=== PATIENT | female | born 1955 | race Hispanic/Latino ===

== ENCOUNTER 2022-09-05 13:10 | Emergency (ER) | payer OTHER ==
--- OUTSIDE RECORDS SUMMARY | 2022-09-05 13:27 | XMS REPORT | Continuity of Care Document ---
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 - [facility] Coronary Coronary Diagnosis Active Com mon artery artery Spirit disease disease - [facility] involving involving [facility] coronary coronary Medica l artery of artery of Cent er sy[place] heart heart without without angina angina pectoris pectoris Essential Essential Diagnosis Active C ommon (primary) (primary) Spir it hypertensi hypertensi - [facility] on on [facility] Allergies, Adverse Reactions, Alerts Allergy Allergy Status Severity Reaction(s) Onset Inactive Treating Comm ents Source Name Type Date Date Clinician Hydrocod Adverse Active nausea and Com mon one Reaction vomiting Spirit Bitartra - [facility] te [facility] Medications Ordered Filled Start Stop Current Ordering Indication Dosage Frequency Signature Comments Components Source Medication Medication Date Date Medication? Clinician (SIG) Name Name Aden Solorioarnulfoe 2017- Yes Jac 1 spray in Common 3-26 Valeria each Spirit 00:00: nostril - [facility] 00 [facility] Aspir-Low Aspir-Low Yes Jac 1 tablet Common Valeria [facility] Plavix Plavix Yes Jac 1 tablet Commo n Valeria [facility] Gemfibrozil Gemfibrozil Yes Jac 1 tablet Common Valeria [facility] Coreg Coreg Yes Jac not Common Valeria defined Spirit [facility] Niacin Niacin Yes Jac 1 tablet Commo n Valeria with food Spirit - CH[facility] Lovastatin Lovastatin Yes Jac 1 tablet Common Valeria with a Spirit meal [facility] Procedures This patient has no known procedures. Encounters Start End Encounter Admission Attending Care Care Encounter Source Date/Time Date/Time Type Type Clinicians Facility Department ID 2017-07-15 2017-07-15 Outpatient Quinton Reynolds [id number] Common 14:30:00 14:30:00 [facility] 2017-06-02 2017-06-02 Outpatient Quinton Reynolds [id number] Common 15:30:00 15:30:00 [facility] Results This patient has no known results.
[2022-09-05 14:12] LABS: Absolute Lymphocytes (CBC) 1.5 K/uL (0.7-4.9); Hematocrit 24.4 % (36.0-45.0); Lymphocytes % 24.9 % (15.3-44.8); MPV 8.6 fL (7.6-11.3); RBC Red Blood Cell Count 3.88 M/uL (3.86-4.86)
[2022-09-05 14:41] LABS: Albumin 3.9 g/dL (3.4-5.0); Bilirubin Total 0.4 mg/dL (0.2-1.0); Potassium 3.9 mEq/L (3.5-5.1); Protein, Total 7.3 g/dL (6.4-8.2)
--- NOTE | 2022-09-05 14:55 | EDPHYS ---
Physician Documentation [facility] Name: Jennifer Sherwood Age: 66 yrs Sex: Female : 1955 Arrival Date: 09/05/2022 Time: 13:10 Bed 16 Private MD: ED Physician West Reynoso HPI: 09/05 13:30 Patient is a 66-year-old female who has a history of hypertension prior PR and prior jr11 need for blood transfusions here for low hemoglobin. Patient went to get routine lab work 2 days ago, noted to have a hemoglobin around 7 so she was sent here for blood transfusion. Patient states she just feels generalized weakness fatigue, nonfocal, denies any melanotic stools, no hematochezia. No hematuria, no vaginal bleeding. Patient states they have done a work-up in the past and it has been nonrevealing.. Historical: - Allergies: 13:28 Hydrocodone; nj1 - PMHx: 13:28 Hypertension; Myocardial infarction; nj1 - PSHx: 13:28 Knee repair, right; nj1 - Immunization history:: Client reports receiving the 2nd dose of the Covid vaccine. - Social history:: Smoking status: Patient reports the use of cigarette tobacco products, smokes one-half pack cigarettes per day. ROS: 13:30 All other systems are negative. jr11 Exam: 13:30 Constitutional: This is a well developed, well nourished patient who is awake, alert, jr11 and in no acute distress. Head/Face: Normocephalic, atraumatic. ENT: Nares patent. No nasal discharge, no septal abnormalities noted. Oropharynx with no redness, swelling, or masses, exudates, or evidence of obstruction, uvula midline. Mucous membranes moist. Neck: Trachea midline, no thyromegaly or masses palpated, and no cervical lymphadenopathy. Supple, full range of motion without nuchal rigidity, or vertebral point tenderness. No Meningismus. Chest/axilla: Normal chest wall appearance and motion. Nontender with no deformity. No lesions are appreciated. Cardiovascular: Regular rate and rhythm with a normal S1 and S2. No gallops, murmurs, or rubs. Normal PMI, no JVD. No pulse deficits. Respiratory: Lungs have equal breath sounds bilaterally, clear to auscultation and percussion. No rales, rhonchi or wheezes noted. No increased work of breathing, no retractions or nasal flaring. Abdomen/GI: Soft, non-tender, with normal bowel sounds. No distension or tympany. No guarding or rebound. No evidence of tenderness throughout. Skin: Warm, dry with normal turgor. Normal color with no rashes, no lesions, and no evidence of cellulitis. MS/ Extremity: Pulses equal, no cyanosis. Neurovascular intact. Full, normal range of motion. Vital Signs: 13:23 BP 114 / 89; Pulse 90; Resp 18; Pulse Ox 100% ; Weight 66.68 kg; Height 5 ft. 0 in. ; nj1 Pain 0/10; 13:23 Body Mass Index 28.71 (66.68 kg, 152.4 cm) [facility] 13:23 Pain Scale: Adult nj1 MDM: 13:30 Differential Diagnosis anemia . Data reviewed: vital signs, nurses notes. [facility] 13:32 Patient medically screened. [facility] 14:52 ED course: Pt hemoglobin 7.4, no indication for emergent transfusion. Pt agrees with [facility] POC, will start taking her iron. . 09/05 13:31 Order name: CBC with Diff; Complete Time: 14:36 [facility] 09/05 13:31 Order name: CMP; Complete Time: 14:47 [facility] 09/05 13:31 Order name: Type And Screen; Complete Time: 15:05 [facility] 09/05 13:31 Order name: IV Saline Lock; Complete Time: 14:21 [facility] 09/05 13:31 Order name: Labs collected and sent; Complete Time: 14:21 [facility] Administered Medications: No medications were administered Disposition Summary: 09/05/22 14:55 Discharge Ordered Location: Home [facility] Condition: Stable [facility] Diagnosis - Iron deficiency anemia, unspecified 11 Followup: [facility] - With: Private Physician - When: 5 - 6 days - Reason: recheck hemoglobin Discharge Instructions: - Discharge Summary Sheet [facility] - Iron Deficiency Anemia, Adult [facility] Forms: - Medication Reconciliation Form jr11 - Thank You Letter jr11 - Antibiotic Education jr - Prescription Opioid Use [facility] - [email or web address] [facility] Signatures: Dispatcher [employer] EDMS West Reynoso MD MD 11 Ivania Fontaine RN RN nj1 Corrections: (The following items were deleted from the chart) 13:29 13:28 Allergies: Hydrocodone-Acetaminophen; nj1 nj1
--- NOTE | 2022-09-05 14:55 | ER ---
Nurse's Notes [facility] Name: Jennifer Sherwood Age: 66 yrs Sex: Female : 1955 Arrival Date: 09/05/2022 Time: 13:10 Bed 16 Private MD: Diagnosis: Iron deficiency anemia, unspecified Presentation: 09/05 13:23 Chief complaint: Patient states: Told by PCP to come to ED for a blood transfusion, Hgb nj1 7. Seen by PCP a couple weeks ago, blood work done day before yesterday. Has had a couple transfusions in the past, last one was 5 years ago. Denies any known bleeding. Coronavirus screen: Vaccine status: Patient reports receiving the 2nd dose of the covid vaccine. Ebola Screen: Patient denies travel to an Ebola-affected area in the 21 days before illness onset. Initial Sepsis Screen: Does the patient meet any 2 criteria? No. Patient's initial sepsis screen is negative. Does the patient have a suspected source of infection? No. Patient's initial sepsis screen is negative. Risk Assessment: Do you want to hurt yourself or someone else? Patient reports no desire to harm self or others. 13:23 Method Of Arrival: Ambulatory [facility] 13:23 Acuity: VAHE 3 nj1 Triage Assessment: 13:30 General: Appears in no apparent distress. Behavior is calm, cooperative, appropriate bp for age. Pain: Denies pain. EENT: No deficits noted. Neuro: No deficits noted. Cardiovascular: No deficits noted. Respiratory: No deficits noted. GI: No signs and/or symptoms were reported involving the gastrointestinal system. : No signs and/or symptoms were reported regarding the genitourinary system. Derm: Skin is pale. Musculoskeletal: No deficits noted. Historical: - Allergies: 13:28 Hydrocodone; nj1 - PMHx: 13:28 Hypertension; Myocardial infarction; nj1 - PSHx: 13:28 Knee repair, right; nj1 - Immunization history:: Client reports receiving the 2nd dose of the Covid vaccine. - Social history:: Smoking status: Patient reports the use of cigarette tobacco products, smokes one-half pack cigarettes per day. Screenin:22 [facility] ED Fall Risk Assessment (Adult) History of falling in the last 3 months, bp including since admission No falls in past 3 months (0 pts). Abuse screen: Denies threats or abuse. Denies injuries from another. Nutritional screening: No deficits noted. Tuberculosis screening: No symptoms or risk factors identified. Assessment: 13:30 General: SEE TRIAGE NOTE. bp Vital Signs: 13:23 BP 114 / 89; Pulse 90; Resp 18; Pulse Ox 100% ; Weight 66.68 kg; Height 5 ft. 0 in. ; nj1 Pain 0/10; 13:23 Body Mass Index 28.71 (66.68 kg, 152.4 cm) [facility] 13:23 Pain Scale: Adult [facility] ED Course: 13:13 Patient arrived in ED. im 13:14 West Reynoso MD is Attending Physician. [facility] 13:28 Triage completed. [facility] 13:29 Arm band placed on right wrist. [facility] 13:32 Lavon Hutchins, RN is Primary Nurse. bp 13:45 Inserted saline lock: 20 gauge in left antecubital area, using aseptic technique. Blood bp collected. 14:22 Patient has correct armband on for positive identification. Bed in low position. Call bp light in reach. Side rails up X2. 15:10 No provider procedures requiring assistance completed. IV discontinued, intact, bp bleeding controlled, No redness/swelling at site. Pressure dressing applied. Administered Medications: No medications were administered Outcome: 14:55 Discharge ordered by . 15:10 Discharged to home ambulatory. bp 15:10 Condition: stable 15:10 Discharge instructions given to patient, Instructed on discharge instructions, follow up and referral plans. Demonstrated understanding of instructions, follow-up care. 15:10 Patient left the ED. bp Signatures: Lavon Hutchins, RN RN West Reynoso MD MD jr Ivania Fontaine RN RN nj Alvina Alberto im Corrections: (The following items were deleted from the chart) 13:29 13:28 Allergies: Hydrocodone-Acetaminophen; [place] [id number]
[2022-09-05 15:16] VITALS: BP 114/89; O2SAT 100
== END 2022-09-05 15:10 | disposition home or self-care (01) ==
LOC: ER 13:10
DX: D50.9 Iron deficiency anemia, unspecified (principal); I10 Essential (primary) hypertension; F17.210 Nicotine dependence, cigarettes, uncomplicated; Z88.5 Allergy status to narcotic agent
CPT/HCPCS: 36415; 80053; 85025; 86850; 86900; 86901; 99283

== ENCOUNTER → 2023-05-04 | Emergency (ER) | payer OTHER ==
--- OUTSIDE RECORDS SUMMARY | 2023-05-04 13:26 | XMS REPORT | Continuity of Care Document ---
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 [facility] Coronary artery disease involving [place] coronary artery of [place] heart without angina pectoris Coronary artery disease involving [place] coronary artery of [place] heart without angina pectoris Diagnosis Active [facility] Essential (primary) hypertensi on Essential (primary) hypertensi on Diagnosis Active [facility] Allergies, Adverse Reactions, Alerts Allergy Name Allergy Type Status Severity Reaction(s) Onset Date Inactive Date Treating Clinician Comments Source Hydrocod one Bitartra te Adverse Reaction Active nausea and vomiting [facility] Medications Ordered Medication Name Filled Medication Name Start Date Stop Date Current Medication? Ordering Clinician Indication Dosage Frequency Signature (SIG) Comments Components Source Flonase Flonase 2017-06-02 00:00: 00 Yes Jac Shaw 1 spray in each nostril [facility] Lovastatin Lovastatin Yes Jac Rowlanda 1 tablet with a meal [facility] Aspir-Low Aspir-Low Yes Jac Rowladna 1 tablet [facility] Plavix Plavix Yes Jac Rowlanda 1 tablet [facility] Gemfibrozil Gemfibrozil Yes Jac Rowlanda 1 tablet [facility] Coreg Coreg Yes Jac Shaw not defined [facility] Niacin Niacin Yes Jac Shaw 1 tablet with food [facility] Encounters Start Date/Time End Date/Time Encounter Type Admission Type Attending Clinicians Care Facility Care Department Encounter ID Source 2023-04-28 16:33:00 Outpatient [facility] [id number] [facility] 2017-07-15 14:30:00 2017-07-15 14:30:00 Outpatient [facility] [id number] [facility] 2017-06-02 15:30:00 2017-06-02 15:30:00 Outpatient [facility] [id number] [facility]
--- NOTE | 2023-05-04 14:23 | RAD REPORT ---
EXAM DESCRIPTION: [place] Single View05/04/2023 2:07 pm CLINICAL HISTORY: Chest pain COMPARISON: 2020 FINDINGS: The lungs appear clear of acute infiltrate. The heart is normal size IMPRESSION: No acute abnormalities displayed
[2023-05-04 16:15] LABS: Protime INR 1.1
[2023-05-04 16:27] LABS: Potassium 3.4 mEq/L (3.5-5.1)
[2023-05-04 16:38] LABS: MPV 8.9 fL (7.6-11.3)
[2023-05-04 16:42] LABS: Absolute Lymphocytes (CBC) 1.6 K/uL (0.7-4.9); Hematocrit 25.4 % (36.0-45.0); Lymphocytes % 12.9 % (15.3-44.8); MCV 57.1 fL (80-100); Platelets 176 thou/uL (152-406); RBC Red Blood Cell Count 4.45 M/uL (3.86-4.86)
[2023-05-04 17:33] LABS: Anisocytosis 2+; Blood Morphology Comment NOTED (NOT SEEN); Hypochromasia 1+; Ovalocytes 2+; Platelet Estimate ADEQ; Poikilocytosis 2+; Polychromasia 1+; White Blood Cell Scan OK (OK)
--- NOTE | 2023-05-04 17:35 | ER ---
Nurse's Notes [facility] Name: Jennifer Sherwood Age: 67 yrs Sex: Female : 1955 Arrival Date: 05/04/2023 Time: 13:22 Bed 16 Private MD: Georgette Trevino Diagnosis: Chest pain, unspecified Presentation: 05/04 13:32 Chief complaint: Patient states: Chest pressure started 1 hour SKID MAN. Pain radiates into ll1 R neck/ear. Coronavirus screen: Client denies travel out of the [place] in the last 14 days. At this time, the client does not indicate any symptoms associated with coronavirus-19. Ebola Screen: Patient denies travel to an Ebola-affected area in the 21 days before illness onset. Initial Sepsis Screen: Does the patient meet any 2 criteria? No. Patient's initial sepsis screen is negative. Does the patient have a suspected source of infection? No. Patient's initial sepsis screen is negative. Risk Assessment: Do you want to hurt yourself or someone else? Patient reports no desire to harm self or others. Onset of symptoms was May 04, 2023. 13:32 Method Of Arrival: Ambulatory ll1 13:32 Acuity: VAHE 2 ll1 Historical: - Allergies: 13:31 HYDROCODONE; ll1 - PMHx: 13:31 Hypertension; Myocardial infarction; ll1 - PSHx: 13:31 Knee repair; ll1 - Immunization history:: Adult Immunizations up to date. - Social history:: Smoking status: Patient denies any tobacco usage or history of. Screenin:47 [facility] ED Fall Risk Assessment (Adult) History of falling in the last 3 months, cp4 including since admission No falls in past 3 months (0 pts). Abuse screen: Denies threats or abuse. Nutritional screening: No deficits noted. Tuberculosis screening: No symptoms or risk factors identified. Assessment: 13:47 General: Appears in no apparent distress. Behavior is calm, cooperative, appropriate cp4 for age. Pain: Pain radiates to right neck Pain began 1 hour ago. Cardiovascular: Reports chest pain, Chest pain began 1 hour prior to arrival. Vital Signs: 13:32 BP 137 / 65; Pulse 119; Resp 17; Temp 97.7; Pulse Ox 100% on R/A; Weight 63.5 kg; ll1 Height 5 ft. 0 in. ; Pain 6/10; 14:14 BP 114 / 69; Pulse 95; Resp 18; Pulse Ox 100% ; cp4 15:30 BP 123 / 98; Pulse 97; Resp 18; Pulse Ox 100% ; cp4 16:30 BP 132 / 56; Pulse 87; Resp 18; Pulse Ox 98% ; cp4 13:32 Body Mass Index 27.34 (63.50 kg, 152.4 cm) 1 13:32 Pain Scale: Adult [facility] ED Course: 13:24 Patient arrived in ED. mr 13:24 Jac Shaw MD is Private Physician. mr 13:25 Georgette Trevino DO is Private Physician. mr 13:31 Arm band placed on Patient placed in an exam room, on a stretcher. 1 13:33 Triage completed. 1 13:33 [facility]el Peck [facility] 13:33 Lawrence Spence MD is Attending Physician. [facility] 13:38 Milena Hernandez is Primary Nurse. cp4 13:47 Bed in low position. Call light in reach. Side rails up X 1. Client placed on cp4 continuous cardiac and pulse oximetry monitoring. NIBP monitoring applied. 13:49 No provider procedures requiring assistance completed. Inserted saline lock: 20 gauge cp4 in left antecubital area, using aseptic technique. Blood collected. Patient maintains SpO2 saturation greater than 95% on room air. 14:08 XRAY Chest (1 view) In Process Unspecified. EDTN 17:34 Georgette Trevino DO is Referral Physician. [facility] 17:38 Provided Education on: chest pain. cp4 17:38 intact, bleeding controlled, No redness/swelling at site. Pressure dressing applied. cp4 Administered Medications: No medications were administered Medication: 13:47 VIS not applicable for this client. cp4 Outcome: 17:35 Discharge ordered by . 7 17:38 Discharged to home ambulatory, cp4 17:38 Condition: stable 17:38 Discharge instructions given to patient, Instructed on discharge instructions, follow up and referral plans. Demonstrated understanding of instructions, follow-up care, 17:39 Patient left the ED. cp4 Signatures: Dispatcher [employer] EDTN Laura Rodriguez, Reg Reg mr Latisha Sheldon RN RN 1 Hazel Peck FNP BANKING REPRESENTATIVE [id number] Milena Hernandez cp4
--- NOTE | 2023-05-04 17:35 | EDPHYS ---
Physician Documentation [facility] Name: Jennifer Sherwood Age: 67 yrs Sex: Female : 1955 Arrival Date: 05/04/2023 Time: 13:22 Bed 16 Private MD: Georgette Trevino ED Physician Lawrence Spence HPI: 05/04 13:32 This 67 yrs old Female presents to ER via Ambulatory with complaints of Chest jh7 Pressure. 13:32 Onset: The symptoms/episode began/occurred 1 hour(s) ago. Associated signs and jh7 symptoms: The patient has no apparent associated signs or symptoms. 67-year-old female presents to the ER complaining of chest pressure radiating to left face x 1 hour. The patient denies any other symptoms. She has a history of hypertension and [place]. Denies cough and fever.. Historical: - Allergies: 13:31 HYDROCODONE; ll1 - PMHx: 13:31 Hypertension; Myocardial infarction; ll1 - PSHx: 13:31 Knee repair; ll1 - Immunization history:: Adult Immunizations up to date. - Social history:: Smoking status: Patient denies any tobacco usage or history of. ROS: 13:32 Constitutional: Negative for fever, chills, and weight loss, Eyes: Negative for injury, jh7 pain, redness, and discharge, Neck: Negative for injury, pain, and swelling, Respiratory: Negative for shortness of breath, cough, wheezing, and pleuritic chest pain, Abdomen/GI: Negative for abdominal pain, nausea, vomiting, diarrhea, and constipation, MS/Extremity: Negative for injury and deformity, Skin: Negative for injury, rash, and discoloration, Neuro: Negative for headache, weakness, numbness, tingling, and seizure, 13:32 Cardiovascular: Positive for chest pain, Negative for edema, palpitations, 13:32 All other systems are negative, Exam: 13:32 Constitutional: This is a well developed, well nourished patient who is awake, alert, jh7 and in no acute distress. Head/Face: Normocephalic, atraumatic. Eyes: Pupils equal round and reactive to light, extra-ocular motions intact. Lids and lashes normal. Conjunctiva and sclera are non-icteric and not injected. Cornea within normal limits. Periorbital areas with no swelling, redness, or edema. Neck: Trachea midline, no thyromegaly or masses palpated, and no cervical lymphadenopathy. Supple, full range of motion without nuchal rigidity, or vertebral point tenderness. No Meningismus. Cardiovascular: Regular rate and rhythm with a normal S1 and S2. No gallops, murmurs, or rubs. Normal PMI, no JVD. No pulse deficits. Respiratory: Lungs have equal breath sounds bilaterally, clear to auscultation and percussion. No rales, rhonchi or wheezes noted. No increased work of breathing, no retractions or nasal flaring. Abdomen/GI: Soft, non-tender, with normal bowel sounds. No distension or tympany. No guarding or rebound. No evidence of tenderness throughout. Back: No spinal tenderness. No costovertebral tenderness. Full range of motion. Skin: Warm, dry with normal turgor. Normal color with no rashes, no lesions, and no evidence of cellulitis. MS/ Extremity: Pulses equal, no cyanosis. Neurovascular intact. Full, normal range of motion. Neuro: Awake and alert, GCS 15, oriented to person, place, time, and situation. Motor strength 5/5 in all extremities. Sensory grossly intact. Normal gait. Vital Signs: 13:32 BP 137 / 65; Pulse 119; Resp 17; Temp 97.7; Pulse Ox 100% on R/A; Weight 63.5 kg; ll1 Height 5 ft. 0 in. ; Pain 6/10; 14:14 BP 114 / 69; Pulse 95; Resp 18; Pulse Ox 100% ; cp4 15:30 BP 123 / 98; Pulse 97; Resp 18; Pulse Ox 100% ; cp4 16:30 BP 132 / 56; Pulse 87; Resp 18; Pulse Ox 98% ; cp4 13:32 Body Mass Index 27.34 (63.50 kg, 152.4 cm) ll1 13:32 Pain Scale: Adult ll1 MDM: 13:33 Patient medically screened. [facility] 17:50 Differential diagnosis: bronchitis, pneumonia Acute [place], cardiac arrhythmia. Data [facility] reviewed: vital signs, nurses notes, lab test result(s), EKG, radiologic studies, plain films. Independent interpretation of the following test(s) in the Emergency Department EKG: See my EKG interpretation above. Historians other than the Patient: Spouse/Significant Other: . Care significantly affected by the following chronic conditions: Hypertension. Counseling: I had a detailed discussion with the patient and/or guardian regarding the historical points, exam findings, and any diagnostic results supporting the discharge/admit diagnosis, to return to the emergency department if symptoms worsen or persist or if there are any questions or concerns that arise at home. ED course: Discussed repeating the troponin level with the patient. The patient declined and stated that her symptoms resolved and that if she had had a heart attack it would have happened already. The patient requested discharge paperwork and stated she would return to the ER with any new symptoms.. 05/04 13:54 Order name: Basic Metabolic Panel; Complete Time: 16:59 [facility] 05/04 13:54 Order name: CBC with Diff; Complete Time: 17:52 [facility] 05/04 13:54 Order name: NT PRO-BNP; Complete Time: 16:59 [facility] 05/04 13:54 Order name: PT-INR; Complete Time: 16:59 [facility] 05/04 13:54 Order name: Troponin HS; Complete Time: 16:59 [facility] 05/04 16:46 Order name: CBC Smear Scan; Complete Time: 17:52 [facility] 05/04 13:54 Order name: XRAY Chest (1 view); Complete Time: 14:27 [facility] 05/04 13:54 Order name: EKG; Complete Time: 13:55 [facility] 05/04 13:54 Order name: Cardiac monitoring; Complete Time: 13:55 [facility] 05/04 13:54 Order name: EKG - Nurse/Tech; Complete Time: 14:15 [facility] 05/04 13:54 Order name: IV Saline Lock; Complete Time: 13:55 [facility] 05/04 13:54 Order name: Labs collected and sent; Complete Time: 13:55 [facility] 05/04 13:54 Order name: O2 Per Protocol; Complete Time: 13:55 [facility] 05/04 13:54 Order name: O2 Sat Monitoring; Complete Time: 13:55 [facility] EC:13 Rate is 101 beats/min. Rhythm is regular. QRS [place] is Normal. ID interval is normal at jh7 140 msec. QRS interval is normal at 72 msec. QT interval is normal at 370 msec. No Q waves. T waves are Normal. No ST changes noted. Clinical impression: Sinus tachycardia. Administered Medications: No medications were administered Disposition Summary: 05/04/23 17:35 Discharge Ordered Notes: Location: Home [facility] Problem: new [facility] Symptoms: have improved [facility] Condition: Stable [facility] Diagnosis - Chest pain, unspecified [facility] Followup: [facility] - With: Georgette Trevino DO - When: 2 - 3 days - Reason: Recheck today's complaints Discharge Instructions: - Discharge Summary Sheet [facility] - Nonspecific Chest Pain, Adult [facility] - Chest Wall Pain [facility] - Electrocardiogram [facility] Forms: - Medication Reconciliation Form [facility] - Thank You Letter [facility] - Patient Portal Instructions [facility] - Leadership Thank You Letter [facility] Signatures: Dispatcher [employer] Latisha Downs RN RN ll1 Hazel Peck FNP [employer] RESE[employer]ER [facility]
[2023-05-04 18:08] VITALS: BP 132/56; TEMP 97.7; O2SAT 98
--- NOTE | 2023-05-05 14:30 | EKG ---
Test Date: 2023-05-04 Test Time: 14:13:14 Welder Machine Operator: JESUSITA MEASUREMENT RESULTS: Intervals: Rate: 101 MO: 140 QRSD: 72 QT: 370 QTc: 479 Index: P: 89 MO: 140 QRS: 73 T: 66 INTERPRETIVE STATEMENTS: Sinus tachycardia Otherwise normal ECG Electronically Signed On 05-05-23 14:26:54 CABLE RESPOOLER by Rayo Ward
== END ==
LOC: ER 13:22
DX: R07.89 Other chest pain (principal); I10 Essential (primary) hypertension; I25.2 Old myocardial infarction; Z88.5 Allergy status to narcotic agent
CPT/HCPCS: 36415; 71045; 80048; 83880; 84484; 85025; 85610; 93005; 99284

== ENCOUNTER 2023-11-16 19:58 | Emergency (ER) | payer OTHER ==
[2023-11-16 20:27] LABS: Absolute Basophils 0.1 K/uL (0-0.5); Absolute Eosinophils 0.1 K/uL (0-0.5); Absolute Lymphocytes (CBC) 1.3 K/uL (0.7-4.9); Absolute Monocytes 0.2 K/uL (0.1-1.3); Absolute Neutrophil 4.3 K/uL (1.8-8.0); Basophils % 1.1 % (0-1.3); Eosinophils % 2.1 % (0-4.4); Hematocrit 28.5 % (36.0-45.0); Hemoglobin 8.9 g/dL (12.0-15.0); Lymphocytes % 22.5 % (15.3-44.8); MCH 21.8 pg (27.0-35.0); MCHC 31.2 g/dL (32.0-36.0); MCV 70.1 fL (80-100); MPV 9.1 fL (7.6-11.3); Monocytes % 2.6 % (3.3-12.3); Neutrophils % 71.7 % (41.7-73.7); Nucleated Red Blood Cells % 0.1 % (0-0); Platelets 226 thou/uL (152-406); RBC Red Blood Cell Count 4.07 M/uL (3.86-4.86); Red Cell Distribution Width 16.3 % (12.1-15.2)
[2023-11-16 20:40] LABS: PT Prothrombin Time 12.5 SECONDS (9.4-12.5); PTT, Activated Partial Thromb 28.6 SECONDS (24.3-36.9); Protime INR 1.12
[2023-11-16 20:47] LABS: Albumin 3.4 g/dL (3.4-5.0); Albumin/Globulin Ratio 1.1 (1.1-1.8); Anion Gap 11.4 mEq/L (5.0-15.0); Bilirubin Direct 0.3 mg/dL (0-0.2); Bilirubin Indirect, Calculated 0.3 mg/dL (0.2-0.8); Bilirubin Total 0.6 mg/dL (0.2-1.0); Globulin 3.2 g/dL (2.3-3.5); Magnesium 1.7 mg/dL (1.6-2.4); Potassium 3.4 mEq/L (3.5-5.1); Protein, Total 6.6 g/dL (6.4-8.2); Troponin High Sensitivity 32.2 pg/mL (<58.9)
--- NOTE | 2023-11-16 21:07 | RAD REPORT ---
EXAM DESCRIPTION: RAD - Chest Single View - 11/16/2023 9:02 pm CLINICAL HISTORY: Chest pain;COPD;Dyspnea Chest pain. COMPARISON: Chest Single View dated 09/28/2023; Chest Single View dated 07/26/2023; Chest Single View dated 05/04/2023; Chest Pa And Lat (2 Views) dated 10/06/2020 FINDINGS: Portable technique limits examination quality. The lungs are emphysematous but grossly clear. The heart is upper limit of normal in size. No displac ed fractures. IMPRESSION: COPD.
[2023-11-16 21:42] LABS: Blood Morphology Comment NOTED (NOT SEEN); Hypochromasia 1+; Platelet Estimate ADEQ; White Blood Cell Scan OK (OK)
--- NOTE | 2023-11-16 22:27 | RAD REPORT ---
EXAM DESCRIPTION: CT - Chest For Pe Angio - 11/16/2023 10:18 pm CLINICAL HISTORY: Chest pain. Chest pain;SOB COMPARISON: Chest For Pe Angio dated 09/28/2023 TECHNIQUE: CT angiogram of the pulmonary arteries was performed with MIP. All CT scans are performed using dose optimization technique as appropriate and may include automated exposure control or mA/KV adjustment according to patient size. FINDINGS: No evidence of pulmonary thromboembolism. Thoracic aorta is suboptimally contrast opacified. The lungs are mildly emphysematous. No significant pericardial or pleural fluid. No concerning bony finding. Left adrenal adenoma suspected. IMPRESSION: No evidence of pulmonary thromboembolism. COPD.
--- NOTE | 2023-11-16 22:34 | ER ---
Nurse's Notes [facility] Name: Jennifer Sherwood Age: 68 yrs Sex: Female : 1955 Arrival Date: 11/16/2023 Time: 19:58 Bed 8 Private MD: Diagnosis: COPD/ Chronic obstructive pulmonary disease with (acute) exacerbation Presentation: 11/15 20:13 Chief complaint: EMS states: difficulty breathing, with wheezes and nausea. Was in the tm6 tripod position upon EMS arrival. O2 sat was 98% RA. Given CAROLYN, zofran, solumedrol. NRB applied to help with HR, which was 135. Coronavirus screen: Vaccine status: Patient reports receiving the 2nd dose of the covid vaccine. Ebola Screen: Patient negative for fever greater than or equal to 101.5 degrees Fahrenheit, and additional compatible Ebola Virus Disease symptoms Patient denies exposure to infectious person. Patient denies travel to an Ebola-affected area in the 21 days before illness onset. No symptoms or risks identified at this time. Initial Sepsis Screen: Does the patient meet any 2 criteria? RR > 20 per min. HR > 90 bpm. Does the patient have a suspected source of infection? No. Patient's initial sepsis screen is negative. Risk Assessment: Do you want to hurt yourself or someone else? Patient reports no desire to harm self or others. Onset of symptoms was November 16, 2023. Care prior to arrival: Medication(s) given: Albuterol Neb x 1, Atrovent Neb x 1, zofran 4 mg, 125mg solumedrol. 20:13 Method Of Arrival: EMS: [facility] tm6 20:13 Acuity: VAHE 3 tm6 20:15 Care prior to arrival: IV initiated. 20 GA, in the right antecubital area, flushed, vc1 blood collected. Triage Assessment: 20:16 General: Appears uncomfortable, Behavior is calm, cooperative. Pain: Denies pain. EENT: tm6 No signs and/or symptoms were reported regarding the EENT system. Neuro: Level of Consciousness is awake, alert, obeys commands, Oriented to person, place, time, situation. Cardiovascular: Patient's skin is warm and dry. Rhythm is sinus tachycardia. Respiratory: Reports shortness of breath Airway is patent Respiratory effort is labored, Respiratory pattern is tachypnea. GI: Abdomen is flat, non-distended, Reports nausea. : No signs and/or symptoms were reported regarding the genitourinary system. Derm: No signs and/or symptoms reported regarding the dermatologic system. Musculoskeletal: No signs and/or symptoms reported regarding the musculoskeletal system. Historical: - Allergies: 20:16 HYDROCODONE; tm6 - PMHx: 20:16 Chronic obstructive lung disease; Hypertension; Myocardial infarction; Atrial tm6 fibrillation; Congestive heart failure; - PSHx: 20:16 Knee repair; coronary stents; tm6 - Immunization history:: Client reports receiving the 2nd dose of the Covid vaccine. - Infectious Disease History:: Denies. - Social history:: Smoking status: Patient reports the use of cigarette tobacco products, denies chronic smoking, but will smoke occasionally, Patient/guardian denies using alcohol. Screenin:39 [facility] ED Fall Risk Assessment (Adult) History of falling in the last 3 months, al5 including since admission No falls in past 3 months (0 pts) Confusion or Disorientation No (0 pts) Intoxicated or Sedated No (0 pts) Impaired Gait No (0 pts) Mobility Assist Device Used No (0 pt) Altered Elimination No (0 pt) Score/Fall Risk Level 0 - 2 = Low Risk Oriented to surroundings, Maintained a safe environment, Hourly rounding (assess needs \T\ fall precautionary measures) done. Abuse screen: Denies threats or abuse. Denies injuries from another. Nutritional screening: No deficits noted. Tuberculosis screening: No symptoms or risk factors identified. Assessment: 20:44 General: Appears in no apparent distress. Behavior is calm, cooperative. Pain: Denies al5 pain. Neuro: Level of Consciousness is awake, alert, obeys commands, Oriented to person, place, time, situation. Cardiovascular: Capillary refill < 3 seconds Patient's skin is warm and dry. Respiratory: Airway is patent Respiratory effort is even, unlabored, Respiratory pattern is regular, symmetrical. Respiratory: Reports shortness of breath at rest on exertion. GI: No signs and/or symptoms were reported involving the gastrointestinal system. : No signs and/or symptoms were reported regarding the genitourinary system. EENT: No signs and/or symptoms were reported regarding the EENT system. Derm: Skin is intact, Skin is pink, warm \T\ dry. normal. Musculoskeletal: No signs and/or symptoms reported regarding the musculoskeletal system. 22:24 Reassessment: Patient appears in no apparent distress at this time. No changes from vc1 previously documented assessment. Patient and/or family updated on plan of care and expected duration. Pain level reassessed. 22:56 Reassessment: Patient appears in no apparent distress at this time. Patient and/or jb4 family updated on plan of care and expected duration. Pain level reassessed. Patient is alert, oriented x 3, equal unlabored respirations, skin warm/dry/pink. 11/16 12:01 Reassessment: PER LAB, BLOOD CX GRAM+ COCCI IN PAIRS AND CLUSTER. PT CONTACTED AND bp INFORMED, ADVISED TO RETURN TO ER. 15:12 Reassessment: PT APPEARED AT ER BUT DECLINED TO REGISTER TO BE SEEN. ADVISED TO FOR bp RE-EVAL BUT DECLINED. AFTER C/S WITH ATTENDING, PT AGREED TO NEW ABX RX, CALLED IN TO [facility] 750MG PO DAILY FOR 7 DAYS. Vital Signs: 11/15 20:00 BP 105 / 72; Pulse 118; Resp 22; Pulse Ox 92% on R/A; al5 20:13 BP 114 / 95; Pulse 121; Resp 25; Temp 97.7(O); Pulse Ox 97% on R/A; Weight 54.43 kg; tm6 Height 5 ft. 0 in. ; Pain 0/10; 20:30 BP 103 / 65; Pulse 110; Resp 16; Pulse Ox 92% on R/A; al5 21:00 BP 100 / 66; Pulse 72; Resp 19; Pulse Ox 94% on R/A; al5 22:00 BP 123 / 90; Pulse 111; Resp 18; Pulse Ox 100% on 2 lpm NC; al5 22:25 BP 107 / 68; Pulse 110; Resp 19; Pulse Ox 96% ; vc1 22:30 BP 121 / 76; Pulse 111; Resp 18; Pulse Ox 99% on 2 lpm NC; al5 20:13 Body Mass Index 23.44 (54.43 kg, 152.4 cm) tm6 20:13 Pain Scale: Adult tm6 ED Course: 20:03 Patient arrived in ED. jb4 20:04 Jeannie Gould PA-C is PHCP. sb4 20:04 Rex Eli MD is Attending Physician. sb4 20:13 EKG done, by ED staff, reviewed by Jeannie Gould PA-C. tm6 20:16 Triage completed. tm6 20:16 Arm band placed on right wrist. tm6 20:27 Clarice Robledo, RN is Primary Nurse. vc1 20:40 No provider procedures requiring assistance completed. Maintain EMS IV. Dressing al5 intact. Good blood return noted. Site clean \T\ dry. Gauge \T\ site: 20g RAC. Flushed with 10 mL NS. 20:40 Patient has correct armband on for positive identification. Bed in low position. Call al5 light in reach. Side rails up X2. Provided Education on: processes and procedures. 21:03 XRAY CXR (1 view) In Process Unspecified. EDMS 22:19 Chest For PE Angio CT In Process Unspecified. EDMS 22:56 IV discontinued, intact, bleeding controlled, No redness/swelling at site. Pressure jb4 dressing applied. Administered Medications: No medications were administered Medication: 20:41 VIS not applicable for this client. al5 Outcome: 22:34 Discharge ordered by . sb4 22:56 Discharged to home via wheelchair, with family, jb4 22:56 Condition: stable 22:56 Discharge instructions given to patient, Instructed on discharge instructions, follow up and referral plans. medication usage, Demonstrated understanding of instructions, follow-up care, medications, Prescriptions given X 1, 22:57 Patient left the ED. jb4 Addendum: 11/19/2023 14:52 Addendum: Other patient contacted regarding blood culture result. States she is taking l l1 antibiotics as prescribed, getting better everyday. Will follow-up with PCP as soon as possible. Signatures: Dispatcher [employer] EDMS Reynaldo Dill RN RN jb4 Lavon Hutchins RN Latisha Rebolledo RN RN ll1 Clarice Robledo, RN RN 1 Jeannie Gould PA-C PA-C sb4 Christina Church RN RN tm6 Argelia Cortes RN RN al5
--- NOTE | 2023-11-16 22:34 | EDPHYS ---
Physician Documentation [facility] Name: Jennifer Sherwood Age: 68 yrs Sex: Female : 1955 Arrival Date: 11/16/2023 Time: 19:58 Bed 8 Private MD: ED Physician Rex Eli HPI: 11/15 20:28 This 68 yrs old Female presents to ER via EMS with complaints of Shortness Of sb4 Breath. 20:28 Patient with history of COPD, atrial fibrillation, congestive heart failure states that sb4 she has been having progressively worsening shortness of breath throughout the week. States that she was doing laundry this evening when it all of a sudden got worse. Her family called EMS. EMS states that she was tripoding upon arrival so they placed her on a nonrebreather, administered a breathing treatment and Solu-Medrol and she improved greatly. Patient states that her symptoms have almost complete resolved since arriving. She denies any chest pain or shortness of breath. Reports compliance with her medications. States that she does still smoke cigarettes, but has cut back. Historical: - Allergies: 20:16 HYDROCODONE; tm6 - PMHx: 20:16 Chronic obstructive lung disease; Hypertension; Myocardial infarction; Atrial tm6 fibrillation; Congestive heart failure; - PSHx: 20:16 Knee repair; coronary stents; tm6 - Immunization history:: Client reports receiving the 2nd dose of the Covid vaccine. - Infectious Disease History:: Denies. - Social history:: Smoking status: Patient reports the use of cigarette tobacco products, denies chronic smoking, but will smoke occasionally, Patient/guardian denies using alcohol. ROS: 20:28 Constitutional: Negative for fever, chills, and weight loss, sb4 20:28 Respiratory: Positive for shortness of breath, 20:28 All other systems are negative, Exam: 20:28 Constitutional: This is a well developed, well nourished patient who is awake, alert, sb4 and in no acute distress. Head/Face: Normocephalic, atraumatic. Eyes: Extra-ocular motions intact. Periorbital areas with no swelling, redness, or edema. ENT: Mucous membranes moist. Cardiovascular: Regular rate and rhythm with a normal S1 and S2. Respiratory: Lungs have equal breath sounds bilaterally, clear to auscultation and percussion. No rales, rhonchi or wheezes noted. No increased work of breathing, no retractions or nasal flaring. Abdomen/GI: Soft, non-tender, no distension. Skin: Warm, dry with normal turgor. Normal color with no rashes, no lesions, and no evidence of cellulitis. MS/ Extremity: Pulses equal, no cyanosis. Neurovascular intact. Full, normal range of motion. Vital Signs: 20:00 BP 105 / 72; Pulse 118; Resp 22; Pulse Ox 92% on R/A; al5 20:13 BP 114 / 95; Pulse 121; Resp 25; Temp 97.7(O); Pulse Ox 97% on R/A; Weight 54.43 kg; tm6 Height 5 ft. 0 in. ; Pain 0/10; 20:30 BP 103 / 65; Pulse 110; Resp 16; Pulse Ox 92% on R/A; al5 21:00 BP 100 / 66; Pulse 72; Resp 19; Pulse Ox 94% on R/A; al5 22:00 BP 123 / 90; Pulse 111; Resp 18; Pulse Ox 100% on 2 lpm NC; al5 22:25 BP 107 / 68; Pulse 110; Resp 19; Pulse Ox 96% ; vc1 22:30 BP 121 / 76; Pulse 111; Resp 18; Pulse Ox 99% on 2 lpm NC; al5 20:13 Body Mass Index 23.44 (54.43 kg, 152.4 cm) tm6 20:13 Pain Scale: Adult tm6 MDM: 20:04 Patient medically screened. sb4 22:33 Antibiotic administration: Not indicated, the patient does not have an appreciated sb4 infiltrate. Data reviewed: vital signs, nurses notes, EMS record, lab test result(s), EKG, radiologic studies, and as a result, I will discharge patient. Consideration of Admission/Observation Escalation of care including admission/observation considered. Counseling: I had a detailed discussion with the patient and/or guardian regarding the historical points, exam findings, and any diagnostic results supporting the discharge/admit diagnosis, lab results, radiology results, the need for outpatient follow up, a service operations manager, a mechanical press operator, to return to the emergency department if symptoms worsen or persist or if there are any questions or concerns that arise at home, smoking cessation. ED course: recommended admission for patient due to low oxygen saturation and tachycardia but she refused, wants to go home, will follow up with cardiology and pulmonology this week. 11/15 20:10 Order name: BMP; Complete Time: 20:52 sb4 11/15 20:10 Order name: Blood Culture Adult (2) sb4 11/15 20:10 Order name: CBC with Diff; Complete Time: 21:43 sb4 11/15 20:10 Order name: Hepatic Function; Complete Time: 20:52 sb4 11/15 20:10 Order name: Lipase; Complete Time: 20:52 sb4 11/15 20:10 Order name: Magnesium; Complete Time: 20:52 sb4 11/15 20:10 Order name: NT PRO-BNP; Complete Time: 20:52 sb4 11/15 20:10 Order name: PT-INR; Complete Time: 20:52 sb4 11/15 20:10 Order name: Ptt, Activated; Complete Time: 20:52 sb4 11/15 20:10 Order name: Troponin HS; Complete Time: 20:52 sb4 11/15 20:36 Order name: CBC Smear Scan; Complete Time: 21:43 EDAR 11/15 20:10 Order name: XRAY CXR (1 view); Complete Time: 21:07 sb4 11/15 21:28 Order name: Chest For PE Angio CT; Complete Time: 22:28 sb4 11/15 20:10 Order name: EKG; Complete Time: 20:11 sb4 11/15 20:10 Order name: Cardiac monitoring; Complete Time: 20:24 sb4 11/15 20:10 Order name: EKG - Nurse/Tech; Complete Time: 20:24 sb4 11/15 20:10 Order name: IV Saline Lock; Complete Time: 20:27 sb4 11/15 20:10 Order name: Labs collected and sent; Complete Time: 20:27 sb4 11/15 20:10 Order name: O2 Per Protocol; Complete Time: 20:24 sb4 11/15 20:10 Order name: O2 Sat Monitoring; Complete Time: 20:24 sb4 EC:14 Rate is 117 beats/min. Rhythm is irregular, Sinus tachycardia with Occasional PVCs. [place] sb4 interval is normal at 144 msec. QRS interval is normal at 78 msec. QT interval is normal at 288 msec. No Q waves. Clinical impression: Sinus tachycardia and No evidence of ischemia. Interpreted by me. Administered Medications: No medications were administered Disposition Summary: 11/16/23 22:34 Discharge Ordered Notes: Location: Home sb4 Problem: an acute exacerbation sb4 Symptoms: have improved sb4 Condition: Stable sb4 Diagnosis - COPD/ Chronic obstructive pulmonary disease with (acute) exacerbation sb4 Followup: sb4 - With: Emergency Department - When: As needed - Reason: Trouble breathing, Worsening of condition Discharge Instructions: - Discharge Summary Sheet sb4 - Chronic Obstructive Pulmonary Disease Exacerbation sb4 Forms: - Patient Portal Instructions sb4 - Leadership Thank You Letter sb4 Prescriptions: - Prednisone 20 mg Oral Tablet - take 1 tablet ORAL route every 12 hours for 5 days; 10 tablet; Refills: 0, sb4 Product Selection Permitted Addendum: 11/18/2023 00:36 I was immediately available for consultation during this patient's visit. I did not e c2 personally see the patient or discuss the patient with the NUVIA. . Signatures: Dispatcher [employer] Jeannie York PA-C PA-C sb4 Rex Eli MD MD ec2 Christina Church RN RN tm6 Corrections: (The following items were deleted from the chart) 11/15 20:11 20:11 BASIC METABOLIC PANEL+C.LAB.BRZ ordered. EDAR EDMS 20:11 20:11 BLOOD CULTURE*+BA.LAB.BRZ ordered. EDAR EDMS 20:11 20:11 CBC+H.LAB.BRZ ordered. EDAR EDMS 20:11 20:11 HEPATIC FUNCTION+C.LAB.BRZ ordered. EDAR EDMS 20:11 20:11 LIPASE+C.LAB.BRZ ordered. EDMS EDMS 20:11 20:11 MAGNESIUM+C.LAB.BRZ ordered. EDMS EDMS 20:11 20:11 PROBNP+C.LAB.BRZ ordered. EDMS EDMS 20:11 20:11 PROTIME (+INR)+COAG.LAB.BRZ ordered. EDMS EDMS 20:11 20:11 PTT, ACTIVATED+COAG.LAB.BRZ ordered. EDAR EDMS 20:11 20:11 Troponin High Sensitivity+C.LAB.BRZ ordered. EDAR EDMS 21:29 21:29 Chest For PE Angio+CT.RAD.BRZ ordered. EDMS EDMS
[2023-11-16 23:04] VITALS: TEMP 97.7
[2023-11-16 23:10] VITALS: BP 121/76; O2SAT 99
--- NOTE | 2023-11-18 16:58 | EKG ---
Test Date: 2023-11-16 Test Time: 20:10:51 Pr Internship: ARUN MEASUREMENT RESULTS: Intervals: Rate: 117 AK: 144 QRSD: 78 QT: 288 QTc: 401 [place]: P: 79 AK: 144 QRS: 29 T: 90 INTERPRETIVE STATEMENTS: Sinus tachycardia with premature supraventricular complexes Nonspecific T wave abnormality Abnormal ECG Compared to ECG 09/28/2023 12:38:20 T-wave abnormality now present Myocardial infarct finding no longer present Electronically Signed On 11-18-23 16:53:36 CDT by Rayo Ward
== END 2023-11-16 22:57 | disposition home or self-care (01) ==
LOC: ER 19:58
DX: J44.1 Chronic obstructive pulmonary disease with (acute) exacerbation (principal); I10 Essential (primary) hypertension; I25.2 Old myocardial infarction; I48.91 Unspecified atrial fibrillation; I50.9 Heart failure, unspecified; Z88.5 Allergy status to narcotic agent
CPT/HCPCS: 93005; 87040; 85025; 80048; 36415; 83735; 87205 ×2; 85610; 80076; 85730; 87077; 87186; 84484; 83690; 83880; 71275; 71045; 99284; Q9967

== ENCOUNTER 2023-12-08 21:23 | Emergency (ER) | payer OTHER ==
[2023-12-08] MEDS ORDERED: ALBUTEROL 2.5 MG/3 ML NEB SOL ONE (21:52)
[2023-12-08] MEDS ORDERED: predniSONE 20 MG TAB ONE (21:52)
[2023-12-08] MEDS ORDERED: IPRATROPIUM BROM 0.5MG/2.5ML ONE (21:52)
[2023-12-08 22:33] LABS: Albumin 3.4 g/dL (3.4-5.0); Albumin/Globulin Ratio 1.1 (1.1-1.8); Anion Gap 3.5 mEq/L (5.0-15.0); Bilirubin Direct 0.2 mg/dL (0-0.2); Bilirubin Indirect, Calculated 0.3 mg/dL (0.2-0.8); Bilirubin Total 0.5 mg/dL (0.2-1.0); Globulin 3.1 g/dL (2.3-3.5); Potassium 3.5 mEq/L (3.5-5.1); Protein, Total 6.5 g/dL (6.4-8.2); Troponin High Sensitivity 23.9 pg/mL (<58.9)
[2023-12-08 22:39] LABS: Absolute Basophils 0.1 K/uL (0-0.5); Absolute Eosinophils 0.1 K/uL (0-0.5); Absolute Monocytes 0.5 K/uL (0.1-1.3); Absolute Neutrophil 5.9 K/uL (1.8-8.0); Eosinophils % 1.1 % (0-4.4); Hematocrit 25.4 % (36.0-45.0); Hemoglobin 7.7 g/dL (12.0-15.0); Lymphocytes % 12.7 % (15.3-44.8); MCH 20.9 pg (27.0-35.0); MCHC 30.5 g/dL (32.0-36.0); MCV 68.6 fL (80-100); MPV 9.2 fL (7.6-11.3); Monocytes % 6.3 % (3.3-12.3); Neutrophils % 78.9 % (41.7-73.7); Nucleated Red Blood Cells % 0.1 % (0-0); Platelets 235 thou/uL (152-406); Red Cell Distribution Width 18.8 % (12.1-15.2)
--- NOTE | 2023-12-08 22:42 | RAD REPORT ---
Procedure: Chest Single View History: Shortness of breath Comparison: September 2023 The lungs appear clear of acute infiltrate. Lungs are hyperaerated. No significant pleural effusion noted. The heart is mildly enlarged IMPRESSION: No acute abnormality is displayed.
--- NOTE | 2023-12-08 22:49 | EDPHYS ---
Physician Documentation [facility] Name: Jennifer Sherwood Age: 68 yrs Sex: Female : 1955 Arrival Date: 12/08/2023 Time: 21:23 Bed 8 Private MD: ED Physician Douglas Russ HPI: 12/07 22:32 This 68 yrs old Female presents to ER via EMS with complaints of shortness of rt breath. 22:32 Patient with history of CHF, COPD presents to the ED with 3 days of shortness of rt breath. Patient received a DuoNeb prior to arrival which has improved her symptoms, she is still short of breath with a cough. Denies other acute complaints, symptoms are moderate in severity, no other aggravating or alleviating factors.. Historical: - Allergies: 22:12 HYDROCODONE; bm8 - Home Meds: 22:12 Unable to obtain [Active]; bm8 - PMHx: 22:12 Atrial fibrillation; Chronic obstructive lung disease; Congestive heart failure; bm8 Hypertension; Myocardial infarction; - PSHx: 22:12 coronary stents; Knee repair; bm8 - Immunization history:: Adult Immunizations up to date. - Infectious Disease History:: Denies. - Social history:: Smoking status: Patient reports the use of cigarette tobacco products. - Family history:: not pertinent. ROS: 22:32 Constitutional: Negative for fever, chills, and weight loss, Cardiovascular: Negative rt for chest pain, palpitations, and edema, Abdomen/GI: Negative for abdominal pain, nausea, vomiting, diarrhea, and constipation, MS/Extremity: Negative for injury and deformity, Skin: Negative for injury, rash, and discoloration, Neuro: Negative for headache, weakness, numbness, tingling, and seizure, 22:32 Respiratory: Positive for cough, shortness of breath, Exam: 22:32 ECG was reviewed by the Attending Physician. rt 22:32 Respiratory: Wheezes, diminished breath sounds in all lung asini, no respiratory distress, Vital Signs: 22:00 BP 118 / 71; Pulse 119; Resp 18; Temp 97.8; Pulse Ox 97% on R/A; Weight 45.36 kg; bm8 Height 5 ft. 1 in. ; Pain 0/10; 22:20 BP 111 / 70; Pulse 109; Resp 19; Temp 97.8; Pulse Ox 100% on Nebulizer Mask; Pain 0/10; bm8 22:55 BP 121 / 76; Pulse 107; Resp 20; Temp 97.8; Pulse Ox 98% on R/A; Pain 0/10; bm8 22:00 Body Mass Index 18.89 (45.36 kg, 154.94 cm) bm8 22:00 Pain Scale: Adult bm8 22:20 Pain Scale: Adult bm8 22:55 Pain Scale: Adult bm8 [place] Coma Score: 22:20 Eye Response: spontaneous(4). Motor Response: obeys commands(6). Verbal Response: bm8 oriented(5). Total: 15. 22:55 Eye Response: spontaneous(4). Motor Response: obeys commands(6). Verbal Response: bm8 oriented(5). Total: 15. MDM: 21:32 Patient medically screened. rt 23:05 Differential Diagnosis COPD, CHF, pneumonia. Data reviewed: vital signs, nurses notes, rt lab test result(s), EKG, radiologic studies. Consideration of Admission/Observation Escalation of care including admission/observation considered. Stable vital signs, symptoms significantly improving with treatment in the ED, no indications for admission at this time.. I considered the following discharge prescriptions or medication management in the emergency department Medications were administered in the Emergency Department. See MAR. Independent interpretation of the following test(s) in the Emergency Department X-Ray: My interpretation is No consolidation seen on my interpretation of x-ray images. Test considered but Not performed: CT: Low suspicion for pulmonary embolus, CT angiogram not indicated. Care significantly affected by the following chronic conditions: Congestive Heart Failure, Obesity. Counseling: I had a detailed discussion with the patient and/or guardian regarding the historical points, exam findings, and any diagnostic results supporting the discharge/admit diagnosis, lab results, radiology results, the need for outpatient follow up, to return to the emergency department if symptoms worsen or persist or if there are any questions or concerns that arise at home. Response to treatment: the patient's symptoms have markedly improved after treatment. 12/07 21:32 Order name: Basic Metabolic Panel; Complete Time: 22:42 rt 12/07 21:32 Order name: CBC with Diff rt 12/07 21:32 Order name: LFT's; Complete Time: 22:42 rt 12/07 21:32 Order name: Magnesium; Complete Time: 22:42 rt 12/07 21:32 Order name: NT PRO-BNP; Complete Time: 22:42 rt 12/07 21:32 Order name: Troponin HS; Complete Time: 22:42 rt 12/07 22:43 Order name: CBC Smear Scan EDAL 12/07 21:32 Order name: XRAY Chest (1 view); Complete Time: 22:43 rt 12/07 21:32 Order name: Cardiac monitoring; Complete Time: 22:10 rt 12/07 21:32 Order name: EKG - Nurse/Tech; Complete Time: 22:10 rt 12/07 21:32 Order name: IV Saline Lock; Complete Time: 22:10 rt 12/07 21:32 Order name: Labs collected and sent; Complete Time: 22:10 rt 12/07 21:32 Order name: O2 Per Protocol; Complete Time: 22:10 rt 12/07 21:32 Order name: O2 Sat Monitoring; Complete Time: 22:10 rt EC:32 Rate is 117 beats/min. Rhythm is regular, Sinus tachycardia with No ectopy. QRS [place] is rt Normal. NC interval is normal. QRS interval is normal. QT interval is normal. No Q waves. Administered Medications: 22:21 Drug: DuoNeb Nebulize (3:1) (2.5 mg - 0.5 mg) 3 ml Nebulizer once Route: Nebulizer; bm8 22:52 Follow up: Response: No adverse reaction; Marked relief of symptoms lg3 22:21 Drug: predniSONE PO 40 mg PO once Route: PO; bm8 22:52 Follow up: Response: No adverse reaction lg3 Disposition Summary: 12/08/23 22:49 Discharge Ordered Notes: Location: Home rt Problem: new rt Symptoms: have improved rt Condition: Stable rt Diagnosis - COPD/ Chronic obstructive pulmonary disease with (acute) exacerbation rt Followup: rt - With: Private Physician - When: 2 - 3 days - Reason: Discharge Instructions: - Discharge Summary Sheet rt - Chronic Obstructive Pulmonary Disease rt Forms: - Medication Reconciliation Form rt - Antibiotic Education rt - Prescription Opioid Use rt - Patient Portal Instructions rt - Leadership Thank You Letter rt Prescriptions: - Prednisone 20 mg Oral Tablet - take 2 tablets ORAL route once daily for 5 days; 10 tablet; Refills: 0, Product rt Selection Permitted Signatures: Dispatcher [employer] Douglas Camejo MD MD rt Brandyn Rueda, RN RN bm8 Nesha Naranjo RN lg3 Corrections: (The following items were deleted from the chart) 21:33 21:33 BASIC METABOLIC PANEL+C.LAB.BRZ ordered. EDMS EDMS 21:33 21:33 CBC+H.LAB.BRZ ordered. EDMS EDMS 21:33 21:33 HEPATIC FUNCTION+C.LAB.BRZ ordered. EDMS EDMS 21:33 21:33 MAGNESIUM+C.LAB.BRZ ordered. EDMS EDMS 21:33 21:33 PROBNP+C.LAB.BRZ ordered. EDMS EDMS 21:33 21:33 Troponin High Sensitivity+C.LAB.BRZ ordered. EDMS EDMS 21:33 21:33 Chest Single View+RAD.RAD.BRZ ordered. EDMS EDMS
--- NOTE | 2023-12-08 22:49 | ER ---
Nurse's Notes [facility] Name: Jennifer Sherwood Age: 68 yrs Sex: Female : 1955 Arrival Date: 12/08/2023 Time: 21:23 Bed 8 Private MD: Diagnosis: COPD/ Chronic obstructive pulmonary disease with (acute) exacerbation Presentation: 12/07 22:00 Chief complaint: Patient states: i have been short of breath and having trouble bm8 breathing for three days. 22:00 Method Of Arrival: EMS: [facility] bm8 22:00 Coronavirus screen: Vaccine status: At this time, the client does not indicate any bm8 symptoms associated with coronavirus-19. Ebola Screen: Patient negative for fever greater than or equal to 101.5 degrees Fahrenheit, and additional compatible Ebola Virus Disease symptoms Patient denies exposure to infectious person. Patient denies travel to an Ebola-affected area in the 21 days before illness onset. No symptoms or risks identified at this time. Initial Sepsis Screen: Does the patient meet any 2 criteria? No. Patient's initial sepsis screen is negative. Does the patient have a suspected source of infection? No. Patient's initial sepsis screen is negative. Risk Assessment: Do you want to hurt yourself or someone else? Patient reports no desire to harm self or others. Onset of symptoms was December 05, 2023. 22:00 Acuity: VAHE 3 bm8 22:14 Care prior to arrival: IV initiated. 20 GA, in the left forearm. bm8 Triage Assessment: 22:12 General: Appears in no apparent distress. comfortable, Behavior is calm, cooperative, bm8 appropriate for age. Pain: Complains of pain in chest Pain currently is 0 out of 10 on a pain scale. EENT: No deficits noted. No signs and/or symptoms were reported regarding the EENT system. Neuro: No deficits noted. Level of Consciousness is awake, alert, obeys commands, Oriented to person, place, time, situation, Appropriate for age. Cardiovascular: Reports shortness of breath, Heart tones S1 S2 present. Cardiovascular: Capillary refill < 3 seconds in bilateral fingers toes Clubbing of nail beds is present JVD is absent Patient's skin is warm and dry. Rhythm is sinus tachycardia. Respiratory: Airway is patent Respiratory effort is even, unlabored, Respiratory pattern is regular, symmetrical, Breath sounds are diminished bilaterally. the patient has mild shortness of breath. GI: No signs and/or symptoms were reported involving the gastrointestinal system. : No signs and/or symptoms were reported regarding the genitourinary system. Derm: No signs and/or symptoms reported regarding the dermatologic system. Musculoskeletal: No signs and/or symptoms reported regarding the musculoskeletal system. Historical: - Allergies: 22:12 HYDROCODONE; bm8 - Home Meds: 22:12 Unable to obtain [Active]; bm8 - PMHx: 22:12 Atrial fibrillation; Chronic obstructive lung disease; Congestive heart failure; bm8 Hypertension; Myocardial infarction; - PSHx: 22:12 coronary stents; Knee repair; bm8 - Immunization history:: Adult Immunizations up to date. - Infectious Disease History:: Denies. - Social history:: Smoking status: Patient reports the use of cigarette tobacco products. - Family history:: not pertinent. Screenin:20 [facility] ED Fall Risk Assessment (Adult) History of falling in the last 3 months, bm8 including since admission No falls in past 3 months (0 pts) Confusion or Disorientation No (0 pts) Intoxicated or Sedated No (0 pts) Impaired Gait No (0 pts) Mobility Assist Device Used No (0 pt) Altered Elimination No (0 pt) Score/Fall Risk Level 0 - 2 = Low Risk Oriented to surroundings, Maintained a safe environment, Educated pt \T\ family on fall prevention, incl call for assistance when getting out of bed, Assessed \T\ reinforced patient's understanding of fall precautions, Hourly rounding (assess needs \T\ fall precautionary measures) done, Used ambulatory aids as needed (educated on \T\ assisted with), Used gait belt as appropriate. Abuse screen: Denies threats or abuse. Nutritional screening: No deficits noted. Tuberculosis screening: No symptoms or risk factors identified. Assessment: 22:55 Reassessment: Patient appears in no apparent distress at this time. Patient and/or bm8 family updated on plan of care and expected duration. Pain level reassessed. Patient is alert, oriented x 3, equal unlabored respirations, skin warm/dry/pink. Patient denies pain at this time. Patient states feeling better. Patient states symptoms have improved. General: Appears in no apparent distress. comfortable, Behavior is calm, cooperative, appropriate for age. Respiratory: No deficits noted. Airway is patent Trachea midline Respiratory effort is even, unlabored, Respiratory pattern is regular, symmetrical, Breath sounds are clear bilaterally. Vital Signs: 22:00 BP 118 / 71; Pulse 119; Resp 18; Temp 97.8; Pulse Ox 97% on R/A; Weight 45.36 kg; bm8 Height 5 ft. 1 in. ; Pain 0/10; 22:20 BP 111 / 70; Pulse 109; Resp 19; Temp 97.8; Pulse Ox 100% on Nebulizer Mask; Pain 0/10; bm8 22:55 BP 121 / 76; Pulse 107; Resp 20; Temp 97.8; Pulse Ox 98% on R/A; Pain 0/10; bm8 22:00 Body Mass Index 18.89 (45.36 kg, 154.94 cm) bm8 22:00 Pain Scale: Adult bm8 22:20 Pain Scale: Adult bm8 22:55 Pain Scale: Adult bm8 [place] Coma Score: 22:20 Eye Response: spontaneous(4). Motor Response: obeys commands(6). Verbal Response: bm8 oriented(5). Total: 15. 22:55 Eye Response: spontaneous(4). Motor Response: obeys commands(6). Verbal Response: bm8 oriented(5). Total: 15. ED Course: 21:31 Patient arrived in ED. vc1 21:32 Douglas Russ MD is Attending Physician. rt 21:48 Brandyn Rueda, RN is Primary Nurse. bm8 22:03 EKG done, by ED staff, reviewed by Douglas Russ MD. oe 22:12 Triage completed. bm8 22:12 Arm band placed on right wrist. bm8 22:14 XRAY Chest (1 view) In Process Unspecified. EDMS 22:14 No provider procedures requiring assistance completed. Maintain EMS IV. Dressing bm8 intact. Good blood return noted. Site clean \T\ dry. Gauge \T\ site: 20g LAC. Flushed with 10 mL NS. 22:20 Patient has correct armband on for positive identification. Bed in low position. Call bm8 light in reach. Side rails up X 1. Adult w/ patient. Client placed on continuous cardiac and pulse oximetry monitoring. NIBP monitoring applied. cafeteria monitor on. Pulse ox on. NIBP on. Door closed. Noise minimized. Warm blanket given. Verbal reassurance given. Head of bed elevated. 22:55 IV discontinued, intact, bleeding controlled, No redness/swelling at site. Pressure bm8 dressing applied. 22:55 Provided Education on: post er care. bm8 Administered Medications: 22:21 Drug: DuoNeb Nebulize (3:1) (2.5 mg - 0.5 mg) 3 ml Nebulizer once Route: Nebulizer; bm8 22:52 Follow up: Response: No adverse reaction; Marked relief of symptoms lg3 22:21 Drug: predniSONE PO 40 mg PO once Route: PO; bm8 22:52 Follow up: Response: No adverse reaction lg3 Medication: 22:20 VIS not applicable for this client. bm8 Outcome: 22:49 Discharge ordered by . rt 22:55 Discharged to home ambulatory, bm8 22:55 Condition: stable 22:55 Discharge instructions given to patient, family, Instructed on discharge instructions, follow up and referral plans. no drinking with medication, no driving heavy equipment, medication usage, safety practices, Demonstrated understanding of instructions, follow-up care, medications, Prescriptions given X 1, 22:57 Patient left the ED. bm8 Signatures: Dispatcher [employer] EDMS JayJ ay Enrique Lacie, RN RN lg3 Clarice Robledo RN RN vc1 Douglas Russ MD MD rt Brandyn Rueda, RN RN bm8
[2023-12-08 23:27] LABS: Blood Morphology Comment NOTED (NOT SEEN); Microcytosis 1+; Ovalocytes 2+; Platelet Estimate ADEQ; Polychromasia SLIGHT; White Blood Cell Scan OK (OK)
[2023-12-08 23:29] VITALS: TEMP 97.8
[2023-12-08 23:32] VITALS: BP 121/76; O2SAT 98
--- NOTE | 2023-12-10 13:01 | EKG ---
Test Date: 2023-12-08 Test Time: 21:59:34 Weeder: ROSA M MEASUREMENT RESULTS: Intervals: Rate: 117 UT: 150 QRSD: 72 QT: 328 QTc: 457 [place]: P: 87 UT: 150 QRS: 48 T: 22 INTERPRETIVE STATEMENTS: Sinus tachycardia Nonspecific ST and T wave abnormality Abnormal ECG Compared to ECG 11/16/2023 20:10:51 ST (T wave) deviation now present Atrial premature complex(es) no longer present T-wave abnormality no longer present Electronically Signed On 12-10-23 12:55:53 CDT by Edmar Calvert
== END 2023-12-08 22:57 | disposition home or self-care (01) ==
LOC: ER 21:23
DX: J44.1 Chronic obstructive pulmonary disease with (acute) exacerbation (principal); I50.9 Heart failure, unspecified; I10 Essential (primary) hypertension; Z72.0 Tobacco use; Z95.818 Presence of other cardiac implants and grafts
CPT/HCPCS: 93005; 85025; 80048; 36415; 83735; 80076; 84484; 83880; 71045; 99285; J7512; J7613; J7644

== ENCOUNTER 2023-12-18 22:02 | Emergency (ER) | payer OTHER ==
[2023-12-18] MEDS ORDERED: ONDANSETRON 4 MG/2 ML VIAL ONE (22:42)
[2023-12-18] MEDS ORDERED: DICYCLOMINE HCL 10 MG CAP ONE (22:43)
[2023-12-18] MEDS ORDERED: MORPHINE 4 MG/ML SYR ONE (22:43)
[2023-12-18] MEDS ORDERED: HYDROCORTISONE SUC 100 MG INJ ONE (22:43)
[2023-12-18] MEDS ORDERED: METOCLOPRAMIDE 10 MG/2mL INJ ONE (22:43)
[2023-12-18] MEDS ORDERED: NA CHLORIDE 0.9% 1,000 ML ONE (22:44)
[2023-12-18] MEDS ORDERED: FAMOTIDINE 20 MG/2 ML VIAL IV ONE (22:44)
[2023-12-18 23:37] LABS: Absolute Basophils 0.1 K/uL (0-0.5); Absolute Eosinophils 0.2 K/uL (0-0.5); Absolute Monocytes 0.6 K/uL (0.1-1.3); Absolute Neutrophil 4.6 K/uL (1.8-8.0); Basophils % 1.2 % (0-1.3); Eosinophils % 2.7 % (0-4.4); Hematocrit 29.2 % (36.0-45.0); Hemoglobin 8.6 g/dL (12.0-15.0); Lymphocytes % 26.6 % (15.3-44.8); MCH 20.4 pg (27.0-35.0); MCHC 29.6 g/dL (32.0-36.0); MCV 68.9 fL (80-100); MPV 9.3 fL (7.6-11.3); Monocytes % 8.4 % (3.3-12.3); Neutrophils % 61.1 % (41.7-73.7); Nucleated Red Blood Cells % 0.3 % (0-0); Platelets 327 thou/uL (152-406); RBC Red Blood Cell Count 4.24 M/uL (3.86-4.86); Red Cell Distribution Width 19.8 % (12.1-15.2)
[2023-12-18 23:38] LABS: Protime INR 1.35
[2023-12-18 23:47] LABS: Albumin 3.5 g/dL (3.4-5.0); Albumin/Globulin Ratio 1.3 (1.1-1.8); Anion Gap 8.9 mEq/L (5.0-15.0); Bilirubin Direct 0.4 mg/dL (0-0.2); Bilirubin Indirect, Calculated 0.5 mg/dL (0.2-0.8); Bilirubin Total 0.9 mg/dL (0.2-1.0); Globulin 2.7 g/dL (2.3-3.5); Magnesium 1.9 mg/dL (1.6-2.4); Potassium 3.9 mEq/L (3.5-5.1); Protein, Total 6.2 g/dL (6.4-8.2); Troponin High Sensitivity 28.3 pg/mL (<58.9)
[2023-12-19] MEDS ORDERED: ALBUMIN HUMAN 25% 100 ML IV ONE ×2 (00:19→00:20)
[2023-12-19 01:03] LABS: Blood Morphology Comment NOTED (NOT SEEN); Hypochromasia 1+; Microcytosis 1+; Ovalocytes 2+; Platelet Estimate ADEQ; White Blood Cell Scan OK (OK)
[2023-12-19] MEDS ORDERED: FUROSEMIDE 40 MG TABLET ONE (01:55)
--- NOTE | 2023-12-19 02:12 | ER ---
Nurse's Notes [facility] Name: Jennifer Sherwood Age: 68 yrs Sex: Female : 1955 Arrival Date: 12/18/2023 Time: 22:02 Bed 7 Private MD: Diagnosis: Acute on chronic combined systolic (congestive) and diastolic (congestive) heart failure;Epigastric pain Presentation: 12/17 22:11 Chief complaint: Patient states: chest pain x1 week. Went to PCP on Friday, was given tm6 omeprazole, has not helped. Coronavirus screen: Vaccine status: Patient reports receiving the 2nd dose of the covid vaccine. Ebola Screen: Patient negative for fever greater than or equal to 101.5 degrees Fahrenheit, and additional compatible Ebola Virus Disease symptoms Patient denies exposure to infectious person. Patient denies travel to an Ebola-affected area in the 21 days before illness onset. No symptoms or risks identified at this time. Initial Sepsis Screen: Does the patient meet any 2 criteria? HR > 90 bpm. Does the patient have a suspected source of infection? No. Patient's initial sepsis screen is negative. Risk Assessment: Do you want to hurt yourself or someone else? Patient reports no desire to harm self or others. Onset of symptoms was December 11, 2023. 22:11 Method Of Arrival: Wheelchair tm6 22:11 Acuity: VAHE 3 tm6 Triage Assessment: 22:13 General: Appears in no apparent distress. Behavior is cooperative. Pain: Complains of tm6 pain in chest Pain currently is 8 out of 10 on a pain scale. EENT: No signs and/or symptoms were reported regarding the EENT system. Neuro: Level of Consciousness is awake, alert, obeys commands, Oriented to person, place, time, situation. Cardiovascular: Reports chest pain, since x 1 week Patient's skin is warm and dry. Respiratory: Airway is patent Respiratory effort is even, unlabored, Respiratory pattern is regular, symmetrical. GI: No signs and/or symptoms were reported involving the gastrointestinal system. Abdomen is flat, non-distended. : No signs and/or symptoms were reported regarding the genitourinary system. Derm: No signs and/or symptoms reported regarding the dermatologic system. Musculoskeletal: No signs and/or symptoms reported regarding the musculoskeletal system. Historical: - Allergies: 10/11 02:28 HYDROCODONE; mt4 - PMHx: 12/17 22:13 Atrial fibrillation; Chronic obstructive lung disease; Congestive heart failure; tm6 Hypertension; Myocardial infarction; - PSHx: 22:13 coronary stents; Knee repair; tm6 - Immunization history:: Client reports receiving the 2nd dose of the Covid vaccine. - Infectious Disease History:: Denies. - Social history:: Smoking status: Patient reports the use of cigarette tobacco products, smokes one-half pack cigarettes per day, Patient/guardian denies using alcohol. - Family history:: not pertinent. Screenin:20 [facility] ED Fall Risk Assessment (Adult) History of falling in the last 3 months, ph including since admission No falls in past 3 months (0 pts) Confusion or Disorientation No (0 pts) Intoxicated or Sedated No (0 pts) Impaired Gait No (0 pts) Mobility Assist Device Used No (0 pt) Altered Elimination No (0 pt) Score/Fall Risk Level 0 - 2 = Low Risk Oriented to surroundings, Maintained a safe environment, Educated pt \T\ family on fall prevention, incl call for assistance when getting out of bed, Assessed \T\ reinforced patient's understanding of fall precautions. Abuse screen: Denies threats or abuse. Nutritional screening: No deficits noted. Tuberculosis screening: No symptoms or risk factors identified. Assessment: 22:20 General: Appears in no apparent distress. comfortable, Behavior is calm, cooperative, ph appropriate for age. Pain: Complains of pain in epigastric area Pain does not radiate. Pain Pain began 6 DAYS AGO. GI: Abdomen is flat, non-distended, Reports epigastric pain, indigestion. 12/18 00:02 Reassessment: Patient is alert, oriented x 3, equal unlabored respirations, skin mt4 warm/dry/pink. Reassessment: Patient and/or family updated on plan of care and expected duration. Pain level reassessed. General: Appears in no apparent distress. comfortable, Behavior is calm, cooperative, appropriate for age, Smells of cigarette smoke . Pain: Denies pain. Neuro: Level of Consciousness is awake, alert, obeys commands, Oriented to person, place, time, situation, Appropriate for age. Cardiovascular: Capillary refill < 3 seconds. Respiratory: Airway is patent Respiratory effort is even, unlabored, Respiratory pattern is regular. GI: Musculoskeletal: Range of motion: intact in all extremities. 02:10 Reassessment: Patient and/or family updated on plan of care and expected duration. Pain ha1 level reassessed. Patient is alert, oriented x 3, equal unlabored respirations, skin warm/dry/pink. 02:24 Reassessment: DISCHARGE PENDING PATIENT AWAITING ON TRANSPORTATION. FAMILY MEMBER ON ha1 THE WAY. Vital Signs: 12/17 22:11 BP 100 / 77; Pulse 111; Resp 20; Temp 97(TE); Pulse Ox 99% on R/A; MAP 86 mmHg; Weight tm6 53.52 kg; Height 5 ft. 0 in. ; Pain 8/10; 12/18 00:01 BP 99 / 71; Pulse 86; Resp 20; Temp 98.2; Pulse Ox 86% on R/A; Pain 0/10; mt4 00:01 Pulse Ox 93% on 2 lpm NC; mt4 02:22 BP 102 / 68; Pulse 100; Resp 19; Temp 98.1(O); Pulse Ox 94% on R/A; Pain 0/10; mt4 10 22:11 Body Mass Index 23.05 (53.52 kg, 152.4 cm) tm6 12/17 22:11 Pain Scale: Adult tm6 12/18 00:01 Pain Scale: Adult mt4 02:22 Pain Scale: Adult mt4 Chaparro Coma Score: 00:02 Eye Response: spontaneous(4). Motor Response: obeys commands(6). Verbal Response: mt4 oriented(5). Total: 15. ED Course: 12/17 22:04 Patient arrived in ED. jj6 22:04 Wolgfang Wren MD is Attending Physician. sp4 22:12 Triage completed. tm6 22:12 Inserted saline lock: 20 gauge in left antecubital area, using aseptic technique. Blood ha1 collected. Flushed with 10 mL NS. 22:13 Arm band placed on right wrist. tm6 22:15 Basic Metabolic Panel Sent. ha1 22:15 CBC with Diff Sent. ha1 22:15 LFT's Sent. ha1 22:15 Magnesium Sent. ha1 22:15 NT PRO-BNP Sent. ha1 22:15 PT-INR Sent. ha1 22:15 Troponin HS Sent. ha1 22:20 Patient has correct armband on for positive identification. Bed in low position. Call ph light in reach. Side rails up X2. Provided Education on: USE OF CALL VEGA. Client placed on continuous cardiac and pulse oximetry monitoring. NIBP monitoring applied. groundwater monitoring technician on. Pulse ox on. Warm blanket given. 22:25 Nika Thomas, RN is Primary Nurse. ph 22:47 XRAY Chest (1 view) In Process Unspecified. EDMS 12/18 00:02 No apparent distress. Resting quietly. mt4 00:02 No provider procedures requiring assistance completed. Oxygen administration via nasal mt4 cannula \T\ 2L/min. 00:37 CT Chest, Abdomen, Pelvis - W/Contrast In Process Unspecified. EDMS 02:10 Rayo Ward MD is Referral Physician. sp4 02:24 IV discontinued, intact, bleeding controlled, No redness/swelling at site. Pressure ha1 dressing applied. Administered Medications: 00:23 Discontinued: ns 0.9% 1000 ml IV at 125 ml/hr continuous mt4 12/17 22:53 Drug: Solu-CORTEF IVP 100 mg IVP once Route: IVP; Site: left antecubital; ph 12/18 02:25 Follow up: Response: No adverse reaction sc4 12/17 22:54 Drug: Ondansetron IVP 4 mg IVP once; over 2 minutes Route: IVP; Site: left antecubital; ph 12/18 02:26 Follow up: Response: No adverse reaction sc4 12/17 22:54 Drug: metoCLOPramide IVP 10 mg IVP once; over 1 to 2 minutes Route: IVP; Site: left ph antecubital; 12/18 02:26 Follow up: Response: No adverse reaction sc4 12/17 22:54 Drug: Dicyclomine PO 20 mg PO once Route: PO; ph 23:15 Follow up: Response: No adverse reaction ha1 12/18 02:26 Follow up: Response: No adverse reaction sc4 12/17 22:54 Drug: Famotidine IVP 20 mg IVP once; dilute with 10 mL 0.9% NaCl; give over 2 minutes ph Route: IVP; Site: left antecubital; 12/18 02:25 Follow up: Response: No adverse reaction sc4 12/17 22:54 Drug: NS 0.9% IV 500 ml IV at bolus continuous Route: IV; Rate: bolus; Site: left ph antecubital; 12/18 02:25 Follow up: Response: No adverse reaction; IV Status: Completed infusion; IV Intake: mt4 500ml 12/17 22:55 Drug: morphine IVP or IV 4 mg IVP once over 4 mins Route: IVP; Infused Over: 4 mins; ph Site: left antecubital; 23:15 Follow up: Response: No adverse reaction; Pain is decreased; RASS: Alert and Calm (0) ha1 12/18 02:26 Follow up: Response: No adverse reaction mt4 12/17 23:00 Drug: NS 0.9% IV 1000 ml IV at 125 ml/hr continuous Route: IV; Rate: 125 ml/hr; Site: mt4 left antecubital; 12/18 00:23 Follow up: Response: No adverse reaction; IV Status: Completed infusion; IV Intake: mt4 700ml 00:35 Drug: Albumin IVPB 25 grams 100 ml IVPB once; (Note: Albumin 25% concentration) Volume: mt4 100 ml; Route: IVPB; Site: left antecubital; 01:47 Follow up: Response: No adverse reaction; IV Status: Completed infusion; IV Intake: mt4 100ml 01:48 Drug: Albumin IVPB 25 grams 100 ml IVPB once; (Note: Albumin 25% concentration) Volume: mt4 100 ml; Route: IVPB; Site: left antecubital; 02:24 Follow up: Response: No adverse reaction; IV Status: Completed infusion; IV Intake: mt4 100ml 02:01 Drug: Furosemide PO 40 mg PO once Route: PO; mt4 02:24 Follow up: Response: No adverse reaction mt4 Medication: 12/17 22:20 VIS not applicable for this client. ph Intake: 12/18 00:23 IV: 700ml; Total: 700ml. mt4 01:47 IV: 100ml; Total: 800ml. mt4 02:24 IV: 100ml; Total: 900ml. mt4 02:25 IV: 500ml; Total: 1400ml. mt4 Outcome: 02:11 Discharge ordered by . sp4 02:25 Discharge instructions given to patient, Instructed on discharge instructions, follow ha1 up and referral plans. medication usage, Demonstrated understanding of instructions, follow-up care, medications, Prescriptions given X 1, 02:27 Condition: stable mt4 02:27 Discharge instructions given to patient, Instructed on discharge instructions, follow up and referral plans. medication usage, Demonstrated understanding of instructions, follow-up care, medications, Prescriptions given X 1, 02:28 Discharged to home via wheelchair, mt4 02:30 Patient left the ED. jj7 Signatures: Dispatcher [employer] EDCA Nika Thomas RN RN Hazel Reynaga jj6 Gita Valdovinos RN RN ha1 Ed Marie RN RN jj7 Wolfgang Wren MD MD sp4 Christina Church RN RN tm6 Robson Carnes RN RN mt4 Corrections: (The following items were deleted from the chart) 02:28 12/17 22:13 Allergies: HYDROCODONE; tm6 mt4 12/18 02:56 02:55 Patient left the ED. jj7 jj7
--- NOTE | 2023-12-19 02:12 | EDPHYS ---
Physician Documentation [facility] Name: Jennifer Sherwood Age: 68 yrs Sex: Female : 1955 Arrival Date: 12/18/2023 Time: 22:02 Bed 7 Private MD: ED Physician Wolfgang Wren HPI: 12/17 22:04 This 68 yrs old Female presents to ER via Unassigned with complaints of Chest sp4 Pain, Chest Tightness. 12/18 02:14 68-year-old female presents with complaint of epigastric pain and chest discomfort.. sp4 Historical: - Allergies: 02:28 HYDROCODONE; mt4 - PMHx: 12/17 22:13 Atrial fibrillation; Chronic obstructive lung disease; Congestive heart failure; tm6 Hypertension; Myocardial infarction; - PSHx: 22:13 coronary stents; Knee repair; tm6 - Immunization history:: Client reports receiving the 2nd dose of the Covid vaccine. - Infectious Disease History:: Denies. - Social history:: Smoking status: Patient reports the use of cigarette tobacco products, smokes one-half pack cigarettes per day, Patient/guardian denies using alcohol. - Family history:: not pertinent. ROS: 12/18 02:14 Constitutional: Negative for fever, chills, and weight loss, positive epigastric pain sp4 positive chest discomfort All other systems are negative, Exam: 02:12 Constitutional: This is a well developed, well nourished patient who is awake, alert, sp4 and in no acute distress. Head/Face: Normocephalic, atraumatic. Eyes: Pupils equal round and reactive to light, extra-ocular motions intact. Lids and lashes normal. Conjunctiva and sclera are not injected. Cornea within normal limits. Periorbital areas with no swelling, redness, or edema. ENT: Nares patent. No nasal discharge, no septal abnormalities noted. Tympanic membranes are normal and external auditory canals are clear. Oropharynx with no redness, swelling, or masses, exudates, or evidence of obstruction, uvula midline. Mucous membranes moist. Neck: Trachea midline, no thyromegaly or masses palpated, and no cervical lymphadenopathy. Supple, full range of motion without nuchal rigidity, or vertebral point tenderness. Chest/axilla: Normal chest wall appearance and motion. Nontender with no deformity. No lesions are appreciated. Cardiovascular: Regular rate and rhythm with a normal S1 and S2. No gallops, murmurs, or rubs. Normal PMI, no JVD. No pulse deficits. Respiratory: Lungs have equal breath sounds bilaterally, clear to auscultation and percussion. No rales, rhonchi or wheezes noted. No increased work of breathing, no retractions or nasal flaring. Abdomen/GI: Soft, with normal bowel sounds. No distension or tympany. No guarding or rebound. No evidence of tenderness throughout. Back: No spinal tenderness. No costovertebral tenderness. Skin: Warm, dry with normal turgor. Normal color with no rashes, no lesions, and no evidence of cellulitis. MS/ Extremity: Pulses equal, no cyanosis. Neurovascular intact. Full, normal range of motion. Neuro: Awake and alert, GCS 15, oriented to person, place, time, and situation. Cranial nerves II-XII grossly intact. Motor strength 5/5 in all extremities. Sensory grossly intact. Psych: Awake, alert, with orientation to person, place and time. Behavior, mood, and affect are within normal limits 02:12 ECG was reviewed by the Attending Physician. 2215 sinus tachycardia with PACs rate 106 Vital Signs: 12/17 22:11 BP 100 / 77; Pulse 111; Resp 20; Temp 97(TE); Pulse Ox 99% on R/A; MAP 86 mmHg; Weight tm6 53.52 kg; Height 5 ft. 0 in. ; Pain 8/10; 12/18 00:01 BP 99 / 71; Pulse 86; Resp 20; Temp 98.2; Pulse Ox 86% on R/A; Pain 0/10; mt4 00:01 Pulse Ox 93% on 2 lpm NC; mt4 02:22 BP 102 / 68; Pulse 100; Resp 19; Temp 98.1(O); Pulse Ox 94% on R/A; Pain 0/10; mt4 10 22:11 Body Mass Index 23.05 (53.52 kg, 152.4 cm) tm6 12/17 22:11 Pain Scale: Adult tm6 12/18 00:01 Pain Scale: Adult mt4 02:22 Pain Scale: Adult mt4 Chaparro Coma Score: 00:02 Eye Response: spontaneous(4). Motor Response: obeys commands(6). Verbal Response: mt4 oriented(5). Total: 15. MDM: 12/17 22:27 Patient medically screened. sp4 23:06 ED course: EXAM DESCRIPTION: Chest Single View CLINICAL HISTORY: 68 years Female, CHEST sp4 PAIN TECHNIQUE: 1 view (Single frontal view of the chest) COMPARISON: None were made available at time of this interpretation. FINDINGS: LINES AND TUBES: None. CARDIOVASCULAR STRUCTURES: Cardiomegaly. Mild interstitial edema likely superimposed on chronic interstitial changes. LUNGS: No confluent areas of acute consolidation. PLEURA: No layering pleural effusions. No pneumothorax. BONES: No acute osseous abnormality of the thorax. IMPRESSION: 1. Cardiomegaly and mild interstitial edema likely superimposed on chronic interstitial changes.. 12/18 01:15 ED course: CLINICAL HISTORY: chest and epigastric pain. COMPARISON: CTA chest from sp4 November 16, 2023. TECHNIQUE: CT of the chest, abdomen, and pelvis was performed following intravenous administration of iodinated contrast. Oral contrast was not administered. Axial, coronal, and sagittal reconstructions were created and sent to PACS. This exam was performed according to our departmental dose-optimization program, which includes automated exposure control, adjustment of the mA and/or kV according to patient size and/or use of iterative reconstruction technique. FINDINGS: Lungs and pleura: Suspected mild centrilobular emphysema. No pulmonary consolidation. No pleural effusion. No pneumothorax. Mediastinum and neck: No mediastinal lymphadenopathy identified by CT size criteria. Unremarkable appearance of the thyroid gland. Cardiac: Mild left atrial enlargement. No pericardial effusion. No thoracic aortic aneurysm or dissection. Hepatobiliary: No concerning hepatic lesion identified. The portal veins are patent. The gallbladder is unremarkable. No biliary ductal dilatation. Pancreas: Unremarkable. Spleen: Unremarkable. Gastrointestinal: No evidence of bowel obstruction or perienteric inflammation. The appendix is normal. Small stool burden. Moderate left colonic diverticulosis. Adrenals: Unchanged left adrenal 2.3 cm nodule measuring 34 Hounsfield units, consistent with a benign adenoma based on the prior exam. No abnormality identified in the right adrenal gland. Renal: No concerning parenchymal abnormality in either kidney. No hydronephrosis or urolithiasis. Bladder/Reproductive: Unremarkable appearance of the urinary bladder by CT technique. Hysterectomy. Vascular/Lymphatics: No lymphadenopathy identified by CT size criteria. Abdominal aorta is normal in caliber. Musculoskeletal: No concerning osseous lesion identified. Fluid / peritoneum: No significant free fluid. No free intraperitoneal air identified. IMPRESSION 1. No acute abnormality identified in the chest, abdomen, or pelvis. 2. Mild left atrial enlargement. 3. Left colonic diverticulosis. . 02:14 Differential diagnosis: acute pericarditis, anxiety, coronary artery disease chest wall sp4 pain, esophagitis, gastritis. HEART Score: History: Slightly Suspicious (0), ECG: Normal (0), Age: > or = 65 years (2), Risk Factors: > or = 3 Risk factors for atherosclerotic disease (2), Troponin: < or = 1 x Normal Limit (0), Total Score = 4. Data reviewed: vital signs, nurses notes, EMS record, old medical records, lab test result(s), EKG, radiologic studies, CT scan, plain films. 02:15 ED course: Patient was offered hospital admission for signs of congestive heart failure sp4 however she declined and opted to go home.. 12/17 22:06 Order name: Basic Metabolic Panel; Complete Time: 23:59 [facility] 12/17 22:06 Order name: CBC with Diff; Complete Time: 01:11 [facility] 12/17 22:06 Order name: LFT's; Complete Time: 23:59 [facility] 12/17 22:06 Order name: Magnesium; Complete Time: 23:59 [facility] 12/17 22:06 Order name: NT PRO-BNP; Complete Time: 23:59 [facility] 12/17 22:06 Order name: PT-INR; Complete Time: 23:59 [facility] 12/17 22:06 Order name: Troponin HS; Complete Time: 23:59 [facility] 12/17 23:39 Order name: CBC Smear Scan; Complete Time: 01:11 [facility] 12/17 22:06 Order name: XRAY Chest (1 view) [facility] 12/17 22:26 Order name: CT Chest, Abdomen, Pelvis - W/Contrast [facility] 12/17 22:06 Order name: Cardiac monitoring; Complete Time: 22:14 [facility] 12/17 22:06 Order name: EKG - Nurse/Tech; Complete Time: 22:14 [facility] 12/17 22:06 Order name: IV Saline Lock; Complete Time: 22:15 [facility] 12/17 22:06 Order name: Labs collected and sent; Complete Time: 22:15 [facility] 12/17 22:06 Order name: O2 Per Protocol; Complete Time: 22:15 sp4 12/17 22:06 Order name: O2 Sat Monitoring; Complete Time: 22:15 sp4 EC:12 Rate is 106 beats/min. Rhythm is irregular, Sinus tachycardia with PACs. QRS [place] is sp4 Normal. WA interval is normal. QRS interval is normal. QT interval is normal. No Q waves. T waves are Normal. No ST changes noted. Clinical impression: No evidence of ischemia. Interpreted by me. Reviewed by me. Administered Medications: 00:23 Discontinued: ns 0.9% 1000 ml IV at 125 ml/hr continuous ca4 12/17 22:53 Drug: Solu-CORTEF IVP 100 mg IVP once Route: IVP; Site: left antecubital; ph 12/18 02:25 Follow up: Response: [facility] 12/[facility] 22:54 Drug: Ondansetron IVP 4 mg IVP once; over 2 minutes Route: IVP; Site: left antecubital; ph 12/18 02:26 Follow up: Response: No adverse reaction [facility] 12/17 22:54 Drug: metoCLOPramide IVP 10 mg IVP once; over 1 to 2 minutes Route: IVP; Site: left ph antecubital; 12/18 02:26 Follow up: Response: No adverse reaction ca4 12/17 22:54 Drug: Dicyclomine PO 20 mg PO once Route: PO; ph 23:15 Follow up: Response: No adverse reaction ha1 12/18 02:26 Follow up: Response: No adverse reaction [facility] 12/17 22:54 Drug: Famotidine IVP 20 mg IVP once; dilute with 10 mL 0.9% NaCl; give over 2 minutes ph Route: IVP; Site: left antecubital; 12/18 02:25 Follow up: Response: No adverse reaction [facility] 12/17 22:54 Drug: NS 0.9% IV 500 ml IV at bolus continuous Route: IV; Rate: bolus; Site: left ph antecubital; 12/18 02:25 Follow up: Response: No adverse reaction; IV Status: Completed infusion; IV Intake: mt4 500ml 12/17 22:55 Drug: morphine IVP or IV 4 mg IVP once over 4 mins Route: IVP; Infused Over: 4 mins; ph Site: left antecubital; 23:15 Follow up: Response: No adverse reaction; Pain is decreased; RASS: Alert and Calm (0) ha1 12/18 02:26 Follow up: Response: No adverse reaction mt4 12/17 23:00 Drug: NS 0.9% IV 1000 ml IV at 125 ml/hr continuous Route: IV; Rate: 125 ml/hr; Site: mt4 left antecubital; 12/18 00:23 Follow up: Response: No adverse reaction; IV Status: Completed infusion; IV Intake: mt4 700ml 00:35 Drug: Albumin IVPB 25 grams 100 ml IVPB once; (Note: Albumin 25% concentration) Volume: mt4 100 ml; Route: IVPB; Site: left antecubital; 01:47 Follow up: Response: No adverse reaction; IV Status: Completed infusion; IV Intake: mt4 100ml 01:48 Drug: Albumin IVPB 25 grams 100 ml IVPB once; (Note: Albumin 25% concentration) Volume: mt4 100 ml; Route: IVPB; Site: left antecubital; 02:24 Follow up: Response: No adverse reaction; IV Status: Completed infusion; IV Intake: mt4 100ml 02:01 Drug: Furosemide PO 40 mg PO once Route: PO; mt4 02:24 Follow up: Response: No adverse reaction mt4 Disposition Summary: 12/19/23 02:11 Discharge Ordered Notes: Location: Home sp4 Problem: new sp4 Symptoms: have improved sp4 Condition: Stable sp4 Diagnosis - 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 - Epigastric pain sp4 Followup: sp4 - With: Private Physician - When: 7 - 10 days - Reason: Recheck today's complaints Followup: sp4 - With: Rayo Ward MD - When: 7 - 10 days - Reason: Recheck today's complaints Discharge Instructions: - Discharge Summary Sheet sp4 - Heart Failure Action Plan sp4 Forms: - Patient Portal Instructions sp4 Prescriptions: - furosemide 20 mg Oral tablet - take 1 tablet ORAL route every 12 hours for 10 days; 20 tablet; Refills: 0, sp4 Product Selection Permitted Signatures: Dispatcher [employer] Nika Chung RN RN Wolfgang Linares MD MD sp4 Christina Church RN RN tm6 Robson Carnes RN RN mt4 Gita Valdovinos RN ha1 Corrections: (The following items were deleted from the chart) 12/17 22: 22:06 BASIC METABOLIC PANEL+C.LAB.BRZ ordered. EDMS EDMS : 22:06 CBC+H.LAB.BRZ ordered. EDMS EDMS : 22:06 HEPATIC FUNCTION+C.LAB.BRZ ordered. EDMS EDMS : 22:06 MAGNESIUM+C.LAB.BRZ ordered. EDMS EDMS 22: 22:06 PROBNP+C.LAB.BRZ ordered. EDMS EDMS : 22:06 PROTIME (+INR)+COAG.LAB.BRZ ordered. EDMS EDMS : 22:06 Troponin High Sensitivity+C.LAB.BRZ ordered. EDMS EDMS : 22:06 Chest Single View+RAD.RAD.BRZ ordered. EDMS EDMS 12/18 02:28 12/17 22:13 Allergies: HYDROCODONE; tm6 mt4
[2023-12-19 03:14] VITALS: BP 102/68; TEMP 98.1; O2SAT 94
--- NOTE | 2023-12-19 07:17 | RAD REPORT ---
CLINICAL HISTORY: chest and epigastric pain. COMPARISON: CTA chest from November 16, 2023. TECHNIQUE: CT of the chest, abdomen, and pelvis was performed following intravenous administration of iodinated contrast. Oral contrast was not administered. Axial, coronal, and sagittal reconstructions were created and sent to PACS. This exam was performed according to our departmental dose-optimization program, which includes autom ated exposure control, adjustment of the mA and/or kV according to patient size and/or use of iterative reconstruction technique. FINDINGS: Lungs and pleura: Suspected mild centrilobular emphysema. No pulmonary consolidation. No pleural effu oswaldo. No pneumothorax. Mediastinum and neck: No mediastinal lymphadenopathy identified by CT size criteria. Unremarkable jenn earance of the thyroid gland. Cardiac: Mild left atrial enlargement. No pericardial effusion. No thoracic aortic aneurysm or dissec tion. Hepatobiliary: No concerning hepatic lesion identified. The portal veins are patent. The gallbladder is unremarkable. No biliary ductal dilatation. Pancreas: Unremarkable. Spleen: Unremarkable. Gastrointestinal: No evidence of bowel obstruction or perienteric inflammation. The appendix is quinten l. Small stool burden. Moderate left colonic diverticulosis. Adrenals: Unchanged left adrenal 2.3 cm nodule measuring 34 Hounsfield units, consistent with a benig n adenoma based on the prior exam. No abnormality identified in the right adrenal gland. Renal: No concerning parenchymal abnormality in either kidney. No hydronephrosis or urolithiasis. Bladder/Reproductive: Unremarkable appearance of the urinary bladder by CT technique. Hysterectomy. Vascular/Lymphatics: No lymphadenopathy identified by CT size criteria. Abdominal aorta is normal in caliber. Musculoskeletal: No concerning osseous lesion identified. Fluid / peritoneum: No significant free fluid. No free intraperitoneal air identified. IMPRESSION 1. No acute abnormality identified in the chest, abdomen, or pelvis. 2. Mild left atrial enlargement. 3. Left colonic diverticulosis. Electronically signed by: Sri Larios MD 12/19/2023 12:47 AM CDT Due to temporary technical issues with the PACS/[employer] reporting system, reports are being nico d by the in-house radiologist without review as a courtesy to ensure prompt reporting the interpreting radiologist is fully responsible for the content of the report. Transcribed Date/Time: 12/19/2023 7:16 AM
--- NOTE | 2023-12-19 07:33 | RAD REPORT ---
EXAM DESCRIPTION: Chest Single View CLINICAL HISTORY: 68 years Female, CHEST PAIN TECHNIQUE: 1 view (Single frontal view of the chest) COMPARISON: None were made available at time of this interpretation. FINDINGS: LINES AND TUBES: None. CARDIOVASCULAR STRUCTURES: Cardiomegaly. Mild interstitial edema likely superimposed on chronic inter stitial changes. LUNGS: No confluent areas of acute consolidation. PLEURA: No layering pleural effusions. No pneumothorax. BONES: No acute osseous abnormality of the thorax. IMPRESSION: 1. Cardiomegaly and mild interstitial edema likely superimposed on chronic interstitial changes. Electronically signed by: Andrea Rm MD 12/18/2023 10:59 PM CDT RP N Due to temporary technical issues with the PACS/[employer] reporting system, reports are being nico d by the in-house radiologist without review as a courtesy to ensure prompt reporting the interpreting radiologist is fully responsible for the content of the report. Transcribed Date/Time: 12/19/2023 7:32 AM
--- NOTE | 2023-12-19 14:07 | EKG ---
Test Date: 2023-12-18 Test Time: 22:15:32 Pants Maker: IDALIA MEASUREMENT RESULTS: Intervals: Rate: 106 [place]: 132 QRSD: 78 QT: 372 QTc: 494 [place]: P: 75 [place]: 132 QRS: 19 T: 76 INTERPRETIVE STATEMENTS: Sinus tachycardia with premature atrial complexes Low voltage QRS Borderline ECG Compared to ECG 12/08/2023 21:59:34 Atrial premature complex(es) now present Low QRS voltage now present ST (T wave) deviation no longer present Electronically Signed On 12-19-23 14:06:19 CDT by Edmar Calvert
== END 2023-12-19 02:55 | disposition home or self-care (01) ==
LOC: ER 22:02
DX: I50.43 Acute on chronic combined systolic (congestive) and diastolic (congestive) heart failure (principal); R10.13 Epigastric pain; I10 Essential (primary) hypertension; I48.91 Unspecified atrial fibrillation; J44.9 Chronic obstructive pulmonary disease, unspecified; I25.2 Old myocardial infarction; F17.210 Nicotine dependence, cigarettes, uncomplicated; Z95.818 Presence of other cardiac implants and grafts
CPT/HCPCS: 93005; 85025; 80048; 36415; 83735; 85610; 80076; 84484; 83880; 71260; 74177; 71045; Q9967; J2765; J1720; J2405; P9047 ×2; J7030; 96361; 96365; 96366; 96375; 99285

== ENCOUNTER 2024-01-05 21:13 | Inpatient (IN) | payer OTHER ==
--- NOTE | 2024-01-05 22:00 | RAD REPORT ---
Procedure: Chest Single View HISTORY: Cough COMPARISON: December 18, 2023 FINDINGS: The lungs appear clear of acute infiltrate. No significant pleural effusion noted. The heart is mildly to moderately enlarged. IMPRESSION: No acute abnormality is displayed.
[2024-01-05] MEDS ORDERED: NA CHLORIDE 0.9% 500 ML ONE (22:06)
[2024-01-05] MEDS ORDERED: CEFTRIAXONE 1000 MG/VIAL ONE (22:06)
[2024-01-05 22:44] LABS: SARS-CoV-2 Antigen CONTROL BLUE LINE VIS/BG OK; SARS-CoV-2 Antigen Rapid Res Negative (Negative)
[2024-01-05] MEDS ORDERED: NA CHLORIDE 0.9% 2,000 ML ONE (22:57)
[2024-01-05 23:05] LABS: Absolute Basophils 0.1 K/uL (0-0.5); Absolute Lymphocytes (CBC) 0.3 K/uL (0.7-4.9); Absolute Monocytes 0.3 K/uL (0.1-1.3); Basophils % 0.4 % (0-1.3); Eosinophils % 0.2 % (0-4.4); Hematocrit 27.5 % (36.0-45.0); Hemoglobin 7.8 g/dL (12.0-15.0); Lymphocytes % 2.7 % (15.3-44.8); MCH 19.5 pg (27.0-35.0); MCHC 28.6 g/dL (32.0-36.0); MCV 68.3 fL (80-100); MPV 9.3 fL (7.6-11.3); Monocytes % 2.3 % (3.3-12.3); Neutrophils % 94.4 % (41.7-73.7); Platelets 206 thou/uL (152-406); RBC Red Blood Cell Count 4.02 M/uL (3.86-4.86); Red Cell Distribution Width 19.8 % (12.1-15.2)
[2024-01-05 23:08] LABS: PT Prothrombin Time 17.1 SECONDS (9.4-12.5); PTT, Activated Partial Thromb 27.1 SECONDS (24.3-36.9); Protime INR 1.55
[2024-01-05 23:18] LABS: Albumin 3.4 g/dL (3.4-5.0); Albumin/Globulin Ratio 1.3 (1.1-1.8); Anion Gap 7.5 mEq/L (5.0-15.0); Bilirubin Total 0.9 mg/dL (0.2-1.0); Globulin 2.6 g/dL (2.3-3.5); Potassium 3.5 mEq/L (3.5-5.1)
--- NOTE | 2024-01-05 23:27 | ER ---
Nurse's Notes [facility] Name: Jennifer Sherwood Age: 68 yrs Sex: Female : 1955 Arrival Date: 01/05/2024 Time: 21:13 Bed 8 Private MD: Diagnosis: COPD/ Chronic obstructive pulmonary disease with (acute) exacerbation Presentation: 01/04 21:15 Chief complaint: EMS states: PT BROUGHT IN VIA EMS FROM HOME FOR SUDDEN ONSET OF dd2 DIFFICULTY BREATHING AND SHORTNESS OF BREATH. PT WAS RX ALBUTEROL JANICE TREATMENTS YESTERDAY AND HAD TAKEN HER 1ST DOSE JUST PRIOR TO EMS ARRIVAL. Coronavirus screen: cough unrelated to allergies, difficulty breathing, shortness of breath. Ebola Screen: No symptoms or risks identified at this time. Initial Sepsis Screen: Does the patient meet any 2 criteria? No. Patient's initial sepsis screen is negative. Does the patient have a suspected source of infection? No. Patient's initial sepsis screen is negative. Risk Assessment: Do you want to hurt yourself or someone else? Patient reports no desire to harm self or others. Onset of symptoms was January 05, 2024. Care prior to arrival: Medication(s) given: Albuterol Neb x 2, Atrovent Neb x 1, Normal saline infusion, 150CC KETAMINE 15 MG, SOLU-MEDROL 125 MG, MAGNESIUM 2 GM, ZOFRAN 4 MG. 21:15 Method Of Arrival: EMS: [facility] dd2 21:15 Acuity: VAHE 3 dd2 Triage Assessment: 21:20 General: Appears ill, Behavior is appropriate for age, anxious. Pain: Denies pain. dd2 Respiratory: Reports shortness of breath at rest on exertion Airway is patent Respiratory effort is even, unlabored, Respiratory pattern is regular, symmetrical, Breath sounds are diminished bilaterally. Breath sounds with wheezes in right posterior upper lobe and right posterior lower lobe Onset: The symptoms/episode began/occurred just prior to arrival, the patient has mild shortness of breath. Historical: - Allergies: 21:20 HYDROCODONE; dd2 - PMHx: 21:20 Atrial fibrillation; Chronic obstructive lung disease; Congestive heart failure; dd2 Hypertension; Myocardial infarction; - PSHx: 21:20 coronary stents; Knee repair; dd2 - Immunization history:: Adult Immunizations up to date. - Infectious Disease History:: Denies. - Social history:: Smoking status: Patient reports the use of cigarette tobacco products. Screenin:13 [facility] ED Fall Risk Assessment (Adult) History of falling in the last 3 months, dd2 including since admission No falls in past 3 months (0 pts) Confusion or Disorientation No (0 pts) Intoxicated or Sedated No (0 pts) Impaired Gait No (0 pts) Mobility Assist Device Used No (0 pt) Altered Elimination No (0 pt) Score/Fall Risk Level 0 - 2 = Low Risk Oriented to surroundings, Maintained a safe environment, Educated pt \T\ family on fall prevention, incl call for assistance when getting out of bed, Assessed \T\ reinforced patient's understanding of fall precautions, Provided non-skid footwear, Hourly rounding (assess needs \T\ fall precautionary measures) done. Abuse screen: Denies threats or abuse. Nutritional screening: No deficits noted. Tuberculosis screening: No symptoms or risk factors identified. Assessment: 21:55 General: Appears ill, Behavior is cooperative, appropriate for age, anxious. Pain: dd2 Denies pain. Neuro: Level of Consciousness is awake, alert, obeys commands, Oriented to person, place, time, situation, Appropriate for age. Cardiovascular: Denies chest pain, Heart tones S1 S2 present Rhythm is sinus tachycardia. Respiratory: Airway is patent Respiratory effort is even, pursed lip, using tripod position, Respiratory pattern is regular, symmetrical, Breath sounds are diminished bilaterally. Breath sounds with wheezes in right posterior upper lobe and right posterior lower lobe Onset: The symptoms/episode began/occurred today, the patient has moderate shortness of breath. Respiratory: Parent/caregiver reports the patient having shortness of breath at rest on exertion cough that is non-productive. GI: No deficits noted. No signs and/or symptoms were reported involving the gastrointestinal system. Abdomen is non-distended, Abd is soft and non tender. : No deficits noted. No signs and/or symptoms were reported regarding the genitourinary system. EENT: No deficits noted. No signs and/or symptoms were reported regarding the EENT system. Derm: No deficits noted. No signs and/or symptoms reported regarding the dermatologic system. Musculoskeletal: No deficits noted. No signs and/or symptoms reported regarding the musculoskeletal system. Circulation, motion, and sensation intact. Range of motion: intact in all extremities. Vital Signs: 21:15 BP 112 / 64; Pulse 121; Resp 20; Temp 98.4; Pulse Ox 100% on Non-rebreather mask; dd2 Weight 53.52 kg; Height 5 ft. 0 in. ; 22:13 BP 109 / 66; Pulse 110; Resp 18; Pulse Ox 100% on 2 lpm NC; dd2 23:15 BP 102 / 65; Pulse 105; Resp 18; Pulse Ox 100% on 2 lpm NC; dd2 01/05 00:19 BP 105 / 82; Pulse 106; Resp 19; Pulse Ox 97% on 1.5 lpm NC; dd2 00:45 BP 119 / 89; Pulse 107; Resp 19; Pulse Ox 97% on 1.5 lpm NC; dd2 02:01 BP 108 / 63; Pulse 107; Resp 18; Temp 98.5; Pulse Ox 100% on 2 lpm NC; dd2 01/04 21:15 Body Mass Index 23.05 (53.52 kg, 152.4 cm) dd2 [place] Coma Score: 01/04 22:13 Eye Response: spontaneous(4). Motor Response: obeys commands(6). Verbal Response: dd2 oriented(5). Total: 15. ED Course: 21:13 Patient arrived in ED. [id number] 21:17 Rex Eli MD is Attending Physician. ec2 21:20 Triage completed. dd2 21:20 Arm band placed on right wrist. Patient placed in an exam room, on a stretcher, on dd2 oxygen, on pulse oximetry. 21:27 Chest Single View XRAY In Process Unspecified. EDMS 21:44 Initial lab(s) drawn, by me, sent to lab. First set of blood cultures drawn COVID swab dd2 sent to lab. Flu and/or RSV swab sent to lab. 21:54 SARS RAPID Sent. dd2 21:54 Influenza Screen (a \T\ B) Sent. dd2 21:54 Blood Culture Adult (2) Sent. dd2 21:54 CBC with Diff Sent. dd2 21:54 CMP Sent. dd2 21:54 Lactate w/ 2H reflex if indic. Sent. dd2 21:54 Protime (+inr) Sent. dd2 21:54 Ptt, Activated Sent. dd2 21:54 No provider procedures requiring assistance completed. Inserted saline lock: 20 gauge dd2 in right antecubital area, using aseptic technique. Blood collected. Flushed with 10 mL NS. 21:57 AWAIS MENA, RN is Primary Nurse. dd2 22:13 Patient has correct armband on for positive identification. Bed in low position. Call dd2 light in reach. Side rails up X2. Provided Education on: CALL LIGHT, MEDICATIONS, LABS/RADIOLOGY. Client placed on continuous cardiac and pulse oximetry monitoring. NIBP monitoring applied. hospital monitor on. Door closed. Noise minimized. Warm blanket given. Pillow given. Verbal reassurance given. 22:13 Oxygen administration via nasal cannula \T\ 2L/min. dd2 22:46 EKG done, by ED staff, reviewed by Rex Eli MD. dd2 23:26 Joana Rogers MD is Hospitalizing Provider. ec2 01/05 02:01 Report given to NATALIE SILVER. dd2 03:42 Patient admitted, IV remains in place. dd2 Administered Medications: 01/04 22:12 Drug: NS 0.9% IV 500 ml 500 ml IV at 1 bolus once; to be given as a bolus over 30 dd2 minutes Volume: 500 ml; Route: IV; Rate: 1 bolus; Site: right antecubital; 22:27 Follow up: Response: No adverse reaction dd2 22:42 Follow up: IV Status: Completed infusion; IV Intake: 500ml dd2 22:12 Drug: Rocephin IV 1 grams IV at calculated rate once; Given slow IV push per pharmacy dd2 instructions Route: IV; Rate: calculated rate; Site: right antecubital; 22:22 Follow up: IV Status: Completed infusion; IV Intake: 10ml dd2 22:27 Follow up: Response: No adverse reaction dd2 22:55 Not Given (Physician Discretion): [id number] mg IVP once dd2 23:06 Drug: NS 0.9% IV 1500 ml IV at 1000 ml once; to be given as a bolus over 60 minutes dd2 Route: IV; Rate: 1000 ml; Site: right antecubital; 23:21 Follow up: Response: No adverse reaction dd2 01/05 00:06 Follow up: IV Status: Completed infusion; IV Intake: 1500ml dd2 00:52 Drug: Acetaminophen PO 1000 mg PO once Route: PO; dd2 01:22 Follow up: Response: No adverse reaction dd2 00:52 Drug: Ondansetron IVP 4 mg IVP once; over 2 minutes Route: IVP; Site: right antecubital;dd2 01:07 Follow up: Response: No adverse reaction dd2 03:29 Drug: Ketorolac IVP 15 mg IVP once Route: IVP; Site: right antecubital; dd2 03:44 Follow up: Response: No adverse reaction dd2 Medication: 01/04 22:13 VIS not applicable for this client. dd2 Intake: 22:22 IV: 10ml; Total: 10ml. dd2 22:42 IV: 500ml; Total: 510ml. dd2 01/05 00:06 IV: 1500ml; Total: 2010ml. dd2 Outcome: 01/04 23:27 Decision to Hospitalize by Provider. ec2 01/05 03:42 Admitted to Med/surg accompanied by tech, via wheelchair, room 212, with chart, dd2 Condition: stable Instructed on the need for admit, 03:43 Patient left the ED. dd2 Signatures: Dispatcher [employer] Hazel Dahl [id number] Rex Eli MD MD ec2 AWAIS MENA RN RN dd2 Corrections: (The following items were deleted from the chart) 01/04 21:21 21:20 PSHx: Knee repair; dd2 dd2
--- NOTE | 2024-01-05 23:27 | EDPHYS ---
Physician Documentation [facility] Name: Jennifer Sherwood Age: 68 yrs Sex: Female : 1955 Arrival Date: 01/05/2024 Time: 21:13 Bed 8 Private MD: ED Physician Rex Eli HPI: 01/04 22:23 This 68 yrs old Female presents to ER via EMS with complaints of Breathing ec2 Difficulty. 22:23 Patient arrives today for evaluation of shortness of breath. History of COPD, EMS ec2 reports that patient was working hard to breathe and subsequently gave the patient albuterol and Atrovent. Patient reports that she does not wear baseline oxygen. Reports some cough and congestion symptoms as well.. Historical: - Allergies: 21:20 HYDROCODONE; dd2 - PMHx: 21:20 Atrial fibrillation; Chronic obstructive lung disease; Congestive heart failure; dd2 Hypertension; Myocardial infarction; - PSHx: 21:20 coronary stents; Knee repair; dd2 - Immunization history:: Adult Immunizations up to date. - Infectious Disease History:: Denies. - Social history:: Smoking status: Patient reports the use of cigarette tobacco products. ROS: 22:23 Constitutional: as per hpi ec2 Exam: 22:23 Constitutional: GEN: NAD Head: atraumatic Eyes: EOMI Ears: External ears are ec2 normal. CV: Tachycardia LUNGS: no respiratory distress, scattered wheezes ABD: non-distended SKIN: no evidence of rashes MSK: no evidence of trauma Vital Signs: 21:15 BP 112 / 64; Pulse 121; Resp 20; Temp 98.4; Pulse Ox 100% on Non-rebreather mask; dd2 Weight 53.52 kg; Height 5 ft. 0 in. ; 22:13 BP 109 / 66; Pulse 110; Resp 18; Pulse Ox 100% on 2 lpm NC; dd2 23:15 BP 102 / 65; Pulse 105; Resp 18; Pulse Ox 100% on 2 lpm NC; dd2 01/05 00:19 BP 105 / 82; Pulse 106; Resp 19; Pulse Ox 97% on 1.5 lpm NC; dd2 00:45 BP 119 / 89; Pulse 107; Resp 19; Pulse Ox 97% on 1.5 lpm NC; dd2 02:01 BP 108 / 63; Pulse 107; Resp 18; Temp 98.5; Pulse Ox 100% on 2 lpm NC; dd2 01/04 21:15 Body Mass Index 23.05 (53.52 kg, 152.4 cm) dd2 [place] Coma Score: 01/04 22:13 Eye Response: spontaneous(4). Motor Response: obeys commands(6). Verbal Response: dd2 oriented(5). Total: 15. MDM: 21:20 Medical Screening Exam initiated ec2 22:24 Data reviewed: vital signs. ED course: Patient arrives today for evaluation of ec2 shortness of breath. Examination remarkable for slight tachycardia. Will obtain a septic workup and empirically treat with ceftriaxone as well as steroids. Differential includes pneumonia, COPD exacerbation, viral infection. . 22:52 ED course: EKG independently reviewed and interpreted by me, shows sinus tachycardia, ec2 rate of 109, no acute ST segment elevations, intervals are nonactionable, PACs noted.. 23:24 ED course: Of note patient given Solu-Medrol prior to arrival. Will forego repeat dose ec2 here in the emergency department.. 23:26 ED course: Presentation consistent with COPD exacerbation, will admit for continued ec2 management. Discussed with hospice, pending admission.. 01/05 00:48 ED course: Sepsis reassessment complete, patient with improving tachycardia.. ec2 01/04 21:18 Order name: Blood Culture Adult (2) ec2 01/04 21:18 Order name: CBC with Diff; Complete Time: 01:39 ec2 01/04 21:18 Order name: CMP; Complete Time: 23:25 ec2 01/04 21:18 Order name: Lactate w/ 2H reflex if indic.; Complete Time: 22:54 ec2 01/04 21:18 Order name: Protime (+inr); Complete Time: 23:15 ec2 01/04 21:18 Order name: Ptt, Activated; Complete Time: 23:15 ec2 01/04 21:18 Order name: Influenza Screen (a \T\ B); Complete Time: 22:54 ec2 01/04 21:18 Order name: SARS RAPID; Complete Time: 22:54 ec2 01/04 23:11 Order name: Manual Differential; Complete Time: 01:39 EDMS 01/05 00:26 Order name: Ghost Lactate-NO COLLECT Timer; Complete Time: 01:02 EDMS 01/05 01:20 Order name: Lactate Sepsis 2 HR Follow-up; Complete Time: 01:39 EDMS 01/04 21:18 Order name: Chest Single View XRAY; Complete Time: 22:54 ec2 01/04 21:18 Order name: EKG; Complete Time: 21:18 ec2 01/04 21:18 Order name: Accucheck; Complete Time: 21:54 ec2 01/04 21:18 Order name: Cardiac monitoring; Complete Time: 21:54 ec2 01/04 21:18 Order name: EKG - Nurse/Tech; Complete Time: 22:46 ec2 01/04 21:18 Order name: IV Saline Lock - Large Bore; Complete Time: 22:46 ec2 01/04 21:18 Order name: Labs collected and sent; Complete Time: 21:54 ec2 01/04 21:18 Order name: O2 Per Protocol; Complete Time: 21:54 ec2 01/04 21:18 Order name: O2 Sat Monitoring; Complete Time: 21:54 ec2 01/04 21:18 Order name: Vital Signs; Complete Time: 21:54 ec2 01/04 22:15 Order name: Misc. Order: RECOLLECT-LAV.GRE.SALMA; Complete Time: 22:55 ty Administered Medications: 01/04 22:12 Drug: NS 0.9% IV 500 ml 500 ml IV at 1 bolus once; to be given as a bolus over 30 dd2 minutes Volume: 500 ml; Route: IV; Rate: 1 bolus; Site: right antecubital; 22:27 Follow up: Response: No adverse reaction dd2 22:42 Follow up: IV Status: Completed infusion; IV Intake: 500ml dd2 22:12 Drug: Rocephin IV 1 grams IV at calculated rate once; Given slow IV push per pharmacy dd2 instructions Route: IV; Rate: calculated rate; Site: right antecubital; 22:22 Follow up: IV Status: Completed infusion; IV Intake: 10ml dd2 22:27 Follow up: Response: No adverse reaction dd2 22:55 Not Given (Physician Discretion): [id number] mg IVP once dd2 23:06 Drug: NS 0.9% IV 1500 ml IV at 1000 ml once; to be given as a bolus over 60 minutes dd2 Route: IV; Rate: 1000 ml; Site: right antecubital; 23:21 Follow up: Response: No adverse reaction dd2 01/05 00:06 Follow up: IV Status: Completed infusion; IV Intake: 1500ml dd2 00:52 Drug: Acetaminophen PO 1000 mg PO once Route: PO; dd2 01:22 Follow up: Response: No adverse reaction dd2 00:52 Drug: Ondansetron IVP 4 mg IVP once; over 2 minutes Route: IVP; Site: right antecubital;dd2 01:07 Follow up: Response: No adverse reaction dd2 03:29 Drug: Ketorolac IVP 15 mg IVP once Route: IVP; Site: right antecubital; dd2 03:44 Follow up: Response: No adverse reaction dd2 Disposition: 01/04 23:26 Critical Care:. ec2 Disposition Summary: 01/05/24 23:27 Hospitalization Ordered Notes: Hospitalization Status: Inpatient Admission ec2 Provider: Joana Rogers2 Location: Telemetry/[facility] (Inpatient) ec2 Condition: Stable ec2 Problem: an acute exacerbation ec2 Symptoms: have improved ec2 Bed/Room Type: Standard ec2 Room Assignment: 212(01/06/24 03:21) vc1 Diagnosis - COPD/ Chronic obstructive pulmonary disease with (acute) exacerbation ec2 Forms: - Medication Reconciliation Form ec2 - SBAR form ec2 - Leadership Thank You Letter ec2 Critical care time excluding procedures: 23:26 Critical care time: Bedside Care: 30 minutes, Consultation: 5 minutes. Total time: 35 ec2 minutes Signatures: Dispatcher [employer] Clarice Tapia RN RN vc1 Rex Eli MD MD ec2 [place] Renteria DIANA, RN RN dd2 Corrections: (The following items were deleted from the chart) 21:21 21:20 PSHx: Knee repair; dd2 dd2 01/05 03:21 01/04 23:27 ec2 vc1
[2024-01-06] MEDS ORDERED: ONDANSETRON 4 MG/2 ML VIAL ONE (00:41)
[2024-01-06] MEDS ORDERED: ACETAMINOPHEN 500 MG TAB ONE (00:41)
[2024-01-06 01:30] LABS: Band Neutrophils 4 % (0-1); Differential Total Cells Count 100; Lymphocytes 5 % (15-42); Segmented Neutrophils 91 % (40-80)
[2024-01-06 01:31] LABS: Anisocytosis 1+; Blood Morphology Comment NOTED (NOT SEEN); Hypochromasia 1+; Microcytosis 1+; Monocytes 0 % (0-10); Ovalocytes 2+; Platelet Estimate ADEQ
[2024-01-06] MEDS ORDERED: KETOROLAC 30 MG/ML INJ ONE (03:22)
--- NOTE | 2024-01-06 04:03 | P.HP ---
Certification for Inpatient With expected LOS: <2 Midnights Practitioner: I am a practitioner with admitting privileges, knowledge of patient current condition, hospital course, and medical plan of care. Services: Services provided to patient in accordance with Admission requirements found in Title 42 Section 412.3 of the Code of Federal Regulations Patient History Date of Service: 01/06/24 Reason for admission: COPD exercabtion, sepsis History of Present Illness: 68 year-old woman with a past medical history significant for COPD, hypertension, and heartburn presented to the ED complaining of shortness of breath that began earlier today. Also, the patient reports she had an OH about 12 years ago and has taken Plavix and aspirin daily ever since. The patient has a history of COPD exacerbation and reports her last exacerbation was in November 2023. She is not on home oxygen. Upon arrival to the ED, the patient was given steroids, ceftriaxone, and IV fluids that significantly improved her s ymptoms. There is concern for sepsis given the patient's elevated white blood cell count, tachycardia, and hypotension. She denies cough, but is a current every day smoker. The patient is experiencing dyspnea on exertion that seems to be worsening. Allergies hydrocodone Allergy (Verified 04/13/15 17:56) Nausea/Vomiting No Known Allergies Allergy (Uncoded 03/29/17 22:01) Unknown Home Medications: Aspirin Chewable [Aspirin Chewable*] 81 mg PO DAILY 06/09/12 Clopidogrel Bisulfate [Plavix*] 75 mg PO DAILY 06/09/12 Lovastatin [Mevacor*] 20 mg PO BEDTIME 06/09/12 Niacin Sr [Niaspan*] 1,000 mg PO DAILY 06/09/12 carvediloL [Coreg*] 12.5 mg PO BID 06/09/12 gemfibroziL [Lopid*] 600 mg PO BID 06/09/12 Albuterol Inhaler [Ventolin Inhaler*] 60 puff IH BID 30 Days #1 aer 09/29/23 Clopidogrel Bisulfate [Plavix] 75 mg PO DAILY #30 tab 09/29/23 Spironolactone 25 mg PO DAILY 30 Days #30 tab 09/29/23 Umeclidinium Brm/Vilanterol Tr [Anoro Ellipta 62.5-25 Mcg INH] 1 each IH BID 30 Days #1 inh 09/29/23 predniSONE [Deltasone*] 10 mg PO BID 10 Days #20 tab 09/29/23 - Past Medical/Surgical History Diabetic: No -: Hypertension -: Anemia -: CAD -: HLD -: COPD -: Stent Placement -: Sx on Knee Cap Psychosocial/ Personal History: Patient is retired, lives at home with her family - Family History Mother -: Heart disease, Stroke, Other (see notes) Notes: Rheumatoid arthritis Father -: Cancer Notes: Colon-Rectal Cancer - Social History Smoking Status: Current every day smoker (1 pack/week) Counseled patient to stop smoking for: less than 10 minutes Alcohol use: No CD- Drugs: No Caffeine use: Yes Review of Systems Respiratory: Shortness of Breath, SOB with Excertion Cardiovascular: Palpitations Gastrointestinal: No Distention Physical Examination - Vital Signs Temperature: 99 F Blood Pressure: 121/77 Pulse: 109 Respirations: 18 Pulse Ox (%): 97 - Physical Exam General: Alert, Oriented x3 HEENT: Atraumatic, Normocephalic Neck: JVD not distended Respiratory: Normal air movement Cardiovascular: No gallops, No rubs, No murmurs Gastrointestinal: Normal bowel sounds, Non-distended Musculoskeletal: No warmth (left foot cool to touch) Neurological: Normal strength at 5/5 x4 extr, Sensation intact - Studies Laboratory Data (last 24 hrs) 01/05/24 01/05/24 01/05/24 22:46 22:46 22:46 WBC 12.80 H Hgb 7.8 L Hct 27.5 L Plt Count 206 PT 17.1 H INR 1.55 APTT 27.1 Sodium 140 Potassium 3.5 BUN 15 Creatinine 0.54 L Glucose 97 Total Bilirubin 0.9 AST 36 ALT 60 H Alkaline Phosphatase 88 Microbiology Data (last 24 hrs): 01/05/24 21:44 Nasopharnyx Influenza Type A Antigen Screen - Final 01/05/24 21:44 Nasopharnyx Influenza Type B Antigen Screen - Final Assessment and Plan - Problems (Diagnosis) (1) Sepsis Current Visit: Yes Status: Acute (2) COPD exacerbation Current Visit: No Status: Acute (3) Smoking history Current Visit: Yes Status: Acute - Plan COPD exacerbation- Admit to floor, Telemetry ordered, Lovenox ordered, Oxygen via nasal cannula, Spirometry, As needed DuoNeb treatments, IV methylprednisolone as needed Smoking History- Patient has been counseled on smoking cessation and informed t hat it increases survival. The patient voiced understanding, and all of her questions were answered to her satisfaction. Sepsis- Given ceftrixone earlier tonight in ED. continue with IVF as needed. lactic acidosis ordered for early AM - Advance Directives Does patient have a Living Will: No Does patient have a Durable POA for Healthcare: No - Code Status/Comfort Care Code Status: Full Code
[2024-01-06] MEDS: ACETAMINOPHEN 500 MG TAB PO ONE (04:41)
[2024-01-06] MEDS: ZOLPIDEM TARTRATE 5 MG TABLET PO PRN (04:41)
[2024-01-06] MEDS: methocarbamoL 750 MG TAB PO ONE (05:50)
[2024-01-06 06:24] LABS: Magnesium 2.3 mg/dL (1.6-2.4); Phosphorus 2.9 mg/dL (2.5-4.9); Thyroid Stimulating Hormone 0.366 uIU/mL (0.358-3.740)
[2024-01-06 07:59] VITALS: BMI 22.3
[2024-01-06] MEDS: IPRATROPIUM BROM 0.5MG/2.5ML NEB SCH (08:32)
[2024-01-06] MEDS: ENOXAPARIN 40 MG/0.4 ML SQ SCH (09:07)
[2024-01-06] MEDS: POTASSIUM CL SA 10 MEQ TAB PO ONE (09:08)
[2024-01-06] MEDS: methocarbamoL 500 MG TAB PO ONE (13:10)
[2024-01-06] MEDS: MORPHINE 2 MG/ML SYR IV PRN (13:11)
[2024-01-06] MEDS: ONDANSETRON 4 MG/2 ML VIAL IV PRN (16:16)
--- NOTE | 2024-01-06 19:03 | RAD REPORT ---
EXAMINATION: THORACIC SPINE 3 VIEWS CLINICAL INDICATION: Female, 68 years old.[facility] MAIN fall; t-spine fall TECHNIQUE: AP, lateral views of the thoracic spine were obtained. COMPARISON: No prior exam. FINDINGS: ALIGNMENT: The thoracic spine has normal alignment. BONES: Vertebral body heights are maintained. No aggressive osseous lesions. Mild multilevel degenera tive changes with endplate remodeling. DISCS: Disc heights are maintained. SOFT TISSUE: No soft tissue abnormalities. IMPRESSION: No acute thoracic spine abnormality. Mild multilevel degenerative changes.
[2024-01-06] MEDS: ALBUTEROL 2.5 MG/3 ML NEB SOL NEB PRN (19:50)
[2024-01-06] MEDS: ACETAMINOPHEN 325 MG TABLET PO PRN (21:08)
[2024-01-06] MEDS: FAMOTIDINE 20 MG TAB PO SCH (21:09)
[2024-01-07 06:50] LABS: Absolute Basophils 0.1 K/uL (0-0.5); Absolute Lymphocytes (CBC) 1.6 K/uL (0.7-4.9); Absolute Monocytes 0.7 K/uL (0.1-1.3); Absolute Neutrophil 6.1 K/uL (1.8-8.0); Basophils % 0.7 % (0-1.3); Eosinophils % 0.4 % (0-4.4); Hematocrit 28.8 % (36.0-45.0); Hemoglobin 7.9 g/dL (12.0-15.0); Lymphocytes % 18.7 % (15.3-44.8); MCH 19.3 pg (27.0-35.0); MCHC 27.5 g/dL (32.0-36.0); MCV 70.3 fL (80-100); MPV 9.7 fL (7.6-11.3); Monocytes % 8.3 % (3.3-12.3); Neutrophils % 71.9 % (41.7-73.7); Nucleated RBC Absolute Count 0.1 (0-0); Nucleated Red Blood Cells % 0.7 % (0-0); Platelets 229 thou/uL (152-406); RBC Red Blood Cell Count 4.09 M/uL (3.86-4.86); Red Cell Distribution Width 19.6 % (12.1-15.2)
[2024-01-07 07:13] LABS: Troponin High Sensitivity 27.7 pg/mL (<58.9)
[2024-01-07 07:23] LABS: Albumin 3.4 g/dL (3.4-5.0); Albumin/Globulin Ratio 1.4 (1.1-1.8); Globulin 2.4 g/dL (2.3-3.5); Magnesium 2.2 mg/dL (1.6-2.4); Protein, Total 5.8 g/dL (6.4-8.2)
[2024-01-07] MEDS: ONDANSETRON 4 MG (ODT) TAB PO PRN (07:48)
--- NOTE | 2024-01-07 11:55 | P.CNS ---
Date of Consult: 01/07/24 Reason for Consult: COPD exacerbation Chief Complaint: COPD exercabtion, nausea vomiting History of Present Illness: Patient is 68 years of age with a history of COPD for the past 3 to 4 years using Breztri and bronchodilators at home became progressively worse over the past 3 to 4 days at the time of my evaluation patient started vomiting history of heartburn active smoker Allergies hydrocodone Allergy (Verified 04/13/15 17:56) Nausea/Vomiting Home Medications: Aspirin Chewable [Aspirin Chewable*] 81 mg PO DAILY 06/09/12 Clopidogrel Bisulfate [Plavix*] 75 mg PO DAILY 06/09/12 Lovastatin [Mevacor*] 20 mg PO BEDTIME 06/09/12 Niacin Sr [Niaspan*] 1,000 mg PO DAILY 06/09/12 carvediloL [Coreg*] 12.5 mg PO BID 06/09/12 gemfibroziL [Lopid*] 600 mg PO BID 06/09/12 Albuterol Inhaler [Ventolin Inhaler*] 60 puff IH BID 30 Days #1 aer 09/29/23 Clopidogrel Bisulfate [Plavix] 75 mg PO DAILY #30 tab 09/29/23 Spironolactone 25 mg PO DAILY 30 Days #30 tab 09/29/23 Umeclidinium Brm/Vilanterol Tr [Anoro Ellipta 62.5-25 Mcg INH] 1 each IH BID 30 Days #1 inh 09/29/23 predniSONE [Deltasone*] 10 mg PO BID 10 Days #20 tab 09/29/23 - Past Medical/Surgical History Diabetic: No -: Hypertension -: Anemia -: CAD -: HLD -: COPD -: Stent Placement -: Sx on Knee Cap Psychosocial/ Personal History: Patient is retired, lives at home with her family - Family History Mother Medical History: Heart disease, Stroke, Other (see notes) Notes: Rheumatoid arthritis Father Medical History: Cancer Notes: Colon-Rectal Cancer - Social History Smoking Status: Current every day smoker Alcohol use: No CD- Drugs: No Caffeine use: Yes Place of Residence: Home Review of Systems Unremarkable General: Weakness Respiratory: Cough, Shortness of Breath Gastrointestinal: Nausea, Vomiting Physical Examination Temp Pulse Resp BP Pulse Ox 97.4 F 108 H 20 115/81 99 01/07/24 08:00 01/07/24 08:00 01/07/24 08:00 01/07/24 08:00 01/07/24 08:00 General: Alert, Oriented x3, Moderate distress Respiratory: Expiratory wheezes Cardiovascular: No edema, Regular rate/rhythm, Normal S1 S2 Gastrointestinal: Normal bowel sounds, Soft and benign Musculoskeletal: No clubbing, No swelling - Problems (1) COPD exacerbation Current Visit: Yes Status: Acute Plan: Patient is 68 years of age with a history of COPD admitted with exacerbation she is also been vomiting recently and has a chronic microcytic anemia 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
[2024-01-07] MEDS: SODIUM CHLORIDE 0.9% 10ML INJ IV ONE (11:57)
[2024-01-07] MEDS: SOD FERRIC GLUC COMPLX/SUCROSE 250 MG in NA CHLORIDE 0.9% 250 ML IV SCH (13:13)
[2024-01-07] MEDS: PANTOPRAZOLE 40 MG INJ IVP ONE (13:13)
[2024-01-07] MEDS: METHYLPREDNISOLONE 40 MG INJ IV SCH (13:13)
[2024-01-07 13:47] LABS: Ferritin 6.9 ng/mL (8-252); Iron < 10.0 ug/dL (50-170); Transferrin 332 mg/dL (200-360)
--- NOTE | 2024-01-07 14:53 | EKG ---
Test Date: 2024-01-05 Test Time: 22:43:15 Program Checker: VIJAYA MEASUREMENT RESULTS: Intervals: Rate: 109 UT: 160 QRSD: 74 QT: 298 QTc: 401 [place]: P: 104 UT: 160 QRS: 58 T: 32 INTERPRETIVE STATEMENTS: Sinus tachycardia with premature supraventricular complexes Cannot rule out Anteroseptal infarct, age undetermined Abnormal ECG Compared to ECG 12/18/2023 22:15:32 Myocardial infarct finding now present Electronically Signed On 01-07-24 14:47:08 CDT by Rayo Ward
[2024-01-07 17:32] LABS: Specific Gravity > 1.030 (1.005-1.030); Urine Bacteria None Seen /HPF (<20); Urine Bilirubin NEGATIVE (Negative); Urine Blood Negative (Negative); Urine Clarity Extremely Turbid (Clear); Urine Color Yellow (Yellow); Urine Culture Reflex Order NOT NEEDED; Urine Glucose NEGATIVE (Negative); Urine Ketones NEGATIVE (Negative); Urine Microscopic Reflex YN ORDER UMIC; Urine Mucus 1+ /HPF (None Seen); Urine Nitrite NEGATIVE (Negative); Urine Protein 1+ (Negative); Urine RBC <5 /HPF (None Seen); Urine Urobilinogen 1+ (Normal); Urine WBC <5 /HPF (<5); Urine pH 5.5 (5.0-7.0)
[2024-01-07] MEDS: IPRATROPIUM BROM 0.5MG/2.5ML NEB SCH (20:01)
--- NOTE | 2024-01-07 21:05 | P.PN ---
Subjective Date of Service: 01/07/24 Chief Complaint: COPD exercabtion, nausea vomiting Presented with COPD exacerbation, reports not feeling well, nausea vomiting, Review of Systems 10-point ROS is otherwise unremarkable General: As per HPI Physical Examination - Vital Signs Temperature: 97.6 F Blood Pressure: 118/74 Pulse: 103 Respirations: 18 Pulse Ox (%): 100 - Physical Exam General: Alert, Oriented x3, Other (Appears ill) HEENT: Atraumatic, Normocephalic Neck: Supple, Without JVD or thyroid abnormality Respiratory: Normal air movement, Diminished Cardiovascular: Normal pulses, Regular rate/rhythm, Normal S1 S2 Capillary refill: <2 Seconds Gastrointestinal: Normal bowel sounds, Other (Nausea vomiting) Musculoskeletal: No swelling, No contractures Integumentary: No significant lesion, No tenderness/swelling Neurological: Normal speech, Normal strength at 5/5 x4 extr, Other (Generalized weakness) Assessment And Plan - Current Problems (Diagnosis) (1) Acute hypoxic respiratory failure Current Visit: Yes Status: Acute (2) Transaminitis Current Visit: Yes Status: Acute (3) SIRS (systemic inflammatory response syndrome) Current Visit: Yes Status: Acute (4) Lactic acidosis Current Visit: Yes Status: Acute (5) Tobacco abuse Current Visit: Yes Status: Acute (6) COPD exacerbation Current Visit: Yes Status: Acute (7) Microcytic anemia Current Visit: Yes Status: Acute (8) COPD exacerbation Current Visit: No Status: Acute (9) Cardiomegaly Current Visit: Yes Status: Acute (10) Nausea & vomiting Current Visit: Yes Status: Acute (11) GERD (gastroesophageal reflux disease) Current Visit: Yes Status: Acute - Plan Admitted to [facility], [facility], steroids, Pulmonary consult O2 2 L keep sats greater 92% Echo ordered for cardiomegaly Abdominal pain nausea vomiting, as needed antiemetic Trend H&H, iron infusion Trend cultures Blood cultures negative, flu AMB negative Thoracic x-ray degenerative disc disease CT of the abdomen pelvis ordered, GERD, PPI ordered Discharge Plan: Home - Code Status/Comfort Care Code Status: Full Code Critical Care: No Time Spent Managing PTS Care (In Minutes): 55
[2024-01-07] MEDS: FAMOTIDINE 20 MG/2 ML VIAL IV SCH (21:23)
[2024-01-08] MEDS: FAMOTIDINE 20 MG/2 ML VIAL IV SCH (08:03)
--- NOTE | 2024-01-08 09:29 | RAD REPORT ---
EXAMINATION: CT Abdomen Pelvis W Contrast CLINICAL INDICATION: Female, 68 years old. nausea and vomiting TECHNIQUE: CT abdomen and pelvis was performed, after the administration of 100 mL Isovue 300 intrave nously, as per department protocol. Axial, sagittal and coronal reconstructions were obtained. One or more of the following dose reduction techniques were used: Automated exposure control, adjustment of the mA and kV according to patient size, and iterative reconstruction. Unless otherwise specified, incidental findings do not require dedicated imaging follow-up. COMPARISON: 07/26/2023 and 12/19/2023 FINDINGS: LOWER CHEST: Layering small right pleural effusion. LIVER: Normal in size and contour. No focal lesion. BILIARY SYSTEM: Layering mildly hyperdense sludge. No radiopaque calculi. Stable mild prominence of t he common bile duct, nonspecific. SPLEEN: Normal size. No focal lesion. PANCREAS: No mass, ductal dilation, or river-pancreatic fluid. ADRENALS: Left adrenal 2.1 cm nodule, stable. KIDNEYS: Normal size and contour. No hydronephrosis. URINARY BLADDER: Unremarkable. GASTROINTESTINAL TRACT: No evidence of free air, bowel obstruction or abscess. Mild free ascites. Sig moid diverticulosis. APPENDIX: Normal appendix. LYMPH NODES: No lymphadenopathy. MUSCULOSKELETAL: No acute or suspicious osseous abnormality. ADDITIONAL FINDINGS: Diffuse moderate body wall edema. IMPRESSION: Layering small right pleural effusion and mild free ascites. Diffuse moderate body wall edema. Please correlate for fluid overload. Left adrenal 2.1 cm nodule, stable. Other stable findings as above.
[2024-01-08] MEDS: METOPROLOL TAR 25 MG TAB PO ONE (11:28)
--- NOTE | 2024-01-08 11:45 | ECHO ---
HEIGHT: 5 ft 1 in WEIGHT: 118 lb 3.2 oz DATE OF STUDY: 01/08/[address]: Raad Kim MD 2-DIMENSIONAL: YES M.MODE: YES DOPPLER: YES COLOR FLOW: YES TDS: PORTABLE: YES DEFINITY: BUBBLE STUDY: DIAGNOSIS: CARDIOMEGALY CARDIAC HISTORY: CATHERIZATION: SURGERY: PROSTHETIC VALVE: PACEMAKER: MEASUREMENTS (cm) DIASTOLIC (NORMALS) SYSTOLIC (NORMALS) IVSd 0.9 (0.6-1.2) LA Diam 3.8 (1.9-4.0) LVEF 25-30% LVIDd 5.0 (3.5-5.7) LVIDs 4.4 (2.0-3.5) %FS 12% LVPWd 0.9 (0.6-1.2) Ao Diam 2.7 (2.0-3.7) 2 DIMENSIONAL ASSESSMENT: RIGHT ATRIUM: MILDLY DILATED LEFT ATRIUM: MODERATELY DILATED RIGHT VENTRICLE: MILDLY DILATED LEFT VENTRICLE: MILDLY DILATED TRICUSPID VALVE: MILD TRICUSPID REGURGITATION MITRAL VALVE: MILD MITRAL REGURGITATION PULMONIC VALVE: NORMAL AORTIC VALVE: NORMAL PERICARDIAL EFFUSION: NONE AORTIC ROOT: NORMAL LEFT VENTRICULAR WALL MOTION: SEVERE GLOBAL HYPOKINESIS DOPPLER/COLOR FLOW: DIASTOLIC DYSFUNCTION COMMENTS: 1. SEVERELY REDUCED LEFT VENTRICULAR SYSTOLIC FUNCTION, EJECTION FRACTION 25-30%, SEVERE GLOBAL HYPOKINESIS 2. MILDLY DILATED RIGHT VENTRICLE WITH MILDLY REDUCED RIGHT VENTRICULAR FUCNTION. 3. DIASTOLIC DYSFUNCTION 4. ELEVATED FILLING PRESSURE (RIGHT ATRIAL PRESSURE GREATER THAN 20 mmHg) 5. MODERATE PULMONARY HYPERTENSION (RIGHT VENTRICULAR SYSTOLIC PRESSURE 50-55 mmHg) TECHNOLOGIST: DEWAYNE RAINEY
[2024-01-08 12:01] VITALS: O2SAT 93
--- NOTE | 2024-01-08 12:33 | P.PN ---
Subjective Date of Service: 01/08/24 Chief Complaint: COPD exercabtion, Subjective: Improving (Patient is doing much better today denies any nausea vomiting probably side effect of Zithromax to her baseline) Review of Systems General: Weakness Respiratory: Shortness of Breath Physical Examination - Vital Signs Temperature: 97.3 F Blood Pressure: 123/65 Pulse: 100 Respirations: 14 Pulse Ox (%): 92 - Physical Exam General: Alert, Oriented x3 Respiratory: Clear to auscultation bilaterally, Diminished Cardiovascular: No edema, Normal S1 S2 Assessment And Plan - Current Problems (Diagnosis) (1) COPD exacerbation Current Visit: Yes Status: Acute Plan: Patient is 68 years of age admitted with COPD exacerbation doing much better back to her baseline stable for discharge on Anoro low-dose prednisone chest are negative white count is declined (2) Microcytic anemia Current Visit: Yes Status: Acute Plan: Severe iron deficiency anemia continue with iron treatment
[2024-01-08] MEDS ORDERED: ALBUTEROL 2.5 MG/3 ML NEB SOL NEB PRN (16:00)
[2024-01-08 17:33] VITALS: BP 111/47; TEMP 97.8
[2024-01-08] MEDS ORDERED: METOPROLOL TAR 25 MG TAB PO SCH (18:00)
[2024-01-08] MEDS ORDERED: predniSONE 20 MG TAB PO SCH (21:00)
--- NOTE | 2024-01-09 05:56 | P.DS ---
Admission Date: 01/06/24 Discharge Date: 01/08/24 Disposition: ROUTINE DISCHARGE Discharge Condition: GOOD Reason for Admission: COPD exercabtion, - Problems (1) Acute hypoxic respiratory failure Status: Acute (2) Transaminitis Status: Acute (3) SIRS (systemic inflammatory response syndrome) Status: Acute (4) Lactic acidosis Status: Acute (5) Tobacco abuse Status: Acute (6) COPD exacerbation Status: Acute (7) Microcytic anemia Status: Acute (8) COPD exacerbation Status: Acute (9) Cardiomegaly Status: Acute (10) Nausea & vomiting Status: Acute (11) GERD (gastroesophageal reflux disease) Status: Acute Brief History of Present Illness: 68 year-old woman with a past medical history significant for COPD, hypertension, and heartburn presented to the ED complaining of shortness of breath that began earlier today. Also, the patient reports she had an MO about 12 years ago and has taken Plavix and aspirin daily ever since. The patient has a history of COPD exacerbation and reports her last exacerbation was in November 2023. She is not on home oxygen. Upon arrival to the ED, the patient was given steroids, ceftriaxone, and IV fluids that significantly improved her symptoms. There is concern for sepsis given the patient's elevated white blood cell count, tachycardia, and hypotension. She denies cough, but is a current every day smoker. The patient is experiencing dyspnea on exertion that seems to be worsening - Physical Exam General: Alert, Oriented x3 HEENT: Atraumatic, Normocephalic Neck: JVD not distended Respiratory: Normal air movement Cardiovascular: No gallops, No rubs, No murmurs Gastrointestinal: Normal bowel sounds, Non-distended Musculoskeletal: No warmth (left foot cool to touch) Neurological: Normal strength at 5/5 x4 extr, Sensation intact Hospital Course: 68 year-old woman with a past medical history significant for COPD, hypertension, and heartburn presented to the ED complaining of shortness of breath that began earlier today. Also, the patient reports she had an MO about 12 years ago and has taken Plavix and aspirin daily ever since. The patient has a history of COPD exacerbation and reports her last exacerbation was in November 2023. She is not on home oxygen. Upon arrival to the ED, the patient was given steroids, ceftriaxone, and IV fluids that significantly improved her symptoms. There is concern for sepsis given the patient's elevated white blood cell count, tachycardia, and hypotension. She denies cough, but is a current every day smoker. The patient is experiencing dyspnea on exertion. She was treated sctute diastolic heart failure with reduced EF-treated lasix, COPD exacerbation, SIRS, treated with antibiotics,nebs, steroids, oxygen, pulmonary hypertension, she was seen by pulmonary. history of tobacco use, educated on tobacco cessation, nausea vomiting, gerd, improved. tolerating diet stable to discharge home. Discharge medications Atrovent, neb Cefdinir Metoprolol for HTN prednisone 20 mg po bid for 5 days Assessment acute on chronic diatolic heart failure with reduced ejection fraction, treated with diuetics respiratory failure from COPD exacerbation, Pulmonary hypertension SIRS, treated with antibiotics, history of tobacco use, educated on tobacco cessation, nausea vomiting, gerd, improved. tolerating diet imaging Blood cultures negative, flu AMB negative Thoracic x-ray degenerative disc disease ECHO SEVERELY REDUCED LEFT VENTRICULAR SYSTOLIC FUNCTION, EJECTION FRACTION 25-30%, SEVERE GLOBAL HYPOKINESIS 2. MILDLY DILATED RIGHT VENTRICLE WITH MILDLY REDUCED RIGHT VENTRICULAR FUCNTION. 3. DIASTOLIC DYSFUNCTION 4. ELEVATED FILLING PRESSURE (RIGHT ATRIAL PRESSURE GREATER THAN 20 mmHg) 5. MODERATE PULMONARY HYPERTENSION (RIGHT VENTRICULAR SYSTOLIC PRESSURE 50-55 mmHg) Continue home medicines as previously prescribed GOAL: Clear understanding of disease process INSTRUCTIONS: Physician Discharge Instructions: -Follow with Dr Kim call office for apt -Follow-up with PCP in 1 to 2 weeks -Please call Dr. Rogers at [phone] if any questions regarding hospital stay -Please call nursing station at [phone] if any nursing or medication questions -Return to the emergency room if symptoms worsen Diet: ADA, low sodium Activity: Fall precautions Vital Signs/Physical Exam: Temp Pulse Resp BP Pulse Ox 97.8 F 76 16 111/47 L 96 01/08/24 16:00 01/08/24 16:00 01/08/24 16:00 01/08/24 16:00 01/08/24 16:00 Laboratory Data at Discharge: WBC 8.50 thou/uL (4.3-10.9) 01/07/24 06:02 Hgb 7.9 g/dL (12.0-15.0) L 01/07/24 06:02 Hct 28.8 % (36.0-45.0) L 01/07/24 06:02 Plt Count 229 thou/uL (152-406) 01/07/24 06:02 PT 17.1 SECONDS (9.4-12.5) H 01/05/24 22:46 INR 1.55 01/05/24 22:46 APTT 27.1 SECONDS (24.3-36.9) 01/05/24 22:46 Sodium 137 mEq/L (136-145) 01/07/24 06:02 Potassium 5.0 mEq/L (3.5-5.1) 01/07/24 06:02 BUN 19 mg/dL (7-18) H 01/07/24 06:02 Creatinine 0.64 mg/dL (0.55-1.02) 01/07/24 06:02 Glucose 100 mg/dL (74-106) 01/07/24 06:02 Phosphorus 2.9 mg/dL (2.5-4.9) 01/06/24 05:48 Magnesium 2.2 mg/dL (1.6-2.4) 01/07/24 06:02 Total Bilirubin 1.0 mg/dL (0.2-1.0) 01/07/24 06:02 AST 74 U/L (15-37) H 01/07/24 06:02 ALT 99 U/L (13-56) H 01/07/24 06:02 Alkaline Phosphatase 78 U/L (45-117) 01/07/24 06:02 Triglycerides 82 mg/dL (<150) 01/07/24 06:02 Cholesterol 94 mg/dL (<200) 01/07/24 06:02 HDL Cholesterol 30 mg/dL (40-60) L 01/07/24 06:02 Cholesterol/HDL Ratio 3.13 01/07/24 06:02 Home Medications: Aspirin Chewable [Aspirin Chewable*] 81 mg PO DAILY 06/09/12 Clopidogrel Bisulfate [Plavix*] 75 mg PO DAILY 06/09/12 Lovastatin [Mevacor*] 20 mg PO BEDTIME 06/09/12 Albuterol Inhaler [Ventolin Inhaler*] 60 puff IH BID 30 Days #1 aer 09/29/23 Clopidogrel Bisulfate [Plavix*] 75 mg PO DAILY #30 tab 09/29/23 Albuterol Neb [Proventil 0.083% Neb Soln] 2.5 mg NEB Q6HP PRN #60 amp 01/08/24 Cefdinir [Cefdinir*] 300 mg PO BID #10 cap 01/08/24 Ipratropium Neb [Atrovent*] 0.5 mg NEB [id number] #60 amp 01/08/24 Metoprolol Tartrate [Lopressor*] 25 mg PO BID 6AM 6PM #60 tab 01/08/24 Pantoprazole [Protonix Tab] 40 mg PO BID #60 tab 01/08/24 predniSONE [Prednisone*] 20 mg PO BID #11 tab 01/08/24 New Medications: Ipratropium Neb [Atrovent*] 0.5 mg NEB [id number] #60 amp Cefdinir [Cefdinir*] 300 mg PO BID #10 cap Metoprolol Tartrate [Lopressor*] 25 mg PO BID 6AM 6PM #60 tab predniSONE [Prednisone*] 20 mg PO BID #11 tab Pantoprazole [Protonix Tab] 40 mg PO BID #60 tab Albuterol Neb [Proventil 0.083% Neb Soln] 2.5 mg NEB Q6HP PRN #60 amp PRN Reason: Shortness Of Breath Physician Discharge Instructions: OK TO DC IV AND DC HOME FOLLOW-UP WITH PCP IN 1-2 WEEKS RETURN TO THE ER IF SYMPTOMS WORSENS FOLLOW-UP WITH PULMONARY IN 2-3 WEEKS FOLLOW-UP WITH GI IN 1-2 WEEKS Diet: AHA Activity: Fall precautions Followup: Georgette Trevino MD [Primary Care Provider] - 1-2 Weeks
== END 2024-01-08 17:40 | disposition home or self-care (01) | DRG 871 ==
LOC: ER 21:13 → 2ND 01-06 03:51
PROVIDERS: ADMIT Hospitalist; ATTEND Hospitalist
DX: A41.9 Sepsis, unspecified organism (principal); I50.33 Acute on chronic diastolic (congestive) heart failure; J96.01 Acute respiratory failure with hypoxia; J44.1 Chronic obstructive pulmonary disease with (acute) exacerbation; E87.20 Acidosis, unspecified; I11.0 Hypertensive heart disease with heart failure; I48.91 Unspecified atrial fibrillation; D50.9 Iron deficiency anemia, unspecified; K21.9 Gastro-esophageal reflux disease without esophagitis; I27.20 Pulmonary hypertension, unspecified; I25.2 Old myocardial infarction; I25.10 Atherosclerotic heart disease of native coronary artery without angina pectoris; F17.210 Nicotine dependence, cigarettes, uncomplicated; R74.01 Elevation of levels of liver transaminase levels; Z88.5 Allergy status to narcotic agent; Z95.5 Presence of coronary angioplasty implant and graft; Z79.82 Long term (current) use of aspirin; Z11.52 Encounter for screening for COVID-19; Z79.02 Long term (current) use of antithrombotics/antiplatelets; Z79.52 Long term (current) use of systemic steroids; Z79.899 Other long term (current) drug therapy
CPT/HCPCS: 36415; 71045; 72070; 74177; 80053; 80061; 81001; 82728; 83540; 83605; 83735; 83880; 84100; 84443; 84466; 84484; 85025; 85610; 85730; 87040; 87804; 87811; 93005; 93306; 94640; 94760; 96361; 96374; 96375; 99285; J0696; J1650; J2270; J2405; J2470; J2916; J2919; J7030; J7040; J7050; J7613; J7644; Q0162; Q9967

== ENCOUNTER 2024-01-11 21:30 | Inpatient (IN) | payer OTHER ==
[2024-01-11] MEDS ORDERED: FUROSEMIDE 20 MG/ 2ML VIAL ONE (22:07)
[2024-01-11 22:27] LABS: PT Prothrombin Time 13.7 SECONDS (9.4-12.5); Protime INR 1.23
--- NOTE | 2024-01-11 22:27 | RAD REPORT ---
EXAMINATION: US LOWER EXTREMITY VENOUS DOPPLER BILATERAL CLINICAL INDICATION: Female, 68 years old.SWELLING TECHNIQUE: Complete bilateral duplex sonography of the lower extremity veins was performed. The exami nation included compression for vein patency, color Doppler imaging and flow augmentation in response to distal compression of the distal external iliac, common femoral, femoral, popliteal, colleen babs, tibial and great saphenous veins. [id number]. COMPARISON: No prior exams FINDINGS: Duplex sonography imaging demonstrates all deep examined to be fully compressible with spontaneous, p hasic and augmented flow bilaterally. IMPRESSION: No evidence of deep venous thrombosis seen in either lower extremity.
[2024-01-11 22:28] LABS: Absolute Eosinophils 0.2 K/uL (0-0.5); Absolute Lymphocytes (CBC) 1.5 K/uL (0.7-4.9); Absolute Monocytes 0.5 K/uL (0.1-1.3); Absolute Neutrophil 5.8 K/uL (1.8-8.0); Basophils % 0.1 % (0-1.3); Eosinophils % 2.5 % (0-4.4); Hematocrit 30.5 % (36.0-45.0); Hemoglobin 8.7 g/dL (12.0-15.0); Lymphocytes % 18.3 % (15.3-44.8); MCH 20.6 pg (27.0-35.0); MCHC 28.4 g/dL (32.0-36.0); MCV 72.5 fL (80-100); Monocytes % 6.8 % (3.3-12.3); Neutrophils % 72.3 % (41.7-73.7); Nucleated Red Blood Cells % 0.4 % (0-0); Platelets 264 thou/uL (152-406); RBC Red Blood Cell Count 4.21 M/uL (3.86-4.86); Red Cell Distribution Width 20.5 % (12.1-15.2)
--- NOTE | 2024-01-11 22:33 | RAD REPORT ---
EXAMINATION: ONE VIEW CHEST XR CLINICAL INDICATION: Female, 68 years old.SOB TECHNIQUE: 1 View, AP supine, X-ray of the chest was performed. [id number]. COMPARISON: 01/05/2024 FINDINGS: Lungs and pleura: Clear lungs. No effusion. Heart and mediastinum: Similar cardiomegaly. Unremarkable mediastinal contours. Osseous structures: No acute abnormality. Tubes/lines: None Other: None. IMPRESSION: No acute intrathoracic abnormality.
[2024-01-11 22:55] LABS: Albumin 3.2 g/dL (3.4-5.0); Albumin/Globulin Ratio 1.4 (1.1-1.8); Anion Gap 4.9 mEq/L (5.0-15.0); Bilirubin Direct 0.4 mg/dL (0-0.2); Bilirubin Indirect, Calculated 0.3 mg/dL (0.2-0.8); Bilirubin Total 0.7 mg/dL (0.2-1.0); Globulin 2.3 g/dL (2.3-3.5); Magnesium 1.9 mg/dL (1.6-2.4); Potassium 3.9 mEq/L (3.5-5.1); Protein, Total 5.5 g/dL (6.4-8.2); Troponin High Sensitivity 26.2 pg/mL (<58.9)
[2024-01-11 23:19] LABS: Specific Gravity 1.012 (1.005-1.030); Sqamous Epithelial <5 /HPF (None Seen); Urine Bacteria None Seen /HPF (<20); Urine Bilirubin NEGATIVE (Negative); Urine Blood Negative (Negative); Urine Clarity Clear (Clear); Urine Color Light-Yellow (Yellow); Urine Culture Reflex Order NOT NEEDED; Urine Glucose NEGATIVE (Negative); Urine Ketones NEGATIVE (Negative); Urine Microscopic Reflex YN ORDER UMIC; Urine Mucus Slight /HPF (None Seen); Urine Nitrite NEGATIVE (Negative); Urine Protein NEGATIVE (Negative); Urine RBC <5 /HPF (None Seen); Urine Urobilinogen 1+ (Normal); Urine WBC None Seen /HPF (<5); Urine pH 6.5 (5.0-7.0)
[2024-01-11 23:22] LABS: Anisocytosis 2+; Blood Morphology Comment NOTED (NOT SEEN); Hypochromasia 2+; Microcytosis 2+; Platelet Estimate ADEQ; White Blood Cell Scan OK (OK)
[2024-01-11 23:23] LABS: Basophilic Stippling 1+; Ovalocytes 2+; Polychromasia 1+
--- NOTE | 2024-01-11 23:26 | EDPHYS ---
Physician Documentation [facility] Name: Jennifer Sherwood Age: 68 yrs Sex: Female : 1955 Arrival Date: 01/11/2024 Time: 21:30 Bed 6 Private MD: ED Physician Wolfgang Wren HPI: 01/10 22:00 This 68 yrs old Female presents to ER via Wheelchair with complaints of cp Swelling of Lower Extremity. 22:00 The patient presents with swelling, tenderness. The complaints affect the right foot, cp left foot, right leg and left leg. Context: PMHX significant for CHF. Onset: The symptoms/episode began/occurred 2 day(s) ago. Associated signs and symptoms: Pertinent positives: shortness of breath, Pertinent negatives calf tenderness, fever, warmth, chest pain. 22:00 Treatment prior to arrival includes: no previous treatment. cp 22:00 Patient reports recent discharge from this hospital. cp Historical: - Allergies: 21:44 HYDROCODONE; me1 - PMHx: 21:44 Atrial fibrillation; Chronic obstructive lung disease; Congestive heart failure; me1 Hypertension; Myocardial infarction; - PSHx: 21:44 coronary stents; Knee repair; me1 - Immunization history:: Adult Immunizations up to date. - Infectious Disease History:: Denies. - Social history:: Smoking status: Patient reports the use of cigarette tobacco products, smokes one pack cigarettes per day. ROS: 22:05 Constitutional: Negative for body aches, chills, fever, poor PO intake, cp 22:05 Eyes: Negative for injury, pain, redness, and discharge, cp 22:05 ENT: Negative for drainage from ear(s), ear pain, sore throat, difficulty swallowing, difficulty handling secretions, 22:05 Cardiovascular: Positive for edema, Negative for chest pain, palpitations, 22:05 Respiratory: Positive for shortness of breath, Negative for cough, wheezing, 22:05 Abdomen/GI: Negative for abdominal pain, vomiting, diarrhea, constipation, anorexia, 22:05 Back: Negative for pain at rest, pain with movement, 22:05 MS/extremity: Positive for swelling, of the right foot, left foot, right leg and left leg, Negative for pain, 22:05 Neuro: Negative for altered mental status, dizziness, headache, weakness, 22:05 All other systems are negative, Exam: 22:10 Constitutional: The patient appears in no acute distress, alert, awake, cp non-diaphoretic, non-toxic, well developed, well nourished, 22:10 Head/Face: Normocephalic, atraumatic. cp 22:10 Eyes: Periorbital structures: appear normal, Conjunctiva: normal, no exudate, no injection, Sclera: no appreciated abnormality, Lids and lashes: appear normal, bilaterally, 22:10 ENT: External ear(s): are unremarkable, Nose: is normal, Mouth: Lips: moist, Oral mucosa: pink and intact, moist, Posterior pharynx: Airway: no evidence of obstruction, patent, 22:10 Neck: ROM/movement: is normal, is supple, without pain, no range of motions limitations, 22:10 Chest/axilla: Inspection: normal, 22:10 Cardiovascular: Rate: normal, Rhythm: regular, Edema: pedal edema, that is marked, ankle edema, that is moderate, JVD: is not appreciated, 22:10 Respiratory: the patient does not display signs of respiratory distress, Respirations: normal, no use of accessory muscles, no retractions, Breath sounds: are clear throughout, 22:10 Abdomen/GI: Inspection: abdomen appears normal, Palpation: abdomen is soft and non-tender, in all quadrants, 22:10 Back: pain, is absent, ROM is normal, cp 22:10 Skin: cellulitis, is not appreciated, no rash present. 22:10 Neuro: Orientation: to person, place \T\ time. Mentation: is normal, Motor: moves all cp fours, no focal deficits, Sensation: no obvious gross deficits, 22:20 ECG was reviewed by the Attending Physician. cp Vital Signs: 21:42 BP 115 / 73; Pulse 98; Resp 20; Temp 97.5; Pulse Ox 100% ; Weight 53.52 kg; Height 5 me1 ft. 0 in. ; Pain 5/10; 22:35 BP 108 / 64; Pulse 83; Resp 15; Temp 97.5; Pulse Ox 98% on R/A; Pain 6/10; mt4 11/04 00:00 BP 107 / 58; Pulse 86; Resp 17; Pulse Ox 99% ; mt4 00:06 BP 103 / 66; Pulse 85; Resp 17; Pulse Ox 98% on R/A; mt4 01:00 BP 105 / 57; Pulse 80; Resp 16; mt4 11 21:42 Body Mass Index 23.05 (53.52 kg, 152.4 cm) me1 11 21:42 Pain Scale: Adult me1 22:35 Pain Scale: Adult mt4 Holmes Coma Score: 01/10 22:35 Eye Response: spontaneous(4). Motor Response: obeys commands(6). Verbal Response: mt4 oriented(5). Total: 15. MDM: 21:38 Medical Screening Exam initiated cp 23:30 Data reviewed: vital signs, nurses notes, lab test result(s), EKG, radiologic studies, cp plain films, and as a result, I will admit patient. 23:30 Differential diagnosis: pulmonary edema, pneumonia, cellulitis, sepsis, DVT. I cp considered the following discharge prescriptions or medication management in the emergency department Medications were administered in the Emergency Department. See MAR. Independent interpretation of the following test(s) in the Emergency Department EKG: See my EKG interpretation above. Care significantly affected by the following chronic conditions: Hypertension, Congestive Heart Failure, Chronic Obstructive Pulmonary Disease. Counseling: I had a detailed discussion with the patient and/or guardian regarding the historical points, exam findings, and any diagnostic results supporting the discharge/admit diagnosis, lab results, radiology results, the need for further work-up and treatment in the hospital. Response to treatment: the patient's symptoms have mildly improved after treatment. 01/10 21:56 Order name: Basic Metabolic Panel; Complete Time: 23:09 cp 01/10 23:10 Interpretation: Normal except: CL 109; ANION GAP 4.9; GLUC 124; BUN 19; CA 8.4. cp 01/10 21:56 Order name: CBC with Diff; Complete Time: 23:25 cp 01/10 23:10 Interpretation: Normal except: HGB 8.7; HCT 30.5; MCV 72.5; MCH 20.6; MCHC 28.4; RDW cp 20.5. 01/10 21:56 Order name: LFT's; Complete Time: 23:09 cp 01/10 23:10 Interpretation: Normal except: ALT 170; BILID 0.4; TP 5.5; ALB 3.2. cp 01/10 21:56 Order name: Magnesium; Complete Time: 23:09 cp 01/10 21:56 Order name: NT PRO-BNP; Complete Time: 23:09 cp 01/10 23:10 Interpretation: Abnormal: NT PRO-BNP 5876; Reviewed. 01/10 21:56 Order name: PT-INR; Complete Time: 23:09 01/10 21:56 Order name: Troponin HS; Complete Time: 23:09 cp 01/10 21:56 Order name: Urinalysis w/ reflexes; Complete Time: 23:25 cp 01/10 22:40 Order name: CBC Smear Scan; Complete Time: 23:25 EDNE 01/11 00:18 Order name: Creatine Phosphokinase EDNE 01/11 00:18 Order name: Lactate w/ 2H reflex if indic. EDNE 01/11 00:18 Order name: Magnesium EDNE 01/11 00:18 Order name: NT PRO-BNP EDNE 01/11 00:18 Order name: Phosphorus EDNE 01/11 00:18 Order name: Thyroid Stimulating Hormone EDNE 01/11 00:18 Order name: Lipid Profile EDNE 01/11 00:18 Order name: Lipid Profile EDNE 01/11 00:18 Order name: Troponin High Sensitivity EDNE 01/11 00:18 Order name: Troponin High Sensitivity EDNE 01/11 00:18 Order name: Troponin High Sensitivity EDNE 01/11 00:18 Order name: Troponin High Sensitivity EDNE 01/11 00:18 Order name: Urinalysis w/ reflexes EDNE 01/10 21:56 Order name: XRAY Chest (1 view); Complete Time: 23:09 01/10 21:56 Order name: US Extremity Venous W Compression Kee; Complete Time: 23:09 01/10 23:10 Interpretation: Report reviewed. 01/11 00:21 Order name: Chest For Pe Angio EDNE 01/11 00:18 Order name: CONS Physician Consult EDNE 01/11 00:19 Order name: Respiratory Therapy Consult EDNE 01/10 21:56 Order name: Cardiac monitoring; Complete Time: 22:30 01/10 21:56 Order name: EKG - Nurse/Tech; Complete Time: 22:16 01/10 21:56 Order name: IV Saline Lock; Complete Time: 22:07 01/10 21:56 Order name: Labs collected and sent; Complete Time: 22:07 01/10 21:56 Order name: O2 Per Protocol; Complete Time: 22:08 cp 01/10 21:56 Order name: O2 Sat Monitoring; Complete Time: 22: cp EC:20 Rate is 86 beats/min. Rhythm is regular. MS interval is normal. QRS interval is normal. cp QT interval is normal. T waves are Inverted in leads aVL, aVR. Interpreted by me. Reviewed by me. Administered Medications: 22:34 Drug: Furosemide IVP 20 mg IVP once; give over 2 minutes Route: IVP; Site: left mt4 antecubital; 01/11 00:07 Follow up: Response: No adverse reaction mt4 Disposition: 06:35 Co-signature as Attending Physician, Wolfgang Wren MD I agree with the assessment sp4 and plan of care. I reviewed the patient's care provided by the Advanced Practice Provider and agree with the diagnosis and treatment plan. Disposition Summary: 01/11/24 23:26 Hospitalization Ordered Notes: Hospitalization Status: Inpatient Admission cp Provider: Joana Rogers cp [facility] cp Condition: Stable cp Problem: an acute exacerbation cp Symptoms: have improved cp Bed/Room Type: Standard cp Room Assignment: 228(01/12/24 00:38) cg Diagnosis - Dyspnea cp - Edema, unspecified cp - Unspecified combined systolic (congestive) and diastolic (congestive) heart failure cp Forms: - Medication Reconciliation Form cp - SBAR form cp - Leadership Thank You Letter cp Signatures: Dispatcher [employer] EDMS Lawrence Bradshaw PA PA cp Garcia, Cindy, RN RN Wolfgang Wren MD MD sp4 Clarissa Wang RN RN me1 Robson Carnes RN RN mt4 Corrections: (The following items were deleted from the chart) 01/10 21:45 21:44 PSHx: Knee repair; me1 me1 21:56 21:56 BASIC METABOLIC PANEL+C.LAB.BRZ ordered. EDMS EDMS 21:56 21:56 CBC+H.LAB.BRZ ordered. EDMS EDMS 21:56 21:56 HEPATIC FUNCTION+C.LAB.BRZ ordered. EDMS EDMS 21:56 21:56 MAGNESIUM+C.LAB.BRZ ordered. EDMS EDMS 21:56 21:56 PROBNP+C.LAB.BRZ ordered. EDMS EDMS 21:56 21:56 PROTIME (+INR)+COAG.LAB.BRZ ordered. EDMS EDMS 21:56 21:56 Troponin High Sensitivity+C.LAB.BRZ ordered. EDMS EDMS 21:56 21:56 Urinalysis+U.LAB.BRZ ordered. EDMS EDMS 21:56 21:56 Chest Single View+RAD.RAD.BRZ ordered. EDMS EDMS 21:56 21:56 Extrem Venous W Compression Kee+US.RAD.BRZ ordered. EDMS EDMS 01/11 00:38 11 23:26 cp cg 01/12 01:14 01/11 06:35 This 68 yrs old Female presents to ER via Wheelchair with cp complaints of Swelling of Lower Extremity. sp4 01/12 01:14 01:11 The patient presents with swelling, tenderness, cp cp 01:14 01:11 The complaints affect the right foot, left foot, right leg and left leg, cp cp 01:14 01:11 Context: PMHX significant for CHF, cp cp :14 01:11 Onset: The symptoms/episode began/occurred 2 day(s) ago, cp cp 01:14 01:11 Associated signs and symptoms: Pertinent positives: shortness of breath, cp Pertinent negatives calf tenderness, fever, warmth, chest pain, cp
--- NOTE | 2024-01-11 23:26 | ER ---
Nurse's Notes [facility] Name: Jennifer Sherwood Age: 68 yrs Sex: Female : 1955 Arrival Date: 01/11/2024 Time: 21:30 Bed 6 Private MD: Diagnosis: Dyspnea;Edema, unspecified;Unspecified combined systolic (congestive) and diastolic (congestive) heart failure Presentation: 01/10 21:42 Chief complaint: Patient states: swelling to BLE with weeping that started 2 days ago. me1 States she is a little sob but has copd. Coronavirus screen: Vaccine status: Patient reports receiving the 2nd dose of the covid vaccine. Ebola Screen: No symptoms or risks identified at this time. Initial Sepsis Screen: Does the patient meet any 2 criteria? No. Patient's initial sepsis screen is negative. Does the patient have a suspected source of infection? No. Patient's initial sepsis screen is negative. Risk Assessment: Do you want to hurt yourself or someone else? Patient reports no desire to harm self or others. Onset of symptoms was January 09, 2024. 21:42 Method Of Arrival: Wheelchair me1 21:42 Acuity: VAHE 3 me1 Historical: - Allergies: 21:44 HYDROCODONE; me1 - PMHx: 21:44 Atrial fibrillation; Chronic obstructive lung disease; Congestive heart failure; me1 Hypertension; Myocardial infarction; - PSHx: 21:44 coronary stents; Knee repair; me1 - Immunization history:: Adult Immunizations up to date. - Infectious Disease History:: Denies. - Social history:: Smoking status: Patient reports the use of cigarette tobacco products, smokes one pack cigarettes per day. Screenin:35 [facility] ED Fall Risk Assessment (Adult) History of falling in the last 3 months, mt4 including since admission No falls in past 3 months (0 pts) Confusion or Disorientation No (0 pts) Intoxicated or Sedated No (0 pts) Impaired Gait No (0 pts) Mobility Assist Device Used No (0 pt) Altered Elimination No (0 pt) Score/Fall Risk Level 0 - 2 = Low Risk. Abuse screen: Denies injuries from another. Nutritional screening: On. Tuberculosis screening: No symptoms or risk factors identified. Exposure risk/Travel Screening: None identified. Assessment: 22:35 Reassessment:. General: Appears in no apparent distress. uncomfortable, Behavior is mt4 calm, cooperative, appropriate for age. Pain: Complains of pain in right leg and left leg Pain currently is 6 out of 10 on a pain scale. Quality of pain is described as patient can't describe, just states it's uncomfortable. Neuro: Level of Consciousness is awake, alert, obeys commands, Oriented to person, place, time, situation, Appropriate for age Consultant Teacher are equal bilaterally Moves all extremities. Speech is normal. Cardiovascular: Capillary refill. Respiratory: Airway is patent. GI: Abdomen is non-distended, Abd is soft and non tender. : Denies burning with urination. Musculoskeletal: Range of motion: intact in all extremities. 22:35 Cardiovascular:. Derm: Reports pain that is 6 out of 10 on a pain scale. mt4 Vital Signs: 21:42 BP 115 / 73; Pulse 98; Resp 20; Temp 97.5; Pulse Ox 100% ; Weight 53.52 kg; Height 5 me1 ft. 0 in. ; Pain 5/10; 22:35 BP 108 / 64; Pulse 83; Resp 15; Temp 97.5; Pulse Ox 98% on R/A; Pain 6/10; mt4 11/ 00:00 BP 107 / 58; Pulse 86; Resp 17; Pulse Ox 99% ; mt4 00:06 BP 103 / 66; Pulse 85; Resp 17; Pulse Ox 98% on R/A; mt4 01:00 BP 105 / 57; Pulse 80; Resp 16; mt4 01/10 21:42 Body Mass Index 23.05 (53.52 kg, 152.4 cm) me1 11 21:42 Pain Scale: Adult me1 22:35 Pain Scale: Adult mt4 Parnell Coma Score: 01/10 22:35 Eye Response: spontaneous(4). Motor Response: obeys commands(6). Verbal Response: mt4 oriented(5). Total: 15. ED Course: 21:32 Patient arrived in ED. jj6 21:33 Lawrence Bradshaw PA is PHCP. cp 21:33 Wolfgang Wren MD is Attending Physician. cp 21:44 Triage completed. me1 21:44 Arm band placed on Patient placed in an exam room. me1 22:08 Basic Metabolic Panel Sent. af3 22:08 CBC with Diff Sent. af3 22:08 LFT's Sent. af3 22:08 Magnesium Sent. af3 22:08 NT PRO-BNP Sent. af3 22:08 PT-INR Sent. af3 22:08 Troponin HS Sent. af3 22:08 Inserted saline lock: 20 gauge in left antecubital area, using aseptic technique. Blood af3 collected. Flushed with 10 mL NS. 22:16 EKG done, by nuclear test technician. af3 22:25 US Extremity Venous W Compression Kee In Process Unspecified. EDMS 22:28 XRAY Chest (1 view) In Process Unspecified. EDMS 22:34 Robson Carnes, RN is Primary Nurse. mt4 22:35 No apparent distress. Resting quietly. mt4 22:35 Patient has correct armband on for positive identification. Bed in low position. Call mt4 light in reach. Side rails up X 1. Provided Education on: meds and labs . Client placed on continuous cardiac and pulse oximetry monitoring. NIBP monitoring applied. court recording monitor on. Pulse ox on. Door closed. Lights dimmed. Warm blanket given. Pillow given. Verbal reassurance given. Patient is placed in psych hold. Patient is placed in psych hold. Assisted to bedside commode. 22:35 No provider procedures requiring assistance completed. Patient maintains SpO2 mt4 saturation greater than 95% on room air. 23:25 Joana Rogers MD is Hospitalizing Provider. cp 01/11 00:00 Inserted saline lock:. mt4 01:33 Patient admitted, IV remains in place. mt4 Administered Medications: 01/10 22:34 Drug: Furosemide IVP 20 mg IVP once; give over 2 minutes Route: IVP; Site: left mt4 antecubital; 01/11 00:07 Follow up: Response: No adverse reaction mt4 Medication: 01/10 22:35 VIS not applicable for this client. mt4 Outcome: 23:26 Decision to Hospitalize by Provider. cp 01/11 01:32 Admitted to Med/surg accompanied by nurse, via stretcher, room 218, mt4 Condition: stable Instructed on the need for admit, 01:33 Patient left the ED. mt4 Signatures: Dispatcher [employer] EDND Lawrence Bradshaw PA PA cp Jeffries, Jennifer [id number] Clarissa Wang RN RN ia1 Robson Carnes RN RN mt4 Zaina Carbajal 3 Corrections: (The following items were deleted from the chart) 01/10 21:45 21:44 PSHx: Knee repair; me1 me1
--- NOTE | 2024-01-12 00:01 | P.HP ---
Certification for Inpatient With expected LOS: <2 Midnights Practitioner: I am a practitioner with admitting privileges, knowledge of patient current condition, hospital course, and medical plan of care. Services: Services provided to patient in accordance with Admission requirements found in Title 42 Section 412.3 of the Code of Federal Regulations Patient History Date of Service: 01/12/24 Reason for admission: heart failure exacerbation History of Present Illness: 68-year-old woman with a past medical history significant for CHF, COPD not on home oxygen, anemia, HTN, heartburn, and CAD presented to the emergency department complaining of shortness of breath and bilateral lower extremity edema x 1 day. Patient was last seen in the emergency department on 01/06/24 with similar complaints. She was discharged on 01/08/24 with cefdinir and prednisone. The patient states that she did not complete cefdinir or prednisone as prescribed. She is an every day smoker, and smokes 1 pack/week. Patient states that she noticed swelling in her legs earlier today. She has not attempted anything to improve her symptoms, and states nothing worsens. Patient denies fever. Allergies hydrocodone Allergy (Verified 04/13/15 17:56) Nausea/Vomiting Home medications list reviewed: Yes Home Medications: Aspirin Chewable [Aspirin Chewable*] 81 mg PO DAILY 06/09/12 Clopidogrel Bisulfate [Plavix*] 75 mg PO DAILY 06/09/12 Lovastatin [Mevacor*] 20 mg PO BEDTIME 06/09/12 Albuterol Inhaler [Ventolin Inhaler*] 60 puff IH BID 30 Days #1 aer 09/29/23 Clopidogrel Bisulfate [Plavix*] 75 mg PO DAILY #30 tab 09/29/23 Albuterol Neb [Proventil 0.083% Neb Soln] 2.5 mg NEB Q6HP PRN #60 amp 01/08/24 Cefdinir [Cefdinir*] 300 mg PO BID #10 cap 01/08/24 Ipratropium Neb [Atrovent*] 0.5 mg NEB [id number] #60 amp 01/08/24 Metoprolol Tartrate [Lopressor*] 25 mg PO BID 6AM 6PM #60 tab 01/08/24 Pantoprazole [Protonix Tab] 40 mg PO BID #60 tab 01/08/24 predniSONE [Prednisone*] 20 mg PO BID #11 tab 01/08/24 - Past Medical/Surgical History Diabetic: No -: Hypertension -: Anemia -: CAD -: HLD -: COPD -: heartburn -: CHF -: Stent Placement -: Sx on Knee Cap Psychosocial/ Personal History: Patient is retired, lives at home with her family - Family History Mother -: Heart disease, Stroke, Other (see notes) Notes: Rheumatoid arthritis Father -: Cancer Notes: Colon-Rectal Cancer - Social History Smoking Status: Current every day smoker (1 pack/week) Alcohol use: No CD- Drugs: No Caffeine use: Yes Review of Systems Respiratory: Shortness of Breath, SOB with Excertion Physical Examination - Vital Signs Temperature: 97.5 F Blood Pressure: 112/67 Pulse: 89 Respirations: 18 Pulse Ox (%): 93 (room air) - Physical Exam General: Alert, Oriented x3 HEENT: Atraumatic, Normocephalic Neck: JVD not distended Respiratory: Normal air movement Cardiovascular: No gallops, No rubs, No murmurs, Edema Gastrointestinal: Normal bowel sounds, Non-distended Musculoskeletal: Swelling (b/l LE edema) Integumentary: Skin breakdown (right leg with open blister, also large closed blister to right leg) Neurological: Normal strength at 5/5 x4 extr, Sensation intact - Studies Laboratory Data (last 24 hrs) 01/11/24 01/11/24 01/11/24 22:05 22:05 22:05 WBC 8.10 Hgb 8.7 L Hct 30.5 L Plt Count 264 PT 13.7 H INR 1.23 Sodium 141 Potassium 3.9 BUN 19 H Creatinine 0.63 Glucose 124 H Magnesium 1.9 Total Bilirubin 0.7 AST 35 ALT 170 H Alkaline Phosphatase 97 Assessment and Plan - Problems (Diagnosis) (1) CHF exacerbation Current Visit: Yes Status: Acute - Plan CHF exacerbation: Admit to floor Telemetry ordered oxygen via nasal cannula Pulmonary consulted Respiratory therapy consulted Duoneb treatments as needed Incentive Spirometry IV lasix BID (give IV lasix 20 in ED) CT chest to rule out pulmonary embolism CXR: no acute abnormality US of b/l LE revealed no DVT recent echocardiogram performed on 01/07/24. Patient has upcoming outpatient cardiology appt scheduled. - Advance Directives Does patient have a Living Will: No Does patient have a Durable POA for Healthcare: No - Code Status/Comfort Care Code Status Assessed: Yes Code Status: Full Code
[2024-01-12] MEDS ORDERED: ALBUTEROL 2.5 MG/3 ML NEB SOL NEB PRN (00:11)
[2024-01-12] MEDS ORDERED: ONDANSETRON 4 MG (ODT) TAB PO PRN (00:11)
[2024-01-12 01:36] VITALS: BMI 24.7
[2024-01-12] MEDS: IPRATROPIUM BROM 0.5MG/2.5ML NEB SCH (01:50)
[2024-01-12 06:18] LABS: Magnesium 1.9 mg/dL (1.6-2.4); Phosphorus 2.3 mg/dL (2.5-4.9); Thyroid Stimulating Hormone 2.43 uIU/mL (0.358-3.740)
[2024-01-12 06:42] LABS: Ferritin 69.6 ng/mL (8-252)
[2024-01-12] MEDS: POTASS/SODIUM PHOSPHATE 1 PKT POWD.PACK PO SCH (07:05)
[2024-01-12] MEDS: ENOXAPARIN 40 MG/0.4 ML SQ SCH (09:22)
[2024-01-12] MEDS: FUROSEMIDE 40 MG/4 ML VIAL IV SCH (09:22)
[2024-01-12] MEDS: SOD FERRIC GLUC COMPLX/SUCROSE 250 MG in NA CHLORIDE 0.9% 250 ML IV SCH (09:23)
--- NOTE | 2024-01-12 10:47 | RAD REPORT ---
EXAM: CT Chest For Pe Angio TECHNIQUE: CT angiogram of the chest was performed following intravenous administration of 100 mL Iso petar-370, including sagittal and coronal as well as maximum intensity projection reformats. One or more of the following dose reduction techniques were used: Automated exposure control, adjustment of the mA and kV according to patient size, and iterative reconstruction. Unless otherwise specified, incidental findings do not require dedicated imaging follow-up. INDICATION: Shortness of breath. Leg swelling. Rule out pulmonary embolism N COMPARISON: 11/16/2023. FINDINGS: LINES/TUBES: None. PULMONARY ARTERIES: Main pulmonary arteries are normal in caliber. No filling defects within the pul monary arteries to suggest pulmonary embolus. Some reflux of contrast within the hepatic veins, nonspecific, and could be related to contrast timing. LUNGS AND AIRWAYS: The lungs and central airways are normal without focal abnormality. Moderate to ad vanced centrilobular emphysematous changes. PLEURA: Small bilateral pleural effusions larger on the right. No pneumothorax. HEART AND MEDIASTINUM: The visualized thyroid gland is normal. No mediastinal, hilar, or axillary lym phadenopathy. Heart is unremarkable. No pericardial effusion. SOFT TISSUES AND BONES: No acute osseous abnormality. No significant soft tissue finding. UPPER ABDOMEN: Unremarkable. IMPRESSION: No evidence of acute central pulmonary emboli. Small bilateral pleural effusions larger on the right. Moderate to advanced centrilobular emphysematous changes.
--- NOTE | 2024-01-12 13:38 | P.PN ---
Date of Service: 01/12/24 Subjective: States she is feeling better. States her legs have gone down in swelling and she wants po meds to go home. Review of Systems Respiratory: Shortness of Breath, SOB with Excertion Physical Examination - Vital Signs reviewed - Physical Exam General: Alert, Oriented x3 HEENT: Atraumatic, Normocephalic Neck: JVD not distended Respiratory: Normal air movement Cardiovascular: No gallops, No rubs, No murmurs, Edema Gastrointestinal: Normal bowel sounds, Non-distended Musculoskeletal: Swelling (b/l LE edema) Integumentary: Skin breakdown Neurological: Normal strength at 5/5 x4 extr, Sensation intact Assessment and Plan - Problems (Diagnosis) (1) CHF exacerbation Current Visit: Yes Status: Acute - Plan CHF exacerbation: Admit to floor Telemetry ordered oxygen via nasal cannula Pulmonary consulted Respiratory therapy consulted Duoneb treatments as needed Incentive Spirometry IV lasix BID (give IV lasix 20 in ED) CT chest to rule out pulmonary embolism (01/12/24 CT PE negative) CXR: no acute abnormality US of b/l LE revealed no DVT recent echocardiogram performed on 01/07/24. Patient has upcoming outpatient cardiology appt scheduled. - Advance Directives Does patient have a Living Will: No Does patient have a Durable POA for Healthcare: No - Code Status/Comfort Care Code Status Assessed: Yes Code Status: Full Code
--- NOTE | 2024-01-12 13:45 | P.DS ---
Admission Date: 01/12/24 Discharge Date: 01/13/24 Disposition: ROUTINE DISCHARGE Discharge Condition: GOOD Reason for Admission: heart failure exacerbation Brief History of Present Illness: 68-year-old woman with a past medical history significant for CHF, COPD not on home oxygen, anemia, HTN, heartburn, and CAD presented to the emergency department complaining of shortness of breath and bilateral lower extremity edema x 1 day. Patient was last seen in the emergency department on 01/06/24 with similar complaints. She was discharged on 01/08/24 with cefdinir and prednisone. The patient states that she did not complete cefdinir or prednisone as prescribed. She is an every day smoker, and smokes 1 pack/week. Patient states that she noticed swelling in her legs earlier today. She has not attempted anything to improve her symptoms, and states nothing worsens. Patient denies fever. Hospital Course: Mrs. Sherwood diuresed well over the course of her admission. The edema to her lower extremities is back to her baseline. SBP between 97 and 116. Denies dizziness, malaise. States she feels good and would like to go home. Vital Signs/Physical Exam: Temp Pulse Resp BP Pulse Ox 98.1 F 92 H 18 95/65 99 01/12/24 12:00 01/12/24 12:00 01/12/24 12:00 01/12/24 12:00 01/12/24 12:00 General: Alert, In no apparent distress, Oriented x3 HEENT: Atraumatic, Normocephalic, PERRLA Neck: Supple Respiratory: Normal air movement Cardiovascular: Edema (1-2 mild pitting) Capillary refill: <2 Seconds Gastrointestinal: Normal bowel sounds, Soft and benign Musculoskeletal: No clubbing Integumentary: No rashes Neurological: Normal speech, Normal tone, Normal affect Lymphatics: No axilla or inguinal lymphadenopathy External genitalia: Deferred Rectal: Deferred Laboratory Data at Discharge: WBC 8.10 thou/uL (4.3-10.9) 01/11/24 22:05 Hgb 8.7 g/dL (12.0-15.0) L 01/11/24 22:05 Hct 30.5 % (36.0-45.0) L 01/11/24 22:05 Plt Count 264 thou/uL (152-406) 01/11/24 22:05 PT 13.7 SECONDS (9.4-12.5) H 01/11/24 22:05 INR 1.23 01/11/24 22:05 Sodium 141 mEq/L (136-145) 01/11/24 22:05 Potassium 3.9 mEq/L (3.5-5.1) 01/11/24 22:05 BUN 19 mg/dL (7-18) H 01/11/24 22:05 Creatinine 0.63 mg/dL (0.55-1.02) 01/11/24 22:05 Glucose 124 mg/dL (74-106) H 01/11/24 22:05 Phosphorus 2.3 mg/dL (2.5-4.9) L 01/12/24 05:41 Magnesium 1.9 mg/dL (1.6-2.4) 01/12/24 05:41 Total Bilirubin 0.7 mg/dL (0.2-1.0) 01/11/24 22:05 AST 35 U/L (15-37) 01/11/24 22:05 ALT 170 U/L (13-56) H 01/11/24 22:05 Alkaline Phosphatase 97 U/L (45-117) 01/11/24 22:05 Home Medications: Aspirin Chewable [Aspirin Chewable*] 81 mg PO DAILY 06/09/12 Lovastatin [Mevacor*] 20 mg PO BEDTIME 06/09/12 Clopidogrel Bisulfate [Plavix*] 75 mg PO DAILY #30 tab 09/29/23 Albuterol Neb [Proventil 0.083% Neb Soln] 2.5 mg NEB Q6HP PRN #60 amp 01/08/24 Metoprolol Tartrate [Lopressor*] 25 mg PO BID 6AM 6PM #60 tab 01/08/24 Pantoprazole [Protonix Tab*] 40 mg PO BID #60 tab 01/08/24 Albuterol Inhaler [Ventolin Inhaler*] 60 puff IH Q4HP PRN 01/12/24 Budesonide/Glycopyr/Formoterol [Breztri Aerosphere Inhaler] 2 puff IH BID 01/12/24 Furosemide [Lasix] 40 mg PO DAILY #20 tab 01/12/24 Ipratropium Neb [Atrovent*] 0.5 mg NEB Q6HP PRN 01/12/24 New Medications: Furosemide [Lasix] 40 mg PO DAILY #20 tab Physician Discharge Instructions: Mrs. Sherwood diuresed well over the course of her admission. The edema to her lower extremities is back to her baseline. SBP between 97 and 116. Denies dizziness, malaise. States she feels good and would like to go home. Hospital course: Diuresis Assessment: CHF exacerbation New prescriptions: Lasix 40mg po daily #20 Continue home medicines as previously prescribed GOAL: Clear understanding of disease process Diet: AHA, low sodium Activity: Fall precautions INSTRUCTIONS: Physician Discharge Instructions: Okay to DC IV and DC home Follow-up with primary care provider in 1 to 2 weeks Follow-up with cardiology in 1 to 2-weeks Please call the inpatient unit for any questions or concerns regarding hospital stay Return to the ER for worsening symptoms Diet: Low sodium Activity: Ad artur Followup: Georgette Trevino DO [Primary Care Provider] - 1-2 Weeks Edmar Calvert MD [ACTIVE - CAN ADMIT] - Rayo Ward MD [ACTIVE - CAN ADMIT] -
[2024-01-12] MEDS: ACETAMINOPHEN 325 MG TABLET PO PRN (23:25)
[2024-01-13 05:13] LABS: Anion Gap 6.5 mEq/L (5.0-15.0); Phosphorus 2.5 mg/dL (2.5-4.9); Potassium 3.5 mEq/L (3.5-5.1); Troponin High Sensitivity 33.6 pg/mL (<58.9)
[2024-01-13] MEDS: POTASS/SODIUM PHOSPHATE 1 PKT POWD.PACK PO SCH (06:39)
[2024-01-13] MEDS: POTASSIUM CL SA 10 MEQ TAB PO ONE (08:21)
[2024-01-13 09:03] VITALS: O2SAT 96
--- NOTE | 2024-01-13 12:22 | EKG ---
Test Date: 2024-01-11 Test Time: 23:13:40 Heel Cementer: AF MEASUREMENT RESULTS: Intervals: Rate: 86 SD: 134 QRSD: 74 QT: 388 QTc: 464 Hines: P: 90 SD: 134 QRS: 30 T: 86 INTERPRETIVE STATEMENTS: Normal sinus rhythm Nonspecific T wave abnormality Abnormal ECG Compared to ECG 01/05/2024 22:43:15 T-wave abnormality now present Sinus tachycardia no longer present Atrial premature complex(es) no longer present Myocardial infarct finding no longer present Electronically Signed On 01-13-24 12:17:42 [employer] by Edmar Calvert
[2024-01-13] MEDS ORDERED: IPRATROPIUM BROM 0.5MG/2.5ML NEB PRN (12:45)
[2024-01-13] MEDS ORDERED: ALBUTEROL 2.5 MG/3 ML NEB SOL NEB PRN (12:45)
[2024-01-13] MEDS ORDERED: ALBUTEROL IH PRN (12:45)
[2024-01-13] MEDS: MIDODRINE HCL 5 MG TABLET PO SCH (14:40)
[2024-01-13 16:17] VITALS: BP 97/55; TEMP 98.2
[2024-01-13] MEDS ORDERED: METOPROLOL TAR 25 MG TAB PO SCH (18:00)
[2024-01-13] MEDS ORDERED: ATORVASTATIN 10 MG TAB PO SCH (21:00)
[2024-01-13] MEDS ORDERED: PANTOPRAZOLE 40MG TABLET PO SCH (21:00)
[2024-01-13] MEDS ORDERED: **PT MED**Budesonide/Glycopyr/Formoterol [Breztri Aerosphere Inhaler] 10.7 GM Hfa IH SCH (21:00)
[2024-01-14] MEDS ORDERED: CLOPIDOGREL 75 MG TABLET PO SCH (09:00)
[2024-01-14] MEDS ORDERED: ASPIRIN 81 MG CHEWABLE TABLET PO SCH (09:00)
== END 2024-01-13 17:23 | disposition home or self-care (01) | DRG 291 ==
LOC: ER 21:30 → ERHOLD 01-12 00:11 → 2ND 01-12 00:52
PROVIDERS: ADMIT Hospitalist; ATTEND Hospitalist
DX: I11.0 Hypertensive heart disease with heart failure (principal); I50.43 Acute on chronic combined systolic (congestive) and diastolic (congestive) heart failure; I25.10 Atherosclerotic heart disease of native coronary artery without angina pectoris; Z95.5 Presence of coronary angioplasty implant and graft; I48.91 Unspecified atrial fibrillation; Z79.01 Long term (current) use of anticoagulants; I25.2 Old myocardial infarction; D64.9 Anemia, unspecified; J44.9 Chronic obstructive pulmonary disease, unspecified; Z72.0 Tobacco use
CPT/HCPCS: 36415; 71045; 71275; 80048; 80061; 80076; 81001; 82550; 82728; 83540; 83605; 83735; 83880; 84100; 84443; 84484; 85025; 85610; 93005; 93970; 94010; 94640; 94760; 96374; 99285; J1650; J1940; J2916; J7050; J7644; Q9967

== ENCOUNTER 2024-01-26 19:47 | Inpatient (IN) | payer OTHER ==
[2024-01-26] MEDS ORDERED: NA CHLORIDE 0.9% 1,000 ML ONE (20:18)
[2024-01-26] MEDS ORDERED: CEFTRIAXONE 1000 MG/VIAL ONE (20:18)
[2024-01-26] MEDS ORDERED: METHYLPREDNISOLONE 125 MG INJ ONE (20:18)
[2024-01-26] MEDS ORDERED: ALBUTEROL 2.5 MG/3 ML NEB SOL ONE ×2 (20:18→21:01)
[2024-01-26] MEDS ORDERED: IPRATROPIUM BROM 0.5MG/2.5ML ONE ×2 (20:18→21:01)
[2024-01-26 20:23] LABS: Absolute Basophils 0.1 K/uL (0-0.5); Absolute Eosinophils 0.1 K/uL (0-0.5); Absolute Lymphocytes (CBC) 0.7 K/uL (0.7-4.9); Absolute Monocytes 0.2 K/uL (0.1-1.3); Absolute Neutrophil 5.6 K/uL (1.8-8.0); Basophils % 1.1 % (0-1.3); Eosinophils % 0.8 % (0-4.4); Hematocrit 33.5 % (36.0-45.0); Lymphocytes % 9.9 % (15.3-44.8); MCHC 29.7 g/dL (32.0-36.0); MCV 80.9 fL (80-100); MPV 9.4 fL (7.6-11.3); Neutrophils % 85.2 % (41.7-73.7); Nucleated Red Blood Cells % 0.1 % (0-0); Platelets 181 thou/uL (152-406); RBC Red Blood Cell Count 4.14 M/uL (3.86-4.86); Red Cell Distribution Width 31.4 % (12.1-15.2)
[2024-01-26 20:29] LABS: PT Prothrombin Time 12.3 SECONDS (9.4-12.5); PTT, Activated Partial Thromb 26.8 SECONDS (24.3-36.9); Protime INR 1.1
--- NOTE | 2024-01-26 20:38 | RAD REPORT ---
EXAMINATION: ONE VIEW CHEST XR CLINICAL INDICATION: Cough;COPD TECHNIQUE: Frontal chest projection is submitted. Examination is limited by patient positioning and t echnique. COMPARISON: No prior exam. FINDINGS: Mild interstitial pulmonary edema suspected. The heart is moderately enlarged. No displaced fractures identified. IMPRESSION: Mild CHF is possible.
[2024-01-26 20:40] LABS: Albumin 3.5 g/dL (3.4-5.0); Albumin/Globulin Ratio 1.1 (1.1-1.8); Bilirubin Total 0.8 mg/dL (0.2-1.0); Globulin 3.1 g/dL (2.3-3.5); Protein, Total 6.6 g/dL (6.4-8.2)
--- NOTE | 2024-01-26 20:49 | EDPHYS ---
Physician Documentation [facility] Name: Jennifer Sherwood Age: 68 yrs Sex: Female : 1955 Arrival Date: 01/26/2024 Time: 19:47 Bed 3 Private MD: ED Physician Rex Eli HPI: 01/25 20:05 This 68 yrs old Female presents to ER via Unassigned with complaints of sob. ec2 20:05 Patient arrives today d/t concern for sob. . ec2 20:06 Patient reports history of COPD. EMS reports that patient was tachypneic, had ec2 subsequently improved after DuoNeb. No fevers or chills, does have occasional cough.. Historical: - Allergies: 20:14 HYDROCODONE; jb4 - PMHx: 20:14 Atrial fibrillation; Chronic obstructive lung disease; Congestive heart failure; jb4 Hypertension; Myocardial infarction; - PSHx: 20:14 coronary stents; Knee repair; jb4 - Immunization history:: Adult Immunizations up to date. - Infectious Disease History:: Denies. - Social history:: Smoking status: Patient denies any tobacco usage or history of. ROS: 20:06 Constitutional: as per hpi ec2 Exam: 20:06 Constitutional: GEN: NAD Head: atraumatic Eyes: EOMI Ears: External ears are ec2 normal. CV: Tachycardia LUNGS: Tachypnea, scattered wheezes noted. ABD: non-distended SKIN: no evidence of rashes MSK: no evidence of trauma Vital Signs: 20:07 BP 124 / 70; Pulse 103; Resp 14; Temp 97.6(O); Pulse Ox 98% on 2 lpm NC; Weight 53.52 jb4 kg (R); Height 5 ft. 0 in. ; 21:00 BP 122 / 97; Pulse 123; Resp 30; Pulse Ox 100% on Nebulizer Mask; jb4 22:30 BP 120 / 62; Pulse 115; Resp 15; Pulse Ox 100% on 40 lpm BiPAP; jb4 23:00 BP 138 / 106; Pulse 117; Resp 15; Pulse Ox 99% on BiPAP; FiO2 40 %; jb4 20:07 Body Mass Index 23.05 (53.52 kg, 152.4 cm) jb4 MDM: 19:48 Medical Screening Exam initiated ec2 20:06 Data reviewed: vital signs, nurses notes. ED course: Patient arrives today for ec2 evaluation of shortness of breath. Examination shows tachypneic dividual slightly tachycardic. Will obtain a septic workup, give steroids, DuoNeb, ceftriaxone. Differential diagnosis includes viral infection, pneumonia, COPD exacerbation.. 20:07 ED course: EKG independently reviewed and interpreted by me, shows sinus tachycardia, ec2 rate 107, no acute ST segment elevations, intervals are nonactionable.. 20:47 ED course: Patient with slight lactic acidosis noted. Will give the patient rest of the ec2 crystalloid bolus, concern for possible potentiating worsening CHF exacerbation. Will give the patient additional crystalloid.. 20:47 ED course: Will admit for volume overload versus COPD exacerbation. Discussed with ec2 hospitalist, pending admission.. 20:56 ED course: On reassessment patient is tachypneic and tachycardic, had the crystalloid ec2 paused, will place the patient on BiPAP. I suspect the lactic acidosis is likely from the patient's work of breathing we will try to address this accordingly.. 21:05 ED course: Patient placed on BiPAP with marked improvement in respiratory status. Will ec2 admit for COPD exacerbation versus CHF exacerbation. Patient with lactic acidosis, will reassess after continued BiPAP and appropriate respiratory treatments. Will hold on aggressive fluid resuscitation given the patient's volume overload status, history of CHF as well as possible mild CHF on chest x-ray. Sepsis reassessment complete.. 01/25 19:49 Order name: Blood Culture Adult (2) ec2 01/25 19:49 Order name: CBC with Diff; Complete Time: 21:06 ec2 01/25 19:49 Order name: CMP; Complete Time: 20:41 ec2 01/25 19:49 Order name: Lactate w/ 2H reflex if indic.; Complete Time: 20:46 ec2 01/25 19:49 Order name: Protime (+inr); Complete Time: 20:30 ec2 01/25 19:49 Order name: Ptt, Activated; Complete Time: 20:30 ec2 01/25 20:47 Order name: BNP; Complete Time: 21:18 ec2 01/25 21:05 Order name: Manual Differential; Complete Time: 21:06 EDMS 01/25 21:38 Order name: Urinalysis w/ reflexes EDCO 01/25 21:38 Order name: CBC with Automated Diff EDMS 01/25 21:38 Order name: CBC with Automated Diff EDMS 01/25 21:38 Order name: Comprehensive Metabolic Panel EDCO 01/25 21:38 Order name: Comprehensive Metabolic Panel EDCO 01/25 22:45 Order name: Ghost Lactate-NO COLLECT Timer EDCO 01/25 19:49 Order name: Chest Single View XRAY; Complete Time: 20:41 ec2 01/25 21:39 Order name: Echo with Doppler EDMS 01/25 19:49 Order name: EKG; Complete Time: 19:50 ec2 01/25 21:38 Order name: CONS Physician Consult EDCO 01/25 19:49 Order name: Accucheck; Complete Time: 20:07 ec2 01/25 19:49 Order name: Cardiac monitoring; Complete Time: 20:07 ec2 01/25 19:49 Order name: EKG - Nurse/Tech; Complete Time: 20:07 ec2 01/25 19:49 Order name: IV Saline Lock - Large Bore; Complete Time: 20:07 ec2 01/25 19:49 Order name: Labs collected and sent; Complete Time: 20:07 ec2 01/25 19:49 Order name: O2 Per Protocol; Complete Time: 20:07 ec2 01/25 19:49 Order name: O2 Sat Monitoring; Complete Time: 20:07 ec2 01/25 19:49 Order name: Vital Signs; Complete Time: 20:07 ec2 Administered Medications: 20:30 Drug: Rocephin IV 1 grams IV at calculated rate once; Given slow IV push per pharmacy jb4 instructions Route: IV; Rate: calculated rate; Site: right antecubital; 20:30 Drug: DuoNeb Nebulize (3:1) (2.5 mg - 0.5 mg) 3 ml Nebulizer once Route: Nebulizer; [facility] 20:30 Drug: MethylPrednisoLONE IVP 125 mg IVP once Route: IVP; Site: right antecubital; jb4 20:30 Drug: NS 0.9% IV 1000 ml IV at 1000 ml once; to be given as a bolus over 60 minutes jb4 Route: IV; Rate: 1000 ml; Site: right antecubital; 20:57 CANCELLED (Physician Discretion): ns 0.9% 750 ml 500 ml IV at 1 bolus once; to be given ec2 as a bolus over 30 minutes 21:03 Drug: Magnesium Sulfate IVPB 2 grams IVPB once over 30 mins Route: IVPB; Infused Over: jb4 30 mins; Site: right antecubital; 21:03 Drug: DuoNeb Nebulize (2.5 mg - 0.5 mg) 3 ml Nebulizer once {Note: administered duoneb jb4 3:1.} Route: Nebulizer; Disposition Summary: 01/26/24 21:05 Hospitalization Ordered Notes: Hospitalization Status: Inpatient Admission(01/26/24 21:05) ec2 Provider: Juan Rodriguez(01/26/24 21:05) ec2 Condition: Stable(01/26/24 21:05) ec2 Problem: an acute exacerbation(01/26/24 21:05) ec2 Symptoms: have improved(01/26/24 21:05) ec2 Bed/Room Type: Standard(01/26/24 21:05) ec2 Location: Telemetry/MedSurg (Inpatient)(01/26/24 22:16) vk Room Assignment: [facility](01/26/24 22:16) vk Diagnosis - Severe sepsis without septic shock ec2 - Acute and chronic respiratory failure ec2 - Volume Overload ec2 Forms: - Medication Reconciliation Form ec2 - SBAR form ec2 - Leadership Thank You Letter ec2 Critical care time excluding procedures: 20:48 Critical care time: Bedside Care: 30 minutes, Consultation: 5 minutes. Total time: 35 ec2 minutes Signatures: Dispatcher [employer] Reynaldo Light RN RN jb4 Rex Eli MD MD ec2 Jessica Celis Corrections: (The following items were deleted from the chart) 19:50 19:50 BLOOD CULTURE*+BA.LAB.BRZ ordered. EDMS EDMS 19:50 19:50 CBC+H.LAB.BRZ ordered. EDMS EDMS 19:50 19:50 COMPREHENSIVE METABOLIC PANEL+C.LAB.BRZ ordered. EDMS EDMS 19:50 19:50 LACTATE+C.LAB.BRZ ordered. EDMS EDMS 19:50 19:50 PROTIME (+INR)+COAG.LAB.BRZ ordered. EDMS EDMS 19:50 19:50 PTT, ACTIVATED+COAG.LAB.BRZ ordered. EDMS EDMS 20:48 20:48 PROBNP+C.LAB.BRZ ordered. EDMS EDMS 20:52 20:52 BiPap ([employer] Only)+RC.RAD.BRZ ordered. EDCO EDMS 20:56 20:47 ED course: Patient with slight lactic acidosis noted. Will give the patient rest ec2 of the crystalloid bolus, concern for possible potentiating worsening CHF exacerbation. Will give the patient additional crystalloid.. ec2 20:57 20:47 NS 0.9% IV 750 ml 500 ml IV at 1 bolus once; to be given as a bolus over 30 ec2 minutes ordered. ec2 21:04 20:48 Inpatient Admission ec2 ec2 21:04 20:48 Juan Rodriguez ec2 ec2 21:04 20:48 Telemetry/MedSurg (Inpatient) ec2 ec2 21:04 20:48 Stable ec2 ec2 21:04 20:48 an acute exacerbation ec2 ec2 21:04 20:48 have improved ec2 ec2 21:04 20:48 Standard ec2 ec2 21:04 20:48 ec2 ec2 21:04 20:48 COPD/ Chronic obstructive pulmonary disease with (acute) exacerbation ec2 ec2 22:16 21:05 Intensive Care Unit ec2 vk 22:16 21:05 ec2 vk
--- NOTE | 2024-01-26 20:49 | ER ---
Nurse's Notes [facility] Name: Jennifer Sherwood Age: 68 yrs Sex: Female : 1955 Arrival Date: 01/26/2024 Time: 19:47 Bed 3 Private MD: Diagnosis: Severe sepsis without septic shock;Acute and chronic respiratory failure;Volume Overload Presentation: 01/25 20:07 Chief complaint: EMS states: Pt reports SOB starting at 1830. Reports being out of her jb4 albuterol inhaler and that the prescription has not been filled. Pt tripoding with diminished lung sounds. Pt given Duo neb 1:1. Coronavirus screen: At this time, the client does not indicate any symptoms associated with coronavirus-19. Ebola Screen: No symptoms or risks identified at this time. Initial Sepsis Screen: Does the patient meet any 2 criteria? HR > 90 bpm. Yes Does the patient have a suspected source of infection? No. Patient's initial sepsis screen is negative. Risk Assessment: Do you want to hurt yourself or someone else? Patient reports no desire to harm self or others. Onset of symptoms was January 26, 2024. Transition of care: patient was not received from another setting of care. 20:07 Method Of Arrival: EMS: [facility] jb4 20:07 Acuity: [facility] 3 jb4 Historical: - Allergies: 20:14 HYDROCODONE; jb4 - PMHx: 20:14 Atrial fibrillation; Chronic obstructive lung disease; Congestive heart failure; jb4 Hypertension; Myocardial infarction; - PSHx: 20:14 coronary stents; Knee repair; jb4 - Immunization history:: Adult Immunizations up to date. - Infectious Disease History:: Denies. - Social history:: Smoking status: Patient denies any tobacco usage or history of. Screenin:30 [facility] ED Fall Risk Assessment (Adult) History of falling in the last 3 months, jb4 including since admission No falls in past 3 months (0 pts) Confusion or Disorientation No (0 pts) Intoxicated or Sedated No (0 pts) Impaired Gait No (0 pts) Mobility Assist Device Used No (0 pt) Altered Elimination No (0 pt) Score/Fall Risk Level 0 - 2 = Low Risk Oriented to surroundings, Maintained a safe environment. Abuse screen: Denies threats or abuse. Nutritional screening: No deficits noted. Tuberculosis screening: No symptoms or risk factors identified. Assessment: 20:10 General: Appears distressed, uncomfortable, Behavior is cooperative, anxious. Pain: jb4 Denies pain. Neuro: Level of Consciousness is awake, alert, obeys commands, Oriented to person, place, time, situation. Cardiovascular: Patient's skin is warm and dry. Respiratory: Airway is patent Respiratory effort is even, labored, gasping, using tripod position, Respiratory pattern is symmetrical, tachypnea. GI: No signs and/or symptoms were reported involving the gastrointestinal system. : No signs and/or symptoms were reported regarding the genitourinary system. EENT: No signs and/or symptoms were reported regarding the EENT system. Derm: Skin is intact, Skin is pink, warm \T\ dry. Wound noted dorsum of right foot Wound is blistering wound. Musculoskeletal: Circulation, motion, and sensation intact. Range of motion: intact in all extremities, Swelling present in right foot. 21:00 Reassessment: Patient appears in no apparent distress at this time. No changes from jb4 previously documented assessment. Patient and/or family updated on plan of care and expected duration. Pain level reassessed. 22:00 Reassessment: Patient and/or family updated on plan of care and expected duration. Pain jb4 level reassessed. Pt is more relaxed on bipap. Respirations are even and unlabored. 23:38 Reassessment: Patient appears in no apparent distress at this time. Patient and/or jb4 family updated on plan of care and expected duration. Pain level reassessed. Patient is alert, oriented x 3, equal unlabored respirations, skin warm/dry/pink. Vital Signs: 20:07 BP 124 / 70; Pulse 103; Resp 14; Temp 97.6(O); Pulse Ox 98% on 2 lpm NC; Weight 53.52 jb4 kg (R); Height 5 ft. 0 in. ; 21:00 BP 122 / 97; Pulse 123; Resp 30; Pulse Ox 100% on Nebulizer Mask; jb4 22:30 BP 120 / 62; Pulse 115; Resp 15; Pulse Ox 100% on 40 lpm BiPAP; jb4 23:00 BP 138 / 106; Pulse 117; Resp 15; Pulse Ox 99% on BiPAP; FiO2 40 %; jb4 20:07 Body Mass Index 23.05 (53.52 kg, 152.4 cm) jb4 ED Course: 19:48 Patient arrived in ED. ec2 19:48 Rex Eli MD is Attending Physician. ec2 20:06 Reynaldo Dill, NATALIE is Primary Nurse. jb4 20:14 Triage completed. jb4 20:14 Arm band placed on right wrist. jb4 20:31 Chest Single View XRAY In Process Unspecified. EDMS 20:48 Juan Rodriguez MD is Hospitalizing Provider. ec2 21:04 Juan Rodriguez MD is Hospitalizing Provider. ec2 22:30 Patient has correct armband on for positive identification. Bed in low position. Call jb4 light in reach. Side rails up X 1. Provided Education on: plan of care. 23:40 No provider procedures requiring assistance completed. Patient admitted, IV remains in jb4 place. Administered Medications: 20:30 Drug: Rocephin IV 1 grams IV at calculated rate once; Given slow IV push per pharmacy jb4 instructions Route: IV; Rate: calculated rate; Site: right antecubital; 20:30 Drug: DuoNeb Nebulize (3:1) (2.5 mg - 0.5 mg) 3 ml Nebulizer once Route: Nebulizer; jb4 20:30 Drug: MethylPrednisoLONE IVP 125 mg IVP once Route: IVP; Site: right antecubital; jb4 20:30 Drug: NS 0.9% IV 1000 ml IV at 1000 ml once; to be given as a bolus over 60 minutes jb4 Route: IV; Rate: 1000 ml; Site: right antecubital; 20:57 CANCELLED (Physician Discretion): ns 0.9% 750 ml 500 ml IV at 1 bolus once; to be given ec2 as a bolus over 30 minutes 21:03 Drug: Magnesium Sulfate IVPB 2 grams IVPB once over 30 mins Route: IVPB; Infused Over: jb4 30 mins; Site: right antecubital; 21:03 Drug: DuoNeb Nebulize (2.5 mg - 0.5 mg) 3 ml Nebulizer once {Note: administered duoneb jb4 3:1.} Route: Nebulizer; Medication: 22:30 VIS not applicable for this client. jb4 Outcome: 20:48 Decision to Hospitalize by Provider. ec2 21:05 Decision to Hospitalize by Provider. ec2 23:40 Admitted to Tele accompanied by nurse, via stretcher, room 401, with oxygen, with jb4 chart, 23:40 Condition: stable 23:40 Discharge instructions given to patient, Instructed on the need for admit, Demonstrated understanding of instructions, 23:41 Patient left the ED. jb4 Signatures: Dispatcher [employer] Reynaldo Light RN RN jb4 Rex Eli MD MD ec2 Corrections: (The following items were deleted from the chart) 23:39 22:41 BP 120 / 62; Pulse 115bpm; Resp 15bpm; Pulse Ox 100% 02 40lpm BiPAP; jb4 jb4 23:41 20:10 Derm: Skin is intact, Skin is pink, warm \T\ dry. jb4 jb4
[2024-01-26] MEDS ORDERED: Magnesium Sulfate 2gm IVPB 2 G/50 ML BAG IV ONE (20:57)
[2024-01-26 21:04] LABS: Blood Morphology Comment NOTED (NOT SEEN); Differential Total Cells Count 100; Eosinophils 4 % (0-3); Lymphocytes 11 % (15-42); Monocytes 2 % (0-10); Platelet Estimate ADEQ; Segmented Neutrophils 82 % (40-80)
[2024-01-26 21:05] LABS: Anisocytosis 2+; Polychromasia 1+
--- NOTE | 2024-01-26 21:33 | P.HP ---
Certification for Inpatient Patient admitted to: Inpatient With expected LOS: >2 Midnights Practitioner: I am a practitioner with admitting privileges, knowledge of patient current condition, hospital course, and medical plan of care. Services: Services provided to patient in accordance with Admission requirements found in Title 42 Section 412.3 of the Code of Federal Regulations Patient History Date of Service: 01/27/24 Reason for admission: SOB History of Present Illness: 68-year-old female with past medical history significant for CHF, COPD not on home oxygen, anemia, HTN, GERD, and CAD status post stents presented to the emergency department complaining of shortness of breath which has been progressively getting worse over the last 2 days. Patient denies any fever or chills. Has cough with mucoid expectoration. Denies any hemoptysis. No chest pain. No nausea vomiting diarrhea. No sick contacts. Complains of heaviness in the chest. She is a smoker smokes 1 pack/week. She also has swelling in bilateral lower extremity on and off. Patient was assessed in the ER and is admitted for further management of CHF/COPD exacerbation Allergies hydrocodone Allergy (Verified 04/13/15 17:56) Nausea/Vomiting Home medications list reviewed: Yes Home Medications: Aspirin Chewable [Aspirin Chewable*] 81 mg PO DAILY 06/09/12 Albuterol Neb [Proventil 0.083% Neb Soln] 2.5 mg NEB Q6HP PRN #60 amp 01/08/24 Metoprolol Tartrate [Lopressor*] 25 mg PO BID 6AM 6PM #60 tab 01/08/24 Pantoprazole [Protonix Tab*] 40 mg PO BID #60 tab 01/08/24 Albuterol Inhaler [Ventolin Inhaler*] 60 puff IH Q4HP PRN 01/12/24 Budesonide/Glycopyr/Formoterol [Breztri Aerosphere Inhaler] 2 puff IH BID 07/01 Furosemide [Lasix] 40 mg PO DAILY #20 tab 01/12/24 Ipratropium Neb [Atrovent*] 0.5 mg NEB Q6HP PRN 01/12/24 Clopidogrel Bisulfate [Plavix] 75 mg PO DAILY 01/27/24 Fluticasone/Umeclidin/Vilanter [Trelegy Ellipta 200-62.5-25] 1 puff IH DAILY 01/27/24 Midodrine HCl [Proamatine] 5 mg PO TID 01/27/24 Montelukast [Singulair] 10 mg PO DAILY 01/27/24 - Past Medical/Surgical History Diabetic: No Past Medical History: Reviewed- Non-Contributory -: Hypertension -: Anemia -: CAD -: HLD -: COPD -: heartburn -: CHF Past Surgical History: Reviewed- Non-Contributory -: Stent Placement -: Sx on Knee Cap-Right Psychosocial/ Personal History: Patient is retired, lives at home with her family - Family History Mother -: Heart disease, Stroke, Other (see notes) Notes: Rheumatoid arthritis Father -: Cancer Notes: Colon-Rectal Cancer - Social History Smoking Status: Current some day smoker Alcohol use: No CD- Drugs: No Caffeine use: Yes Review of Systems 10-point ROS is otherwise unremarkable Physical Examination - Vital Signs Temperature: 97.6 F Blood Pressure: 124/72 Pulse: 102 Respirations: 18 Pulse Ox (%): 94 - Physical Exam General: Alert, Oriented x3, Mild distress HEENT: Atraumatic, Normocephalic Neck: Supple, No Thyromegaly Respiratory: Diminished, Crackles/rales, Expiratory wheezes Cardiovascular: Regular rate/rhythm, Normal S1 S2 Capillary refill: <2 Seconds Gastrointestinal: Hypoactive, Soft and benign Musculoskeletal: No clubbing Integumentary: No rashes Neurological: Normal speech, Normal strength at 5/5 x4 extr, Cranial nerves 3-12 intact Lymphatics: No axilla or inguinal lymphadenopathy - Studies Laboratory Data (last 24 hrs) 01/26/24 01/26/24 01/26/24 20:04 20:04 20:04 WBC 6.60 Hgb 10.0 L Hct 33.5 L Plt Count 181 PT 12.3 INR 1.10 APTT 26.8 Sodium 140 Potassium 4.0 BUN 13 Creatinine 0.74 Glucose 171 H Total Bilirubin 0.8 AST 40 H ALT 69 H Alkaline Phosphatase 123 H Assessment and Plan - Plan Acute on chronic CHF possibly systolic/diastolic Monitor closely on telemetry Started on aggressive diuresis X-ray findings consistent with CHF Oxygen supplementation with Bipap now Will try to wean down oxygen requirement Continue home medications Titrate as needed Will obtain an echocardiogram Cardiology consult Acute hypoxic respiratory failure On BiPAP Will try to wean off Will get a repeat x-ray chest COPD exacerbation Monitor closely on telemetry Started on bronchodilators as needed Oxygen supplementation Lactic acidosis Will trend lactic acid levels Will hold off on IV fluids given CHF Possibly due to bronchitis Will start on IV antibiotic to cover for CAP Hypertension Antihypertensives titrated Continue home medications and titrate as needed GI/DVT prophylaxis Advanced directive full code Discharge Plan: Home Plan to discharge in: 48 Hours - Advance Directives Does patient have a Living Will: No Does patient have a Durable POA for Healthcare: No - Code Status/Comfort Care Code Status: Full Code Time Spent Managing Pts Care (In Minutes): 48
[2024-01-26] MEDS ORDERED: ONDANSETRON 4 MG/2 ML VIAL ONE (22:14)
[2024-01-26] MEDS: ONDANSETRON 4 MG/2 ML VIAL IV PRN (22:15)
[2024-01-26] MEDS: IPRATROPIUM BROM 0.5MG/2.5ML NEB PRN (23:35)
[2024-01-26] MEDS: ALBUTEROL 2.5 MG/3 ML NEB SOL NEB PRN (23:35)
[2024-01-27] MEDS: FUROSEMIDE 40 MG/4 ML VIAL IV SCH (01:10)
[2024-01-27] MEDS: METOPROLOL TARTRATE 5 MG/5 ML INJ IV ONE (02:15)
[2024-01-27] MEDS: METOPROLOL TARTRATE 5 MG/5 ML INJ IV STA (02:34)
[2024-01-27 04:24] LABS: Absolute Lymphocytes (CBC) 0.3 K/uL (0.7-4.9); Absolute Monocytes 0.1 K/uL (0.1-1.3); Absolute Neutrophil 6.8 K/uL (1.8-8.0); Basophils % 0.6 % (0-1.3); Hematocrit 31.4 % (36.0-45.0); Hemoglobin 9.3 g/dL (12.0-15.0); Lymphocytes % 4.5 % (15.3-44.8); MCH 23.8 pg (27.0-35.0); MCHC 29.6 g/dL (32.0-36.0); MCV 80.4 fL (80-100); MPV 9.9 fL (7.6-11.3); Monocytes % 0.7 % (3.3-12.3); Platelets 162 thou/uL (152-406); Red Cell Distribution Width 31.4 % (12.1-15.2)
[2024-01-27 04:24] LABS: Albumin 3.5 g/dL (3.4-5.0); Albumin/Globulin Ratio 1.1 (1.1-1.8); Anion Gap 8.4 mEq/L (5.0-15.0); Bilirubin Total 0.7 mg/dL (0.2-1.0); Globulin 3.1 g/dL (2.3-3.5); Potassium 3.4 mEq/L (3.5-5.1); Protein, Total 6.6 g/dL (6.4-8.2)
[2024-01-27 04:25] LABS: Neutrophils % 94.2 % (41.7-73.7)
[2024-01-27] MEDS: CEFTRIAXONE 1,000 MG in NA CHLORIDE 0.9% 50 ML IVPB SCH (04:34)
[2024-01-27] MEDS: AZITHROMYCIN IV 500 MG in NA CHLORIDE 0.9% 250 ML IVPB SCH (04:35)
[2024-01-27] MEDS ORDERED: SODIUM CHLORIDE 0.9% 10ML INJ IV PRN (04:57)
[2024-01-27] MEDS: PROMETHAZINE INJ 25 MG/ML AMP IV PRN (05:06)
[2024-01-27] MEDS: PANTOPRAZOLE 40 MG INJ IVP ONE (05:06)
[2024-01-27] MEDS: ENOXAPARIN 40 MG/0.4 ML SQ SCH (07:43)
[2024-01-27] MEDS: POTASSIUM 25 MEQ EFFERV TAB PO ONE (07:43)
--- NOTE | 2024-01-27 07:47 | RAD REPORT ---
EXAMINATION: ONE VIEW CHEST XR CLINICAL INDICATION: SOB TECHNIQUE: Frontal chest projection is submitted. Examination is limited by patient positioning and t echnique. COMPARISON: 01/26/2024 FINDINGS: No vertebral changes seen in lung aeration since comparison study. Interstitial prominence is similar to prior study. Reticular opacities particularly in the right lung base also stable. Trace pleural effusions. The heart is moderately enlarged in size. No displaced fractures identified. IMPRESSION: Stable chest is seen since yesterday's study. Mild CHF or volume overload suspected. It is difficult to completely exclude infiltrate/pneumonia in the right base.
[2024-01-27] MEDS: ACETAMINOPHEN 325 MG TABLET PO PRN (09:43)
--- NOTE | 2024-01-27 13:00 | P.CNS ---
Date of Consult: 01/27/24 Chief Complaint: SOB History of Present Illness: Patient with PMH of Systolic heart failure, CAD, presented with worsening SOB and lower extremities edema, denies any other symptoms. Allergies hydrocodone Allergy (Verified 04/13/15 17:56) Nausea/Vomiting Home medications list reviewed: Yes Home Medications: Aspirin Chewable [Aspirin Chewable*] 81 mg PO DAILY 06/09/12 Albuterol Neb [Proventil 0.083% Neb Soln] 2.5 mg NEB Q6HP PRN #60 amp 01/08/24 Metoprolol Tartrate [Lopressor*] 25 mg PO BID 6AM 6PM #60 tab 01/08/24 Pantoprazole [Protonix Tab*] 40 mg PO BID #60 tab 01/08/24 Albuterol Inhaler [Ventolin Inhaler*] 60 puff IH Q4HP PRN 01/12/24 Budesonide/Glycopyr/Formoterol [Breztri Aerosphere Inhaler] 2 puff IH BID 01/12/24 Furosemide [Lasix] 40 mg PO DAILY #20 tab 01/12/24 Ipratropium Neb [Atrovent*] 0.5 mg NEB Q6HP PRN 01/12/24 Clopidogrel Bisulfate [Plavix] 75 mg PO DAILY 01/27/24 Fluticasone/Umeclidin/Vilanter [Trelegy Ellipta 200-62.5-25] 1 puff IH DAILY 01/27/24 Midodrine HCl [Proamatine] 5 mg PO TID 01/27/24 Montelukast [Singulair] 10 mg PO DAILY 01/27/24 - Past Medical/Surgical History Diabetic: No -: Hypertension -: Anemia -: CAD -: HLD -: COPD -: heartburn -: CHF -: Stent Placement -: Sx on Knee Cap-Right Psychosocial/ Personal History: Patient is retired, lives at home with her family - Family History Mother Medical History: Heart disease, Stroke, Other (see notes) Notes: Rheumatoid arthritis Father Medical History: Cancer Notes: Colon-Rectal Cancer - Social History Smoking Status: Current every day smoker Alcohol use: No CD- Drugs: No Caffeine use: Yes Place of Residence: Home Review of Systems 10-point ROS is otherwise unremarkable Physical Examination Temp Pulse Resp BP Pulse Ox 97.9 F 98 H 20 99/54 L 99 01/27/24 08:00 01/27/24 08:00 01/27/24 08:00 01/27/24 08:00 01/27/24 08:00 General: Alert, In no apparent distress HEENT: Atraumatic, PERRLA, Mucous membr. moist/pink, EOMI, Sclerae nonicteric Neck: Supple, 2+ carotid pulse no bruit, No LAD, Without JVD or thyroid abnormality Respiratory: Clear to auscultation bilaterally, Normal air movement Cardiovascular: Regular rate/rhythm, Normal S1 S2 Gastrointestinal: Normal bowel sounds, No tenderness Musculoskeletal: No tenderness Integumentary: No rashes Neurological: Normal gait, Normal speech, Normal tone, Normal affect Lymphatics: No axilla or inguinal lymphadenopathy Laboratory Data (last 24 hrs) 01/26/24 01/26/24 01/26/24 20:04 20:04 20:04 WBC 6.60 Hgb 10.0 L Hct 33.5 L Plt Count 181 PT 12.3 INR 1.10 APTT 26.8 Sodium 140 Potassium 4.0 BUN 13 Creatinine 0.74 Glucose 171 H Total Bilirubin 0.8 AST 40 H ALT 69 H Alkaline Phosphatase 123 H - Problems (1) Acute on chronic combined systolic and diastolic heart failure Current Visit: Yes Status: Acute Plan: continue Lasix 40 mg IV Q8 hours Monitor input and output and electrolytes. get echo
[2024-01-27] MEDS: FUROSEMIDE 20 MG/ 2ML VIAL IV ONE (17:33)
[2024-01-27] MEDS: MIDODRINE HCL 5 MG TABLET PO ONE (17:48)
[2024-01-27] MEDS: ALBUMIN HUMAN 25% 100 ML IV ONE (18:07)
[2024-01-27] MEDS: QUETIAPINE 25 MG TAB PO ONE (20:26)
--- NOTE | 2024-01-28 05:25 | P.PN ---
Date of Service: 01/27/24 Subjective Patient is feeling a little bit better. But she has had some episodes of shortness of breath. Will get physical therapy to start working with patient in the morning. Repeat chest x-ray and labs. Physical Examination - Vital Signs reviewed - Physical Exam General: Alert, Oriented x3, Mild distress Respiratory: Diminished, Crackles/rales, Expiratory wheezes Cardiovascular: Regular rate/rhythm, Normal S1 S2 Gastrointestinal: Hypoactive, Soft and benign Musculoskeletal: No clubbing Integumentary: No rashes Neurological: no focal deficits Assessment and Plan - Assessment/Plan 1. Acute on chronic CHF exacerbation; continue with diuresing. Continue with cardiac meds. Echo reviewed from prior. 2. Acute hypoxic respiratory failure; patient on BiPAP support. Weaned off to room air 3. Acute COPD exacerbation; continue with nebs, steroids, antibiotics 4. Lactic acidosis; labs are stable 5. Hypertension; continue with antihypertensives GI/DVT prophylaxis Advanced directive full code Discharge Plan: Home Plan to discharge in: 48 Hours - Advance Directives Does patient have a Living Will: No Does patient have a Durable POA for Healthcare: No - Code Status/Comfort Care Code Status: Full Code Time Spent Managing Pts Care (In Minutes): 48
[2024-01-28 06:42] LABS: Anion Gap 7.6 mEq/L (5.0-15.0); Potassium 3.6 mEq/L (3.5-5.1)
[2024-01-28] MEDS ORDERED: ALBUTEROL 2.5 MG/3 ML NEB SOL NEB PRN (07:57)
--- NOTE | 2024-01-28 08:07 | RAD REPORT ---
EXAMINATION: ONE VIEW CHEST XR CLINICAL INDICATION: pneumonia TECHNIQUE: Frontal chest projection is submitted. Examination is limited by patient positioning and t echnique. COMPARISON: 01/27/2024 FINDINGS: Mild interstitial pulmonary edema pattern seen. Heart is moderately enlarged. Trace pleural fluid. No displaced fractures identified. IMPRESSION: Stable mild CHF pattern.
[2024-01-28] MEDS: CLOPIDOGREL 75 MG TABLET PO SCH (08:45)
[2024-01-28] MEDS: ASPIRIN 81 MG CHEWABLE TABLET PO SCH (08:45)
[2024-01-28] MEDS: METOPROLOL TAR 25 MG TAB PO SCH (08:45)
--- NOTE | 2024-01-28 11:48 | EKG ---
Test Date: 2024-01-27 Test Time: 03:58:19 Behavioral Assistant: KIRILL MEASUREMENT RESULTS: Intervals: Rate: 99 PA: 152 QRSD: 78 QT: 420 QTc: 539 [place]: P: 81 PA: 152 QRS: 17 T: 91 INTERPRETIVE STATEMENTS: Normal sinus rhythm Nonspecific T wave abnormality Prolonged QT Abnormal ECG Compared to ECG 01/11/2024 23:13:40 Prolonged QT interval now present T-wave abnormality still present Electronically Signed On 01-28-24 11:47:25 HEALTHCARE ECONOMICS MANAGER by Edmar Calvert
[2024-01-28] MEDS: POTASSIUM CL SA 10 MEQ TAB PO ONE (12:30)
[2024-01-28] MEDS: ALBUMIN HUMAN 25% 100 ML IV ONE (12:30)
--- NOTE | 2024-01-28 13:37 | P.PN ---
Subjective Date of Service: 01/28/24 Chief Complaint: SOB Subjective: Improving (Patient complaining no more shortness of breath or cough or swelling. She states that she is feeling great, getting ready to discharge and she does not use oxygen at home) Review of Systems Other: Consitutional; fever(-), chills (-), rigor(-), night sweat(-), unintentional weight loss(-) HEENT; epistaxis (-), otorrhea (-), otalgia (-) Respiratory; shortness of breath (-), wheezing (-), cough (-), sputum (-), pleuritic chest pain (-) Cardiovascular; chest pain (-), peripheral edema (-), paroxysmal nocturnal dyspnea (-), orthopnea (-) Gastrointestinal; nausea (-), vomiting (-), abdominal pain (-), diarrhea (-), constipation (-), melena (-), hematochezia (-) Urinary; urinary frequency (-), dysuria (-), urgency (-), flank pain (-), gross hematuria (-) Skin; rash (-), pruritus (-) TECHNICAL ADMINISTRATOR; headache (-), Physical Examination - Vital Signs Temperature: 97.9 F Blood Pressure: 87/54 Pulse: 77 Respirations: 18 Pulse Ox (%): 98 - Physical Exam Other Physical/Emotional Findings: - Physical Exam. General: Emaciated, fragile, chronic ill-looking, in no apparent distress,. HEENT: Normocephalic, atraumatic,. Neck: Supple, without JVD or goiter or thyroid mass. Respiratory: Normal breathing effort, clear to auscultation bilaterally, no crackles no wheezing or rhonchi. Cardiovascular: Regular rate and rhythm, S1, S2 normal, no murmur no gallop. Gastrointestinal: Normal bowel sounds, nondistended, nontender, No ascites, , No masses, no hepatosplenomegaly. Musculoskeletal: No clubbing, No peripheral edema. Integumentary: No rashes. Lymphatics: No axilla or cervical lymphadenopathy. Neurology; alert awake oriented x3, no focal neurologic deficit Assessment And Plan - Plan This is 68 years old female patient with past medical history notable for COPD, systolic and diastolic failure, coronary artery disease status post stent 1. Decompensated systolic and diastolic heart failure exacerbation; continue with diuresing. Continue with cardiac meds. Echo reviewed from prior. 2. Acute hypoxic respiratory failure related to #1 and #3 3. Acute COPD exacerbation 4. Lactic acidosis due to #2 5. History of hypertension 6 iron deficiency anemia Clinical euvolemia, follow-up chest x-ray personally reviewed markedly decreased mild interstitial pulmonary edema, N-terminal proBNP elevated at over 8000 on admission, patient blood pressure is borderline, I will hold IV furosemide, give 25 g albumin IV x 1, resume metoprolol, will initiate IV iron therapy, wean off oxygen by nasal cannula, downgrade antibiotics to ceftriaxone only, anticipate discharge tomorrow
[2024-01-28] MEDS: SOD FERRIC GLUC COMPLX/SUCROSE 250 MG in NA CHLORIDE 0.9% 250 ML IV SCH (15:42)
[2024-01-29 04:02] VITALS: BMI 22.8
[2024-01-29 08:47] VITALS: BP 119/65; TEMP 97.4
[2024-01-29 09:35] VITALS: O2SAT 99
--- NOTE | 2024-01-29 09:38 | P.DS ---
Admission Date: 01/26/24 Discharge Date: 01/29/24 Disposition: ROUTINE DISCHARGE Discharge Condition: GOOD Reason for Admission: SOB Brief History of Present Illness: This is 68 years old female patient with past medical history notable for COPD, systolic and diastolic failure, coronary artery disease status post stent who presented to emergency room complaining of shortness of breath and admitted on general medical floor. Her chest x-ray on admission revealed mild interstitial edema, N-terminal proBNP over 8000. Hospital Course: She was initially started on BiPAP, IV furosemide, DuoNeb, empiric antibiotics with ceftriaxone and azithromycin. She responded to the treatment well and transitioned to nasal cannula and was able to wean off the oxygen. Patient found to have iron deficiency anemia, she did not demonstrate any overt GI bleeding like melena or hematochezia during hospitalization. Patient reported he had a colonoscopy which was normal, but could not get EGD done but she has a history of GERD taking Tums. She also received IV iron therapy during hospitalization. Patient was euvolemia at the time of discharge and sent home in stable condition 1. Decompensated systolic and diastolic heart failure exacerbation 2. Acute hypoxic respiratory failure related to #1 and #3 3. Acute COPD exacerbation 4. Lactic acidosis due to #2 5. History of hypertension 6 iron deficiency anemia on dual antiplatelet Vital Signs/Physical Exam: Temp Pulse Resp BP Pulse Ox 97.4 F 65 16 119/65 99 01/29/24 08:00 01/29/24 08:00 01/29/24 08:00 01/29/24 08:00 01/29/24 08:00 Other Physical/Emotional Findings: - Physical Exam. General: Emaciated, fragile, chronic ill-looking, in no apparent distress,. HEENT: Normocephalic, atraumatic,. Neck: Supple, without JVD or goiter or thyroid mass. Respiratory: Normal breathing effort, clear to auscultation bilaterally, no crackles no wheezing or rhonchi. Cardiovascular: Regular rate and rhythm, S1, S2 normal, no murmur no gallop. Gastrointestinal: Normal bowel sounds, nondistended, nontender, No ascites, , No masses, no hepatosplenomegaly. Musculoskeletal: No clubbing, No peripheral edema. Integumentary: No rashes. Lymphatics: No axilla or cervical lymphadenopathy. Neurology; alert awake oriented x3, no focal neurologic deficit Laboratory Data at Discharge: WBC 7.20 thou/uL (4.3-10.9) 01/27/24 04:05 Hgb 9.3 g/dL (12.0-15.0) L 01/27/24 04:05 Hct 31.4 % (36.0-45.0) L 01/27/24 04:05 Plt Count 162 thou/uL (152-406) 01/27/24 04:05 PT 12.3 SECONDS (9.4-12.5) 01/26/24 20:04 INR 1.10 01/26/24 20:04 APTT 26.8 SECONDS (24.3-36.9) 01/26/24 20:04 Sodium 141 mEq/L (136-145) 01/28/24 05:29 Potassium 4.6 mEq/L (3.5-5.1) 01/28/24 18:04 BUN 13 mg/dL (7-18) 01/28/24 05:29 Creatinine 0.54 mg/dL (0.55-1.02) L 01/28/24 05:29 Glucose 83 mg/dL (74-106) 01/28/24 05:29 Total Bilirubin 0.7 mg/dL (0.2-1.0) 01/27/24 03:42 AST 29 U/L (15-37) 01/27/24 03:42 ALT 62 U/L (13-56) H 01/27/24 03:42 Alkaline Phosphatase 115 U/L (45-117) 01/27/24 03:42 Home Medications: Aspirin Chewable [Aspirin Chewable*] 81 mg PO DAILY 06/09/12 Metoprolol Tartrate [Lopressor*] 25 mg PO BID 6AM 6PM #60 tab 01/08/24 Pantoprazole [Protonix Tab*] 40 mg PO BID #60 tab 01/08/24 Albuterol Inhaler [Ventolin Inhaler*] 60 puff IH Q4HP PRN 01/12/24 Budesonide/Glycopyr/Formoterol [Breztri Aerosphere Inhaler] 2 puff IH BID 01/12/24 Furosemide [Lasix*] 40 mg PO DAILY #20 tab 01/12/24 Clopidogrel Bisulfate [Plavix] 75 mg PO DAILY 01/27/24 Midodrine HCl [Proamatine*] 5 mg PO TID 01/27/24 Montelukast [Singulair*] 10 mg PO DAILY 01/27/24 Diet: AHA Activity: Ad artur Followup: NONE,NONE [Primary Care Provider] -
--- NOTE | 2024-02-02 12:16 | EKG ---
Test Date: 2024-01-26 Test Time: 20:03:18 Cookie Padder: HUGO MEASUREMENT RESULTS: Intervals: Rate: 107 NM: 144 QRSD: 74 QT: 324 QTc: 432 [place]: P: 82 NM: 144 QRS: 31 T: 61 INTERPRETIVE STATEMENTS: Sinus tachycardia Nonspecific T wave abnormality Abnormal ECG Compared to ECG 01/11/2024 23:13:40 Sinus rhythm no longer present T-wave abnormality still present Electronically Signed On 02-02-24 12:07:48 SECURITY SITE SUPERVISOR by Edmar Calvert
--- NOTE | 2024-02-02 12:16 | EKG ---
Test Date: 2024-01-26 Test Time: 20:57:10 Hot Dip Tinning Supervisor: IDALIA MEASUREMENT RESULTS: Intervals: Rate: 148 ID: [id number] QRSD: 70 QT: 330 QTc: 518 [place]: P: 65 ID: [id number] QRS: 23 T: 72 INTERPRETIVE STATEMENTS: Sinus tachycardia with premature atrial complexes Cannot rule out Anterior infarct, age undetermined Abnormal ECG Compared to ECG 01/26/2024 20:03:18 Atrial premature complex(es) now present Myocardial infarct finding now present T-wave abnormality no longer present Electronically Signed On 02-02-24 12:07:41 SIDE STITCHING MACHINE OPERATOR by Edmar Calvert
== END 2024-01-29 11:55 | disposition home or self-care (01) | DRG 291 ==
LOC: ER 19:47 → ERHOLD 21:33 → 4TH 23:02
PROVIDERS: ADMIT Family Medicine; ATTEND Internal Medicine
PROC: 5A09457 Assistance with Respiratory Ventilation, 24-96 Consecutive Hours, Continuous Positive Airway Pressure (ICD-10-PCS; principal; 2024-01-26)
DX: I11.0 Hypertensive heart disease with heart failure (principal); I50.43 Acute on chronic combined systolic (congestive) and diastolic (congestive) heart failure; J96.01 Acute respiratory failure with hypoxia; J44.1 Chronic obstructive pulmonary disease with (acute) exacerbation; E87.20 Acidosis, unspecified; I48.91 Unspecified atrial fibrillation; D50.9 Iron deficiency anemia, unspecified; K21.9 Gastro-esophageal reflux disease without esophagitis; I25.2 Old myocardial infarction; I25.10 Atherosclerotic heart disease of native coronary artery without angina pectoris; F17.210 Nicotine dependence, cigarettes, uncomplicated; Z88.5 Allergy status to narcotic agent; Z95.5 Presence of coronary angioplasty implant and graft; Z79.82 Long term (current) use of aspirin; Z79.02 Long term (current) use of antithrombotics/antiplatelets; Z79.899 Other long term (current) drug therapy
CPT/HCPCS: 36415; 71045; 80048; 80053; 83605; 83880; 84132; 84484; 85025; 85610; 85730; 87040; 93005; 94640; 94660; 94760; 96374; 96375; 99285; J0696; J1650; J1940; J2405; J2470; J2550; J2916; J2919; J3475; J7030; J7050; J7613; J7644; P9047

== ENCOUNTER 2024-02-02 09:47 | Inpatient (IN) | payer OTHER ==
[2024-02-02] MEDS ORDERED: CEFTRIAXONE 1000 MG/VIAL ONE (10:08)
[2024-02-02] MEDS ORDERED: ALBUTEROL 2.5 MG/3 ML NEB SOL ONE (10:08)
[2024-02-02] MEDS ORDERED: IPRATROPIUM BROM 0.5MG/2.5ML ONE (10:08)
[2024-02-02] MEDS ORDERED: NA CHLORIDE 0.9% 50 ML ONE (10:09)
[2024-02-02] MEDS ORDERED: ACETAMINOPHEN 500 MG TAB ONE (10:09)
[2024-02-02] MEDS ORDERED: Magnesium Sulfate 2gm IVPB 2 G/50 ML BAG IV ONE (10:09)
[2024-02-02 10:43] LABS: Absolute Basophils 0.1 K/uL (0-0.5); Absolute Eosinophils 0.1 K/uL (0-0.5); Absolute Lymphocytes (CBC) 0.4 K/uL (0.7-4.9); Absolute Monocytes 0.3 K/uL (0.1-1.3); Absolute Neutrophil 7.9 K/uL (1.8-8.0); Basophils % 0.9 % (0-1.3); Hematocrit 35.1 % (36.0-45.0); Hemoglobin 10.5 g/dL (12.0-15.0); Lymphocytes % 4.6 % (15.3-44.8); MCH 24.9 pg (27.0-35.0); MCHC 29.9 g/dL (32.0-36.0); MCV 83.1 fL (80-100); MPV 8.5 fL (7.6-11.3); Monocytes % 3.4 % (3.3-12.3); Neutrophils % 90.1 % (41.7-73.7); Platelets 308 thou/uL (152-406); RBC Red Blood Cell Count 4.22 M/uL (3.86-4.86); Red Cell Distribution Width 31.1 % (12.1-15.2)
--- NOTE | 2024-02-02 10:46 | RAD REPORT ---
Procedure: Chest Single View HISTORY: Cough COMPARISON: January 28, 2024 FINDINGS: Pulmonary vascular congestion is present Lungs probably clear of acute infiltrate. Heart is mildly to moderately enlarged.
[2024-02-02 10:47] LABS: PT Prothrombin Time 14.5 SECONDS (9.4-12.5); PTT, Activated Partial Thromb 25.1 SECONDS (24.3-36.9); Protime INR 1.3
[2024-02-02 11:05] LABS: Albumin 3.5 g/dL (3.4-5.0); Albumin/Globulin Ratio 1.4 (1.1-1.8); Anion Gap 9.7 mEq/L (5.0-15.0); Bilirubin Total 0.8 mg/dL (0.2-1.0); Globulin 2.5 g/dL (2.3-3.5); Potassium 3.7 mEq/L (3.5-5.1)
[2024-02-02] MEDS ORDERED: NA CHLORIDE 0.9% 1,000 ML ONE (11:32)
[2024-02-02 12:09] LABS: Anisocytosis 2+; Basophilic Stippling 1+; Blood Morphology Comment NOTED (NOT SEEN); Macrocytosis 1+; Microcytosis 1+; Ovalocytes 1+; Platelet Estimate ADEQ; Platelets Clumped MANY; Polychromasia 1+; White Blood Cell Scan OK (OK)
--- NOTE | 2024-02-02 12:17 | ER ---
Nurse's Notes [facility] Name: Jennifer Sherwood Age: 68 yrs Sex: Female : 1955 Arrival Date: 02/02/2024 Time: 09:47 Bed 6 Private MD: Diagnosis: COPD/ Chronic obstructive pulmonary disease with (acute) exacerbation;Chronic respiratory failure with hypoxia Presentation: 02/01 08:49 Chief complaint: EMS states: PATIENT STARTED HAVING DIFFICULTY BREATHING FOR A COUPLE db OF DAYS WORSE LAST NIGHT. TAKING ALBUTEROL TREATMENTS THROUGH THE NIGHT AND THIS AM. EMS OBSERVED PROLONGED EXPIRATORY PHASE. O2 SAT 91% ON O2 FOR EMS. NOTED ABDOMINAL RETRACTIONS UPON ER ARRIVAL. PT GIVEN 125 MG SOLU-MEDROL, 4MG ZOFRAN, DUONEB TREATMENT. PT REPORTS QUITTING SMOKING 1 MONTH AGO. Coronavirus screen: Client denies travel out of the [place] in the last 14 days. At this time, the client does not indicate any symptoms associated with coronavirus-19. Ebola Screen: Patient negative for fever greater than or equal to 101.5 degrees Fahrenheit, and additional compatible Ebola Virus Disease symptoms Patient denies exposure to infectious person. Patient denies travel to an Ebola-affected area in the 21 days before illness onset. No symptoms or risks identified at this time. Initial Sepsis Screen: Does the patient meet any 2 criteria? HR > 90 bpm. No. Patient's initial sepsis screen is negative. Does the patient have a suspected source of infection? No. Patient's initial sepsis screen is negative. Risk Assessment: Do you want to hurt yourself or someone else? Patient reports no desire to harm self or others. Onset of symptoms was February 02, 2024. Care prior to arrival: Medication(s) given: zofran 4 mg, 125 MG SOLUMEDROL IV initiated. 22 GA, in the right hand, Med neb given. 08:49 Acuity: VAHE 2 db 08:49 Method Of Arrival: EMS: [facility] db Triage Assessment: 08:49 General: Appears uncomfortable. General: Behavior is calm, cooperative. Pain:. Pain: db Denies pain. Neuro: Level of Consciousness is awake, alert, obeys commands, Oriented to person, place, time, situation. Respiratory: Airway is patent Respiratory effort is even, labored, Respiratory pattern is regular, symmetrical. Historical: - Allergies: 08:49 HYDROCODONE; db - PMHx: 08:49 Atrial fibrillation; Chronic obstructive lung disease; Congestive heart failure; db Hypertension; Myocardial infarction; - PSHx: 08:49 coronary stents; Knee repair; db - Immunization history:: Adult Immunizations unknown. - Infectious Disease History:: Denies. - Social history:: Smoking status: Patient/guardian denies using tobacco, Stopped _ months ago 1. Screenin:51 [facility] ED Fall Risk Assessment (Adult) History of falling in the last 3 months, db including since admission No falls in past 3 months (0 pts) Confusion or Disorientation No (0 pts) Intoxicated or Sedated No (0 pts) Impaired Gait No (0 pts) Mobility Assist Device Used No (0 pt) Altered Elimination No (0 pt) Score/Fall Risk Level 0 - 2 = Low Risk Oriented to surroundings, Maintained a safe environment. Abuse screen: Denies threats or abuse. Denies injuries from another. Nutritional screening: No deficits noted. Tuberculosis screening: No symptoms or risk factors identified. Assessment: 10:51 Reassessment: Patient appears in no apparent distress at this time. Patient and/or db family updated on plan of care and expected duration. Pain level reassessed. Patient is alert, oriented x 3, equal unlabored respirations, skin warm/dry/pink. Reassessment: BREATHING TREATMENT IN PROGRESS. General: Appears in no apparent distress. comfortable. Neuro: Level of Consciousness is awake, alert, obeys commands, Oriented to person, place, time, situation. Respiratory: Airway is patent Respiratory effort is even, labored, with retractions, Respiratory pattern is regular, symmetrical. 12:00 Reassessment: Patient appears in no apparent distress at this time. Patient and/or db family updated on plan of care and expected duration. Pain level reassessed. Patient is alert, oriented x 3, equal unlabored respirations, skin warm/dry/pink. 13:08 Reassessment: Patient appears in no apparent distress at this time. Patient and/or db family updated on plan of care and expected duration. Pain level reassessed. Patient is alert, oriented x 3, equal unlabored respirations, skin warm/dry/pink. 13:50 Reassessment: Patient appears in no apparent distress at this time. PATIENT STOOD TO db PLACE PULLUP ON AND BECAME TACHYCARDIC O2 SAT DROPPED TO 86%. PATIENT PLACED BACK IN BED AND CHANGED AND PURWICK PLACED. NOTED WOUND TO RIGHT FOOT STATES FROM A FOOT ULCER. 14:43 Reassessment: Patient appears in no apparent distress at this time. Patient and/or db family updated on plan of care and expected duration. Pain level reassessed. Patient is alert, oriented x 3, equal unlabored respirations, skin warm/dry/pink. Patient states symptoms have improved. 17:15 Reassessment: Patient and/or family updated on plan of care and expected duration. Pain db level reassessed. Patient is alert, oriented x 3, equal unlabored respirations, skin warm/dry/pink. Vital Signs: 08:49 BP 114 / 81; Pulse 105; Resp 18; Temp 97.8(O); Pulse Ox 95% on 2 lpm NC; Weight 54.43 db kg; Height 5 ft. 0 in. ; 10:23 BP 117 / 70; Pulse 92; ec2 10:30 BP 99 / 52; Pulse 93; Resp 16; Pulse Ox 100% on Nebulizer Mask; db 11:20 BP 118 / 62; ec2 11:30 BP 103 / 53; Pulse 97; Resp 20; Pulse Ox 100% on Nebulizer Mask; db 11:37 BP 105 / 53; Pulse 95; ec2 11:44 BP 111 / 58; Pulse 98; ec2 12:00 BP 117 / 56; Pulse 100; Resp 20; Pulse Ox 83% on R/A; db 12:13 Pulse Ox 95% 3 lpm ; ec2 12:17 BP 117 / 56; ec2 12:30 BP 112 / 61; Pulse 97; Resp 18; Pulse Ox 96% on 2 lpm NC; db 13:30 BP 118 / 60; Pulse 100; Resp 18; Pulse Ox 96% on 4 lpm NC; db 14:30 BP 122 / 70; Pulse 100; Resp 18; Pulse Ox 100% on 4 lpm NC; db 17:15 BP 115 / 62; Pulse 99; Resp 18; Pulse Ox 100% 4 lpm ; db 08:49 Body Mass Index 23.44 (54.43 kg, 152.4 cm) db 12:00 PLACED ON 2L NC. PER DR. ELI db ED Course: 08:49 Arm band placed on Patient placed in an exam room. db 09:49 Patient arrived in ED. bd 09:50 Rex Eli MD is Attending Physician. ec2 09:55 Helene Gill RN is Primary Nurse. db 10:03 Triage completed. db 10:18 First set of blood cultures drawn. Initial Neb Treatment Given as ordered. db 10:18 Maintain EMS IV. Dressing intact. Good blood return noted. Site clean \T\ dry. Gauge \T\ db site: 22 G LEFT FOREARM. 10:31 Initial lab(s) drawn, by me, sent to lab. Second set of blood cultures drawn. Inserted db saline lock: 20 gauge in right antecubital area, using aseptic technique. Blood collected. Flushed with 10 mL NS. 10:43 Chest Single View XRAY In Process Unspecified. EDMS 10:51 Patient has correct armband on for positive identification. Bed in low position. Call db light in reach. Side rails up X 1. Client placed on continuous cardiac and pulse oximetry monitoring. NIBP monitoring applied. monitoring analyst on. Pulse ox on. NIBP on. Warm blanket given. 12:16 Ayaan Rios MD is Hospitalizing Provider. ec2 14:10 IV discontinued, intact, bleeding controlled, No redness/swelling at site. 20 G RIGHT db AC INFILTRATED AND REMOVED. WARM PACK PLACED. 17:15 Provided Education on: ADMISSION. db 17:15 No provider procedures requiring assistance completed. db Administered Medications: 14:09 Discontinued: ns 0.9% 1000 ml IV at 1000 ml once; to be given as a bolus over 60 minutesdb 10:05 Drug: Acetaminophen PO 1000 mg PO once Route: PO; db 12:00 Follow up: Response: No adverse reaction db 10:18 Drug: DuoNeb Nebulize (3:1) (2.5 mg - 0.5 mg) 3 ml Nebulizer once Route: Nebulizer; db 14:09 Follow up: Response: No adverse reaction db 10:38 Drug: Magnesium Sulfate IVPB 2 grams IVPB once over 30 mins Route: IVPB; Infused Over: db 30 mins; Site: right forearm; 11:15 Follow up: Response: No adverse reaction; IV Status: Completed infusion; IV Intake: 50mldb 10:38 Drug: Rocephin IV 1 grams IV at bolus once; Given slow IV push per pharmacy db instructions Route: IV; Rate: bolus; Site: right antecubital; 11:45 Follow up: Response: No adverse reaction; IV Status: Completed infusion; IV Intake: 50mldb 11:36 Drug: NS 0.9% IV 1000 ml IV at 1000 ml once; to be given as a bolus over 60 minutes db Route: IV; Rate: 1000 ml; Site: right antecubital; 12:30 Follow up: Response: No adverse reaction; IV Status: Completed infusion; IV Intake: db 1000ml 13:40 Drug: Furosemide IVP 40 mg IVP once; give over 2 minutes Route: IVP; Site: right db antecubital; 16:00 Follow up: Response: No adverse reaction db Medication: 10:51 VIS not applicable for this client. db Intake: 11:15 IV: 50ml; Total: 50ml. db 11:45 IV: 50ml; Total: 100ml. db 12:30 IV: 1000ml; Total: 1100ml. db Outcome: 12:17 Decision to Hospitalize by Provider. ec2 17:15 Admitted to Med/surg via stretcher, db 17:15 Condition: stable 17:15 Instructed on the need for admit, 17:16 Patient left the ED. aa5 Signatures: Dispatcher [employer] EDHenny Lantigua Audri, RN RN aa5 Helene Gill RN RN db Rex Eli MD MD ec2 Corrections: (The following items were deleted from the chart) 14:43 14:30 BP 122 / 70; Pulse 100bpm; Resp 18bpm; Pulse Ox 100% RA; db db 14:43 13:30 BP 118 / 60; Pulse 100bpm; Resp 18bpm; Pulse Ox 96% RA; db db
--- NOTE | 2024-02-02 12:17 | EDPHYS ---
Physician Documentation [facility] Name: Jennifer Sherwood Age: 68 yrs Sex: Female : 1955 Arrival Date: 02/02/2024 Time: 09:47 Bed 6 Private MD: ED Physician Rex Eli HPI: 02/01 09:58 This 68 yrs old Female presents to ER via Unassigned with complaints of sob. ec2 09:58 Patient arrives today for evaluation of shortness of breath. History of COPD, CHF ec2 arrives today for progressive shortness of breath. Has been having symptoms for approximately 1 week. Was seen last night by EMS reports that they had given her a breathing treatment and had improved her symptoms. Today is having worsening shortness of breath. Reports some cough and congestion. EMS reports that they had given her albuterol and Atrovent, Solu-Medrol as well as Zofran.. Historical: - Allergies: 08:49 HYDROCODONE; db - PMHx: 08:49 Atrial fibrillation; Chronic obstructive lung disease; Congestive heart failure; db Hypertension; Myocardial infarction; - PSHx: 08:49 coronary stents; Knee repair; db - Immunization history:: Adult Immunizations unknown. - Infectious Disease History:: Denies. - Social history:: Smoking status: Patient/guardian denies using tobacco, Stopped _ months ago 1. ROS: 09:58 Constitutional: as per hpi ec2 Exam: 09:58 Constitutional: GEN: NAD Head: atraumatic Eyes: EOMI Ears: External ears are ec2 normal. CV: Tachycardia LUNGS: Prolonged expiratory phase appreciated ABD: non-distended SKIN: no evidence of rashes MSK: no evidence of trauma Vital Signs: 08:49 BP 114 / 81; Pulse 105; Resp 18; Temp 97.8(O); Pulse Ox 95% on 2 lpm NC; Weight 54.43 db kg; Height 5 ft. 0 in. ; 10:23 BP 117 / 70; Pulse 92; ec2 10:30 BP 99 / 52; Pulse 93; Resp 16; Pulse Ox 100% on Nebulizer Mask; db 11:20 BP 118 / 62; ec2 11:30 BP 103 / 53; Pulse 97; Resp 20; Pulse Ox 100% on Nebulizer Mask; db 11:37 BP 105 / 53; Pulse 95; ec2 11:44 BP 111 / 58; Pulse 98; ec2 12:00 BP 117 / 56; Pulse 100; Resp 20; Pulse Ox 83% on R/A; db 12:13 Pulse Ox 95% 3 lpm ; ec2 12:17 BP 117 / 56; ec2 12:30 BP 112 / 61; Pulse 97; Resp 18; Pulse Ox 96% on 2 lpm NC; db 13:30 BP 118 / 60; Pulse 100; Resp 18; Pulse Ox 96% on 4 lpm NC; db 14:30 BP 122 / 70; Pulse 100; Resp 18; Pulse Ox 100% on 4 lpm NC; db 17:15 BP 115 / 62; Pulse 99; Resp 18; Pulse Ox 100% 4 lpm ; db 08:49 Body Mass Index 23.44 (54.43 kg, 152.4 cm) db 12:00 PLACED ON 2L NC. PER DR. ELI db MDM: 09:51 Medical Screening Exam initiated ec2 09:58 Data reviewed: vital signs, nurses notes. ED course: Patient arrives today for left ec2 respiratory symptoms. Examination revealing for cardiopulmonary findings as above. Will obtain lab work, chest x-ray, treat with magnesium, DuoNeb, ceftriaxone and further assess.. 10:52 ED course: EKG independently reviewed and interpreted by me, shows normal sinus rhythm, ec2 rate 97, no acute ST segment elevations, intervals are nonactionable.. 11:44 ED course: On reassessment patient with marked improvement in symptoms. I discussed ec2 inpatient hospitalization with the patient, patient states that she feels markedly better after the therapies, will continue fluid resuscitation and obtain repeat lactic acid and if improved will discharge home.. 12:14 ED course: Patient with saturations in the mid to low 80s, subsequently placed the ec2 patient on oxygen nasal cannula, will admit for COPD exacerbation.. 12:15 ED course: Patient noted to be hypoxic with saturations in the low to mid 80s, ec2 subsequently placed patient on oxygen. Will admit for hypoxia, COPD exacerbation.. 13:57 ED course: On reassessment, pt w/ improving lactic acid. ec2 02/01 09:51 Order name: Blood Culture Adult (2) ec2 02/01 09:51 Order name: CBC with Diff; Complete Time: 12:13 ec2 02/01 09:51 Order name: CMP; Complete Time: 11:16 ec2 02/01 09:51 Order name: Lactate w/ 2H reflex if indic.; Complete Time: 11:16 ec2 02/01 09:51 Order name: Protime (+inr); Complete Time: 11:16 ec2 02/01 09:51 Order name: Ptt, Activated; Complete Time: 11:16 ec2 02/01 09:51 Order name: BNP; Complete Time: 11:16 ec2 02/01 12:10 Order name: CBC Smear Scan; Complete Time: 12:13 EDMS 02/01 13:07 Order name: Ghost Lactate-NO COLLECT Timer; Complete Time: 13:34 EDMS 02/01 13:54 Order name: Lactate Sepsis 2 HR Follow-up; Complete Time: 13:57 EDMS 02/01 09:51 Order name: Chest Single View XRAY; Complete Time: 11:16 ec2 02/01 09:51 Order name: Accucheck; Complete Time: 10:57 ec2 02/01 09:51 Order name: Cardiac monitoring; Complete Time: 10: ec2 02/01 09:51 Order name: EKG - Nurse/Tech; Complete Time: 10:57 ec2 02/01 09:51 Order name: IV Saline Lock - Large Bore; Complete Time: 10:57 ec2 02/01 09:51 Order name: Labs collected and sent; Complete Time: 10:57 ec2 02/01 09:51 Order name: O2 Per Protocol; Complete Time: 09:58 ec2 02/01 09:51 Order name: O2 Sat Monitoring; Complete Time: 09:58 ec2 02/01 09:51 Order name: Vital Signs; Complete Time: 10:57 ec2 02/01 11:44 Order name: Misc. Order: repeat lactate after finishing fluids; Complete Time: 14:30 ec2 Administered Medications: 14:09 Discontinued: ns 0.9% 1000 ml IV at 1000 ml once; to be given as a bolus over 60 minutesdb 10:05 Drug: Acetaminophen PO 1000 mg PO once Route: PO; db 12:00 Follow up: Response: No adverse reaction db 10:18 Drug: DuoNeb Nebulize (3:1) (2.5 mg - 0.5 mg) 3 ml Nebulizer once Route: Nebulizer; db 14:09 Follow up: Response: No adverse reaction db 10:38 Drug: Magnesium Sulfate IVPB 2 grams IVPB once over 30 mins Route: IVPB; Infused Over: db 30 mins; Site: right forearm; 11:15 Follow up: Response: No adverse reaction; IV Status: Completed infusion; IV Intake: 50mldb 10:38 Drug: Rocephin IV 1 grams IV at bolus once; Given slow IV push per pharmacy db instructions Route: IV; Rate: bolus; Site: right antecubital; 11:45 Follow up: Response: No adverse reaction; IV Status: Completed infusion; IV Intake: 50mldb 11:36 Drug: NS 0.9% IV 1000 ml IV at 1000 ml once; to be given as a bolus over 60 minutes db Route: IV; Rate: 1000 ml; Site: right antecubital; 12:30 Follow up: Response: No adverse reaction; IV Status: Completed infusion; IV Intake: db 1000ml 13:40 Drug: Furosemide IVP 40 mg IVP once; give over 2 minutes Route: IVP; Site: right db antecubital; 16:00 Follow up: Response: No adverse reaction db Disposition Summary: 02/02/24 12:17 Hospitalization Ordered Notes: Hospitalization Status: Inpatient Admission ec2 Provider: Ayaan Rios Location: Telemetry/[facility] (Inpatient) ec2 Condition: Stable ec2 Problem: an acute exacerbation ec2 Symptoms: have improved ec2 Bed/Room Type: Standard ec2 Room Assignment: 213(02/02/24 15:30) bd Diagnosis - COPD/ Chronic obstructive pulmonary disease with (acute) exacerbation ec2 - Chronic respiratory failure with hypoxia ec2 Forms: - Medication Reconciliation Form ec2 - SBAR form ec2 - Leadership Thank You Letter ec2 Critical care time excluding procedures: 13:57 Critical care time: Bedside Care: 30 minutes, Consultation: 5 minutes. Total time: 35 ec2 minutes Signatures: Dispatcher [employer] Henny Aguirre Danielle, RN RN db Rex Eli MD MD ec2 Christina Church RN RN [id number] Corrections: (The following items were deleted from the chart) 15:30 12:17 ec2 bd
[2024-02-02] MEDS ORDERED: FUROSEMIDE 40 MG/4 ML VIAL ONE (13:40)
--- NOTE | 2024-02-02 14:45 | P.HP ---
Certification for Inpatient Patient admitted to: Inpatient With expected LOS: >2 Midnights Patient will require the following post-hospital care: None Practitioner: I am a practitioner with admitting privileges, knowledge of patient current condition, hospital course, and medical plan of care. Services: Services provided to patient in accordance with Admission requirements found in Title 42 Section 412.3 of the Code of Federal Regulations Patient History Date of Service: 02/02/24 Reason for admission: Respiratory failure History of Present Illness: 68-year-old female with history of chronic systolic congestive heart failure, COPD not on home oxygen, iron deficiency anemia, hypotension on midodrine, GERD, CAD presents to the emergency department with chief complaint of dyspnea. She was recently released from the hospital on 01/29/2024. She had been doing okay for the first day or 2 but progressively getting short of breath since then, especially short of breath this morning. Patient was brought in by EMS, she had improvement in respiratory symptoms after receiving steroids, nebulizer treatments but was still hypoxic on room air satting around 83%. On exam patient with pitting edema of the lower extremities, labs are significant for initial lactate of 2.3 downtrending to 1.8 BNP 13,101, elevated from recent admission. Chest x-ray was performed which showed pulmonary vascular congestion, no acute infiltrate. Most recent echocardiogram at our facility was performed on 01/07/2024 and showed a severely reduced LVEF of 25 to 30% with severe global hypokinesis, mildly dilated right ventricle with mildly reduced right ventricular function, diastolic dysfunction, elevated filling pressures with right atrial pressure greater than 20 and moderate pulmonary hypertension. Patient reports her last heart catheterization was "many years ago" and she has [address]. Patient will be admitted for acute hypoxic respiratory failure, CHF exacerbation/COPD exacerbation Allergies hydrocodone Allergy (Verified 04/13/15 17:56) Nausea/Vomiting Home Medications: Aspirin Chewable [Aspirin Chewable*] 81 mg PO DAILY 06/09/12 Metoprolol Tartrate [Lopressor*] 25 mg PO BID 6AM 6PM #60 tab 01/08/24 Pantoprazole [Protonix Tab*] 40 mg PO BID #60 tab 01/08/24 Albuterol Inhaler [Ventolin Inhaler*] 60 puff IH Q4HP PRN 01/12/24 Budesonide/Glycopyr/Formoterol [Breztri Aerosphere Inhaler] 2 puff IH BID 01/12/24 Furosemide [Lasix*] 40 mg PO DAILY #20 tab 01/12/24 Clopidogrel Bisulfate [Plavix] 75 mg PO DAILY 01/27/24 Midodrine HCl [Proamatine*] 5 mg PO TID 01/27/24 Montelukast [Singulair*] 10 mg PO DAILY 01/27/24 - Past Medical/Surgical History Diabetic: No -: Hypertension -: Anemia -: CAD -: HLD -: COPD -: heartburn -: Chronic systolic CHF -: Stent Placement -: Sx on Knee Cap-Right Psychosocial/ Personal History: Patient is retired, lives at home with her family - Family History Mother -: Heart disease, Stroke, Other (see notes) Notes: Rheumatoid arthritis Father -: Cancer Notes: Colon-Rectal Cancer - Social History Smoking Status: Former smoker Alcohol use: No CD- Drugs: No Caffeine use: Yes Place of Residence: Home Review of Systems 10-point ROS is otherwise unremarkable Respiratory: Shortness of Breath Physical Examination - Physical Exam General: Alert, In no apparent distress, Oriented x3 HEENT: Atraumatic, PERRLA, Mucous membr. moist/pink Neck: Supple, 2+ carotid pulse no bruit, No LAD, Without JVD or thyroid abnormality Respiratory: Clear to auscultation bilaterally, Normal air movement Cardiovascular: Regular rate/rhythm, Normal S1 S2, Edema (3+ pitting edema bilateral lower extremities) Gastrointestinal: Normal bowel sounds, No tenderness Musculoskeletal: No tenderness Integumentary: Erythema (Erythema of the right foot with blister present to the dorsum) Neurological: Normal gait, Normal speech, Normal strength at 5/5 x4 extr, Normal tone, Normal affect Lymphatics: No axilla or inguinal lymphadenopathy - Studies Laboratory Data (last 24 hrs) 02/02/24 02/02/24 02/02/24 10:31 10:31 10:31 WBC 8.80 Hgb 10.5 L Hct 35.1 L Plt Count 308 PT 14.5 H INR 1.30 APTT 25.1 Sodium 139 Potassium 3.7 BUN 13 Creatinine 0.61 Glucose 166 H Total Bilirubin 0.8 AST 29 ALT 54 Alkaline Phosphatase 95 Assessment and Plan - Plan Assessment: Acute hypoxic respiratory failure secondary to CHF Acute on chronic systolic congestive heart failure COPD with exacerbation-not on home O2 History of CAD Hypotension-on midodrine at home Former tobacco use Plan: Acute hypoxic respiratory failure secondary to CHF Acute on chronic systolic congestive heart failure History of CAD Echocardiogram 01/07/2024 showed severely reduced LVEF of 25 to 30% with severe global hypokinesis mildly dilated right ventricle with mildly reduced right ventricular function, diastolic dysfunction elevated filling pressures with right atrial pressure greater than 20 moderate pulmonary hypertension Patient reports not being on any diuretics at home? Pitting edema to lower extremities noted Continue with IV Lasix Symptoms did improve also with nebulizer treatments, steroids Possibly mixed with COPD exacerbation Cardiology consult COPD with exacerbation-not on home O2 History of COPD, recently stopped smoking about a month ago Only takes rescue inhalers/nebs at home per patient Pulmonology consult Continue p.o. steroids, as needed nebulizer treatments, daily Dulera May need home O2 at discharge Hypotension-on midodrine at home Continue midodrine Former tobacco use Recommend continued cessation DVT PPX: Lovenox Code status: Full Discharge Plan: Home Plan to discharge in: 72 Hours - Advance Directives Does patient have a Living Will: No Does patient have a Durable POA for Healthcare: No - Code Status/Comfort Care Code Status Assessed: Yes (Full code) Critical Care: No Time Spent Managing Pts Care (In Minutes): 61
[2024-02-02] MEDS ORDERED: ALBUTEROL 2.5 MG/3 ML NEB SOL NEB PRN (16:40)
[2024-02-02] MEDS ORDERED: IPRATROPIUM BROM 0.5MG/2.5ML NEB PRN (16:40)
[2024-02-02] MEDS ORDERED: ONDANSETRON 4 MG/2 ML VIAL IV PRN (16:40)
[2024-02-02] MEDS: MIDODRINE HCL 5 MG TABLET PO SCH (18:29)
[2024-02-02] MEDS: ENOXAPARIN 40 MG/0.4 ML SQ SCH (18:29)
[2024-02-02] MEDS: FUROSEMIDE 40 MG/4 ML VIAL IV SCH (18:30)
[2024-02-02 18:47] VITALS: BMI 23.4
[2024-02-02] MEDS: DULERA 200/5 (MOMETASONE/FORMOTEROL) INHALER IH SCH (20:16)
[2024-02-02] MEDS: predniSONE 10 MG TAB PO SCH (20:16)
[2024-02-02] MEDS: ACETAMINOPHEN 325 MG TABLET PO PRN (21:52)
[2024-02-02] MEDS: TRAZODONE 50 MG TABLET PO PRN (21:52)
[2024-02-03 05:40] LABS: Absolute Lymphocytes (CBC) 0.6 K/uL (0.7-4.9); Absolute Monocytes 0.2 K/uL (0.1-1.3); Absolute Neutrophil 3.2 K/uL (1.8-8.0); Basophils % 0.3 % (0-1.3); Hemoglobin 10.1 g/dL (12.0-15.0); Lymphocytes % 14.1 % (15.3-44.8); MCH 25.2 pg (27.0-35.0); MCHC 30.6 g/dL (32.0-36.0); MCV 82.6 fL (80-100); MPV 8.8 fL (7.6-11.3); Monocytes % 4.7 % (3.3-12.3); Neutrophils % 80.9 % (41.7-73.7); Nucleated Red Blood Cells % 0.1 % (0-0); Platelets 242 thou/uL (152-406); Red Cell Distribution Width 31.4 % (12.1-15.2)
[2024-02-03 05:54] LABS: Anion Gap 5.8 mEq/L (5.0-15.0); Magnesium 2.1 mg/dL (1.6-2.4); Potassium 3.8 mEq/L (3.5-5.1)
[2024-02-03] MEDS: POTASSIUM 25 MEQ EFFERV TAB PO ONE ×2 (08:00→15:24)
--- NOTE | 2024-02-03 09:02 | P.PN ---
Date of Service: 02/03/24 Subjective: Improving overnight edema much improved weaning 02 ROS: 10 point ROS as noted above, otherwise negative Physical exam GEN: Alert, oriented, NAD HEENT: Normal conjunctiva, sclera anicteric CV: Regular rate and rhythm, no edema-improved from admission Pulm: Nonlabored respirations on NC @2L ABD: Soft, nontender, nondistended MSK: No joint tenderness Integumentary: No rashes Neuro: Normal speech, normal affect Vitals reviewed Assessment: Acute hypoxic respiratory failure secondary to CHF Acute on chronic systolic congestive heart failure COPD with exacerbation-not on home O2 History of CAD Hypotension-on midodrine at home Former tobacco use Plan: Acute hypoxic respiratory failure secondary to CHF Acute on chronic systolic congestive heart failure History of CAD Echocardiogram 01/07/2024 showed severely reduced LVEF of 25 to 30% with severe global hypokinesis mildly dilated right ventricle with mildly reduced right ventricular function, diastolic dysfunction elevated filling pressures with right atrial pressure greater than 20 moderate pulmonary hypertension Patient reports not being on any diuretics at home? Pitting edema to lower extremities noted-improved overnight with IV lasix Continue with lasix, switched to PO Symptoms did improve also with nebulizer treatments, steroids Possibly mixed with COPD exacerbation Cardiology consult Will need lasix at DC COPD with exacerbation-not on home O2 History of COPD, recently stopped smoking about a month ago Only takes rescue inhalers/nebs at home per patient Pulmonology consult Continue p.o. steroids, as needed nebulizer treatments, daily Dulera May need home O2 at discharge Hypotension-on midodrine at home Continue midodrine Former tobacco use Recommend continued cessation DVT PPX: Lovenox Code status: Full Discharge Plan: Home Plan to discharge in: 24 hours Time Spent Managing Pts Care (In Minutes): 35
[2024-02-03] MEDS: ASPIRIN 81 MG CHEWABLE TABLET PO SCH (10:29)
[2024-02-03] MEDS: FUROSEMIDE 40 MG TABLET PO SCH (10:29)
[2024-02-03] MEDS: CLOPIDOGREL 75 MG TABLET PO SCH (10:29)
--- NOTE | 2024-02-03 11:05 | P.CNS ---
Date of Consult: 02/03/24 Chief Complaint: Respiratory failure History of Present Illness: Patient with PMH of combined systolic and diastolic heart failure, CAD s/p PCI presented with worsening SOB and low extremities swelling, denies any other cardiac symptoms. Allergies hydrocodone Allergy (Verified 04/13/15 17:56) Nausea/Vomiting Home medications list reviewed: Yes Home Medications: Aspirin Chewable [Aspirin Chewable*] 81 mg PO DAILY 06/09/12 Metoprolol Tartrate [Lopressor*] 25 mg PO BID 6AM 6PM #60 tab 01/08/24 Albuterol Inhaler [Ventolin Inhaler*] 60 puff IH Q4HP PRN 01/12/24 Budesonide/Glycopyr/Formoterol [Breztri Aerosphere Inhaler] 2 puff IH BID 01/12/24 Clopidogrel Bisulfate [Plavix] 75 mg PO DAILY 01/27/24 Midodrine HCl [Proamatine*] 5 mg PO TID 01/27/24 Montelukast [Singulair*] 10 mg PO DAILY 01/27/24 - Past Medical/Surgical History Diabetic: No -: Hypertension -: Anemia -: CAD -: HLD -: COPD -: heartburn -: Chronic systolic CHF -: Stent Placement -: Sx on Knee Cap-Right Psychosocial/ Personal History: Patient is retired, lives at home with her family - Family History Mother Medical History: Heart disease, Stroke, Other (see notes) Notes: Rheumatoid arthritis Father Medical History: Cancer Notes: Colon-Rectal Cancer - Social History Smoking Status: Current every day smoker Alcohol use: No CD- Drugs: No Caffeine use: Yes Place of Residence: Home Review of Systems 10-point ROS is otherwise unremarkable Physical Examination Temp Pulse Resp BP Pulse Ox 97.9 F 97 H 16 101/49 L 92 02/03/24 08:00 02/03/24 08:00 02/03/24 08:00 02/03/24 08:00 02/03/24 08:00 General: Alert, In no apparent distress HEENT: Atraumatic, PERRLA, Mucous membr. moist/pink, EOMI, Sclerae nonicteric Neck: Supple, 2+ carotid pulse no bruit, No LAD, Without JVD or thyroid abnormality Respiratory: Clear to auscultation bilaterally, Normal air movement Cardiovascular: Regular rate/rhythm, Normal S1 S2 Gastrointestinal: Normal bowel sounds, No tenderness Musculoskeletal: No tenderness Integumentary: No rashes Neurological: Normal gait, Normal speech, Normal tone, Normal affect Lymphatics: No axilla or inguinal lymphadenopathy Laboratory Data (last 24 hrs) 02/02/24 02/02/24 10:31 10:31 WBC 8.80 Hgb 10.5 L Hct 35.1 L Plt Count 308 Sodium 139 Potassium 3.7 BUN 13 Creatinine 0.61 Glucose 166 H Total Bilirubin 0.8 AST 29 ALT 54 Alkaline Phosphatase 95 - Problems (1) Coronary artery disease Current Visit: Yes Status: Acute Plan: stable, no chest pain with negative cardiac enzymes continue ASA 81 mg daily (2) Acute on chronic combined systolic and diastolic heart failure Current Visit: No Status: Acute Plan: Patient diursed well with IV Lasix agree with switching to lasix 40 mg daily add Spironlactone 25 mg daily Toprol XL 25 mg daily
--- NOTE | 2024-02-03 12:03 | P.CNS ---
Date of Consult: 02/03/24 Reason for Consult: COPD exacerbation Chief Complaint: Respiratory failure History of Present Illness: Patient is 68 years of age with a history of COPD admitted with progressive dyspnea for the past week smoking a month ago was just to smoke about a pack a d ay does not use any long-acting bronchodilators at home she has history of coronary artery disease and CHF has improved significantly Allergies hydrocodone Allergy (Verified 04/13/15 17:56) Nausea/Vomiting Home Medications: Aspirin Chewable [Aspirin Chewable*] 81 mg PO DAILY 06/09/12 Metoprolol Tartrate [Lopressor*] 25 mg PO BID 6AM 6PM #60 tab 01/08/24 Albuterol Inhaler [Ventolin Inhaler*] 60 puff IH Q4HP PRN 01/12/24 Budesonide/Glycopyr/Formoterol [Breztri Aerosphere Inhaler] 2 puff IH BID 01/12/24 Clopidogrel Bisulfate [Plavix] 75 mg PO DAILY 01/27/24 Midodrine HCl [Proamatine*] 5 mg PO TID 01/27/24 Montelukast [Singulair*] 10 mg PO DAILY 01/27/24 - Past Medical/Surgical History Diabetic: No -: Hypertension -: Anemia -: CAD -: HLD -: COPD -: heartburn -: Chronic systolic CHF -: Stent Placement -: Sx on Knee Cap-Right Psychosocial/ Personal History: Patient is retired, lives at home with her family - Family History Mother Medical History: Heart disease, Stroke, Other (see notes) Notes: Rheumatoid arthritis Father Medical History: Cancer Notes: Colon-Rectal Cancer - Social History Smoking Status: Current every day smoker Alcohol use: No CD- Drugs: No Caffeine use: Yes Place of Residence: Home Review of Systems 10-point ROS is otherwise unremarkable Physical Examination Temp Pulse Resp BP Pulse Ox 97.9 F 97 H 16 101/49 L 92 02/03/24 08:00 02/03/24 08:00 02/03/24 08:00 02/03/24 08:00 02/03/24 08:00 General: Alert, Oriented x3 Respiratory: Clear to auscultation bilaterally Cardiovascular: No edema, Regular rate/rhythm, Normal S1 S2 Gastrointestinal: Normal bowel sounds, Soft and benign Laboratory Data (last 24 hrs) 02/02/24 10:31 WBC 8.80 Hgb 10.5 L Hct 35.1 L Plt Count 308 - Problems (1) COPD exacerbation Current Visit: No Status: Acute Plan: Patient is 68 years of age admitted with COPD exacerbation much better right now vital signs are stable oxygenation satisfactory evaluate for home O2 smoking a month ago Test shows mild anemia chest x-ray shows COPD changes to discharge a.m. resume home long-acting bronchodilators follow-up with me in 2-week (2) History of chronic heart failure Current Visit: Yes Status: Acute Plan: History of combined systolic and diastolic heart failure no evidence of volume overload right now patient should be on diuretics that was started today pending on how she tolerates the spironolactone discharged home on Lasix 40 or 20 in addition to 25 of spironolactone BNP was elevated at 13,000
[2024-02-03] MEDS: SPIRONOLACTONE 25 MG TABLET PO SCH (13:15)
[2024-02-04] MEDS: METOPROLOL XL 25 MG TAB PO SCH (05:27)
[2024-02-04 06:32] LABS: Absolute Lymphocytes (CBC) 1.2 K/uL (0.7-4.9); Absolute Monocytes 0.3 K/uL (0.1-1.3); Absolute Neutrophil 5.6 K/uL (1.8-8.0); Basophils % 0.2 % (0-1.3); Eosinophils % 0.1 % (0-4.4); Hematocrit 34.5 % (36.0-45.0); Hemoglobin 10.6 g/dL (12.0-15.0); Lymphocytes % 16.9 % (15.3-44.8); MCH 25.3 pg (27.0-35.0); MCHC 30.7 g/dL (32.0-36.0); MCV 82.4 fL (80-100); MPV 8.7 fL (7.6-11.3); Monocytes % 4.3 % (3.3-12.3); Neutrophils % 78.5 % (41.7-73.7); Nucleated Red Blood Cells % 0.1 % (0-0); Platelets 277 thou/uL (152-406); RBC Red Blood Cell Count 4.18 M/uL (3.86-4.86); Red Cell Distribution Width 30.8 % (12.1-15.2)
[2024-02-04 08:45] VITALS: O2SAT 98
[2024-02-04 08:50] VITALS: BP 118/71; TEMP 97.7
[2024-02-04] MEDS ORDERED: FUROSEMIDE 40 MG TABLET PO SCH (09:00)
--- NOTE | 2024-02-04 11:39 | EKG ---
Test Date: 2024-02-02 Test Time: 10:46:29 Matchbook Assembler: DAVID MEASUREMENT RESULTS: Intervals: Rate: 97 IA: 152 QRSD: 80 QT: 312 QTc: 396 [place]: P: 91 IA: 152 QRS: 47 T: 175 INTERPRETIVE STATEMENTS: Normal sinus rhythm Nonspecific T wave abnormality Abnormal ECG Compared to ECG 01/27/2024 03:58:19 Prolonged QT interval no longer present T-wave abnormality still present Electronically Signed On 02-04-24 11:34:39 ON SITE MANAGER by Edmar Calvert
--- NOTE | 2024-02-04 13:18 | P.DS ---
Admission Date: 02/02/24 Discharge Date: 02/04/24 Disposition: ROUTINE DISCHARGE Discharge Condition: GOOD Reason for Admission: Respiratory failure Brief History of Present Illness: 68-year-old female with history of chronic systolic congestive heart failure, COPD not on home oxygen, iron deficiency anemia, hypotension on midodrine, GERD, CAD presents to the emergency department with chief complaint of dyspnea. She was recently released from the hospital on 01/29/2024. She had been doing okay for the first day or 2 but progressively getting short of breath since then, especially short of breath this morning. Patient was brought in by EMS, she had improvement in respiratory symptoms after receiving steroids, nebulizer treatments but was still hypoxic on room air satting around 83%. On exam patient with pitting edema of the lower extremities, labs are significant for initial lactate of 2.3 downtrending to 1.8 BNP 13,101, elevated from recent admission. Chest x-ray was performed which showed pulmonary vascular congestion, no acute infiltrate. Most recent echocardiogram at our facility was performed on 01/07/2024 and showed a severely reduced LVEF of 25 to 30% with severe global hypokinesis, mildly dilated right ventricle with mildly reduced right ventricular function, diastolic dysfunction, elevated filling pressures with right atrial pressure greater than 20 and moderate pulmonary hypertension. Patient reports her last heart catheterization was "many years ago" and she has [address] Patient will be admitted for acute hypoxic respiratory failure, CHF exacerbation/COPD exacerbation Hospital Course: Assessment: Acute hypoxic respiratory failure secondary to CHF Acute on chronic systolic congestive heart failure COPD with exacerbation-not on home O2 History of CAD Hypotension-on midodrine at home Former tobacco use Patient was admitted to the hospital for CHF/COPD. Since discharge she had not been on any Lasix at home, she also was not using her inhalers that she had at home. She was seen by pulmonology and cardiology and started on Lasix, spironolactone. Her metoprolol tartrate 25 mg twice daily will be switched to metoprolol succinate 25 mg daily and she was instructed by pulmonology to begin using her Trelegy inhaler that she has at home daily. She diuresed quite well and is currently tolerating room air. Patient was also noted to have a healing blister to the dorsum of her right foot with mild surrounding erythema. Patient will be covered with Keflex for 5 days. Prescription sent to pharmacy New medications: Lasix 20 mg by mouth daily Spironolactone 25 mg by mouth daily Toprol XL/metoprolol succinate 25 mg by mouth daily Keflex an antibiotic to take for 5 days Stop taking the following medications: Toprol tartrate 25 mg by mouth twice daily Start taking your Trelegy inhaler that you have at home daily and use your rescue inhaler as needed Follow-up with your primary care doctor in 1 week Follow-up with pulmonologyDr. Kim in 1 to 2 weeks Follow-up with cardiologyDrJyoti Srivastava in 1 to 2 weeks Vital Signs/Physical Exam: Temp Pulse Resp BP Pulse Ox 97.7 F 98 H 20 118/71 95 02/04/24 08:00 02/04/24 08:00 02/04/24 08:00 02/04/24 08:00 02/04/24 08:00 General: Alert, In no apparent distress, Oriented x3 HEENT: Atraumatic, PERRLA Neck: Supple, JVD not distended Respiratory: Clear to auscultation bilaterally, Normal air movement Cardiovascular: Regular rate/rhythm, Normal S1 S2 Gastrointestinal: Normal bowel sounds, No tenderness Musculoskeletal: No tenderness Integumentary: No rashes Neurological: Normal speech, Normal tone, Normal affect Laboratory Data at Discharge: WBC 7.20 thou/uL (4.3-10.9) 02/04/24 06:06 Hgb 10.6 g/dL (12.0-15.0) L 02/04/24 06:06 Hct 34.5 % (36.0-45.0) L 02/04/24 06:06 Plt Count 277 thou/uL (152-406) 02/04/24 06:06 PT 14.5 SECONDS (9.4-12.5) H 02/02/24 10:31 INR 1.30 02/02/24 10:31 APTT 25.1 SECONDS (24.3-36.9) 02/02/24 10:31 Sodium 138 mEq/L (136-145) 02/04/24 06:06 Potassium 4.0 mEq/L (3.5-5.1) 02/04/24 06:06 BUN 11 mg/dL (7-18) 02/04/24 06:06 Creatinine 0.53 mg/dL (0.55-1.02) L 02/04/24 06:06 Glucose 131 mg/dL (74-106) H 02/04/24 06:06 Magnesium 2.0 mg/dL (1.6-2.4) 02/04/24 06:06 Total Bilirubin 0.8 mg/dL (0.2-1.0) 02/02/24 10:31 AST 29 U/L (15-37) 02/02/24 10:31 ALT 54 U/L (13-56) 02/02/24 10:31 Alkaline Phosphatase 95 U/L (45-117) 02/02/24 10:31 Home Medications: Aspirin Chewable [Aspirin Chewable*] 81 mg PO DAILY 06/09/12 Albuterol Inhaler [Ventolin Inhaler*] 60 puff IH Q4HP PRN 01/12/24 Clopidogrel Bisulfate [Plavix] 75 mg PO DAILY 01/27/24 Midodrine HCl [Proamatine*] 5 mg PO TID 01/27/24 Montelukast [Singulair*] 10 mg PO DAILY 01/27/24 Cephalexin [Keflex] 500 mg PO BID 5 Days #10 cap 02/04/24 Furosemide [Lasix] 20 mg PO DAILY #30 tab 02/04/24 Metoprolol Succinate [Toprol Xl*] 25 mg PO DAILY #30 tab 02/04/24 Spironolactone 25 mg PO DAILY 30 Days #30 tab 02/04/24 New Medications: Cephalexin [Keflex] 500 mg PO BID 5 Days #10 cap Furosemide [Lasix] 20 mg PO DAILY #30 tab Spironolactone 25 mg PO DAILY 30 Days #30 tab Metoprolol Succinate [Toprol Xl*] 25 mg PO DAILY #30 tab Physician Discharge Instructions: Patient was admitted to the hospital for CHF/COPD. Since discharge she had not been on any Lasix at home, she also was not using her inhalers that she had at home. She was seen by pulmonology and cardiology and started on Lasix, spironolactone. Her metoprolol tartrate 25 mg twice daily will be switched to metoprolol succinate 25 mg daily and she was instructed by pulmonology to begin using her Trelegy inhaler that she has at home daily. She diuresed quite well and is currently tolerating room air. Patient was also noted to have a healing blister to the dorsum of her right foot with mild surrounding erythema. Patient will be covered with Keflex for 5 days. Prescription sent to pharmacy New medications: Lasix 20 mg by mouth daily Spironolactone 25 mg by mouth daily Toprol XL/metoprolol succinate 25 mg by mouth daily Keflex an antibiotic to take for 5 days Stop taking the following medications: Toprol tartrate 25 mg by mouth twice daily Start taking your Trelegy inhaler that you have at home daily and use your rescue inhaler as needed Follow-up with your primary care doctor in 1 week Follow-up with pulmonologyDrJyoti Kim in 1 to 2 weeks Follow-up with cardiologyDrJyoti Srivastava in 1 to 2 weeks Followup: Raad Kim MD [ACTIVE - CAN ADMIT] - 1 Week Edmar Calvert MD [ACTIVE - CAN ADMIT] - 1 Week NONE,NONE [Primary Care Provider] - 1 Week Time spent managing pt's care (in minutes): 37
== END 2024-02-04 11:45 | disposition home or self-care (01) | DRG 291 ==
LOC: ER 09:47 → ERHOLD 12:45 → 2ND 16:17
PROVIDERS: ADMIT Hospitalist; ATTEND Internal Medicine
DX: I11.0 Hypertensive heart disease with heart failure (principal); I50.23 Acute on chronic systolic (congestive) heart failure; J96.01 Acute respiratory failure with hypoxia; J44.1 Chronic obstructive pulmonary disease with (acute) exacerbation; I95.9 Hypotension, unspecified; I48.91 Unspecified atrial fibrillation; D64.9 Anemia, unspecified; I27.20 Pulmonary hypertension, unspecified; K21.9 Gastro-esophageal reflux disease without esophagitis; I25.10 Atherosclerotic heart disease of native coronary artery without angina pectoris; I25.2 Old myocardial infarction; Z88.5 Allergy status to narcotic agent; Z95.5 Presence of coronary angioplasty implant and graft; Z79.82 Long term (current) use of aspirin; Z79.02 Long term (current) use of antithrombotics/antiplatelets; Z87.891 Personal history of nicotine dependence; Z79.899 Other long term (current) drug therapy
CPT/HCPCS: 36415; 71045; 80048; 80053; 83605; 83735; 83880; 85025; 85610; 85730; 87040; 93005; 94640; 97116; 97161; 99285; J0696; J1650; J1940; J3475; J3535; J7030; J7512; J7613; J7644

== ENCOUNTER 2024-04-02 11:07 | Emergency (ER) | payer OTHER ==
[2024-04-02] MEDS ORDERED: IPRATROPIUM BROM 0.5MG/2.5ML ONE (11:58)
[2024-04-02] MEDS ORDERED: predniSONE 20 MG TAB ONE (11:58)
[2024-04-02] MEDS ORDERED: LEVALBUTEROL 1.25 MG/3 ML NEB ONE (11:58)
[2024-04-02 12:13] LABS: Absolute Basophils 0.1 K/uL (0-0.5); Absolute Monocytes 0.2 K/uL (0.1-1.3); Nucleated Red Blood Cells % 0.2 % (0-0); Platelets 222 thou/uL (152-406)
[2024-04-02 12:18] LABS: Absolute Lymphocytes (CBC) 0.8 K/uL (0.7-4.9); Basophils % 1.3 % (0-1.3); Eosinophils % 0.7 % (0-4.4); Hematocrit 19.2 % (36.0-45.0); Lymphocytes % 15.5 % (15.3-44.8); MCH 22.2 pg (27.0-35.0); MCHC 30.8 g/dL (32.0-36.0); MCV 71.9 fL (80-100); MPV 8.8 fL (7.6-11.3); Monocytes % 4.8 % (3.3-12.3); Neutrophils % 77.7 % (41.7-73.7); RBC Red Blood Cell Count 2.67 M/uL (3.86-4.86); Red Cell Distribution Width 21.1 % (12.1-15.2)
[2024-04-02 12:19] LABS: Hemoglobin 5.9 g/dL (12.0-15.0)
--- NOTE | 2024-04-02 12:21 | RAD REPORT ---
EXAM: Chest Single View HISTORY: COPD COMPARISON: 02/02/2024 FINDINGS: LUNGS/PLEURA: The lungs are clear. No pleural effusions or pneumothorax. No pulmonary edema. MEDIASTINUM: The mediastinal silhouette is within normal limits. CARDIAC: The cardiac silhouette is within normal limits. UPPER ABDOMEN: No significant abnormality. BONES: No acute abnormality. LINES/TUBES/OTHER: N/A IMPRESSION: No evidence of acute cardiopulmonary disease.
[2024-04-02 12:29] LABS: ALT/SGPT 15 U/L (13-56); Albumin 3.4 g/dL (3.4-5.0); Albumin/Globulin Ratio 1.1 (1.1-1.8); Alkaline Phosphatase 82 U/L (45-117); Anion Gap 7.9 mEq/L (5.0-15.0); BUN Blood Urea Nitrogen 12 mg/dL (7-18); Bicarbonate 24 mEq/L (21-32); Bilirubin Direct 0.2 mg/dL (0-0.2); Bilirubin Indirect, Calculated 0.2 mg/dL (0.2-0.8); Bilirubin Total 0.4 mg/dL (0.2-1.0); Globulin 3.1 g/dL (2.3-3.5); Glomerular Filtration Rate 104 ml/min (=/>90); Glucose Level 114 mg/dL (74-106); NT PRO-BNP 1874 pg/mL (<125); Potassium 3.9 mEq/L (3.5-5.1); Protein, Total 6.5 g/dL (6.4-8.2); Sodium Level 139 mEq/L (136-145); Troponin High Sensitivity 13.8 pg/mL (<58.9)
[2024-04-02 12:30] LABS: AST/SGOT < 10 U/L (15-37)
--- NOTE | 2024-04-02 13:13 | RAD REPORT ---
EXAM: Knee Right 3 View INDICATION: PAIN COMPARISON: 03/29/2017 FINDINGS: No acute fracture. Prior patellar fixation. No significant knee effusion. Mild patellofemoral compartment spurring. Mild medial compartment narrowing. Other: Peripheral vascular calcifications. IMPRESSION: No evidence of acute osseous abnormality involving the imaged knee.
[2024-04-02 13:44] LABS: Anisocytosis 1+; Blood Morphology Comment NOTED (NOT SEEN); Hypochromasia 1+; Platelet Estimate ADEQ; Polychromasia 1+; White Blood Cell Scan OK (OK)
[2024-04-02 13:48] LABS: Rouleau NOTED; Stomatocytes 1+; Teardrop Cell FEW
[2024-04-02] MEDS ORDERED: NA CHLORIDE 0.9% 250 ML ONE (15:42)
[2024-04-02] MEDS ORDERED: FUROSEMIDE 20 MG/ 2ML VIAL ONE (18:04)
--- NOTE | 2024-04-02 20:31 | EDPHYS ---
Physician Documentation [facility] Name: Jennifer Sherwood Age: 68 yrs Sex: Female : 1955 Arrival Date: 04/02/2024 Time: 11:07 Bed 19 Private MD: ED Physician Douglas Russ HPI: 04/02 13:00 This 68 yrs old Female presents to ER via Wheelchair with complaints of rt Shortness Of Breath, Fatigue. 13:00 Patient presents to the ED with shortness of breath starting this morning when she was rt walking. Denies PND, orthopnea. Reports mild lower extremity edema. Denies other acute complaints at this time, symptoms are moderate in severity, no other aggravating or alleviating factors.. Historical: - Allergies: 11:34 HYDROCODONE; hb - PMHx: 11:34 Atrial fibrillation; Chronic obstructive lung disease; Congestive heart failure; hb Hypertension; Myocardial infarction; - PSHx: 11:34 coronary stents; Knee repair; hb - Immunization history:: Adult Immunizations up to date. - Infectious Disease History:: Denies. - Social history:: Smoking status: Patient/guardian denies using tobacco. - Family history:: not pertinent. ROS: 13:00 Constitutional: Negative for fever, chills, and weight loss, Abdomen/GI: Negative for rt abdominal pain, nausea, vomiting, diarrhea, and constipation, MS/Extremity: Negative for injury and deformity, Skin: Negative for injury, rash, and discoloration, Neuro: Negative for headache, weakness, numbness, tingling, and seizure, 13:00 Cardiovascular: Positive for edema, Negative for chest pain, 13:00 Respiratory: Positive for cough, shortness of breath, Exam: 13:00 Constitutional: This is a well developed, well nourished patient who is awake, alert, rt and in no acute distress. Head/Face: Normocephalic, atraumatic. Chest/axilla: Normal chest wall appearance and motion. Nontender with no deformity. No lesions are appreciated. Cardiovascular: Regular rate and rhythm with a normal S1 and S2. No gallops, murmurs, or rubs. Normal PMI, no JVD. No pulse deficits. Abdomen/GI: Soft, non-tender, with normal bowel sounds. No distension or tympany. No guarding or rebound. No evidence of tenderness throughout. Skin: Warm, dry with normal turgor. Normal color with no rashes, no lesions, and no evidence of cellulitis. MS/ Extremity: Pulses equal, no cyanosis. Neurovascular intact. Full, normal range of motion. Neuro: Awake and alert, GCS 15, oriented to person, place, time, and situation. Cranial nerves II-XII grossly intact. Motor strength 5/5 in all extremities. Sensory grossly intact. Cerebellar exam normal. Normal gait. 13:00 ECG was reviewed by the Attending Physician. 13:00 Respiratory: Faint wheezes heard on all lung saini, no respiratory distress, 13:00 Musculoskeletal/extremity: 1+ bilateral lower extremity edema, symmetric. Vital Signs: 11:33 BP 124 / 56; Pulse 122; Resp 22; Temp 98; Pulse Ox 97% on R/A; Weight 54.43 kg; Height hb 5 ft. 0 in. ; Pain 0/10; 12:11 BP 103 / 81; Pulse 102; Resp 20 S; Pulse Ox 100% on Nebulizer Mask; aa5 13:40 BP 119 / 63; Pulse 110; Resp 18 S; Pulse Ox 97% on R/A; aa5 16:00 BP 121 / 67; Pulse 115; Resp 19 S; Temp 97.9(O); Pulse Ox 98% on R/A; aa5 16:20 BP 125 / 70; Pulse 113; Resp 19 S; Temp 98.3(O); Pulse Ox 98% on R/A; aa5 18:04 BP 109 / 56; Pulse 115; Resp 18 S; Temp 98(O); Pulse Ox 99% on R/A; aa5 18:50 BP 125 / 55; Pulse 104; Resp 18; Temp 98(O); Pulse Ox 99% on R/A; aa5 20:52 BP 117 / 60; Pulse 105; Resp 18; Temp 98.2(O); Pulse Ox 99% ; Pain 0/10; dd2 11:33 Body Mass Index 23.44 (54.43 kg, 152.4 cm) hb 11:33 Pain Scale: Adult hb 20:52 Pain Scale: Adult dd2 MDM: 11:35 Medical Screening Exam initiated rt 17:23 Differential diagnosis: Anemia, dysrhythmia, COPD,'s congestive heart failure. Data rt reviewed: vital signs, nurses notes, lab test result(s), EKG, radiologic studies. Consideration of Admission/Observation Escalation of care including admission/observation considered. I recommended that the patient be admitted to the hospital. Patient declines admission. I discussed risks of leaving as well as benefits of admission to the patient, she still states that she wishes to leave. Will give patient 2 units of blood, have her follow-up with hematology as well as her primary care. Patient understands that she is to return if she changes her mind or has any worsening of her symptoms.. I considered the following discharge prescriptions or medication management in the emergency department Medications were administered in the Emergency Department. See MAR. Independent interpretation of the following test(s) in the Emergency Department X-Ray: My interpretation is No edema seen on my interpretation of x-ray images. Test considered but Not performed: CT: Do not suspect pulmonary embolus, CT angiogram not indicated. Care significantly affected by the following chronic conditions: Congestive Heart Failure, Chronic Obstructive Pulmonary Disease. Counseling: I had a detailed discussion with the patient and/or guardian regarding the historical points, exam findings, and any diagnostic results supporting the discharge/admit diagnosis, lab results, radiology results, to return to the emergency department if symptoms worsen or persist or if there are any questions or concerns that arise at home. Response to treatment: the patient's symptoms have markedly improved after treatment. 04/02 14:04 Order name: Type And Screen rt 04/02 11:45 Order name: Basic Metabolic Panel; Complete Time: 13: rt 04/02 11:45 Order name: CBC with Diff; Complete Time: 13: rt 04/02 11:45 Order name: LFT's; Complete Time: 13: rt 04/02 11:45 Order name: NT PRO-BNP; Complete Time: 13: rt 04/02 11:45 Order name: Troponin HS; Complete Time: 13: rt 04/02 12:22 Order name: CBC Smear Scan; Complete Time: 13: EDMS 04/02 14:31 Order name: Packed RBC Leukored EDMS 04/02 11:45 Order name: XRAY Chest (1 view); Complete Time: 13: rt 04/02 12:18 Order name: Knee Right 3 View XRAY; Complete Time: 13: rt 04/02 11:45 Order name: EKG; Complete Time: 11:46 rt 04/02 11:45 Order name: Cardiac monitoring; Complete Time: :56 rt 04/02 11:45 Order name: EKG - Nurse/Tech; Complete Time: 12:04 rt 04/02 11:45 Order name: IV Saline Lock; Complete Time: :56 rt 04/02 11:45 Order name: Labs collected and sent; Complete Time: 56 rt 04/02 11:45 Order name: O2 Per Protocol; Complete Time: rt 04/02 11:45 Order name: O2 Sat Monitoring; Complete Time: 11:56 rt EC:00 Rate is 103 beats/min. Rhythm is regular, Sinus tachycardia with No ectopy. QRS [place] is rt Normal. IN interval is normal. QRS interval is normal. QT interval is normal. No Q waves. No ST changes noted. Interpreted by me. Administered Medications: 12:04 Drug: Levalbuterol Inhalation 1.25 mg Inhalation once Route: Inhalation; aa5 12:04 Drug: Ipratropium Inhalation Aerosol 0.5 mg Inhalation once Route: Inhalation; aa5 12:04 Drug: predniSONE PO 40 mg PO once Route: PO; aa5 18:06 Drug: Furosemide IVP 20 mg IVP once; give in between units of blood Route: IVP; [facility]; Disposition: 17:23 Critical Care:. rt Disposition Summary: 04/02/24 20:31 Discharge Ordered Notes: Location: Home kb Problem: an acute exacerbation kb Symptoms: have improved kb Condition: Fair kb Diagnosis - Dyspnea kb - Symptomatic anemia kb Followup: rt - With: Syeda Posada MD - When: 2 - 3 days - Reason: Discharge Instructions: - Discharge Summary Sheet rt - Anemia rt - Blood Transfusion, Adult, Care After rt Forms: - Medication Reconciliation Form kb - Antibiotic Education kb - Prescription Opioid Use kb - Patient Portal Instructions kb - Leadership Thank You Letter kb Critical care time excluding procedures: 17:23 Critical care time: Bedside Care: 35 minutes. Total time: 35 minutes rt Signatures: Dispatcher [employer] Julita Christian FNP-C FNP-Pam Hopson RN RN aa5 Ira Radford RN RN Douglas Russ MD MD rt Corrections: (The following items were deleted from the chart) 11:46 11:46 BASIC METABOLIC PANEL+C.LAB.BRZ ordered. EDMS EDMS 1146 11:46 CBC+H.LAB.BRZ ordered. EDMS EDMS 11 11:46 HEPATIC FUNCTION+C.LAB.BRZ ordered. EDMS EDMS 11 11:46 PROBNP+C.LAB.BRZ ordered. EDMS EDMS 1146 11:46 Troponin High Sensitivity+C.LAB.BRZ ordered. EDMS EDMS
--- NOTE | 2024-04-02 20:31 | ER ---
Nurse's Notes [facility] Name: Jennifer Sherwood Age: 68 yrs Sex: Female : 1955 Arrival Date: 04/02/2024 Time: 11:07 Bed 19 Private MD: Diagnosis: Dyspnea;Symptomatic anemia Presentation: 04/02 11:33 Chief complaint: Fatigue, SOB, and BLE swelling upon waking today. Hx of CHF, took hb Lasix yesterday as scheduled. Coronavirus screen: At this time, the client does not indicate any symptoms associated with coronavirus-19. Ebola Screen: No symptoms or risks identified at this time. Initial Sepsis Screen: Does the patient meet any 2 criteria? No. Patient's initial sepsis screen is negative. Does the patient have a suspected source of infection? No. Patient's initial sepsis screen is negative. Risk Assessment: Do you want to hurt yourself or someone else? Patient reports no desire to harm self or others. Onset of symptoms was April 02, 2024. 11:33 Method Of Arrival: Wheelchair hb 11:33 Acuity: VAHE 3 hb Historical: - Allergies: 11:34 HYDROCODONE; hb - PMHx: 11:34 Atrial fibrillation; Chronic obstructive lung disease; Congestive heart failure; hb Hypertension; Myocardial infarction; - PSHx: 11:34 coronary stents; Knee repair; hb - Immunization history:: Adult Immunizations up to date. - Infectious Disease History:: Denies. - Social history:: Smoking status: Patient/guardian denies using tobacco. - Family history:: not pertinent. Screenin:45 [facility] ED Fall Risk Assessment (Adult) History of falling in the last 3 months, aa5 including since admission No falls in past 3 months (0 pts) Confusion or Disorientation No (0 pts) Intoxicated or Sedated No (0 pts) Impaired Gait Yes (1 pt) Mobility Assist Device Used Yes (1 pt) Altered Elimination Yes (1 pt) Score/Fall Risk Level 3 or more points = High Risk Oriented to surroundings, Maintained a safe environment, Educated pt \T\ family on fall prevention, incl call for assistance when getting out of bed. Abuse screen: Denies threats or abuse. Nutritional screening: No deficits noted. Tuberculosis screening: No symptoms or risk factors identified. Assessment: 11:45 General: Appears comfortable, Behavior is calm, cooperative, Reports fatigue. Pain: aa5 Denies pain. Neuro: Level of Consciousness is awake, alert, obeys commands, Oriented to person, place, time, situation. Cardiovascular: Heart tones S1 S2 present Edema 1+ nonpitting edema noted to natanael lower extremities . Rhythm is regular. Respiratory: Reports shortness of breath at rest Airway is patent Respiratory effort is even, unlabored, Respiratory pattern is regular, symmetrical, Breath sounds are clear bilaterally. GI: No signs and/or symptoms were reported involving the gastrointestinal system. : No signs and/or symptoms were reported regarding the genitourinary system. EENT: No signs and/or symptoms were reported regarding the EENT system. Derm: Skin is pink, warm \T\ dry. Musculoskeletal: Range of motion: intact in all extremities. 14:14 Reassessment: Patient is alert, oriented x 3, equal unlabored respirations, skin aa5 warm/dry/pink. 14:14 Reassessment: RBC consent signed by pt (see paper chart) . aa5 15:00 Reassessment: Patient is alert, oriented x 3, equal unlabored respirations, skin aa5 warm/dry/pink. Awaiting blood transfusion, pt aware of wait time. . 16:22 Reassessment: RBC unit #1 started at 1605, started at 50mls/hr and slowly increased to aa5 current rate of 175mls/hr, no transfusion reaction noted or reported, pt tolerating well. See transfusion record for complete VS and more information. . 16:22 Reassessment: Patient is alert, oriented x 3, equal unlabored respirations, skin aa5 warm/dry/pink. 18:04 Reassessment: RBC unit # 1 completed . aa5 18:04 Reassessment: Patient is alert, oriented x 3, equal unlabored respirations, skin aa5 warm/dry/pink. 18:35 Reassessment: RBC Unit # 2 started at 1820, started at 50mls/hr and slowly increased to aa5 current rate of 150mls/hr, no transfusion reaction noted or reported, pt tolerating well. See transfusion record for complete VS and documentation. . 18:50 Reassessment: Patient is alert, oriented x 3, equal unlabored respirations, skin aa5 warm/dry/pink. Pt sitting up in bed, watching TV. . 20:52 Reassessment: Patient and/or family updated on plan of care and expected duration. Pain dd2 level reassessed. Patient is alert, oriented x 3, equal unlabored respirations, skin warm/dry/pink. Blood transfusion complete. Patient states feeling better. Patient states symptoms have improved. Vital Signs: 11:33 BP 124 / 56; Pulse 122; Resp 22; Temp 98; Pulse Ox 97% on R/A; Weight 54.43 kg; Height hb 5 ft. 0 in. ; Pain 0/10; 12:11 BP 103 / 81; Pulse 102; Resp 20 S; Pulse Ox 100% on Nebulizer Mask; aa5 13:40 BP 119 / 63; Pulse 110; Resp 18 S; Pulse Ox 97% on R/A; aa5 16:00 BP 121 / 67; Pulse 115; Resp 19 S; Temp 97.9(O); Pulse Ox 98% on R/A; aa5 16:20 BP 125 / 70; Pulse 113; Resp 19 S; Temp 98.3(O); Pulse Ox 98% on R/A; aa5 18:04 BP 109 / 56; Pulse 115; Resp 18 S; Temp 98(O); Pulse Ox 99% on R/A; aa5 18:50 BP 125 / 55; Pulse 104; Resp 18; Temp 98(O); Pulse Ox 99% on R/A; aa5 20:52 BP 117 / 60; Pulse 105; Resp 18; Temp 98.2(O); Pulse Ox 99% ; Pain 0/10; dd2 11:33 Body Mass Index 23.44 (54.43 kg, 152.4 cm) hb 11:33 Pain Scale: Adult hb 20:52 Pain Scale: Adult dd2 ED Course: 11:09 Patient arrived in ED. mr 11:26 Douglas Russ MD is Attending Physician. rt 11:28 Pam Benitez, NATALIE is Primary Nurse. aa5 11:34 Triage completed. hb 11:35 Arm band placed on. hb 11:45 Patient has correct armband on for positive identification. Placed in gown. Bed in low aa5 position. Call light in reach. Side rails up X2. Client placed on continuous cardiac and pulse oximetry monitoring. NIBP monitoring applied. classroom monitor on. Pulse ox on. NIBP on. 11:54 Initial lab(s) drawn, by me, sent to lab. Inserted saline lock: 20 gauge in right aa5 forearm, using aseptic technique. Blood collected. Flushed with 10 mL NS. 12:09 EKG done, by ED staff, reviewed by Douglas Russ MD. ty 12:13 XRAY Chest (1 view) In Process Unspecified. EDMS 13:06 Knee Right 3 View XRAY In Process Unspecified. EDMS 14:13 T\T\S collected, blood band applied to patient. aa5 19:06 Report given to NATALIE Borja, Checked blood with NATALIE Borja, see blood transfusion record aa5 for more information and transfer of care. 20:31 Syeda Posada MD is Referral Physician. kb 20:52 Provided Education on: D/C EDUCATION. dd2 20:52 No provider procedures requiring assistance completed. IV discontinued, intact, dd2 bleeding controlled, No redness/swelling at site. Pressure dressing applied. Administered Medications: 12:04 Drug: Levalbuterol Inhalation 1.25 mg Inhalation once Route: Inhalation; aa5 12:04 Drug: Ipratropium Inhalation Aerosol 0.5 mg Inhalation once Route: Inhalation; aa5 12:04 Drug: predniSONE PO 40 mg PO once Route: PO; aa5 18:06 Drug: Furosemide IVP 20 mg IVP once; give in between units of blood Route: IVP; Site: aa5 right forearm; Medication: 12:13 VIS not applicable for this client. aa5 Outcome: 20:31 Discharge ordered by MD. kb 20:52 Discharged to home ambulatory, dd2 20:52 Condition: improved 20:52 Discharge instructions given to patient, Instructed on discharge instructions, follow up and referral plans. medication usage, Demonstrated understanding of instructions, follow-up care, medications, 20:54 Patient left the ED. dd2 Signatures: Dispatcher [employer] EDMS Julita Lyon, CLAUDIO-C MECHANICAL ENGINEERING DRAFTSPERSON-Laura Bender, Reg Reg mr BoothBenitezPam don RN RN aa5 Ira Radofrd RN RN Douglas Russ MD MD rt Yandell, Tylor ty DAVIS, DIANA, RN RN dd2 Corrections: (The following items were deleted from the chart) 19:18 11:45 Cardiovascular: Heart tones S1 S2 present Edema 1+ nonpitting edema noted to natanael aa5 lower extremities . Rhythm is aa5
[2024-04-03 00:31] VITALS: O2SAT 99
[2024-04-03 00:34] VITALS: BP 117/60; TEMP 98.2
--- NOTE | 2024-04-07 12:48 | EKG ---
Test Date: 2024-04-02 Test Time: 12:09:22 Oracle Architect: WIL MEASUREMENT RESULTS: Intervals: Rate: 103 NM: 148 QRSD: 80 QT: 350 QTc: 458 [place]: P: 82 NM: 148 QRS: 57 T: 132 INTERPRETIVE STATEMENTS: Sinus tachycardia Septal infarct, age undetermined Abnormal ECG Compared to ECG 02/02/2024 10:46:29 Myocardial infarct finding now present Sinus rhythm no longer present T-wave abnormality no longer present Electronically Signed On 04-07-24 12:37:36 PERL DEVELOPER by Edmar Calvert
== END 2024-04-02 20:54 | disposition home or self-care (01) ==
LOC: ER 11:07
PROC: 30233N1 Transfusion of Nonautologous Red Blood Cells into Peripheral Vein, Percutaneous Approach (ICD-10-PCS; principal; 2024-04-02)
DX: D64.9 Anemia, unspecified (principal); I10 Essential (primary) hypertension; Z95.818 Presence of other cardiac implants and grafts
CPT/HCPCS: 85025; 80048; 36415; 86900; 86850; 86901; 80076; 86920 ×2; 84484; 83880; 71045; 73562; 96374; 99285; 36430; J7512; J1940; J7614; J7644; P9016 ×2; J7050; 93005

== ENCOUNTER 2024-04-03 10:37 | Inpatient (IN) | payer OTHER ==
[2024-04-03] MEDS ORDERED: FUROSEMIDE 40 MG/4 ML VIAL ONE (10:55)
[2024-04-03] MEDS ORDERED: dilTIAZem HCL 25 MG/5 ML VIAL IV ONE (10:56)
[2024-04-03 11:14] LABS: Absolute Basophils 0.1 K/uL (0-0.5); Absolute Eosinophils 0.2 K/uL (0-0.5); Absolute Lymphocytes (CBC) 6.1 K/uL (0.7-4.9); Absolute Monocytes 0.8 K/uL (0.1-1.3); Absolute Neutrophil 7.5 K/uL (1.8-8.0); Eosinophils % 1.6 % (0-4.4); Hematocrit 31.6 % (36.0-45.0); Hemoglobin 9.6 g/dL (12.0-15.0); Lymphocytes % 41.3 % (15.3-44.8); MCH 23.9 pg (27.0-35.0); MCHC 30.4 g/dL (32.0-36.0); MCV 78.4 fL (80-100); MPV 9.3 fL (7.6-11.3); Monocytes % 5.7 % (3.3-12.3); Neutrophils % 50.4 % (41.7-73.7); Nucleated RBC Absolute Count 0.1 (0-0); Nucleated Red Blood Cells % 0.9 % (0-0); Platelets 326 thou/uL (152-406); RBC Red Blood Cell Count 4.03 M/uL (3.86-4.86); Red Cell Distribution Width 21.4 % (12.1-15.2)
[2024-04-03 11:21] LABS: Albumin 3.5 g/dL (3.4-5.0); Albumin/Globulin Ratio 1.2 (1.1-1.8); Anion Gap 13.8 mEq/L (5.0-15.0); Bilirubin Direct 0.4 mg/dL (0-0.2); Bilirubin Indirect, Calculated 0.8 mg/dL (0.2-0.8); Bilirubin Total 1.2 mg/dL (0.2-1.0); Globulin 2.9 g/dL (2.3-3.5); Potassium 3.8 mEq/L (3.5-5.1); Protein, Total 6.4 g/dL (6.4-8.2)
--- NOTE | 2024-04-03 12:56 | RAD REPORT ---
Procedure: Chest Single View HISTORY: Shortness of breath COMPARISON: April 02, 2024 FINDINGS: The lungs are moderately hyperaerated. Mild bilateral interstitial opacities. Small bilateral pleural effusions suspected The heart is mildly to moderately enlarged. IMPRESSION: COPD Mild bilateral interstitial lung opacities may indicate mild interstitial pulmonary edema
[2024-04-03 13:10] LABS: Anisocytosis 1+; Blood Morphology Comment NOTED (NOT SEEN); Hypochromasia 1+; Microcytosis 1+; Platelet Estimate ADEQ; Polychromasia 1+; White Blood Cell Scan OK (OK)
[2024-04-03 13:11] LABS: Ovalocytes 1+
--- NOTE | 2024-04-03 14:15 | ER ---
Nurse's Notes [facility] Name: Jennifer Sherwood Age: 68 yrs Sex: Female : 1955 Arrival Date: 04/03/2024 Time: 10:37 Bed 8 Private MD: Diagnosis: CHF exacerbation;Hypoxic respiratory failure;Atrial fibrillation with rapid ventricular rate Presentation: 04/03 10:43 Chief complaint: EMS states: family called for shortness of breath, patients heart rate ko1 is 150-160, adenosine given 12mg IV x 2 with no changes. Coronavirus screen: At this time, the client does not indicate any symptoms associated with coronavirus-19. Ebola Screen: No symptoms or risks identified at this time. Initial Sepsis Screen: Does the patient meet any 2 criteria? No. Patient's initial sepsis screen is negative. Does the patient have a suspected source of infection? No. Patient's initial sepsis screen is negative. Risk Assessment: Do you want to hurt yourself or someone else? Patient reports no desire to harm self or others. Onset of symptoms was April 03, 2024 at 09:00. Care prior to arrival: Medication(s) given: Adenosine, 12 mg, x 2, Normal saline infusion, 250 IV initiated. 20 GA, in the left forearm, Oxygen administered. via a non-rebreather mask. 10:43 Method Of Arrival: EMS: [facility] ko1 10:43 Acuity: VAHE 2 ko1 Triage Assessment: 10:51 General: Appears distressed, uncomfortable, Behavior is anxious, uncooperative. Pain: ko1 Denies pain. Respiratory: Reports shortness of breath at rest air hunger since 0900 labored breathing Onset: The symptoms/episode began/occurred today, the patient has severe shortness of breath. Historical: - Allergies: 10:51 HYDROCODONE; ko1 - PMHx: 10:51 Atrial fibrillation; Chronic obstructive lung disease; Congestive heart failure; ko1 Hypertension; Myocardial infarction; - PSHx: 10:51 coronary stents; Knee repair; ko1 - Immunization history:: Adult Immunizations unknown. - Infectious Disease History:: Denies. - Social history:: Smoking status: Patient reports the use of cigarette tobacco products, unknown amount. - Family history:: not pertinent. Screenin:45 Abuse screen: Denies threats or abuse. Nutritional screening: No deficits noted. aa5 Tuberculosis screening: No symptoms or risk factors identified. 10:45 [facility] ED Fall Risk Assessment (Adult) History of falling in the last 3 months, aa5 including since admission Confusion or Disorientation No (0 pts) Intoxicated or Sedated No (0 pts) Impaired Gait Yes (1 pt) Mobility Assist Device Used Yes (1 pt) Altered Elimination Yes (1 pt) Score/Fall Risk Level 3 or more points = High Risk Oriented to surroundings, Maintained a safe environment, Educated pt \T\ family on fall prevention, incl call for assistance when getting out of bed, Assessed \T\ reinforced patient's understanding of fall precautions. Assessment: 10:45 General: Appears distressed, uncomfortable, Behavior is cooperative, anxious. Pain: aa5 Denies pain. Neuro: Level of Consciousness is awake, alert, obeys commands, Oriented to person, place, time, situation. Cardiovascular: Heart tones S1 S2 present Edema 1+ non-pitting edema noted to natanael lower extremities. Rhythm is regular. Respiratory: Reports shortness of breath at rest since this morning Airway is patent Respiratory effort is labored, Respiratory pattern is tachypnea Breath sounds are coarse bilaterally. GI: Abdomen is non-distended. : No signs and/or symptoms were reported regarding the genitourinary system. EENT: No signs and/or symptoms were reported regarding the EENT system. Derm: Skin is pink, warm \T\ dry. Musculoskeletal: Range of motion: intact in all extremities. 10:58 Reassessment: RT at bedside . aa5 11:08 Reassessment: Pt placed on bi-pap by RT, pt tolerating well. . aa5 12:00 Reassessment: Patient states feeling better. Neuro: Level of Consciousness is awake, aa5 alert, obeys commands, Oriented to person, place, time, situation. Respiratory: Airway is patent Respiratory effort is even, unlabored, Respiratory pattern is tachypnea. Derm: Skin is pink, warm \T\ dry. 12:00 Reassessment: Pt tolerating bi-pap well. . aa5 13:00 Reassessment: Patient is alert, oriented x 3, equal unlabored respirations, skin aa5 warm/dry/pink. Patient states feeling better. 14:10 Reassessment: Pt was assisted to bedside commode, pt states she needs to have BM. . aa5 14:29 Reassessment: Pt was not able to have BM, pt placed back in bed. Pt was transferred to aa5 bedside commode with oxygen via 4L NC, O2 sat remained 100% via NC, increased SOB was noted when transferring, pt placed back on Bi-PAP. . 14:32 Reassessment: POLA Uriostegui (hospitalist) at bedside speaking to pt. . aa5 14:32 Reassessment: Pt currently sitting up in bed. . aa5 16:15 Reassessment: Patient is alert, oriented x 3, equal unlabored respirations, skin aa5 warm/dry/pink. Pt currently off bipap, O2 via 2L NC and pt tolerating well. . 16:45 Reassessment: Patient is alert, oriented x 3, equal unlabored respirations, skin aa5 warm/dry/pink. 16:50 Reassessment: Report faxed to admitting nurse. . aa5 17:30 Reassessment: Patient is alert, oriented x 3, equal unlabored respirations, skin aa5 warm/dry/pink. Patient states feeling better. Vital Signs: 10:43 BP 122 / 93; Pulse 156; Resp 32; Temp 98; Pulse Ox 100% on Non-rebreather mask; ko1 11:04 Pulse 127; Pulse Ox 100% on BiPAP; aa5 11:31 BP 105 / 60; Pulse 115; Resp 24 S; Pulse Ox 100% on BiPAP; aa5 12:00 BP 110 / 59; Pulse 115; Resp 24 S; Pulse Ox 100% on BiPAP; aa5 12:30 BP 111 / 64; Pulse 110; Resp 20 S; Pulse Ox 100% on BiPAP; aa5 13:00 BP 103 / 70; Pulse 115; Resp 22 S; Pulse Ox 100% on BiPAP; aa5 14:00 BP 98 / 58; Pulse 112; Resp 24 S; Pulse Ox 100% on BiPAP; aa5 16:15 Pulse Ox 100% on 2 lpm NC; aa5 16:45 BP 106 / 57; Pulse 106; Resp 20 S; Temp 98(O); Pulse Ox 100% on 2 lpm NC; aa5 17:30 BP 110 / 58; Pulse 105; Resp 22 S; Pulse Ox 100% on 2 lpm NC; aa5 ED Course: 10:40 Patient arrived in ED. ko1 10:40 Douglas Russ MD is Attending Physician. rt 10:45 Patient has correct armband on for positive identification. Placed in gown. Bed in low aa5 position. Call light in reach. Side rails up X2. Client placed on continuous cardiac and pulse oximetry monitoring. NIBP monitoring applied. ekg monitor on. Pulse ox on. NIBP on. 10:51 Triage completed. ko1 10:53 Pam Benitez, RN is Primary Nurse. aa5 10:53 Initial lab(s) drawn, by me, sent to lab. Maintain EMS IV. Gauge \T\ site: 20G to L FA . aa5 Flushed with 10 mL NS. 11:03 Patient placed on BiPAP. Inspiratory pressure: 14. Expiratory pressure: 7. FIO2: 50. eb2 Rate: 16 Alarms Set: high pressure alarm set at 30 low pressure alarm set at 5 apnea delay alarm set at 20 (Ve) low minute vent alarm set at 2.0 Alarms are set, functioning and audible at nurse's station. Other: Monitored VT 400, Total rate 19, Minute volume 7.6 Measured PIP 15, Leak 42%. . Education provided to the patient regarding: Other: BiPAP machine and the importance of wearing it. Respiratory: Breath sounds are coarse Breath sounds with crackles Reports shortness of breath labored breathing Other: Before placement of BiPAP no redness, breakdown, irritation noted to patients face. After placement of BiPAP, patient tolerated current settings. Patient was able to sit back on stretcher after placement of BiPAP. Provider notified of current settings and patients' tolerance. 11:37 No provider procedures requiring assistance completed. aa5 11:57 Rosas cath inserted, using sterile technique, 16 Fr., by me, balloon inflated, to aa5 gravity drainage. 12:09 XRAY Chest (1 view) In Process Unspecified. EDMS 12:26 Assisted with bedpan. am7 14:15 Je Genao is Hospitalizing Provider. rt 18:00 Patient admitted, IV remains in place. aa5 Administered Medications: 11:02 Drug: Furosemide IVP 40 mg IVP once; give over 2 minutes Route: IVP; Site: left forearm;aa5 11:08 Follow up: Response: No adverse reaction aa5 11:04 Drug: Diltiazem IVP 10 mg IVP once; Over 2 minutes Route: IVP; Site: left forearm; aa5 11:08 Follow up: Response: No adverse reaction aa5 Medication: 11:37 VIS not applicable for this client. aa5 Output: 14:00 Urine: 700ml (Rosas); Total: 700ml. aa5 Outcome: 14:15 Decision to Hospitalize by Provider. rt 18:00 Admitted to Tele accompanied by tech, via wheelchair, with oxygen, with chart, aa5 18:00 Condition: stable 18:00 Instructed on the need for admit, Demonstrated understanding of instructions, 18:16 Patient left the ED. aa5 Signatures: Dispatcher [employer] EDMS Pam Benitez RN RN aa5 Shanice Sunshine, R/T R/T eb2 Bebe Tovar, NATALIE RN ko1 Douglas Russ MD MD rt Cely Mccarthy am7 Corrections: (The following items were deleted from the chart) 10:52 10:51 PSHx: Knee repair, right; ko1 ko1 11:36 10:51 Arm band placed on right wrist. Patient placed in an exam room, on a stretcher, aa5 on oxygen, on teletypesetter monitor, on pulse oximetry, Patient notified of wait time ko1 14:35 14:29 Reassessment: Pt was not able to have BM, pt placed back in bed, Bi-PAP mask on. aa5 . aa5
--- NOTE | 2024-04-03 14:16 | EDPHYS ---
Physician Documentation [facility] Name: Jennifer Sherwood Age: 68 yrs Sex: Female : 1955 Arrival Date: 04/03/2024 Time: 10:37 Bed 8 Private MD: ED Physician Douglas Russ HPI: 04/03 10:58 This 68 yrs old Female presents to ER via EMS with complaints of Respiratory rt Distress. 10:58 Patient presents to the ED with respiratory distress. Patient was seen in the ED rt yesterday for symptomatic anemia, admission was recommended that time, however, patient left despite this recommendation. Patient states that she became increasingly dyspneic since about 2 AM. Denies other acute complaints at this time, symptoms are severe in severity, no other aggravating or alleviating factors.. Historical: - Allergies: 10:51 HYDROCODONE; ko1 - PMHx: 10:51 Atrial fibrillation; Chronic obstructive lung disease; Congestive heart failure; ko1 Hypertension; Myocardial infarction; - PSHx: 10:51 coronary stents; Knee repair; ko1 - Immunization history:: Adult Immunizations unknown. - Infectious Disease History:: Denies. - Social history:: Smoking status: Patient reports the use of cigarette tobacco products, unknown amount. - Family history:: not pertinent. ROS: 10:58 Constitutional: Negative for fever, chills, and weight loss, Cardiovascular: Negative rt for chest pain, palpitations, and edema, Abdomen/GI: Negative for abdominal pain, nausea, vomiting, diarrhea, and constipation, MS/Extremity: Negative for injury and deformity, Skin: Negative for injury, rash, and discoloration, Neuro: Negative for headache, weakness, numbness, tingling, and seizure, 10:58 Respiratory: Positive for cough, shortness of breath, Exam: 10:58 ECG was reviewed by the Attending Physician. rt Vital Signs: 10:43 BP 122 / 93; Pulse 156; Resp 32; Temp 98; Pulse Ox 100% on Non-rebreather mask; ko1 11:04 Pulse 127; Pulse Ox 100% on BiPAP; aa5 11:31 BP 105 / 60; Pulse 115; Resp 24 S; Pulse Ox 100% on BiPAP; aa5 12:00 BP 110 / 59; Pulse 115; Resp 24 S; Pulse Ox 100% on BiPAP; aa5 12:30 BP 111 / 64; Pulse 110; Resp 20 S; Pulse Ox 100% on BiPAP; aa5 13:00 BP 103 / 70; Pulse 115; Resp 22 S; Pulse Ox 100% on BiPAP; aa5 14:00 BP 98 / 58; Pulse 112; Resp 24 S; Pulse Ox 100% on BiPAP; aa5 16:15 Pulse Ox 100% on 2 lpm NC; aa5 16:45 BP 106 / 57; Pulse 106; Resp 20 S; Temp 98(O); Pulse Ox 100% on 2 lpm NC; aa5 17:30 BP 110 / 58; Pulse 105; Resp 22 S; Pulse Ox 100% on 2 lpm NC; aa5 MDM: 10:43 Medical Screening Exam initiated rt 14:15 Differential Diagnosis Pulmonary edema, pneumonia, dysrhythmia. Data reviewed: vital rt signs, nurses notes, lab test result(s), EKG, radiologic studies. Consideration of Admission/Observation Patient was admitted/placed on observation. Management of patient was discussed with the following: Hospitalist: Agrees to admit. I considered the following discharge prescriptions or medication management in the emergency department Medications were administered in the Emergency Department. See MAR. Independent interpretation of the following test(s) in the Emergency Department X-Ray: My interpretation is Pulmonary edema seen on interpretation of x-ray images. Test considered but Not performed: CT: Low suspicion for pulmonary embolus, CT angiogram not indicated. Care significantly affected by the following chronic conditions: A-fib, CHF, COPD. Counseling: I had a detailed discussion with the patient and/or guardian regarding the historical points, exam findings, and any diagnostic results supporting the discharge/admit diagnosis, lab results, radiology results, the need for further work-up and treatment in the hospital. Response to treatment: the patient's symptoms have markedly improved after treatment. 04/03 10:41 Order name: Basic Metabolic Panel; Complete Time: 11:36 rt 04/03 10:41 Order name: CBC with Diff; Complete Time: 13:15 rt 04/03 10:41 Order name: LFT's; Complete Time: 11:36 rt 04/03 10:41 Order name: NT PRO-BNP; Complete Time: 11:36 rt 04/03 10:41 Order name: Troponin HS; Complete Time: 11:36 rt 04/03 13:11 Order name: CBC Smear Scan; Complete Time: 13:15 EDMS 04/03 14:59 Order name: Urinalysis w/ reflexes EDMS 04/03 14:59 Order name: Basic Metabolic Panel EDMS 04/03 14:59 Order name: Basic Metabolic Panel EDMS 04/03 14:59 Order name: Basic Metabolic Panel EDMS 04/03 14:59 Order name: Basic Metabolic Panel EDMS 04/03 14:59 Order name: Basic Metabolic Panel EDMS 04/03 14:59 Order name: Basic Metabolic Panel EDMS 04/03 14:59 Order name: CBC with Automated Diff EDMS 04/03 14:59 Order name: CBC with Automated Diff EDMS 04/03 14:59 Order name: CBC with Automated Diff EDMS 04/03 14:59 Order name: CBC with Automated Diff EDMS 04/03 14:59 Order name: CBC with Automated Diff EDMS 04/03 14:59 Order name: CBC with Automated Diff EDMS 04/03 14:59 Order name: Magnesium EDMS 04/03 14:59 Order name: Magnesium EDMS 04/03 14:59 Order name: Magnesium EDMS 04/03 14:59 Order name: Magnesium EDMS 04/03 14:59 Order name: Magnesium EDMS 04/03 14:59 Order name: Magnesium EDMS 04/03 14:59 Order name: Phosphorus EDMS 04/03 14:59 Order name: Phosphorus EDMS 04/03 14:59 Order name: Phosphorus EDMS 04/03 14:59 Order name: Phosphorus EDMS 04/03 15:00 Order name: Phosphorus EDMS 04/03 15:00 Order name: Phosphorus EDMS 04/03 15:00 Order name: Troponin High Sensitivity EDMS 04/03 15:00 Order name: Troponin High Sensitivity EDMS 04/03 15:00 Order name: Troponin High Sensitivity EDMS 04/03 15:06 Order name: Magnesium EDMS 04/03 10:41 Order name: XRAY Chest (1 view); Complete Time: 13:15 rt 04/03 10:47 Order name: BIPAP rt 04/03 10:41 Order name: Cardiac monitoring; Complete Time: 10:52 rt 04/03 10:41 Order name: EKG - Nurse/Tech; Complete Time: 10:52 rt 04/03 10:41 Order name: IV Saline Lock; Complete Time: 10:52 rt 04/03 10:41 Order name: Labs collected and sent; Complete Time: 10:53 rt 04/03 10:41 Order name: O2 Per Protocol; Complete Time: 10:52 rt 04/03 10:41 Order name: O2 Sat Monitoring; Complete Time: 10:52 rt 04/03 11:57 Order name: Ralph; Complete Time: 11:57 aa5 EC:58 Rate is 158 beats/min. Rhythm is regular, A flutter with No ectopy. QRS [place] is Normal. rt QRS interval is normal. QT interval is normal. No Q waves. Administered Medications: 11:02 Drug: Furosemide IVP 40 mg IVP once; give over 2 minutes Route: IVP; Site: left forearm;aa5 11:08 Follow up: Response: No adverse reaction aa5 11:04 Drug: Diltiazem IVP 10 mg IVP once; Over 2 minutes Route: IVP; Site: left forearm; aa5 11:08 Follow up: Response: No adverse reaction aa5 Disposition Summary: 04/03/24 14:15 Hospitalization Ordered Notes: Hospitalization Status: Inpatient Admission rt Provider: Je Genao rt Condition: Serious rt Problem: new rt Symptoms: have improved rt Bed/Room Type: Standard rt Location: Telemetry/MedSurg (Inpatient)(04/03/24 16:26) eb Room Assignment: 209(04/03/24 16:26) eb Diagnosis - CHF exacerbation rt - Hypoxic respiratory failure rt - Atrial fibrillation with rapid ventricular rate rt Forms: - Medication Reconciliation Form rt - SBAR form rt - Leadership Thank You Letter rt Critical care time excluding procedures: 14:15 Critical care time: Bedside Care: 30 minutes, Consultation: 5 minutes. Total time: 35 rt minutes Signatures: Dispatcher [employer] EDPam Salgado RN RN aa5 Chani Sunshine Kathy RN RN ko1 Douglas Russ MD MD rt Corrections: (The following items were deleted from the chart) 10:42 10:42 BASIC METABOLIC PANEL+C.LAB.BRZ ordered. EDMS EDMS 10:42 10:42 CBC+H.LAB.BRZ ordered. EDMS EDMS 10:42 10:42 HEPATIC FUNCTION+C.LAB.BRZ ordered. EDMS EDMS 10:42 10:42 PROBNP+C.LAB.BRZ ordered. EDMS EDMS 10:42 10:42 Troponin High Sensitivity+C.LAB.BRZ ordered. EDMS EDMS 10:42 10:42 Chest Single View+RAD.RAD.BRZ ordered. EDMS EDMS 10:52 10:51 PSHx: Knee repair, right; ko1 ko1 16:26 14:15 Intensive Care Unit rt eb 16:26 14:15 rt eb
--- NOTE | 2024-04-03 15:03 | P.HP ---
Certification for Inpatient Patient admitted to: Observation With expected LOS: <2 Midnights Patient will require the following post-hospital care: None Practitioner: I am a practitioner with admitting privileges, knowledge of patient current condition, hospital course, and medical plan of care. Services: Services provided to patient in accordance with Admission requirements found in Title 42 Section 412.3 of the Code of Federal Regulations Patient History Date of Service: 04/03/24 Reason for admission: Sinus tachycardia, respiratory failure 2/2 CHF exacerbation History of Present Illness: Jennifer Sherwood is a 68 year old male with Pmhx iron deficiency anemia, COPD, atrial fibrillation, congestive heart failure, hypertension, CAD/[place] with stents who presents to the ED with weakness and shortness of breath this morning at 2 AM. Initial vitals 3 BP 122 / 93; Pulse 156; Resp 32; Temp 98; Pulse Ox 100% on Non-rebreather mask. Chest x-ray reports "Mild bilateral interstitial lung opacities may indicate mild interstitial pulmonary edema". Echo 01/07/2024 reports EF 25 to 30%, diastolic dysfunction, mild tricuspid and mitral regurgitation, moderate pulmonary hypertension." Reported A-fib with RVR, responded to Cardizem push x 1. Now sinus tachycardia heart rate 98 on examination. She has a history of atrial fibrillation. Of note, she presented to the ED on 04/02/24 requiring a blood transfusion and denied recommended admission at that time. Laboratory evaluation significant for WBC 14.8, H&H 9.6/31.6, bicarb 20, serum glucose 382, total bilirubin 1.2, direct bili 0.4, BNP 4937 Jennifer will be admitted to hospitalist service for further treatment of acute hypoxic respiratory failure secondary to CHF/COPD exacerbation Allergies hydrocodone Allergy (Verified 04/13/15 17:56) Nausea/Vomiting Home Medications: Aspirin Chewable [Aspirin Chewable*] 81 mg PO DAILY 06/09/12 Albuterol Inhaler [Ventolin Inhaler*] 60 puff IH Q4HP PRN 01/12/24 Clopidogrel Bisulfate [Plavix] 75 mg PO DAILY 01/27/24 Midodrine HCl [Proamatine*] 5 mg PO TID 01/27/24 Montelukast [Singulair*] 10 mg PO DAILY 01/27/24 Cephalexin [Keflex] 500 mg PO BID 5 Days #10 cap 02/04/24 Furosemide [Lasix] 20 mg PO DAILY #30 tab 02/04/24 Metoprolol Succinate [Toprol Xl*] 25 mg PO DAILY #30 tab 02/04/24 Spironolactone 25 mg PO DAILY 30 Days #30 tab 02/04/24 - Past Medical/Surgical History Diabetic: No -: Hypertension -: Anemia -: CAD -: HLD -: COPD -: heartburn -: Chronic systolic CHF -: Stent Placement -: Sx on Knee Cap-Right Psychosocial/ Personal History: Patient is retired, lives at home with her family - Family History Mother -: Heart disease, Stroke, Other (see notes) Notes: Rheumatoid arthritis Father -: Cancer Notes: Colon-Rectal Cancer - Social History Smoking Status: Current some day smoker Alcohol use: No CD- Drugs: No Caffeine use: Yes Review of Systems Respiratory: Shortness of Breath Neurological: Weakness Physical Examination - Physical Exam General: Alert, In no apparent distress, Oriented x3 HEENT: Atraumatic, Normocephalic, PERRLA Neck: Supple, 2+ carotid pulse no bruit Respiratory: Clear to auscultation bilaterally, Normal air movement Cardiovascular: Normal pulses, Normal S1 S2, Irregular heart rate/rhythm (mild tachycardia) Capillary refill: <2 Seconds Gastrointestinal: Normal bowel sounds, Soft and benign Musculoskeletal: No clubbing Integumentary: No rashes Neurological: Normal speech, Normal tone - Studies Laboratory Data (last 24 hrs) 04/03/24 04/03/24 10:50 10:50 WBC 14.80 H Hgb 9.6 L D Hct 31.6 L Plt Count 326 D Sodium 138 Potassium 3.8 BUN 12 Creatinine 0.82 Glucose 382 H Total Bilirubin 1.2 H AST 11 L ALT 16 Alkaline Phosphatase 83 Assessment and Plan - Plan Assessment and Plan Acute hypoxic respiratory failure 2/2 CHF/COPD exacerbation Pulmonary hypertension Leukocytosis History of atrial fibrillation CAD/IN with stents Sinus tachycardia Weakness -Echo 01/07/2024 reports EF 25 to 30%, diastolic dysfunction, mild tricuspid and mitral regurgitation, moderate pulmonary hypertension." -Chest x-ray reports "Mild bilateral interstitial lung opacities may indicate mild interstitial pulmonary edema" -Lasix twice daily -Solu-Medrol twice daily -DuoNebs -on bipap in the ED, no home oxygen -Continuous telemetry -Continue home medication -Oxygen protocol in place, will attempt to wean -Dr. Ward consulted -Physical therapy consulted iron deficiency anemia -Continue home medication -H&H stable -Monitor H&H, transfusion as needed Diabetes mellitus -Serum glucose 382 -Accu-Chek with sliding scale insulin -A1c in the a.m. Hypotension -Continue home medication DVT PPx Lovenox DNR LOS 1 to 2 days Discharge Plan: Home Plan to discharge in: 48 Hours - Advance Directives Does patient have a Living Will: No Does patient have a Durable POA for Healthcare: No
[2024-04-03] MEDS: METHYLPREDNISOLONE 40 MG INJ IV ONE (15:43)
[2024-04-03] MEDS: MIDODRINE HCL 5 MG TABLET PO SCH (15:44)
[2024-04-03 15:52] LABS: Specific Gravity 1.012 (1.005-1.030); Sqamous Epithelial <5 /HPF (None Seen); Urine Bacteria <20 /HPF (<20); Urine Bilirubin NEGATIVE (Negative); Urine Blood Negative (Negative); Urine Clarity Extremely Turbid (Clear); Urine Color Yellow (Yellow); Urine Crystals Unidentified Few /HPF (None Seen); Urine Culture Reflex Order NOT NEEDED; Urine Glucose NEGATIVE (Negative); Urine Ketones NEGATIVE (Negative); Urine Microscopic Reflex YN ORDER UMIC; Urine Mucus 1+ /HPF (None Seen); Urine Nitrite NEGATIVE (Negative); Urine Protein NEGATIVE (Negative); Urine RBC <5 /HPF (None Seen); Urine Urobilinogen Normal (Normal); Urine WBC <5 /HPF (<5); Urine WBC Clump Rare /HPF (None Seen); Urine Yeast (Budding) Trace /HPF (None Seen)
[2024-04-03] MEDS: INSULIN REGULAR (HUMAN) 100 UNIT/ML SQ SCH (16:30)
[2024-04-03] MEDS: FUROSEMIDE 40 MG/4 ML VIAL IV ONE (20:31)
[2024-04-03] MEDS: ENOXAPARIN 40 MG/0.4 ML SQ SCH (20:32)
[2024-04-03] MEDS: POTASSIUM 25 MEQ EFFERV TAB PO SCH (20:38)
[2024-04-03] MEDS: ACETAMINOPHEN 325 MG TABLET PO PRN (20:40)
[2024-04-03] MEDS: IPRATROPIUM BROM 0.5MG/2.5ML NEB SCH (20:55)
[2024-04-03] MEDS: LEVALBUTEROL 0.63 MG/3 ML NEB NEB SCH (20:55)
[2024-04-03 22:04] LABS: Magnesium 1.9 mg/dL (1.6-2.4)
[2024-04-04 06:46] LABS: Absolute Lymphocytes (CBC) 1.2 K/uL (0.7-4.9); Absolute Monocytes 0.4 K/uL (0.1-1.3); Absolute Neutrophil 3.3 K/uL (1.8-8.0); Basophils % 0.5 % (0-1.3); Eosinophils % 0.1 % (0-4.4); Hematocrit 25.4 % (36.0-45.0); Hemoglobin 8.2 g/dL (12.0-15.0); Lymphocytes % 24.7 % (15.3-44.8); MCH 24.4 pg (27.0-35.0); MCHC 32.3 g/dL (32.0-36.0); MCV 75.5 fL (80-100); MPV 8.9 fL (7.6-11.3); Monocytes % 7.2 % (3.3-12.3); Neutrophils % 67.5 % (41.7-73.7); Nucleated Red Blood Cells % 0.1 % (0-0); Platelets 219 thou/uL (152-406); RBC Red Blood Cell Count 3.37 M/uL (3.86-4.86); Red Cell Distribution Width 22.9 % (12.1-15.2)
[2024-04-04 06:58] LABS: Anion Gap 10.5 mEq/L (5.0-15.0); Phosphorus 3.2 mg/dL (2.5-4.9); Potassium 3.5 mEq/L (3.5-5.1)
[2024-04-04] MEDS ORDERED: METHYLPREDNISOLONE 40 MG INJ IV SCH (07:00)
[2024-04-04] MEDS ORDERED: ENOXAPARIN 40 MG/0.4 ML SQ SCH (09:00)
[2024-04-04] MEDS: METOPROLOL XL 25 MG TAB PO SCH ×2 (09:00→19:21)
[2024-04-04] MEDS: FUROSEMIDE 20 MG/ 2ML VIAL IV SCH (09:00)
[2024-04-04] MEDS: METHYLPREDNISOLONE 40 MG INJ IV SCH (09:11)
--- NOTE | 2024-04-04 17:24 | P.PN ---
Date of Service: 04/04/24 Subjective No new complaints on 2 LNC, will need to wean prior to discharge continues to be tachycardic and with soft blood pressure anemia work up in the AM ROS 10 point ROS as noted above, otherwise negative Physical Exam General: Alert and Oriented x3, NAD HEENT: Atraumatic, Normocephalic, PERRLA Neck: Supple, 2+ carotid pulse no bruit Respiratory: Clear BBS, Normal air movement, on 2L NC Cardiovascular: Normal S1 S2, Irregular heart rate/rhythm (mild tachycardia) Capillary refill: <2 Seconds Gastrointestinal: Normal bowel sounds, Soft on palpation Musculoskeletal: No clubbing Integumentary: No rashes Neurological: Normal speech, Normal tone Vitals Reviewed Problem list Acute hypoxic respiratory failure 2/2 CHF/COPD exacerbation Pulmonary hypertension Leukocytosis History of atrial fibrillation CAD/[place] with stents Sinus tachycardia Weakness iron deficiency anemia Diabetes mellitus Hypotension Assessment and Plan Acute hypoxic respiratory failure 2/2 CHF/COPD exacerbation Pulmonary hypertension Leukocytosis History of atrial fibrillation CAD/[place] with stents Sinus tachycardia Weakness -Echo 01/07/2024 reports EF 25 to 30%, diastolic dysfunction, mild tricuspid and mitral regurgitation, moderate pulmonary hypertension." -Chest x-ray reports "Mild bilateral interstitial lung opacities may indicate mild interstitial pulmonary edema" -Lasix twice daily -Solu-Medrol twice daily -DuoNebs -on bipap in the ED, no home oxygen -Continuous telemetry -Continue home medication, metoprolol being held d/t soft BP -Oxygen protocol in place, will attempt to wean -Dr. Ward consulted, Sinus tachycardia d/t other disease process -Physical therapy consulted iron deficiency anemia -Continue home medication -H&H stable -Monitor H&H, transfusion as needed -anemia work up in the AM Diabetes mellitus -Serum glucose 81 -Accu-Chek with sliding scale insulin -A1c remains pending Hypotension -Continue home medication -midodrine DVT PPx Lovenox DNR LOS 1 to 2 days Discharge Plan: Home Plan to discharge in: 48 Hours <Ele Tello - Last Filed: 04/04/24 17:49> Send seen and examined. Plan of care discussed with Ms. Tello. Patient clinically improved. She is maintained on 2 L oxygen by nasal cannula. History of advanced heart failure and chronic atrial fibrillation as well as COPD. On examination patient lungs are clear to auscultation. Continue treatment for COPD exacerbation IV Lasix transition to oral Lasix Continue home dose metoprolol for weight BP and heart rate holding parameters. Cardiology consult. <neo boss - Last Filed: 04/04/24 18:57>
[2024-04-04 18:14] VITALS: BMI 22.6
[2024-04-04] MEDS: FERROUS SULFATE 325 MG TAB PO SCH (18:39)
[2024-04-04] MEDS: predniSONE 20 MG TAB PO SCH (19:50)
[2024-04-04] MEDS: MAGNES/ALUMIN/SIMET 30ML UCUP PO ONE (21:39)
[2024-04-04] MEDS: FAMOTIDINE 20 MG/2 ML VIAL IV SCH (21:56)
[2024-04-05 03:54] VITALS: O2SAT 95
[2024-04-05 06:41] LABS: Absolute Lymphocytes (CBC) 0.8 K/uL (0.7-4.9); Absolute Monocytes 0.3 K/uL (0.1-1.3); Absolute Neutrophil 4.2 K/uL (1.8-8.0); Basophils % 0.3 % (0-1.3); Hematocrit 27.6 % (36.0-45.0); Hemoglobin 8.6 g/dL (12.0-15.0); Lymphocytes % 15.1 % (15.3-44.8); MCH 23.9 pg (27.0-35.0); MCHC 31.1 g/dL (32.0-36.0); MCV 76.9 fL (80-100); MPV 9.2 fL (7.6-11.3); Monocytes % 5.9 % (3.3-12.3); Neutrophils % 78.7 % (41.7-73.7); Nucleated Red Blood Cells % 0.2 % (0-0); Platelets 234 thou/uL (152-406); RBC Red Blood Cell Count 3.59 M/uL (3.86-4.86); Red Cell Distribution Width 23.2 % (12.1-15.2)
[2024-04-05 07:04] LABS: Anion Gap 8.9 mEq/L (5.0-15.0); Magnesium 2.3 mg/dL (1.6-2.4); Phosphorus 3.5 mg/dL (2.5-4.9); Potassium 3.9 mEq/L (3.5-5.1)
--- NOTE | 2024-04-05 09:29 | P.DS ---
Admission Date: 04/04/24 Discharge Date: 04/05/24 Disposition: ROUTINE DISCHARGE Discharge Condition: GOOD Reason for Admission: Sinus tachycardia, respiratory failure 2/2 CHF exacerbation Brief History of Present Illness: Diagnosis Acute hypoxic respiratory failure 2/2 CHF/COPD exacerbation Afib with RVR-resolved Pulmonary hypertension Leukocytosis History of atrial fibrillation CAD/IN with stents Sinus tachycardia Weakness iron deficiency anemia Diabetes mellitus Hypotension HPI 04/03/2024 Jennifer Sherwood is a 68 year old male with Pmhx iron deficiency anemia, COPD, atrial fibrillation, congestive heart failure, hypertension, CAD/IN with stents who presents to the ED with weakness and shortness of breath this morning at 2 AM. Initial vitals 3 BP 122 / 93; Pulse 156; Resp 32; Temp 98; Pulse Ox 100% on Non-rebreather mask. Chest x-ray reports "Mild bilateral interstitial lung opacities may indicate mild interstitial pulmonary edema". Echo 01/07/2024 reports EF 25 to 30%, diastolic dysfunction, mild tricuspid and mitral regurgitation, moderate pulmonary hypertension." Reported A-fib with RVR, responded to Cardizem push x 1. Now sinus tachycardia heart rate 98 on examination. She has a history of atrial fibrillation. Of note, she presented to the ED on 04/02/24 requiring a blood transfusion and denied recommended admission at that time. Laboratory evaluation significant for WBC 14.8, H&H 9.6/31.6, bicarb 20, serum glucose 382, total bilirubin 1.2, direct bili 0.4, BNP 4937 Jennifer will be admitted to hospitalist service for further treatment of acute hypoxic respiratory failure secondary to CHF/COPD exacerbation Hospital Course: Jennifer presented to the ED with Afib wtih RVR but transitioned to sinus tachycardia, Cardiology was consulted and will follow outpatient. Anemia was evaluated and ferrous sulfate started. She was able to ambulate 80 feet without oxygen and saturation dropped to 91 then rebounded back to 93. Tachycardia has resolved this morning with heart rate 83 and remained stable while ambulating. She will need to follow-up with pulmonology for COPD and this recent need for oxygen support. Continue taking Lasix and steroid at home. On 04/05/2024, Jennifer was seen on morning rounds and deemed medically stable for discharge home with family support. Jennifer was discharged with instructions to schedule follow-up appointments with Dr. Ward, retail advertising account executive, and PCP. Jennifer was provided prescriptions for prednisone, Lasix, ferrous sulfate. Physical Exam General: Alert and Oriented x3, NAD HEENT: Atraumatic, Normocephalic, PERRLA Neck: Supple, 2+ carotid pulse no bruit Respiratory: Clear BBS, Normal air movement, on RA Cardiovascular: Normal S1 S2, NSR Capillary refill: <2 Seconds Gastrointestinal: Active bowel sounds, Soft on palpation Musculoskeletal: No clubbing Integumentary: No rashes Neurological: Normal speech, Normal tone Vital Signs/Physical Exam: Temp Pulse Resp BP Pulse Ox 97.4 F 87 16 93/55 L 100 04/05/24 08:00 04/05/24 08:00 04/05/24 08:00 04/05/24 08:00 04/05/24 08:00 Laboratory Data at Discharge: WBC 5.30 thou/uL (4.3-10.9) 04/05/24 05:33 Hgb 8.6 g/dL (12.0-15.0) L 04/05/24 05:33 Hct 27.6 % (36.0-45.0) L 04/05/24 05:33 Plt Count 234 thou/uL (152-406) 04/05/24 05:33 Sodium 137 mEq/L (136-145) 04/05/24 05:33 Potassium 3.9 mEq/L (3.5-5.1) 04/05/24 05:33 BUN 14 mg/dL (7-18) 04/05/24 05:33 Creatinine 0.52 mg/dL (0.55-1.02) L 04/05/24 05:33 Glucose 124 mg/dL (74-106) H 04/05/24 05:33 Phosphorus 3.5 mg/dL (2.5-4.9) 04/05/24 05:33 Magnesium 2.3 mg/dL (1.6-2.4) 04/05/24 05:33 Total Bilirubin 1.2 mg/dL (0.2-1.0) H 04/03/24 10:50 AST 11 U/L (15-37) L 04/03/24 10:50 ALT 16 U/L (13-56) 04/03/24 10:50 Alkaline Phosphatase 83 U/L (45-117) 04/03/24 10:50 Home Medications: Aspirin Chewable [Aspirin Chewable*] 81 mg PO DAILY 06/09/12 Albuterol Inhaler [Ventolin Inhaler*] 60 puff IH Q4HP PRN 01/12/24 Clopidogrel Bisulfate [Plavix] 75 mg PO DAILY 01/27/24 Midodrine HCl [Proamatine*] 5 mg PO TID 01/27/24 Montelukast [Singulair*] 10 mg PO DAILY 01/27/24 Spironolactone 25 mg PO DAILY 30 Days #30 tab 02/04/24 Furosemide [Lasix*] 20 mg PO DAILY 5 Days #5 tab 04/05/24 Atorvastatin Calcium [Lipitor] 80 mg PO BEDTIME 04/06/24 Diphenhydramine [Benadryl*] 25 mg PO BEDTIME PRN PRN 04/06/24 Fenofibrate [Tricor*] 1 tab PO DAILY 04/06/24 Ferrous Sulfate [Ferrous Sulfate*] 325 mg PO DAILY 04/06/24 New Medications: Furosemide [Lasix*] 20 mg PO DAILY 5 Days #5 tab Physician Discharge Instructions: 1. Please call and schedule a follow-up appointment with your PCP in 3-5 days - Please follow-up with your PCP for medication refills/adjustments 2. Please call and schedule a follow-up appointment with Dr. Calvert in one week -this admission, you were tachycardic, please follow up for further monitoring 3. Please call and schedule a follow-up appointment with pulmonology or Dr. Kim in 1 week -Required oxygen this admission 4. Continue heart healthy diet 5. no activity restrictions 6. Return to the ED if symptoms worsen New medications Lasix 20 mg daily x 5 days Prednisone 20 mg daily x 15 days Ferrous sulfate 325 mg daily x 30 days Continue home medications Diet: AHA Activity: Ad artur Followup: Raad Kim MD [ACTIVE - CAN ADMIT] - 1 Week Edmar Calvert MD [ACTIVE - CAN ADMIT] - 1 Week NONE,NONE [Primary Care Provider] -
[2024-04-05] MEDS: FUROSEMIDE 20 MG TABLET PO SCH (10:23)
[2024-04-05 12:41] VITALS: BP 99/58; TEMP 97.7
--- NOTE | 2024-04-07 12:43 | EKG ---
Test Date: 2024-04-03 Test Time: 10:47:54 Switchboard Wire Worker Helper: AM MEASUREMENT RESULTS: Intervals: Rate: 158 [place]: 136 QRSD: 74 QT: 240 QTc: 389 [place]: P: 81 [place]: 136 QRS: 65 T: 169 INTERPRETIVE STATEMENTS: Sinus tachycardia ST & T wave abnormality, consider inferolateral ischemia Abnormal ECG Compared to ECG 04/02/2024 12:09:22 ST (T wave) deviation now present Possible ischemia now present Myocardial infarct finding no longer present Electronically Signed On 04-07-24 12:36:16 GOVERNMENT RELATIONS MANAGER by Edmar Calvert
== END 2024-04-05 15:17 | disposition home or self-care (01) | DRG 291 ==
LOC: ER 10:37 → ERHOLD 14:44 → 2ND 17:08 → OBSVTOIN 04-04 17:52
PROVIDERS: ADMIT Internal Medicine; ATTEND Internal Medicine
PROC: 0T9B70Z Drainage of Bladder with Drainage Device, Via Natural or Artificial Opening (ICD-10-PCS; principal; 2024-04-04)
DX: I11.0 Hypertensive heart disease with heart failure (principal); I50.23 Acute on chronic systolic (congestive) heart failure; J96.01 Acute respiratory failure with hypoxia; J44.1 Chronic obstructive pulmonary disease with (acute) exacerbation; I27.20 Pulmonary hypertension, unspecified; D50.9 Iron deficiency anemia, unspecified; I48.91 Unspecified atrial fibrillation; I25.10 Atherosclerotic heart disease of native coronary artery without angina pectoris; I25.2 Old myocardial infarction; F17.210 Nicotine dependence, cigarettes, uncomplicated; Z66 Do not resuscitate; Z88.5 Allergy status to narcotic agent; Z95.5 Presence of coronary angioplasty implant and graft; Z79.82 Long term (current) use of aspirin; Z79.02 Long term (current) use of antithrombotics/antiplatelets; Z79.899 Other long term (current) drug therapy
CPT/HCPCS: 36415; 51702; 71045; 80048; 80076; 81001; 82607; 82728; 82947; 83036; 83540; 83615; 83735; 83880; 84100; 84466; 84484; 85025; 93005; 94640; 96374; 96375; 97116; 97161; 97530; 99285; G0378; J1650; J1940; J2919; J7512; J7614; J7644

== ENCOUNTER 2024-04-06 08:13 | Inpatient (IN) | payer OTHER ==
[2024-04-06] MEDS ORDERED: ASPIRIN 81 MG CHEWABLE TABLET ONE (08:18)
[2024-04-06 08:50] LABS: Absolute Basophils 0.1 K/uL (0-0.5); Absolute Eosinophils 0.1 K/uL (0-0.5); Absolute Lymphocytes (CBC) 1.4 K/uL (0.7-4.9); Absolute Monocytes 0.5 K/uL (0.1-1.3); Absolute Neutrophil 5.1 K/uL (1.8-8.0); Basophils % 0.8 % (0-1.3); Eosinophils % 1.3 % (0-4.4); Hematocrit 32.2 % (36.0-45.0); Hemoglobin 10.2 g/dL (12.0-15.0); Lymphocytes % 18.9 % (15.3-44.8); MCH 24.7 pg (27.0-35.0); MCHC 31.6 g/dL (32.0-36.0); MCV 78.2 fL (80-100); MPV 8.3 fL (7.6-11.3); Monocytes % 7.3 % (3.3-12.3); Neutrophils % 71.7 % (41.7-73.7); Nucleated Red Blood Cells % 0.2 % (0-0); Platelets 254 thou/uL (152-406); RBC Red Blood Cell Count 4.12 M/uL (3.86-4.86); Red Cell Distribution Width 23.3 % (12.1-15.2)
[2024-04-06 09:13] LABS: Anion Gap 5.6 mEq/L (5.0-15.0); Potassium 3.6 mEq/L (3.5-5.1); Troponin High Sensitivity 16.6 pg/mL (<58.9)
--- NOTE | 2024-04-06 10:36 | RAD REPORT ---
Procedure: Chest Single View HISTORY: Chest pain COMPARISON: April 03, 2024 FINDINGS: The lungs appear clear of acute infiltrate. Haziness of the left lung base likely represents pericard ial fat.. Lungs are mildly to moderately hyperaerated. No significant pleural effusion noted. The heart is mildly enlarged. . IMPRESSION: No acute abnormality is displayed.
[2024-04-06 11:03] LABS: Anisocytosis 2+; Blood Morphology Comment NOTED (NOT SEEN); Platelet Estimate ADEQ; Polychromasia 1+; White Blood Cell Scan OK (OK)
[2024-04-06 11:04] LABS: Teardrop Cell 1+
--- NOTE | 2024-04-06 11:13 | EDPHYS ---
Physician Documentation [facility] Name: Jennifer Sherwood Age: 68 yrs Sex: Female : 1955 Arrival Date: 04/06/2024 Time: 08:13 Bed 6 Private MD: ED Physician Ramesh Osorio HPI: 04/06 08:33 This 68 yrs old Female presents to ER via Wheelchair with complaints of Chest ms3 Pain. 08:33 Jennifer Sherwood, a 68-year-old female, presents to the emergency department with complaints ms3 of chest pain. She reports feeling "funny" this morning after taking her midodrine and checking her blood pressure, which was elevated, accompanied by a high heart rate. She previously experienced tachycardia and was treated with medication which controlled the tachycardia. She was admitted to the hospital yesterday for similar issues, where they addressed fluid buildup and ankle swelling. This morning, she reports no current pain, nausea, or vomiting but notes congestion. She has a known history of heart failure, COPD, atrial fibrillation, HTN. 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 Historical: - Allergies: 08:27 HYDROCODONE; ss - PMHx: 08:27 Atrial fibrillation; Chronic obstructive lung disease; Congestive heart failure; ss Hypertension; Myocardial infarction; - PSHx: 08:27 coronary stents; ss - Immunization history:: Adult Immunizations up to date. - Infectious Disease History:: Denies. - Social history:: Smoking status: Patient reports the use of cigarette tobacco products, denies chronic smoking, but will smoke occasionally. ROS: 08:33 Constitutional: Negative for fever, and chills. ms3 08:33 Respiratory: Negative for shortness of breath, cough, wheezing, and pleuritic chest pain, Abdomen/GI: Negative for abdominal pain, nausea, vomiting, diarrhea, and constipation, MS/Extremity: Negative for injury and deformity, Skin: Negative for injury, rash, and discoloration, 08:33 Cardiovascular: Positive for palpitations, Exam: 08:33 Constitutional: This is a well developed, well nourished patient who is awake, alert, ms3 and in no acute distress. Chest/axilla: Normal chest wall appearance and motion. Nontender with no deformity. 08:33 Respiratory: Lungs have equal breath sounds bilaterally, clear to auscultation and percussion. No rales, rhonchi or wheezes noted. No increased work of breathing, no retractions or nasal flaring. Abdomen/GI: Soft, non-tender, with normal bowel sounds. No distension or tympany. No guarding or rebound. No evidence of tenderness throughout. Skin: Warm, dry with normal turgor. Normal color with no rashes, no lesions, and no evidence of cellulitis. 08:33 Cardiovascular: Rate: tachycardic, Rhythm: regular, Pulses: no pulse deficits are appreciated, Heart sounds: normal, Edema: is not appreciated, 08:36 ECG was reviewed by the Attending Physician. ms3 Vital Signs: 08:26 BP 147 / 88; Pulse 144; Resp 24; Pulse Ox 97% on R/A; Weight 52.16 kg; Height 5 ft. 0 ss in. ; Pain 0/10; 08:37 BP 147 / 88; Pulse 114; Resp 18; Pulse Ox 99% on R/A; ld1 08:37 Pain 8/10; ld1 09:51 BP 112 / 71; Pulse 99; Pulse Ox 100% on R/A; ap3 08:26 Body Mass Index 22.46 (52.16 kg, 152.4 cm) ss 08:26 Pain Scale: Adult ss 08:37 Pain Scale: Adult ld1 MDM: 08:33 Medical Screening Exam initiated ms3 08:33 Differential diagnosis: abnormal EKG, acute myocardial infarction, anxiety, coronary ms3 artery disease. 11:06 HEART Score: History: Moderately Suspicious (1), ECG: Normal (0), Age: > or = 65 years ms3 (2), Risk Factors: > or = 3 Risk factors for atherosclerotic disease (2), Troponin: < or = 1 x Normal Limit (0), Total Score = 4. The patient was given aspirin in the Emergency Department. Data reviewed: vital signs, nurses notes, lab test result(s), EKG, radiologic studies, and as a result, I will admit patient. Consideration of Admission/Observation Patient was admitted/placed on observation. Management of patient was discussed with the following: Hospitalist: Dr Rios. I considered the following discharge prescriptions or medication management in the emergency department Medications were administered in the Emergency Department. See MAR. Independent interpretation of the following test(s) in the Emergency Department EKG: See my EKG interpretation above. Counseling: I had a detailed discussion with the patient and/or guardian regarding the historical points, exam findings, and any diagnostic results supporting the discharge/admit diagnosis, lab results, radiology results, the need for further work-up and treatment in the hospital. ED course: Discussed case with hospitalist team and they accept patient as observation.. 04/06 08:21 Order name: Basic Metabolic Panel; Complete Time: 11:05 ms3 04/06 08:21 Order name: CBC with Diff; Complete Time: 11:05 ms3 04/06 08:21 Order name: Troponin HS; Complete Time: 11:05 ms3 04/06 08:55 Order name: CBC Smear Scan; Complete Time: 11:05 EDMS 04/06 11:36 Order name: NT PRO-BNP; Complete Time: 15:08 EDMS 04/06 11:48 Order name: Troponin High Sensitivity EDKS 04/06 11:48 Order name: Troponin High Sensitivity EDKS 04/06 11:48 Order name: Troponin High Sensitivity EDKS 04/06 08:21 Order name: XRAY Chest (1 view); Complete Time: 11:05 ms3 04/06 08:21 Order name: EKG; Complete Time: 08:21 ms3 04/06 08:21 Order name: Cardiac monitoring; Complete Time: 08:37 ms3 04/06 08:21 Order name: EKG - Nurse/Tech; Complete Time: 08:37 ms3 04/06 08:21 Order name: IV Saline Lock; Complete Time: 08:57 ms3 04/06 08:21 Order name: Labs collected and sent; Complete Time: 08:57 ms3 04/06 08:21 Order name: O2 Per Protocol; Complete Time: 08:22 ms3 04/06 08:21 Order name: O2 Sat Monitoring; Complete Time: 08:22 ms3 EC:36 Rate is 121 beats/min. Rhythm is regular. QRS [place] is Normal. AL interval is normal. ms3 QRS interval is normal. Clinical impression: Sinus tachycardia. Interpreted by me. Reviewed by me. Administered Medications: 08:22 Drug: Aspirin PO Chewable Tablet 324 mg PO once; 81 mg tablets x 4 Route: PO; ld1 08:37 Follow up: Response: No adverse reaction ld1 08:57 Follow up: Response: No adverse reaction ld1 12:06 Drug: ToPROL XL PO 25 mg PO once Route: PO; ld1 Disposition Summary: 04/06/24 11:12 Hospitalization Ordered Notes: Hospitalization Status: Observation ms3 Provider: Ayaan Rios ms3 Condition: Stable ms3 Problem: new ms3 Symptoms: are unchanged ms3 Bed/Room Type: Standard ms3 Location: Telemetry/MedSurg (observation)(04/06/24 18:11) bd Room Assignment: 210(04/06/24 18:11) bd Diagnosis - Chest pain, unspecified ms3 Forms: - Medication Reconciliation Form ms3 - SBAR form ms3 - Leadership Thank You Letter ms3 Signatures: Dispatcher [employer] EDHenny Lantigua Shelby, RN RN ss Vernon Dickens, [employer]-Cla1 Ramesh Osorio DO DO ms3 Kathy Osorio RN RN ld1 Corrections: (The following items were deleted from the chart) 13:57 11:12 Telemetry/MedSurg (observation) ms3 bd 13:57 11:12 ms3 bd 18:11 13:57 [facility] ER HOLD bd bd 18:11 13:57 ERHOLD- bd bd
--- NOTE | 2024-04-06 11:13 | ER ---
Nurse's Notes [facility] Name: Jennifer Sherwood Age: 68 yrs Sex: Female : 1955 Arrival Date: 04/06/2024 Time: 08:13 Bed 6 Private MD: Diagnosis: Chest pain, unspecified Presentation: 04/06 08:26 Chief complaint: Patient states: rapid heart beat that began this morning with ss shortness of breath. Coronavirus screen: Client denies travel out of the [place] in the last 14 days. Ebola Screen: Patient denies exposure to infectious person. Patient denies travel to an Ebola-affected area in the 21 days before illness onset. Initial Sepsis Screen: Does the patient meet any 2 criteria? RR > 20 per min. HR > 90 bpm. Does the patient have a suspected source of infection? No. Patient's initial sepsis screen is negative. Risk Assessment: Do you want to hurt yourself or someone else?. Onset of symptoms was April 06, 2024. 08:26 Acuity: VAHE 2 ss 08:26 Method Of Arrival: Wheelchair ss Historical: - Allergies: 08:27 HYDROCODONE; ss - PMHx: 08:27 Atrial fibrillation; Chronic obstructive lung disease; Congestive heart failure; ss Hypertension; Myocardial infarction; - PSHx: 08:27 coronary stents; ss - Immunization history:: Adult Immunizations up to date. - Infectious Disease History:: Denies. - Social history:: Smoking status: Patient reports the use of cigarette tobacco products, denies chronic smoking, but will smoke occasionally. Screenin:37 [facility] ED Fall Risk Assessment (Adult) History of falling in the last 3 months, ld1 including since admission No falls in past 3 months (0 pts) Confusion or Disorientation No (0 pts) Intoxicated or Sedated No (0 pts) Impaired Gait No (0 pts) Mobility Assist Device Used No (0 pt) Altered Elimination No (0 pt) Score/Fall Risk Level 0 - 2 = Low Risk Oriented to surroundings, Maintained a safe environment, Educated pt \T\ family on fall prevention, incl call for assistance when getting out of bed, Assessed \T\ reinforced patient's understanding of fall precautions, Provided non-skid footwear, Hourly rounding (assess needs \T\ fall precautionary measures) done, Used ambulatory aids as needed (educated on \T\ assisted with), Used gait belt as appropriate. Abuse screen: Denies threats or abuse. Denies injuries from another. Nutritional screening: No deficits noted. Tuberculosis screening: No symptoms or risk factors identified. Assessment: 08:37 General: Appears in no apparent distress. uncomfortable, Behavior is cooperative, ld1 appropriate for age, anxious. Pain: Complains of pain in chest Pain does not radiate. Pain currently is 8 out of 10 on a pain scale. Quality of pain is described as heavy, throbbing, Pain began 2 hours ago. Is continuous. Neuro: Level of Consciousness is awake, alert, obeys commands, Oriented to person, place, time, situation, Appropriate for age. Cardiovascular: Capillary refill < 3 seconds Patient's skin is warm and dry. Rhythm is sinus tachycardia. Respiratory: Airway is patent Respiratory effort is even, unlabored. GI: Abdomen is flat, non-distended. : No signs and/or symptoms were reported regarding the genitourinary system. EENT: No signs and/or symptoms were reported regarding the EENT system. Derm: No signs and/or symptoms reported regarding the dermatologic system. Musculoskeletal: No signs and/or symptoms reported regarding the musculoskeletal system. Vital Signs: 08:26 BP 147 / 88; Pulse 144; Resp 24; Pulse Ox 97% on R/A; Weight 52.16 kg; Height 5 ft. 0 ss in. ; Pain 0/10; 08:37 BP 147 / 88; Pulse 114; Resp 18; Pulse Ox 99% on R/A; ld1 08:37 Pain 8/10; ld1 09:51 BP 112 / 71; Pulse 99; Pulse Ox 100% on R/A; ap3 08:26 Body Mass Index 22.46 (52.16 kg, 152.4 cm) ss 08:26 Pain Scale: Adult ss 08:37 Pain Scale: Adult ld1 ED Course: 08:15 Patient arrived in ED. ra3 08:20 Ramesh Osorio DO is Attending Physician. ms3 08:27 Triage completed. ss 08:27 Arm band placed on right wrist. ss 08:37 Kathy Osorio, RN is Primary Nurse. ld1 08:37 Patient has correct armband on for positive identification. Placed in gown. Bed in low ld1 position. Call light in reach. Side rails up X2. youth nutritional monitor on. Pulse ox on. NIBP on. Door closed. Noise minimized. Warm blanket given. 08:37 No provider procedures requiring assistance completed. Missed attempt(s): 20 gauge in ld1 right antecubital area. Patient maintains SpO2 saturation greater than 95% on room air. 08:57 Inserted saline lock: 22 gauge in left forearm, using aseptic technique. ld1 08:57 Inserted saline lock: 22 gauge in right forearm, using aseptic technique. Blood ld1 collected. Flushed with 10 mL NS. 09:18 XRAY Chest (1 view) In Process Unspecified. EDMS 11:12 Ayaan Rios MD is Hospitalizing Provider. ms3 15:09 Patient admitted, IV remains in place. ld1 Administered Medications: 08:22 Drug: Aspirin PO Chewable Tablet 324 mg PO once; 81 mg tablets x 4 Route: PO; ld1 08:37 Follow up: Response: No adverse reaction ld1 08:57 Follow up: Response: No adverse reaction ld1 12:06 Drug: ToPROL XL PO 25 mg PO once Route: PO; ld1 Medication: 08:37 VIS not applicable for this client. ld1 Outcome: 11:12 Decision to Hospitalize by Provider. ms3 15:09 Admitted to ER Hold. Please see [facility] for further documentation. ld1 15:09 Condition: stable 15:09 Instructed on the need for admit, 19:04 Patient left the ED. ld1 Signatures: Dispatcher [employer] EDMS Apurva Solomon RN RN ss Prokisch, Amanda, RN RN ap3 Ramesh Osorio DO DO ms3 Kathy Osorio RN RN ld1 Ciera Tomlin ra3
[2024-04-06] MEDS ORDERED: METOPROLOL XL 50 MG TAB PO ONE (12:05)
[2024-04-06] MEDS ORDERED: ALBUTEROL INHALER 200 PUFF/6.7 GM IH PRN (17:40)
--- NOTE | 2024-04-06 17:41 | P.HP ---
Certification for Inpatient Patient admitted to: Observation With expected LOS: <2 Midnights Patient will require the following post-hospital care: None Practitioner: I am a practitioner with admitting privileges, knowledge of patient current condition, hospital course, and medical plan of care. Services: Services provided to patient in accordance with Admission requirements found in Title 42 Section 412.3 of the Code of Federal Regulations Patient History Date of Service: 04/06/24 Reason for admission: Chest pain History of Present Illness: 68-year-old female with history of GEM, COPD, atrial fibrillation, CHF, hypertension, previous CAD with stents presents to the ED with chief complaint of chest pain, palpitations. She was recently seen at our hospital and admitted from 04/03 to 04/05 for hypoxic respiratory failure secondary to COPD/CHF exacerbation. She was diuresed and seemed to be doing better. She was feeling better until earlier today when she developed an uncomfortable sensation in her chest along with some palpitations and elevated blood pressure. She is confused about her home medications, she is prescribed midodrine but does not typically check her blood pressure before taking this medication and also was out of her Toprol XL at home, she is not clear that she was even taking this medication previously. She was evaluated in the ER and her initial high sensory troponin was normal at 16.6 BNP was 5231 chest x-ray was obtained and was negative for acute findings. Patient was in sinus tachycardia with a rate in the 110-120 range. ED provider wishes to admit under observation for ACS rule out, tachycardia. Allergies hydrocodone Allergy (Verified 04/03/24 22:19) Nausea/Vomiting Home Medications: Aspirin Chewable [Aspirin Chewable*] 81 mg PO DAILY 06/09/12 Albuterol Inhaler [Ventolin Inhaler*] 60 puff IH Q4HP PRN 01/12/24 Clopidogrel Bisulfate [Plavix] 75 mg PO DAILY 01/27/24 Midodrine HCl [Proamatine*] 5 mg PO TID 01/27/24 Montelukast [Singulair*] 10 mg PO DAILY 01/27/24 Cephalexin [Keflex*] 500 mg PO BID 5 Days #10 cap 02/04/24 Furosemide [Lasix*] 20 mg PO DAILY #30 tab 02/04/24 Metoprolol Succinate [Toprol Xl*] 25 mg PO DAILY #30 tab 02/04/24 Spironolactone 25 mg PO DAILY 30 Days #30 tab 02/04/24 Ferrous Sulfate [Ferrous Sulfate*] 325 mg PO DAILY 30 Days #30 tab 04/05/24 Furosemide [Lasix*] 20 mg PO DAILY 5 Days #5 tab 04/05/24 predniSONE [Prednisone*] 20 mg PO DAILY 15 Days #15 tab 04/05/24 - Past Medical/Surgical History Has patient received pneumonia vaccine in the past: Yes Diabetic: No -: Hypertension -: Anemia -: CAD -: HLD -: COPD -: heartburn -: Chronic systolic CHF -: Stent Placement -: Sx on Knee Cap-Right Psychosocial/ Personal History: Patient is retired, lives at home with her family - Family History Mother -: Heart disease, Stroke, Other (see notes) Notes: Rheumatoid arthritis Father -: Cancer Notes: Colon-Rectal Cancer - Social History Smoking Status: Former smoker Alcohol use: No CD- Drugs: No Caffeine use: Yes Place of Residence: Home Review of Systems 10-point ROS is otherwise unremarkable Cardiovascular: Chest Pain, Palpitations Physical Examination - Vital Signs Blood Pressure: 113/63 Pulse: 98 Respirations: 18 Pulse Ox (%): 96 - Physical Exam General: Alert, In no apparent distress, Oriented x3 HEENT: Atraumatic, PERRLA, EOMI Neck: Supple, 2+ carotid pulse no bruit, No LAD Respiratory: Clear to auscultation bilaterally, Normal air movement Cardiovascular: Regular rate/rhythm, Normal S1 S2 Gastrointestinal: Normal bowel sounds, No tenderness Musculoskeletal: No tenderness Integumentary: No rashes Neurological: Normal speech, Normal strength at 5/5 x4 extr, Normal tone - Studies Laboratory Data (last 24 hrs) 04/06/24 04/06/24 08:40 08:40 WBC 7.20 Hgb 10.2 L D Hct 32.2 L Plt Count 254 Sodium 141 Potassium 3.6 BUN 17 Creatinine 0.61 Glucose 97 Assessment and Plan - Plan Assessment: Chest pain rule out ACS Sinus tachycardia Hypotension on midodrine Hyperlipidemia Chronic diastolic congestive heart failure COPD Plan: Chest pain rule out ACS Sinus tachycardia Hypotension on midodrine Trend troponin and monitor on telemetry Cardiology consult placed Patient had been taking her midodrine 3 times daily without checking blood pressure before Blood pressure running in the 130s to 140s systolic, will attempt to hold midodrine Resumed Toprol XL, given dose in ED Also resume her spironolactone and Lasix and see her blood pressure response in the morning without the midodrine Hyperlipidemia Patient appeared to be taking 2 statins Continue atorvastatin 80 mg at bedtime, stop lovastatin Chronic diastolic congestive heart failure COPD Continue home medications DVT PPX:Lovenox Code status:Full Discharge Plan: Home Plan to discharge in: 48 Hours - Advance Directives Does patient have a Living Will: No Does patient have a Durable POA for Healthcare: No - Code Status/Comfort Care Code Status Assessed: Yes (Full code) Critical Care: No Time Spent Managing Pts Care (In Minutes): 65
[2024-04-06] MEDS: ATORVASTATIN 80 MG TAB PO SCH (21:00)
[2024-04-06] MEDS: FENOFIBRATE 48 MG TAB PO SCH (21:00)
[2024-04-06] MEDS: ACETAMINOPHEN 325 MG TABLET PO PRN (21:46)
[2024-04-07] MEDS: TRAZODONE 50 MG TABLET PO PRN (00:33)
[2024-04-07 04:41] LABS: Absolute Basophils 0.1 K/uL (0-0.5); Absolute Eosinophils 0.1 K/uL (0-0.5); Absolute Lymphocytes (CBC) 0.8 K/uL (0.7-4.9); Absolute Monocytes 0.5 K/uL (0.1-1.3); Absolute Neutrophil 2.3 K/uL (1.8-8.0); Basophils % 1.5 % (0-1.3); Eosinophils % 3.2 % (0-4.4); Hemoglobin 8.9 g/dL (12.0-15.0); Lymphocytes % 20.5 % (15.3-44.8); MCH 24.3 pg (27.0-35.0); MCHC 31.7 g/dL (32.0-36.0); MCV 76.5 fL (80-100); MPV 9.1 fL (7.6-11.3); Monocytes % 12.2 % (3.3-12.3); Neutrophils % 62.6 % (41.7-73.7); Nucleated Red Blood Cells % 0.1 % (0-0); Platelets 171 thou/uL (152-406); RBC Red Blood Cell Count 3.66 M/uL (3.86-4.86)
[2024-04-07 05:06] LABS: Anion Gap 9.6 mEq/L (5.0-15.0); Magnesium 2.1 mg/dL (1.6-2.4); Potassium 3.6 mEq/L (3.5-5.1); Thyroid Stimulating Hormone 2.01 uIU/mL (0.358-3.740)
[2024-04-07] MEDS: METOPROLOL XL 25 MG TAB PO SCH (08:55)
[2024-04-07] MEDS: CLOPIDOGREL 75 MG TABLET PO SCH (08:55)
[2024-04-07] MEDS: FERROUS SULFATE 325 MG TAB PO SCH (08:55)
[2024-04-07] MEDS: MIDODRINE HCL 5 MG TABLET PO SCH (08:55)
[2024-04-07] MEDS: ENOXAPARIN 40 MG/0.4 ML SQ SCH (08:56)
[2024-04-07] MEDS: FUROSEMIDE 40 MG TABLET PO SCH (08:56)
[2024-04-07] MEDS: SPIRONOLACTONE 25 MG TABLET PO SCH (08:56)
[2024-04-07] MEDS: ASPIRIN 81 MG CHEWABLE TABLET PO SCH (08:56)
[2024-04-07] MEDS: POTASSIUM 25 MEQ EFFERV TAB PO ONE (08:57)
--- NOTE | 2024-04-07 10:56 | P.CNS ---
Date of Consult: 04/07/24 Chief Complaint: Chest pain History of Present Illness: Patient with PMH of CAD PCI many years ago, HTN, Atrial fibrillation, heart failure, presented with palpitations, SOB and chest discomfort, denies dizzy spells, no syncope. Allergies hydrocodone Allergy (Verified 04/06/24 19:29) Nausea/Vomiting Home medications list reviewed: Yes Home Medications: Aspirin Chewable [Aspirin Chewable*] 81 mg PO DAILY 06/09/12 Albuterol Inhaler [Ventolin Inhaler*] 60 puff IH Q4HP PRN 01/12/24 Clopidogrel Bisulfate [Plavix] 75 mg PO DAILY 01/27/24 Midodrine HCl [Proamatine*] 5 mg PO TID 01/27/24 Montelukast [Singulair*] 10 mg PO DAILY 01/27/24 Spironolactone 25 mg PO DAILY 30 Days #30 tab 02/04/24 Furosemide [Lasix*] 20 mg PO DAILY 5 Days #5 tab 04/05/24 Atorvastatin Calcium [Lipitor] 80 mg PO BEDTIME 04/06/24 Diphenhydramine [Benadryl*] 25 mg PO BEDTIME PRN PRN 04/06/24 Fenofibrate [Tricor*] 1 tab PO DAILY 04/06/24 Ferrous Sulfate [Ferrous Sulfate*] 325 mg PO DAILY 04/06/24 - Past Medical/Surgical History Diabetic: No -: Hypertension -: Anemia -: CAD -: HLD -: COPD -: heartburn -: Chronic systolic CHF -: Stent Placement -: Sx on Knee Cap-Right Psychosocial/ Personal History: Patient is retired, lives at home with her family - Family History Mother Medical History: Heart disease, Stroke, Other (see notes) Notes: Rheumatoid arthritis Father Medical History: Cancer Notes: Colon-Rectal Cancer - Social History Smoking Status: Current some day smoker Alcohol use: No CD- Drugs: No Caffeine use: Yes Place of Residence: Home Review of Systems 10-point ROS is otherwise unremarkable Physical Examination Temp Pulse Resp BP Pulse Ox 98.0 F 104 H 20 119/61 98 04/07/24 08:00 04/07/24 08:56 04/07/24 08:00 04/07/24 08:56 04/07/24 08:00 General: Alert, In no apparent distress HEENT: Atraumatic, PERRLA, Mucous membr. moist/pink, EOMI, Sclerae nonicteric Neck: Supple, 2+ carotid pulse no bruit, No LAD, Without JVD or thyroid abnormality Respiratory: Clear to auscultation bilaterally, Normal air movement Cardiovascular: Regular rate/rhythm, Normal S1 S2 Gastrointestinal: Normal bowel sounds, No tenderness Musculoskeletal: No tenderness Integumentary: No rashes Neurological: Normal gait, Normal speech, Normal tone, Normal affect Lymphatics: No axilla or inguinal lymphadenopathy - Problems (1) Acute on chronic combined systolic and diastolic heart failure Current Visit: No Status: Acute Plan: get updated echo patient BNP is mild elevated. start lasix 40 mg daily continue aldactone 25 mg daily (2) Atrial fibrillation with rapid ventricular response Current Visit: No Status: Acute Plan: patient is currently in sinus rhythm continue Toprol XL 25 mg daily patient is not on anticoagulation, not sure why but she has been having significant drop in her Hgb, would recommend GI consult to rule out GI bleed before starting anticoagulation. (3) Chest pain Current Visit: No Status: Acute Plan: Patient with history of CAD and PCI many years ago, she also mention that she has a blockage and was told they can not fix, stop Plavix continue ASA 81 mg daily outpatient evaluation with stress test.
[2024-04-07] MEDS: FAMOTIDINE 20 MG TAB PO ONE (12:11)
--- NOTE | 2024-04-07 12:32 | EKG ---
Test Date: 2024-04-06 Test Time: 08:29:08 Lens Edge Grinder Machine: BASHIR MEASUREMENT RESULTS: Intervals: Rate: 121 VT: 140 QRSD: 80 QT: 312 QTc: 443 [place]: P: 84 VT: 140 QRS: 50 T: 88 INTERPRETIVE STATEMENTS: Sinus tachycardia Nonspecific ST and T wave abnormality Abnormal ECG Compared to ECG 04/03/2024 10:47:54 Possible ischemia no longer present ST (T wave) deviation still present Electronically Signed On 04-07-24 12:29:49 SR. PRICING ANALYST by Edmar Calvert
--- NOTE | 2024-04-07 15:32 | P.PN ---
Date of Service: 04/07/24 Subjective: No events overnight Still complains of episodic chest pain/"not feeling well" ROS: 10 point ROS as noted above, otherwise negative Physical exam GEN: Alert, oriented, NAD HEENT: Normal conjunctiva, sclera anicteric CV: Regular rate and rhythm, no edema Pulm: Nonlabored respirations on room air ABD: Soft, nontender, nondistended MSK: No joint tenderness Integumentary: No rashes Neuro: Normal speech, normal affect Vitals reviewed Assessment: Chest pain rule out ACS Sinus tachycardia Hypotension on midodrine Hyperlipidemia Chronic diastolic congestive heart failure COPD Plan: Chest pain rule out ACS Sinus tachycardia Hypotension on midodrine Troponin trended flat, no events on telemetry reported Cardiology consult placed, will plan for inpatient stress test Patient had been taking her midodrine 3 times daily without checking blood pressure before Blood pressure running in the 130s to 140s systolic, will attempt to hold midodrine Resumed Toprol XL, given dose in ED Also resume her spironolactone and Lasix and see her blood pressure response in the morning without the midodrine Tolerating home meds so far Hyperlipidemia Patient appeared to be taking 2 statins Continue atorvastatin 80 mg at bedtime, stop lovastatin Chronic diastolic congestive heart failure COPD Continue home medications DVT PPX:Lovenox Code status:Full Discharge Plan: Home Plan to discharge in: 48 Hours Time Spent Managing Pts Care (In Minutes): 35
[2024-04-07] MEDS: MAGNES/ALUMIN/SIMET 30ML UCUP PO PRN (21:07)
[2024-04-07] MEDS: MONTELUKAST 10 MG TAB PO SCH (21:07)
[2024-04-07] MEDS: FAMOTIDINE 20 MG TAB PO SCH (21:07)
[2024-04-08 05:03] LABS: Absolute Eosinophils 0.1 K/uL (0-0.5); Absolute Lymphocytes (CBC) 0.8 K/uL (0.7-4.9); Absolute Monocytes 0.6 K/uL (0.1-1.3); Absolute Neutrophil 2.1 K/uL (1.8-8.0); Basophils % 1.1 % (0-1.3); Eosinophils % 3.5 % (0-4.4); Hematocrit 30.8 % (36.0-45.0); Hemoglobin 9.7 g/dL (12.0-15.0); Lymphocytes % 21.3 % (15.3-44.8); MCH 24.4 pg (27.0-35.0); MCHC 31.5 g/dL (32.0-36.0); MCV 77.4 fL (80-100); MPV 9.2 fL (7.6-11.3); Monocytes % 16.6 % (3.3-12.3); Neutrophils % 57.5 % (41.7-73.7); Nucleated Red Blood Cells % 0.2 % (0-0); Platelets 187 thou/uL (152-406); RBC Red Blood Cell Count 3.98 M/uL (3.86-4.86)
[2024-04-08 05:05] LABS: Red Cell Distribution Width 23.9 % (12.1-15.2)
[2024-04-08 05:26] LABS: Anion Gap 8.7 mEq/L (5.0-15.0); Magnesium 2.5 mg/dL (1.6-2.4); Potassium 3.7 mEq/L (3.5-5.1)
[2024-04-08 06:02] VITALS: BMI 23.0
[2024-04-08] MEDS ORDERED: REGADENOSON 0.4 MG/5 ML SYR IV ONE (09:00)
[2024-04-08] MEDS: POTASSIUM 25 MEQ EFFERV TAB PO ONE (10:33)
--- NOTE | 2024-04-08 10:40 | RAD REPORT ---
EXAM: Nuclear medicine cardiac perfusion examination with ejection fraction HISTORY: Chest pain TECHNIQUE: Rest images: 10.1 mCi technetium 99m sestamibi Stress images: 31.2 mCi of technetium 99m sestamibi; Lexiscan COMPARISON: None FINDINGS: Tomographic images: Large fixed defect involving the apex and apical segments of the anterior, latera l, and to lesser extent inferior wall. Reversible defect involving the mid segment of the anterior wall, and partially involving the adjacent midsegment lateral and inferior hendricks. Gated images: Reduced wall motion sparing the inferior wall. Reduced ejection fraction of 28%. EDV: 175 mL ESV: 127 mL TID: 198 IMPRESSION: Reversible defects involving the mid segments of the anterior wall and to lesser extent lateral and i nferior hendricks, concerning for myocardial ischemia. Fixed defects involving the apex and apical segments of the anterior, lateral, and to lesser extent i nferior wall, suggestive of sequelae of remote infarcts Left ventricular ejection fraction: Reduced,28%. Hypokinesia throughout most of the left ventricle, s paring the inferior wall.
--- NOTE | 2024-04-08 12:33 | P.PN ---
Subjective Date of Service: 04/08/24 Chief Complaint: Chest pain Subjective: No new changes, No C/O voiced, Tolerating diet, Ambulating, Improving Review of Systems 10-point ROS is otherwise unremarkable Physical Examination - Vital Signs Temperature: 97.8 F Blood Pressure: 108/59 Pulse: 107 Respirations: 16 Pulse Ox (%): 97 - Physical Exam General: Alert, In no apparent distress HEENT: Atraumatic, PERRLA, EOMI Neck: Supple, JVD not distended Respiratory: Clear to auscultation bilaterally, Normal air movement Cardiovascular: Regular rate/rhythm, Normal S1 S2 Gastrointestinal: Normal bowel sounds, No tenderness Musculoskeletal: No tenderness Integumentary: No rashes Neurological: Normal speech, Normal tone, Normal affect Lymphatics: No axilla or inguinal lymphadenopathy - Studies Medications List Reviewed: Yes Assessment And Plan - Current Problems (Diagnosis) (1) Acute on chronic combined systolic and diastolic heart failure Current Visit: No Status: Acute Plan: get updated echo patient BNP is mild elevated. lasix 20 mg daily continue aldactone 25 mg daily (2) Atrial fibrillation with rapid ventricular response Current Visit: No Status: Acute Plan: patient is currently in sinus rhythm continue Toprol XL 25 mg daily patient is not on anticoagulation, not sure why but she has been having significant drop in her Hgb, would recommend GI consult to rule out GI bleed before starting anticoagulation. (3) Chest pain Current Visit: No Status: Acute Plan: Patient with history of CAD and PCI many years ago, she also mention that she has a blockage and was told they can not fix, Patient stress test is abnormal, will proceed with coronary angiogram in am, k eep NPO after midnight continue ASA 81 mg daily
--- NOTE | 2024-04-08 12:39 | P.PN ---
Date of Service: 04/08/24 Subjective: No events overnight Had stress test today ROS: 10 point ROS as noted above, otherwise negative Physical exam GEN: Alert, oriented, NAD HEENT: Normal conjunctiva, sclera anicteric CV: Regular rate and rhythm, no edema Pulm: Nonlabored respirations on room air ABD: Soft, nontender, nondistended MSK: No joint tenderness Integumentary: No rashes Neuro: Normal speech, normal affect Vitals reviewed Assessment: Chest pain rule out ACS Sinus tachycardia Hypotension on midodrine Hyperlipidemia Chronic diastolic congestive heart failure COPD Plan: Chest pain rule out ACS Sinus tachycardia Hypotension on midodrine Troponin trended flat, no events on telemetry reported Cardiology consult placed, will plan for inpatient stress test Stress test + with Reversible defects involving the mid segments of the anterior wall and to lesser extent lateral and inferior hendricks, concerning for myocardial ischemia. Plan for cath 04/09 Patient had been taking her midodrine 3 times daily without checking blood pressure before Blood pressure running in the 130s to 140s systolic, will attempt to hold midodrine Resumed Toprol XL, given dose in ED Also resume her spironolactone and Lasix and see her blood pressure response in the morning without the midodrine Tolerating home meds so far Hyperlipidemia Patient appeared to be taking 2 statins Continue atorvastatin 80 mg at bedtime, stop lovastatin Chronic diastolic congestive heart failure COPD Continue home medications DVT PPX:Lovenox Code status:Full Discharge Plan: Home Plan to discharge in: 48 Hours Time Spent Managing Pts Care (In Minutes): 35
--- NOTE | 2024-04-08 13:58 | TREADPHA ---
DX: CHEST PAIN Date of Study: 04/08/24 Ht: 5' 0 " Wt: 118 lb 0 oz Consulting Physician: REESE MEDICATIONS: ASPIRIN, LIPITOR, PLAVIX, LOVENOX, TRICOR, FEOSOL HISTORY: CARDIAC STENTS, CHRONIC OBSTRUCTIVE PULMONARY DISEASE PHYSICIAL EXAMINATION: RESTING B.P.: 104/63 RESTING H.R.: 101 RESTING EKG: PROTOCOL: LEXISCAN EXERCISE TIME: 3:30 B.P. AT PEAK STRESS: 117/62 IMPRESSION: LEXISCAN INJECTED. CARDIOLITE INJECTED ( SEE NUCLEAR MEDCINE REPORT). NO VENTRICULAR TACHYCARDIA, NO SUPRA VENTRICULAR TACHYCARDIA. TWO PREMATURE VENTRICULAR COMPLEXES NOTED DURING TEST. NO COMPLAINTS OF CHEST PAIN. COMPLAINTS OF SHORTNESS OF BREATH.
[2024-04-09 05:08] LABS: Absolute Basophils 0.1 K/uL (0-0.5); Absolute Eosinophils 0.1 K/uL (0-0.5); Absolute Monocytes 0.5 K/uL (0.1-1.3); Absolute Neutrophil 1.6 K/uL (1.8-8.0); Basophils % 1.7 % (0-1.3); Eosinophils % 3.6 % (0-4.4); Hematocrit 29.3 % (36.0-45.0); Hemoglobin 9.4 g/dL (12.0-15.0); Lymphocytes % 29.8 % (15.3-44.8); MCH 24.6 pg (27.0-35.0); MCHC 32.2 g/dL (32.0-36.0); MCV 76.4 fL (80-100); MPV 10.1 fL (7.6-11.3); Monocytes % 16.3 % (3.3-12.3); Neutrophils % 48.6 % (41.7-73.7); Platelets 173 thou/uL (152-406); RBC Red Blood Cell Count 3.84 M/uL (3.86-4.86); Red Cell Distribution Width 24.4 % (12.1-15.2)
[2024-04-09 05:54] LABS: Anion Gap 13.2 mEq/L (5.0-15.0); Magnesium 2.3 mg/dL (1.6-2.4); Potassium 4.2 mEq/L (3.5-5.1)
[2024-04-09] MEDS ORDERED: LIDOCAINE 1% 20 ML MDV ONE (06:49)
[2024-04-09] MEDS ORDERED: HEPARIN 10,000 UNIT/10 ML VIAL IV ONE (06:49)
[2024-04-09] MEDS ORDERED: HEPA 1000U/500MLS 2,000 UNIT/1,000 ML BAG IV ONE (06:49)
[2024-04-09] MEDS ORDERED: HEPARIN 5000 UNIT/ML 1 ML VIAL ONE (06:50)
[2024-04-09] MEDS ORDERED: CLOPIDOGREL 75 MG TABLET ONE (06:50)
[2024-04-09] MEDS ORDERED: TICAGRELOR 90 MG TABLET PO ONE (06:50)
[2024-04-09] MEDS ORDERED: MIDAZOLAM HCL 2 MG/2 ML INJ ONE (06:50)
[2024-04-09] MEDS ORDERED: FENTANYL CITR 100 MCG/2 ML ONE (06:51)
[2024-04-09] MEDS ORDERED: ASPIRIN 325 MG TAB ONE (06:51)
[2024-04-09] MEDS ORDERED: ATROPINE SULF 1 MG/10 ML SYR IV ONE (06:54)
[2024-04-09] MEDS ORDERED: NA CHLORIDE 0.9% 500 ML ONE (07:01)
[2024-04-09 09:07] LABS: Anisocytosis 2+; Blood Morphology Comment NOTED (NOT SEEN); Platelet Estimate ADEQ; White Blood Cell Scan OK (OK)
[2024-04-09 09:08] LABS: Microcytosis 1+; Ovalocytes 1+; Teardrop Cell 1+
[2024-04-09] MEDS ORDERED: SODIUM CHLORIDE 0.9% 10ML INJ IV PRN (10:28)
[2024-04-09] MEDS: PANTOPRAZOLE 40 MG INJ IVP ONE (10:28)
--- NOTE | 2024-04-09 13:12 | P.PN ---
Subjective Date of Service: 04/09/24 Chief Complaint: Chest pain Subjective: No new changes, No C/O voiced, Tolerating diet, Ambulating, Improving Review of Systems 10-point ROS is otherwise unremarkable Physical Examination - Vital Signs Temperature: 97.6 F Blood Pressure: 104/58 Pulse: 98 Respirations: 16 Pulse Ox (%): 100 - Physical Exam General: Alert, In no apparent distress HEENT: Atraumatic, PERRLA, EOMI Neck: Supple, JVD not distended Respiratory: Clear to auscultation bilaterally, Normal air movement Cardiovascular: Regular rate/rhythm, Normal S1 S2 Gastrointestinal: Normal bowel sounds, No tenderness Musculoskeletal: No tenderness Integumentary: No rashes Neurological: Normal speech, Normal tone, Normal affect Lymphatics: No axilla or inguinal lymphadenopathy - Studies Medications List Reviewed: Yes Assessment And Plan - Current Problems (Diagnosis) (1) Acute on chronic combined systolic and diastolic heart failure Current Visit: No Status: Acute Plan: patient BNP is mild elevated. lasix 20 mg daily continue aldactone 25 mg daily (2) Atrial fibrillation with rapid ventricular response Current Visit: No Status: Acute Plan: patient is currently in sinus rhythm continue Toprol XL 25 mg daily patient is not on anticoagulation, not sure why but she has been having significant drop in her Hgb, would recommend GI consult to rule out GI bleed be fore starting anticoagulation. (3) Chest pain Current Visit: No Status: Acute Plan: Patient had coronary angiogram this morning that shown significant LAD disease s/p PCI and PTCA of diagonal, patent LCX and RCA stents. continue ASA 81 mg daily continue Plavix 75 mg daily Lipitor 80 mg daily
--- NOTE | 2024-04-09 14:17 | P.PN ---
Date of Service: 04/09/24 Subjective: S/P [facility] today with stent to LAD Doing well post op No events overnight ROS: 10 point ROS as noted above, otherwise negative Physical exam GEN: Alert, oriented, NAD HEENT: Normal conjunctiva, sclera anicteric CV: Regular rate and rhythm, no edema Pulm: Nonlabored respirations on room air ABD: Soft, nontender, nondistended MSK: No joint tenderness Integumentary: No rashes Neuro: Normal speech, normal affect Vitals reviewed Assessment: Chest pain/CAD Sinus tachycardia Hypotension on midodrine Hyperlipidemia Chronic diastolic congestive heart failure COPD Plan: Chest pain/CAD Sinus tachycardia Hypotension on midodrine Troponin trended flat, no events on telemetry reported Cardiology consult placed, will plan for inpatient stress test Stress test + with Reversible defects involving the mid segments of the anterior wall and to lesser extent lateral and inferior hendricks, concerning for myocardial ischemia. [facility] today-shown significant LAD disease s/p PCI and PTCA of diagonal, patent LCX and RCA stents. continue ASA 81 mg daily continue Plavix 75 mg daily Lipitor 80 mg daily Patient had been taking her midodrine 3 times daily without checking blood pressure before Blood pressure running in the 130s to 140s systolic, will attempt to hold midodrine Resumed Toprol XL, given dose in ED Also resume her spironolactone and Lasix and see her blood pressure response in the morning without the midodrine Tolerating home meds so far Hyperlipidemia Patient appeared to be taking 2 statins Continue atorvastatin 80 mg at bedtime, stop lovastatin Chronic diastolic congestive heart failure COPD Continue home medications DVT PPX:Lovenox Code status:Full Discharge Plan: Home Plan to discharge in: 24 hours Time Spent Managing Pts Care (In Minutes): 35
[2024-04-09] MEDS: CLOPIDOGREL 75 MG TABLET PO ONE (17:37)
--- NOTE | 2024-04-10 00:31 | OP ---
Date of Procedure: 04/09/2024 Surgeon: Edmar Calvert Procedure Performed: 1. Selective cholangiogram. 2. PCI of the LAD with Synergy 3.0 x 24 mm drug-eluting stent. 3. PTCA of the diagonal. Indication For Procedure: Unstable angina, abnormal stress test. Complications: None. Estimated Blood Loss: Less than 50 cc. Access: Right radial, closed by TR band. Sedation Time: 30 minutes with 1 of Versed and 50 of fentanyl. Description Of Procedure: After risks, benefits, and alternatives were explained to the patient, the patient agreed to proceed with procedure and signed informed consent. The patient was brought back to the laboratory animal care veterinarian, prepped and draped in sterile fashion. Time-out was performed. Sedation was admini stered. Right radial access was obtained using ultrasound-guided micropuncture technique. [place] 4 c atheter was advanced over the J-wire to the aortic root. Selective angiogram was done using the same catheter. That catheter was later exchanged for an EBU 3.0 mm guide. Heparin was administered. AC T was therapeutic. Runthrough wire was passed across the diagonal. Another Runthrough wire was pass ed across the LAD. We pre-dilated the diagonal lesions with NC 2.25 mm balloon and then we pre-dilat ed the LAD lesions with an NC 2.5 mm balloon followed by an NC 3.0 mm balloon. Later on, we placed t he Synergy 3.0 x 24 mm drug-eluting stent across the mid LAD and then we crossed, that was postdilate d with a 3.25 mm balloon. Then, we recrossed into the diagonal and PTCA was done with a 2.25 mm NC b alloon. Final angiogram shows ALICE-3 flow. Wire was removed. Catheter was removed over a J-wire. Sheath was removed. TR band was applied and hemostasis was achieved. Findings: 1. Left main normal. 2. LAD: Proximal mild luminal irregularities with mid 70% to 80% disease, status post PCI as above a nd then mid to distal mild luminal irregularities. 3. Diagonal 1 with ostial 80% disease. PTCA done. The lesion stayed as 80% to 90% disease after PTC A with ALICE-3 flow. 4. Left circ: Proximal mild luminal irregularities and mid stent patent with distal edge of the sten t has 20% to 30% disease and mild luminal irregularities. 5. RCA: Proximal 30% disease. The mid stent patent with distal edge 30% disease, then mild luminal irregularities. Assessment And Plan: 1. Significant mid LAD disease, status post PCI with Synergy 3.5 x 24 mm drug-eluting stent. 2. Significant ostial diagonal disease, status post PTCA. 3. Patent left circ and RCA stents with mild distal edge IFR. Plan: Aspirin 81 mg daily for life. Brilinta 180 x1 was given in the laboratory animal care veterinarian, continue Plavix 75 m g daily for 12 months up to 36 months. CAIT/MARK Voice ID: [id number] Report ID: [id number]
[2024-04-10 04:47] LABS: Absolute Eosinophils 0.2 K/uL (0-0.5); Absolute Lymphocytes (CBC) 1.1 K/uL (0.7-4.9); Absolute Monocytes 0.5 K/uL (0.1-1.3); Absolute Neutrophil 1.4 K/uL (1.8-8.0); Basophils % 1.3 % (0-1.3); Eosinophils % 5.1 % (0-4.4); Hematocrit 29.9 % (36.0-45.0); Hemoglobin 9.5 g/dL (12.0-15.0); Lymphocytes % 34.9 % (15.3-44.8); MCH 24.4 pg (27.0-35.0); MCHC 31.9 g/dL (32.0-36.0); MCV 76.6 fL (80-100); MPV 9.4 fL (7.6-11.3); Monocytes % 15.4 % (3.3-12.3); Neutrophils % 43.3 % (41.7-73.7); Nucleated Red Blood Cells % 0.2 % (0-0); Platelets 152 thou/uL (152-406); Red Cell Distribution Width 23.7 % (12.1-15.2)
[2024-04-10 04:57] VITALS: TEMP 97.5
[2024-04-10 05:02] LABS: Anion Gap 10.1 mEq/L (5.0-15.0); Magnesium 2.4 mg/dL (1.6-2.4); Potassium 4.1 mEq/L (3.5-5.1)
[2024-04-10 08:52] VITALS: BP 127/61
[2024-04-10 11:40] VITALS: O2SAT 100
--- NOTE | 2024-04-10 14:58 | P.DS ---
Admission Date: 04/07/24 Discharge Date: 04/10/24 Disposition: DC HOME/HOME HEALTH CARE Discharge Condition: GOOD Reason for Admission: Chest pain Brief History of Present Illness: 68-year-old female with history of GEM, COPD, atrial fibrillation, CHF, hypertension, previous CAD with stents presents to the ED with chief complaint of chest pain, palpitations. She was recently seen at our hospital and admitted from 04/03 to 04/05 for hypoxic respiratory failure secondary to COPD/CHF exacerbation. She was diuresed and seemed to be doing better. She was feeling better until earlier today when she developed an uncomfortable sensation in her chest along with some palpitations and elevated blood pressure. She is confused about her home medications, she is prescribed midodrine but does not typically check her blood pressure before taking this medication and also was out of her Toprol XL at home, she is not clear that she was even taking this medication previously. She was evaluated in the ER and her initial high sensory troponin was normal at 16.6 BNP was 5231 chest x-ray was obtained and was negative for acute findings. Patient was in sinus tachycardia with a rate in the 110-120 range. ED provider wishes to admit under observation for ACS rule out, tachycardia. Hospital Course: Patient was admitted to the hospital for chest pain. She underwent a stress test which was positive and for that reason underwent a coronary angiogram. Coronary angiogram showed significant LAD disease, stent was placed here and she had angioplasty of her diagonal vessel. She has done well after her heart c atheterization, we discussed her home medications at length which are detailed below. Please follow-up with your primary care doctor in 1 to 2 weeks Please follow-up with cardiologyDr. Calvert in 1 to 2 weeks I have also made arrangements for home health and are working on ordering a wheelchair Home medications should be as follows Fenofibrate 48 mg daily Furosemide 20mg daily Spironolactone 25 mg daily Ferrous sulfate 325 mg daily Clopidogrel 75 mg daily Aspirin 81 mg daily Atorvastatin 80 mg at bedtime Toprol-XL/metoprolol succinate 25 mg daily for heart rate control-do not take if blood pressure is less than 100 for the top number Midodrine 5mg three times daily for low blood pressure, do not take if blood pressure is >115 for the top number Referral for home health has been sent to: [facility] [phone] fax [phone] Assessment: Chest pain/CAD Sinus tachycardia Hypotension on midodrine Hyperlipidemia Chronic diastolic congestive heart failure COPD Vital Signs/Physical Exam: Temp Pulse Resp BP Pulse Ox 97.5 F 104 H 20 127/61 100 04/10/24 08:00 04/10/24 09:22 04/10/24 08:00 04/10/24 09:22 04/10/24 08:00 General: Alert, In no apparent distress, Oriented x3 HEENT: Atraumatic, PERRLA Neck: Supple, JVD not distended Respiratory: Clear to auscultation bilaterally, Normal air movement Cardiovascular: Regular rate/rhythm, Normal S1 S2 Gastrointestinal: Normal bowel sounds, No tenderness Musculoskeletal: No tenderness Integumentary: No rashes Neurological: Normal speech, Normal affect Laboratory Data at Discharge: WBC 3.10 thou/uL (4.3-10.9) L 04/10/24 04:25 Hgb 9.5 g/dL (12.0-15.0) L 04/10/24 04:25 Hct 29.9 % (36.0-45.0) L 04/10/24 04:25 Plt Count 152 thou/uL (152-406) 04/10/24 04:25 Sodium 139 mEq/L (136-145) 04/10/24 04:25 Potassium 4.1 mEq/L (3.5-5.1) 04/10/24 04:25 BUN 14 mg/dL (7-18) 04/10/24 04:25 Creatinine 0.49 mg/dL (0.55-1.02) L 04/10/24 04:25 Glucose 92 mg/dL (74-106) 04/10/24 04:25 Magnesium 2.4 mg/dL (1.6-2.4) 04/10/24 04:25 Home Medications: Aspirin Chewable [Aspirin Chewable*] 81 mg PO DAILY 06/09/12 Albuterol Inhaler [Ventolin Inhaler*] 60 puff IH Q4HP PRN 01/12/24 Midodrine HCl [Proamatine*] 5 mg PO TID 01/27/24 Montelukast [Singulair*] 10 mg PO DAILY 01/27/24 Spironolactone 25 mg PO DAILY 30 Days #30 tab 02/04/24 Furosemide [Lasix*] 20 mg PO DAILY 5 Days #5 tab 04/05/24 Atorvastatin Calcium [Lipitor] 80 mg PO BEDTIME 04/06/24 Diphenhydramine [Benadryl*] 25 mg PO BEDTIME PRN PRN 04/06/24 Fenofibrate [Tricor*] 1 tab PO DAILY 04/06/24 Ferrous Sulfate [Ferrous Sulfate*] 325 mg PO DAILY 04/06/24 Atorvastatin Calcium [Lipitor] 80 mg PO BEDTIME tab 04/10/24 Clopidogrel Bisulfate [Plavix] 75 mg PO DAILY #90 tab 04/10/24 Fenofibrate [Tricor*] 48 mg PO BEDTIME tab 04/10/24 Furosemide [Lasix*] 20 mg PO DAILY tab 04/10/24 Metoprolol Succinate [Toprol Xl*] 25 mg PO DAILY #90 tab 04/10/24 New Medications: Clopidogrel Bisulfate [Plavix] 75 mg PO DAILY #90 tab Metoprolol Succinate [Toprol Xl*] 25 mg PO DAILY #90 tab Physician Discharge Instructions: Patient was admitted to the hospital for chest pain. She underwent a stress test which was positive and for that reason underwent a coronary angiogram. Coronary angiogram showed significant LAD disease, stent was placed here and she had angioplasty of her diagonal vessel. She has done well after her heart catheterization, we discussed her home medications at length which are detailed below. Please follow-up with your primary care doctor in 1 to 2 weeks Please follow-up with cardiologyDr. Enrike in 1 to 2 weeks I have also made arrangements for home health and are working on ordering a wheelchair Home medications should be as follows Fenofibrate 48 mg daily Furosemide 20mg daily Spironolactone 25 mg daily Ferrous sulfate 325 mg daily Clopidogrel 75 mg daily Aspirin 81 mg daily Atorvastatin 80 mg at bedtime Toprol-XL/metoprolol succinate 25 mg daily for heart rate control-do not take if blood pressure is less than 100 for the top number Midodrine 5mg three times daily for low blood pressure, do not take if blood pressure is >115 for the top number Referral for home health has been sent to: [facility] [phone] fax [phone] Diet: AHA Activity: Ad artur Followup: Edmar Calvert MD [ACTIVE - CAN ADMIT] - 1-2 Weeks Georgette Trevino DO [Primary Care Provider] - 1 Week Time spent managing pt's care (in minutes): 48
--- NOTE | 2024-04-13 12:48 | EKG ---
Test Date: 2024-04-04 Test Time: 21:26:07 Feed Miller: YRN MEASUREMENT RESULTS: Intervals: Rate: 108 ID: [id number] QRSD: 80 QT: 348 QTc: 466 [place]: P: 80 ID: [id number] QRS: 41 T: 84 INTERPRETIVE STATEMENTS: Sinus tachycardia Otherwise normal ECG Compared to ECG 04/04/2024 21:25:34 Ventricular premature complex(es) no longer present Electronically Signed On 04-13-24 12:27:08 INSTITUTIONAL ASSET MANAGER by Edmar Calvert
--- NOTE | 2024-04-13 12:48 | EKG ---
Test Date: 2024-04-04 Test Time: 21:25:34 Law Reporter: YRN MEASUREMENT RESULTS: Intervals: Rate: 105 [place]: 152 QRSD: 82 QT: 370 QTc: 489 [place]: P: 80 [place]: 152 QRS: 40 T: 80 INTERPRETIVE STATEMENTS: Sinus tachycardia with occasional premature ventricular complexes Otherwise normal ECG Compared to ECG 04/03/2024 10:47:54 Ventricular premature complex(es) now present ST (T wave) deviation no longer present Possible ischemia no longer present Electronically Signed On 04-13-24 12:27:13 NURSE'S COMPANION by Edmar Calvert
== END 2024-04-10 11:31 | disposition home health service (06) | DRG 321 ==
LOC: ER 08:13 → ERHOLD 11:44 → 2ND 18:31 → OBSVTOIN 04-07 15:31
PROVIDERS: ADMIT Hospitalist; ATTEND Hospitalist
PROC: 027034Z Dilation of Coronary Artery, One Artery with Drug-eluting Intraluminal Device, Percutaneous Approach (ICD-10-PCS; principal; 2024-04-09)
PROC: 02703ZZ Dilation of Coronary Artery, One Artery, Percutaneous Approach (ICD-10-PCS; 2024-04-09)
PROC: BF121ZZ Fluoroscopy of Gallbladder using Low Osmolar Contrast (ICD-10-PCS; 2024-04-09)
DX: I11.0 Hypertensive heart disease with heart failure (principal); I50.43 Acute on chronic combined systolic (congestive) and diastolic (congestive) heart failure; I95.9 Hypotension, unspecified; I48.91 Unspecified atrial fibrillation; E78.5 Hyperlipidemia, unspecified; J44.9 Chronic obstructive pulmonary disease, unspecified; I25.10 Atherosclerotic heart disease of native coronary artery without angina pectoris; I25.2 Old myocardial infarction; F17.210 Nicotine dependence, cigarettes, uncomplicated; R00.0 Tachycardia, unspecified; Z88.5 Allergy status to narcotic agent; Z95.5 Presence of coronary angioplasty implant and graft; Z79.82 Long term (current) use of aspirin; Z79.02 Long term (current) use of antithrombotics/antiplatelets; Z79.52 Long term (current) use of systemic steroids; Z79.899 Other long term (current) drug therapy
CPT/HCPCS: 36415; 71045; 76937; 78452; 80048; 83735; 83880; 84439; 84443; 84484; 85025; 85347; 93005; 93017; 93454; 97116; 97161; 99152; 99153; 99285; A9500; C1725; C1893; C9600; G0378; J0461; J1644; J1650; J2003; J2250; J2785; J3010; J7040; Q9967

== ENCOUNTER 2024-04-10 17:17 | Emergency (ER) | payer OTHER ==
[2024-04-10 18:22] LABS: Absolute Basophils 0.1 K/uL (0-0.5); Absolute Lymphocytes (CBC) 0.6 K/uL (0.7-4.9); Absolute Monocytes 0.4 K/uL (0.1-1.3); Absolute Neutrophil 3.9 K/uL (1.8-8.0); Basophils % 1.1 % (0-1.3); Eosinophils % 0.5 % (0-4.4); Hematocrit 30.9 % (36.0-45.0); Hemoglobin 9.9 g/dL (12.0-15.0); Lymphocytes % 13.1 % (15.3-44.8); MCH 24.3 pg (27.0-35.0); MCV 75.9 fL (80-100); MPV 9.6 fL (7.6-11.3); Monocytes % 7.6 % (3.3-12.3); Neutrophils % 77.7 % (41.7-73.7); Nucleated Red Blood Cells % 0.3 % (0-0); Platelets 164 thou/uL (152-406); RBC Red Blood Cell Count 4.08 M/uL (3.86-4.86); Red Cell Distribution Width 23.7 % (12.1-15.2)
[2024-04-10 18:36] LABS: Anion Gap 9.7 mEq/L (5.0-15.0); Potassium 3.7 mEq/L (3.5-5.1); Troponin High Sensitivity 296.8 pg/mL (<58.9)
[2024-04-10 19:20] LABS: White Blood Cell Scan OK (OK)
[2024-04-10 19:21] LABS: Anisocytosis 1+; Blood Morphology Comment NOTED (NOT SEEN); Platelet Estimate ADEQ
--- NOTE | 2024-04-10 19:22 | RAD REPORT ---
EXAMINATION: ONE VIEW CHEST XR CLINICAL INDICATION: Female, 68 years old.,SOB TECHNIQUE: Frontal chest projection is submitted. Examination is limited by patient positioning and t echnique. COMPARISON: 04/06/2024 FINDINGS: The lungs are diffusely emphysematous but grossly clear. No pneumothorax or sizable effusion. The he art is normal in size. Mediastinal contours are unremarkable. IMPRESSION: No acute intrathoracic abnormalities.
--- NOTE | 2024-04-10 23:12 | EDPHYS ---
Physician Documentation [facility] Name: Jennifer Sherwood Age: 68 yrs Sex: Female : 1955 Arrival Date: 04/10/2024 Time: 17:17 Bed 14 Private MD: ED Physician Alfred Rios HPI: 04/10 19:34 This 68 yrs old Female presents to ER via EMS with complaints of Anxiety, dr5 Palpitations. 19:40 This 68 yrs old Female presents to ER via EMS with complaints of Anxiety, dr5 Palpitations. 19:40 Patient is a 68-year-old female with history of GEM, COPD, A-fib, CHF, hypertension, dr5 previous CAD coming in with chest pain and anxiety while at home about 1 hour prior to arrival. Patient had cardiac stent yesterday completed by Dr. Calvert. Troponins were trending downward and were stable on discharge this morning. Patient reports that she had anxiety and chest palpitations when she was at her grandson's house today and was worried about him driving given his disability.. Historical: - Allergies: 17:17 HYDROCODONE; kc6 - PMHx: 17:17 Myocardial infarction; Hypertension; Congestive heart failure; Chronic obstructive lung kc6 disease; Atrial fibrillation; - PSHx: 17:17 coronary stents; kc6 - Immunization history:: Adult Immunizations up to date. - Infectious Disease History:: Denies. - Social history:: Smoking status: Patient/guardian denies using tobacco, Stopped _ months ago 7. ROS: 19:43 Constitutional: as per hpi dr5 Exam: 19:43 Constitutional: This is a well developed, well nourished patient who is awake, alert, dr5 and in no acute distress. Head/Face: Normocephalic, atraumatic. Eyes: Pupils equal round and reactive to light, extra-ocular motions intact. Lids and lashes normal. Conjunctiva and sclera are non-icteric and not injected. Cornea within normal limits. Periorbital areas with no swelling, redness, or edema. Neck: Trachea midline, no thyromegaly or masses palpated, and no cervical lymphadenopathy. Supple, full range of motion without nuchal rigidity, or vertebral point tenderness. No Meningismus. Chest/axilla: Normal chest wall appearance and motion. Nontender with no deformity. No lesions are appreciated. Cardiovascular: Regular rate and rhythm with a normal S1 and S2. Normal PMI, no JVD. No pulse deficits. Respiratory: Lungs have equal breath sounds bilaterally, clear to auscultation. No rales, rhonchi or wheezes noted. No increased work of breathing, no retractions or nasal flaring. Back: No spinal tenderness. No costovertebral tenderness. Full range of motion. Skin: Warm, dry with normal turgor. Normal color with no rashes, no lesions, and no evidence of cellulitis. MS/ Extremity: Pulses equal, no cyanosis. Neurovascular intact. Full, normal range of motion. Neuro: Awake and alert, GCS 15, oriented to person, place, time, and situation. Cranial nerves II-XII grossly intact. Motor strength 5/5 in all extremities. Sensory grossly intact. Cerebellar exam normal. Normal gait. Vital Signs: 18:26 BP 103 / 55; Pulse 106; Resp 18 S; Pulse Ox 96% on R/A; Pain 0/10; kc6 19:46 BP 106 / 62; Pulse 98; Resp 18; Pulse Ox 96% ; cp4 20:45 BP 107 / 56; Pulse 89; Resp 16; Pulse Ox 97% ; cp4 22:12 BP 104 / 59; Pulse 97; Resp 16; Pulse Ox 97% ; cp4 23:51 BP 103 / 58; Pulse 98; Resp 16; Pulse Ox 97% ; cp4 18:26 Pain Scale: Adult kc6 MDM: 17:27 Medical Screening Exam initiated dr5 19:43 Management of patient was discussed with the following: Silo Erector: Cardiology service dr5 paged at 1942. Pending callback from Dr. Ward. 21:57 Management of patient was discussed with the following: Silo Erector: Spoke with Dr. damir Calvert. If troponin are trending down, ok to discharge with follow up as previously arranged.. 23:13 Differential diagnosis: viral Infection, bacterial infection, URI, Anxiety. Data dr5 reviewed: vital signs, nurses notes. Management of patient was discussed with the following: Hospitalist: Dr. Landrum . Care significantly affected by the following chronic conditions: Diabetes, Hypertension, Congestive Heart Failure, Chronic Obstructive Pulmonary Disease. Care significantly affected by the following Social Determinants of Health: Poor access to healthcare and/or lack of insurance, Poor access to transportation, Problems related to employment. Counseling: I had a detailed discussion with the patient and/or guardian regarding the historical points, exam findings, and any diagnostic results supporting the discharge/admit diagnosis, the presence of at least one elevated blood pressure reading (>120/80) during this emergency department visit, lab results, the need for outpatient follow up, for definitive care, a cook morning, a family practitioner, to return to the emergency department if symptoms worsen or persist or if there are any questions or concerns that arise at home. ED course: Patient has not had any chest pain during entire ER course. Spoke with Enrike and consulted with Dr. Landrum. Discussed case with patient and patient is okay to be discharged home with strict ER precautions if chest pain ever comes back. Patient troponin has plateaued and is feeling much better. Patient will follow-up with Dr. Calvert as previously planned.. 04/10 17:32 Order name: Basic Metabolic Panel; Complete Time: 18:46 [facility] 04/10 17:32 Order name: CBC with Diff; Complete Time: 19:23 [facility] 04/10 17:32 Order name: Troponin HS; Complete Time: 18:46 [facility] 04/10 19:21 Order name: CBC Smear Scan; Complete Time: 19:23 [facility] 04/10 21:30 Order name: Troponin High Sensitivity; Complete Time: 22:40 [facility] 04/10 17:32 Order name: XRAY Chest (1 view); Complete Time: 19:23 [facility] 04/10 17:32 Order name: Cardiac monitoring; Complete Time: 18:15 [facility] 04/10 17:32 Order name: EKG - Nurse/Tech; Complete Time: 18:15 [facility] 04/10 17:32 Order name: IV Saline Lock; Complete Time: 18:15 [facility] 04/10 17:32 Order name: Labs collected and sent; Complete Time: 18:15 [facility] 04/10 17:32 Order name: O2 Per Protocol; Complete Time: 17:48 [facility] 04/10 17:32 Order name: O2 Sat Monitoring; Complete Time: 17:48 dr5 EC:54 Rate is 100 beats/min. Rhythm is regular. QRS [place] is Normal. NM interval is normal at dr5 148 msec. QRS interval is normal at 74 msec. QT interval is normal at 366 msec. Administered Medications: 23:08 Not Given (Physician Discretion): ativan1 mg IVP once cp4 Disposition: 04/11 07:49 Co-signature as Attending Physician, Alfred Rios MD I reviewed the patient's care rn provided by the Advanced Practice Provider and agree with the diagnosis and treatment plan. Disposition Summary: 04/10/24 23:11 Discharge Ordered Notes: Location: Home dr5 Condition: Stable dr5 Diagnosis - Anxiety disorder, unspecified dr5 Followup: dr5 - With: Emergency Department - When: As needed - Reason: Worsening of condition Followup: dr5 - With: Private Physician - When: 1 - 2 days - Reason: Recheck today's complaints, Continuance of care, Re-evaluation by your physician Discharge Instructions: - Discharge Summary Sheet dr5 - Generalized Anxiety Disorder, Adult dr5 Forms: - Medication Reconciliation Form dr5 - Patient Portal Instructions dr5 - Leadership Thank You Letter dr5 Signatures: Dispatcher [employer] EDMS Alfred Rios MD MD rn Campbell, Kaitlyn, RN RN kc6 Sridhar Lambert, PIEROGI MAKER-C PIEROGI MAKER-Cdr5 Milena Hernandez cp4 Corrections: (The following items were deleted from the chart) 04/10 17:33 17:33 BASIC METABOLIC PANEL+C.LAB.BRZ ordered. EDMS EDMS 17:33 17:33 CBC+H.LAB.BRZ ordered. EDMS EDMS 17:33 17:33 Troponin High Sensitivity+C.LAB.BRZ ordered. EDMS EDMS
--- NOTE | 2024-04-10 23:12 | ER ---
Nurse's Notes [facility] Name: Jennifer Sherwood Age: 68 yrs Sex: Female : 1955 Arrival Date: 04/10/2024 Time: 17:17 Bed 14 Private MD: Diagnosis: Anxiety disorder, unspecified Presentation: 04/10 17:17 Chief complaint: EMS states: pt was discharged from here at 1100 this AM s/p cardiac kc6 cath. pt went home and experienced anxiety, was not able to get her HR down she called EMS. 17:17 Coronavirus screen: At this time, the client does not indicate any symptoms associated kc6 with coronavirus-19. Ebola Screen: No symptoms or risks identified at this time. Initial Sepsis Screen: Does the patient meet any 2 criteria? HR > 90 bpm. Does the patient have a suspected source of infection? No. Patient's initial sepsis screen is negative. Risk Assessment: Do you want to hurt yourself or someone else? Patient reports no desire to harm self or others. Onset of symptoms was April 10, 2024. Care prior to arrival: Medication(s) given: zofran 4 mg, IV initiated. 20 GA, in the left antecubital area. 17:17 Method Of Arrival: EMS: [facility] 17:17 Acuity: VA[facility] 3 kc6 Historical: - Allergies: 17:17 HYDROCODONE; kc6 - PMHx: 17:17 Myocardial infarction; Hypertension; Congestive heart failure; Chronic obstructive lung kc6 disease; Atrial fibrillation; - PSHx: 17:17 coronary stents; kc6 - Immunization history:: Adult Immunizations up to date. - Infectious Disease History:: Denies. - Social history:: Smoking status: Patient/guardian denies using tobacco, Stopped _ months ago 7. Screenin:17 [facility] ED Fall Risk Assessment (Adult) History of falling in the last 3 months, kc6 including since admission No falls in past 3 months (0 pts) Confusion or Disorientation No (0 pts) Intoxicated or Sedated No (0 pts) Impaired Gait No (0 pts) Mobility Assist Device Used No (0 pt) Altered Elimination No (0 pt) Score/Fall Risk Level 0 - 2 = Low Risk Oriented to surroundings, Maintained a safe environment, Educated pt \T\ family on fall prevention, incl call for assistance when getting out of bed. Abuse screen: Denies threats or abuse. Denies injuries from another. Nutritional screening: No deficits noted. Tuberculosis screening: No symptoms or risk factors identified. Assessment: 17:17 General: Appears in no apparent distress. comfortable, well groomed, well developed, kc6 Behavior is calm, cooperative, appropriate for age. Pain: Denies pain. Neuro: Level of Consciousness is awake, alert, obeys commands, Oriented to person, place, time, situation, Appropriate for age. Cardiovascular: Denies chest pain, shortness of breath, Heart tones S1 S2 present Capillary refill < 3 seconds Rhythm is regular. Respiratory: Airway is patent Trachea midline Respiratory effort is even, unlabored, Respiratory pattern is regular, symmetrical. GI: No signs and/or symptoms were reported involving the gastrointestinal system. : No signs and/or symptoms were reported regarding the genitourinary system. EENT: No signs and/or symptoms were reported regarding the EENT system. Derm: Skin is healthy with good turgor, Skin is pink, warm \T\ dry. Musculoskeletal: No signs and/or symptoms reported regarding the musculoskeletal system. Circulation, motion, and sensation intact. Range of motion: intact in all extremities. 18:31 Reassessment: Patient appears in no apparent distress at this time. No changes from kc6 previously documented assessment. Patient and/or family updated on plan of care and expected duration. Pain level reassessed. Patient is alert, oriented x 3, equal unlabored respirations, skin warm/dry/pink. 19:24 Reassessment: Patient appears in no apparent distress at this time. No changes from cp4 previously documented assessment. Patient and/or family updated on plan of care and expected duration. Pain level reassessed. Patient is alert, oriented x 3, equal unlabored respirations, skin warm/dry/pink. 20:47 Reassessment: Patient appears in no apparent distress at this time. Patient and/or cp4 family updated on plan of care and expected duration. Pain level reassessed. Patient is alert, oriented x 3, equal unlabored respirations, skin warm/dry/pink. 22:00 Reassessment: Patient appears in no apparent distress at this time. Patient and/or cp4 family updated on plan of care and expected duration. Pain level reassessed. Patient is alert, oriented x 3, equal unlabored respirations, skin warm/dry/pink. 23:00 Reassessment: Patient appears in no apparent distress at this time. Patient and/or cp4 family updated on plan of care and expected duration. Pain level reassessed. Patient is alert, oriented x 3, equal unlabored respirations, skin warm/dry/pink. Vital Signs: 18:26 BP 103 / 55; Pulse 106; Resp 18 S; Pulse Ox 96% on R/A; Pain 0/10; kc6 19:46 BP 106 / 62; Pulse 98; Resp 18; Pulse Ox 96% ; cp4 20:45 BP 107 / 56; Pulse 89; Resp 16; Pulse Ox 97% ; cp4 22:12 BP 104 / 59; Pulse 97; Resp 16; Pulse Ox 97% ; cp4 23:51 BP 103 / 58; Pulse 98; Resp 16; Pulse Ox 97% ; cp4 18:26 Pain Scale: Adult 6 ED Course: 17:17 Maintain EMS IV. Dressing intact. Good blood return noted. Site clean \T\ dry. Gauge \T\ isela 6 site: 20G LAC. Flushed with 10 mL NS. Patient maintains SpO2 saturation greater than 95% on room air. 17:17 Arm band placed on. kc6 17:17 Patient has correct armband on for positive identification. Bed in low position. Call kc6 light in reach. Side rails up X2. Adult w/ patient. quality assurance monitor final on. Pulse ox on. NIBP on. Door closed. Noise minimized. Lights dimmed. Warm blanket given. Pillow given. 17:24 Patient arrived in ED. hb 17:27 Sridhar Lambert FNP-C is PHCP. dr5 17:27 Alfred Rios MD is Attending Physician. dr5 17:48 Hansa Castillo, NATALIE is Primary Nurse. kc6 18:00 XRAY Chest (1 view) In Process Unspecified. EDMS 18:29 Triage completed. kc6 21:39 Troponin High Sensitivity Sent. cp4 21:40 Repeat lab(s) drawn. by wv, sent to lab. cp4 23:51 No provider procedures requiring assistance completed. intact, bleeding controlled, No cp4 redness/swelling at site. Pressure dressing applied. 23:51 Provided Education on: anxiety disorder. cp4 Administered Medications: 23:08 Not Given (Physician Discretion): ativan1 mg IVP once cp4 Medication: 23:51 VIS not applicable for this client. cp4 Outcome: 23:11 Discharge ordered by . dr5 23:51 Discharged to home via wheelchair, cp4 23:51 Condition: stable 23:51 Discharge instructions given to patient, Instructed on discharge instructions, follow up and referral plans. Demonstrated understanding of instructions, follow-up care, 23:52 Patient left the ED. cp4 Signatures: Dispatcher [employer] EDIra Clark RN Hansa Eckert RN RN isela Milena Hernandez cp4 Sridhar Lambert, DEPARTMENTAL SECRETARY-C DEPARTMENTAL SECRETARY-Cdr5
[2024-04-11 00:11] VITALS: O2SAT 97
[2024-04-11 00:14] VITALS: BP 103/58
== END 2024-04-10 23:52 | disposition home or self-care (01) ==
LOC: ER 17:17
DX: F41.9 Anxiety disorder, unspecified (principal); Z98.890 Other specified postprocedural states; Z95.818 Presence of other cardiac implants and grafts; I50.9 Heart failure, unspecified; I10 Essential (primary) hypertension; J44.9 Chronic obstructive pulmonary disease, unspecified; I48.91 Unspecified atrial fibrillation
CPT/HCPCS: 36415; 71045; 80048; 84484; 85025; 99284

== ENCOUNTER 2024-04-11 06:40 | Emergency (ER) | payer OTHER ==
--- NOTE | 2024-04-11 07:34 | RAD REPORT ---
Abdomen Exam Limited: 04/11/2024 7:09 AM CLINICAL HISTORY: ABD PAIN STUDY: Limited right upper quadrant ultrasound of abdomen. COMPARISON: Prior films compared to study dated 01/08/2024 FINDINGS: Liver: Limited evaluation but grossly unremarkable. Bile ducts: The common bile duct proximally measures 13 mm and is dilated. This was also present on t he CT from 01/08/2024. Gallbladder: Small gallbladder polyp measuring 3 mm. Negative for cholelithiasis or acute cholecystit is. No gallbladder wall thickening. IMPRESSION: 1. Extrahepatic biliary duct dilatation similar to CT 01/08/2024. Correlate with LFTs. If abnormal, c ould consider further evaluation with MRCP. 2. 3 mm gallbladder polyp. Six-month follow-up ultrasound is recommended.
[2024-04-11] MEDS ORDERED: FAMOTIDINE 20 MG/2 ML VIAL IV ONE (07:54)
[2024-04-11] MEDS ORDERED: ONDANSETRON 4 MG/2 ML VIAL ONE (07:54)
[2024-04-11] MEDS ORDERED: LIDOCAINE VISCOUS 2% 10ML ORAL SOLN ONE (08:12)
[2024-04-11] MEDS ORDERED: MAGNES/ALUMIN/SIMET 30ML UCUP ONE (08:12)
[2024-04-11 08:18] LABS: Absolute Basophils 0.1 K/uL (0-0.5); Absolute Eosinophils 0.1 K/uL (0-0.5); Absolute Monocytes 0.3 K/uL (0.1-1.3); Absolute Neutrophil 2.5 K/uL (1.8-8.0); Basophils % 1.7 % (0-1.3); Eosinophils % 2.1 % (0-4.4); Hematocrit 35.4 % (36.0-45.0); Hemoglobin 11.2 g/dL (12.0-15.0); Lymphocytes % 24.5 % (15.3-44.8); MCH 24.2 pg (27.0-35.0); MCHC 31.5 g/dL (32.0-36.0); MCV 76.7 fL (80-100); MPV 9.7 fL (7.6-11.3); Monocytes % 8.5 % (3.3-12.3); Neutrophils % 63.2 % (41.7-73.7); Nucleated Red Blood Cells % 0.1 % (0-0); Platelets 193 thou/uL (152-406); RBC Red Blood Cell Count 4.62 M/uL (3.86-4.86); Red Cell Distribution Width 23.8 % (12.1-15.2)
[2024-04-11 08:47] LABS: Albumin 4.1 g/dL (3.4-5.0); Albumin/Globulin Ratio 1.2 (1.1-1.8); Bilirubin Total 0.5 mg/dL (0.2-1.0); Globulin 3.5 g/dL (2.3-3.5); Protein, Total 7.6 g/dL (6.4-8.2)
--- NOTE | 2024-04-11 08:51 | RAD REPORT ---
EXAMINATION: CT ABDOMEN AND PELVIS WITH CONTRAST CLINICAL INDICATION: Female, 68 years old.ABD PAIN TECHNIQUE: CT abdomen and pelvis was performed, after the administration of IV contrast, [facility]. Axial, sagittal and coronal reconstructions were obtained. One or more of the following dose reduction techniques were used: Automated exposure control, adjustment of the mA and/o r kV according to patient size, and/or iterative reconstruction. Unless otherwise specified, incidental findings do not require dedicated imaging follow-up. [id number]. COMPARISON: No prior exam. FINDINGS: LOWER CHEST: No acute process identified.No significant pericardial effusion. Coronary artery calcifi cations present. UPPER GI: No significant abnormality. LIVER: Hepatic steatosis, but otherwise unremarkable. GALLBLADDER/BILE DUCTS: Extrahepatic biliary duct dilatation with common hepatic duct measuring?peg meter. There is some tapering distally. PANCREAS: No mass, ductal dilation, or river-pancreatic fluid. SPLEEN: Unremarkable. ADRENALS: Unchanged left adrenal lesion measuring 2 cm. This is similar to 07/26/2023. KIDNEYS AND URETERS: No hydronephrosis.No suspicious renal mass. ABDOMINAL AORTA AND OTHER VESSELS: Moderate atherosclerotic changes without aortic aneurysm. PERITONEUM: No abnormal free fluid. No free air. LYMPH NODES: No pathologic lymphadenopathy. ABDOMINAL WALL: Unremarkable SMALL BOWEL/COLON: Small bowel has normal course and caliber. No colonic wall thickening or pericolon ic inflammatory changes.Normal appendix. Mild diverticulosis without diverticulitis. URINARY BLADDER: Underdistended but grossly unremarkable. REPRODUCTIVE ORGANS: Uterus surgically absent. No adnexal abnormality. MUSCULOSKELETAL: Multilevel degenerative changes in the spine. No acute fracture. ADDITIONAL FINDINGS: None. IMPRESSION: No acute or significant abnormalities seen in the abdomen or pelvis. Extra hepatic biliary duct dilat ation of uncertain significance. Correlate with LFTs. If abnormal, could consider MRCP.
--- NOTE | 2024-04-11 09:14 | EDPHYS ---
Physician Documentation [facility] Name: Jennifer Sherwood Age: 68 yrs Sex: Female : 1955 Arrival Date: 04/11/2024 Time: 06:40 Bed 6 Private MD: ED Physician Alfred Rios HPI: 04/11 08:04 This 68 yrs old Female presents to ER via Wheelchair with complaints of rn Abdominal Pain. 08:04 The patient presents with abdominal pain in the epigastric area. Onset: The rn symptoms/episode began/occurred 1 week(s) ago. The symptoms do not radiate. Associated signs and symptoms: Pertinent positives: nausea, Pertinent negatives: blood in stools, chest pain, constipation, diarrhea, dysuria, fever. The symptoms are described as achy, burning. Modifying factors: The symptoms are alleviated by nothing, the symptoms are aggravated by food, touching the area. Severity of pain: At its worst the pain was mild in the emergency department the pain is unchanged. The patient has experienced similar episodes in the past. Patient reports epigastric pain, associated with nausea and heartburn. States in the hospital for the last week, just discharged yesterday, was being given antacid medication and Maalox for this pain. Patient has hiatal hernia. No fever or vomiting. No chest pain. No diarrhea or blood in stool. Patient reports worse when touches area and lays down.. Historical: - Allergies: 06:56 HYDROCODONE; ha1 - PMHx: 06:56 Atrial fibrillation; Chronic obstructive lung disease; Congestive heart failure; ha1 Hypertension; Myocardial infarction; - PSHx: 06:56 coronary stents; ha1 - Immunization history:: Adult Immunizations up to date. - Infectious Disease History:: Denies. - Social history:: Smoking status: Patient/guardian denies using tobacco, Stopped _ months ago 6. - Family history:: not pertinent. - Hospitalizations: : No recent hospitalization is reported. ROS: 08:04 Constitutional: Negative for fever, chills, and weight loss, Cardiovascular: Negative rn for chest pain, palpitations, and edema, Respiratory: Negative for shortness of breath, cough, wheezing, and pleuritic chest pain, Abdomen/GI: Positive for abdominal pain with nausea Back: Negative for injury and pain, MS/Extremity: Negative for injury and deformity, Skin: Negative for injury, rash, and discoloration, Neuro: Negative for headache, weakness, numbness, tingling, and seizure, Exam: 08:04 Constitutional: This is a well developed, well nourished patient who is awake, alert, rn and in no acute distress. Cardiovascular: Regular rate and rhythm. No pulse deficits. Respiratory: No increased work of breathing, no retractions or nasal flaring. Abdomen/GI: Soft, no focal tenderness. No rebound or guarding. Negative Mohamud MS/ Extremity: Pulses equal, no cyanosis. Neuro: Awake and alert, GCS 15 Vital Signs: 06:50 BP 104 / 56; Pulse 92; Resp 18 S; Temp 98.7; Pulse Ox 95% on R/A; Weight 54.43 kg; ha1 Height 5 ft. 4 in. ; 08:10 BP 111 / 63; Pulse 83; Resp 18; Pulse Ox 98% on R/A; ld1 08:22 BP 111 / 63; Pulse 83; Resp 15; Pulse Ox 98% on R/A; ld1 06:50 Body Mass Index 20.60 (54.43 kg, 162.56 cm) [facility] MDM: 06:58 Medical Screening Exam initiated rn 09:10 Differential diagnosis: cholecystitis, Cholelithiasis, diverticulitis, gastritis, rn gastroesophageal reflux disease, non-specific abd pain, pancreatitis, Peptic Ulcer Disease, Perf. Duodenal Ulcer, Perf. Gastric Ulcer. Data reviewed: vital signs, nurses notes, lab test result(s), radiologic studies, CT scan, ultrasound, and as a result, I will discharge patient. Counseling: I had a detailed discussion with the patient and/or guardian regarding the historical points, exam findings, and any diagnostic results supporting the discharge/admit diagnosis, lab results, radiology results, the need for outpatient follow up, to return to the emergency department if symptoms worsen or persist or if there are any questions or concerns that arise at home. Response to treatment: the patient's symptoms have mildly improved after treatment, and as a result, I will discharge patient. ED course: Number and complexity of problems addressed: Moderate Amount and/or complexity of data reviewed and analyzed: I have personally reviewed the results of multiple unique tests including but not limited to blood tests and imaging deemed necessary. 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 ED course: I have personally reviewed all of the results, including but not limited to blood tests and imaging deemed necessary to safely discharge this patient at this time. All results given to and printed out for patient. I personally went over all the results with the patient and answered all questions. Patient will follow-up with PCP and or specialist as discussed. Return precautions given and understood.. 04/11 06:59 Order name: CBC with Diff rn 04/11 06:59 Order name: CMP; Complete Time: 08:49 rn 04/11 06:59 Order name: Lipase; Complete Time: 08:49 rn 04/11 07:00 Order name: BNP; Complete Time: 08:49 rn 04/11 06:59 Order name: CT Abd/Pelvis - IV Contrast Only; Complete Time: 09:00 rn 04/11 06:59 Order name: US Abdomen Limited; Complete Time: 07:36 rn 04/11 07:00 Order name: EKG; Complete Time: 07:00 rn 04/11 06:59 Order name: IV Saline Lock; Complete Time: 08:09 rn 04/11 06:59 Order name: Labs collected and sent; Complete Time: 08:09 rn 04/11 07:00 Order name: EKG - Nurse/Tech; Complete Time: 08:09 rn Administered Medications: 08:09 Drug: Famotidine IVP 20 mg IVP once; dilute with 10 mL 0.9% NaCl; give over 2 minutes ld1 Route: IVP; Site: left antecubital; 08:09 Drug: Ondansetron IVP 4 mg IVP once; over 2 minutes Route: IVP; Site: left antecubital; ld1 08:16 Drug: GI Cocktail without - (Maalox PO 30 ml, Lidocaine Mucous Membrane 2 % 15 ld1 ml) PO once Route: PO; Disposition Summary: 04/11/24 09:14 Discharge Ordered Notes: Location: Home rn Problem: chronic rn Symptoms: have improved rn Condition: Stable rn Diagnosis - Gastro-esophageal reflux disease without esophagitis rn - Abdominal pain, unspecified rn Followup: rn - With: Private Physician - When: As needed - Reason: Recheck today's complaints, Re-evaluation by your physician Discharge Instructions: - Discharge Summary Sheet rn - Abdominal Pain, Adult rn - Gastroesophageal Reflux Disease, Adult rn Forms: - Medication Reconciliation Form rn - Antibiotic turn out - Prescription Opioid Use rn - Patient Portal Instructions rn - Leadership Thank You Letter rn Signatures: Dispatcher [employer] EDAlfred Moreno MD MD rn Sims, Lauren, RN RN ld1 Gita Valdovinos, RN RN ha1 Corrections: (The following items were deleted from the chart) 06:59 06:59 Abdomen Pelvis W Con+CT.RAD.BRZ ordered. EDMS EDMS 07:00 07:00 Abdomen Limited+US.RAD.BRZ ordered. EDMS EDMS
--- NOTE | 2024-04-11 09:14 | ER ---
Nurse's Notes [facility] Name: Jennifer Sherwood Age: 68 yrs Sex: Female : 1955 Arrival Date: 04/11/2024 Time: 06:40 Bed 6 Private MD: Diagnosis: Gastro-esophageal reflux disease without esophagitis;Abdominal pain, unspecified Presentation: 04/11 06:50 Chief complaint: Patient states: mid epigastric pain and nausea for the past four days. ha1 06:50 Coronavirus screen: Client denies travel out of the [place] in the last 14 days. Ebola ha1 Screen: No symptoms or risks identified at this time. Initial Sepsis Screen: Does the patient meet any 2 criteria? No. Patient's initial sepsis screen is negative. Does the patient have a suspected source of infection? No. Patient's initial sepsis screen is negative. Risk Assessment: Do you want to hurt yourself or someone else? Patient reports no desire to harm self or others. Onset of symptoms was April 11, 2024. 06:50 Method Of Arrival: Wheelchair ha1 06:50 Acuity: VAHE 3 ha1 Triage Assessment: 06:56 General: Appears comfortable, Behavior is calm, cooperative. Pain: Complains of pain in ha1 epigastric area Pain does not radiate. Pain currently is 7 out of 10 on a pain scale. Neuro: Level of Consciousness is awake, alert, obeys commands, Oriented to person, place, time, situation. Cardiovascular: Capillary refill < 3 seconds Patient's skin is warm and dry. Respiratory: Airway is patent Respiratory effort is even, unlabored, Respiratory pattern is regular, symmetrical. Historical: - Allergies: 06:56 HYDROCODONE; ha1 - PMHx: 06:56 Atrial fibrillation; Chronic obstructive lung disease; Congestive heart failure; ha1 Hypertension; Myocardial infarction; - PSHx: 06:56 coronary stents; ha1 - Immunization history:: Adult Immunizations up to date. - Infectious Disease History:: Denies. - Social history:: Smoking status: Patient/guardian denies using tobacco, Stopped _ months ago 6. - Family history:: not pertinent. - Hospitalizations: : No recent hospitalization is reported. Screenin:22 [facility] ED Fall Risk Assessment (Adult) History of falling in the last 3 months, ld1 including since admission No falls in past 3 months (0 pts) Confusion or Disorientation No (0 pts) Intoxicated or Sedated No (0 pts) Impaired Gait No (0 pts) Mobility Assist Device Used No (0 pt) Altered Elimination No (0 pt) Score/Fall Risk Level 0 - 2 = Low Risk Oriented to surroundings, Hourly rounding (assess needs \T\ fall precautionary measures) done. Abuse screen: Denies threats or abuse. Denies injuries from another. Nutritional screening: No deficits noted. Tuberculosis screening: No symptoms or risk factors identified. Assessment: 08:22 General: Appears in no apparent distress. comfortable, Behavior is calm, cooperative, ld1 appropriate for age. Pain: Complains of pain in abdomen and epigastric area Pain does not radiate. Pain currently is 8 out of 10 on a pain scale. Quality of pain is described as burning, aching, Pain began 2-3 days ago. Is intermittent. Neuro: Level of Consciousness is awake, alert, obeys commands, Oriented to person, place, time, situation, Appropriate for age. Cardiovascular: Capillary refill < 3 seconds Patient's skin is warm and dry. Respiratory: Airway is patent Respiratory effort is even, unlabored. GI: Abdomen is flat, non-distended, Bowel sounds present X 4 quads. Abd is soft Abd is non tender Reports upper abdominal pain, nausea. : No signs and/or symptoms were reported regarding the genitourinary system. EENT: No signs and/or symptoms were reported regarding the EENT system. Derm: No signs and/or symptoms reported regarding the dermatologic system. Musculoskeletal: No signs and/or symptoms reported regarding the musculoskeletal system. Vital Signs: 06:50 BP 104 / 56; Pulse 92; Resp 18 S; Temp 98.7; Pulse Ox 95% on R/A; Weight 54.43 kg; ha1 Height 5 ft. 4 in. ; 08:10 BP 111 / 63; Pulse 83; Resp 18; Pulse Ox 98% on R/A; ld1 08:22 BP 111 / 63; Pulse 83; Resp 15; Pulse Ox 98% on R/A; ld1 06:50 Body Mass Index 20.60 (54.43 kg, 162.56 cm) ha1 ED Course: 06:43 Patient arrived in ED. 2 06:56 Triage completed. ha1 06:58 Alfred Rios MD is Attending Physician. rn 07:27 Abdomen Limited In Process Unspecified. EDMS 07:52 Lavon Hutchins, RN is Primary Nurse. bp 08:10 Inserted saline lock: 20 gauge in left antecubital area, using aseptic technique. Blood ld1 collected. Flushed with 10 mL NS. 08:22 No provider procedures requiring assistance completed. ld1 08:22 Patient has correct armband on for positive identification. Placed in gown. Bed in low ld1 position. Call light in reach. Side rails up X2. accounting instructor on. Pulse ox on. NIBP on. Door closed. Noise minimized. Warm blanket given. 08:37 CT Abd/Pelvis - IV Contrast Only In Process Unspecified. EDMS 09:24 IV discontinued, intact, bleeding controlled, No redness/swelling at site. ld1 09:24 Arm band placed on right wrist. ld1 Administered Medications: 08:09 Drug: Famotidine IVP 20 mg IVP once; dilute with 10 mL 0.9% NaCl; give over 2 minutes ld1 Route: IVP; Site: left antecubital; 08:09 Drug: Ondansetron IVP 4 mg IVP once; over 2 minutes Route: IVP; Site: left antecubital; ld1 08:16 Drug: GI Cocktail without - (Maalox PO 30 ml, Lidocaine Mucous Membrane 2 % 15 ld1 ml) PO once Route: PO; Medication: 08:22 VIS not applicable for this client. ld1 Outcome: 09:14 Discharge ordered by . rn 09:23 Discharged to home via wheelchair, ld1 09:23 Condition: stable 09:23 Discharge instructions given to patient, Instructed on discharge instructions, follow up and referral plans. Demonstrated understanding of instructions, follow-up care, 09:24 Patient left the ED. ld1 Signatures: Dispatcher [employer] EDMS Alfred Rios MD MD rn Peltier, Brian, RN RN Kathy Turcios RN RN ld1 Gita Valdovinos RN RN kay1 Deisy Loja gm2
[2024-04-11 09:39] VITALS: TEMP 98.7
[2024-04-11 09:44] VITALS: BP 111/63; O2SAT 98
[2024-04-11 09:53] LABS: Anisocytosis 2+; Blood Morphology Comment NOTED (NOT SEEN); Microcytosis 1+; Platelet Estimate ADEQ; White Blood Cell Scan OK (OK)
[2024-04-11 09:54] LABS: Ovalocytes 1+; Teardrop Cell FEW
== END 2024-04-11 09:24 | disposition home or self-care (01) ==
LOC: ER 06:40
DX: K21.9 Gastro-esophageal reflux disease without esophagitis (principal); Z95.818 Presence of other cardiac implants and grafts
CPT/HCPCS: 85025; 36415; 83690; 80053; 83880; 74177; 76705; 96375; 96374; 99285; Q9967; J2405

== ENCOUNTER 2024-05-07 19:51 | Emergency (ER) | payer OTHER ==
--- NOTE | 2024-05-07 20:38 | RAD REPORT ---
EXAM: Chest Single View HISTORY: 68 years Female CHEST PAIN COMPARISON: 04/10/2024 FINDINGS: LUNGS/PLEURA: The lungs are clear. No pleural effusions or pneumothorax. No pulmonary edema. CARDIAC/MEDIASTINUM: The cardiac silhouette is within normal limits. UPPER ABDOMEN: No significant abnormality. BONES: No acute abnormality. LINES/TUBES/OTHER: N/A IMPRESSION: No evidence of acute cardiopulmonary disease.
--- NOTE | 2024-05-07 20:47 | RAD REPORT ---
EXAMINATION: Head Brain Wo Cont CLINICAL INDICATION: Female, 68 years old.HEADACHE TECHNIQUE: Axial CT images from the skull base to the vertex without intravenous contrast. Coronal an d sagittal reformatted images were created from the data set. One or more of the following dose reduction techniques were used: Automated exposure control, adjustment of the mA and/or kV according to patient size, and/or iterative reconstruction. Unless otherwise specified, incidental findings do not require dedicated imaging follow-up. [id number]. COMPARISON: No prior exam. FINDINGS: INTRACRANIAL: No acute intracranial hemorrhage. No hydrocephalus. No mass effect or midline shift. Mo derate patchy white matter hypoattenuation within the subcortical deep white matter.Dural based lesion along the right aspect of the intracerebral falx measuring 9 x 8 mm. This has some calcificati on along the dural surface. VASCULATURE: No visualized abnormalities in the arteries or dural venous sinuses. SCALP/SKULL: No calvarial fracture identified. No acute soft tissue abnormality. SINUSES: The visualized paranasal sinuses and mastoid air cells are predominantly clear. No significa nt mastoid fluid. IMPRESSION: No definite acute intracranial abnormality. Moderate predominant subcortical white matter hypoattenua tion could reflect chronic small vessel ischemic changes but further evaluation with MRI is recommended to exclude an alternative process. Probable small meningioma along the right aspect of the intracerebral falx. This could be confirmed w ith MRI with contrast.
[2024-05-07 20:49] LABS: PT Prothrombin Time 11.7 SECONDS (10.0-13.0); Protime INR 1.03
[2024-05-07 20:55] LABS: ALT/SGPT 18 U/L (13-56); AST/SGOT < 10 U/L (15-37); Albumin 3.5 g/dL (3.4-5.0); Albumin/Globulin Ratio 1.1 (1.1-1.8); Alkaline Phosphatase 89 U/L (45-117); Anion Gap 8.6 mEq/L (5.0-15.0); BUN Blood Urea Nitrogen 13 mg/dL (7-18); Bicarbonate 25 mEq/L (21-32); Bilirubin Direct < 0.2 mg/dL (0-0.2); Bilirubin Indirect, Calculated 0.1 mg/dL (0.2-0.8); Bilirubin Total 0.3 mg/dL (0.2-1.0); Globulin 3.1 g/dL (2.3-3.5); Glomerular Filtration Rate 98 ml/min (=/>90); Glucose Level 123 mg/dL (74-106); Magnesium 2.2 mg/dL (1.6-2.4); NT PRO-BNP 1924 pg/mL (<125); Potassium 3.6 mEq/L (3.5-5.1); Protein, Total 6.6 g/dL (6.4-8.2); Sodium Level 138 mEq/L (136-145); Thyroid Stimulating Hormone 0.905 uIU/mL (0.358-3.740); Troponin High Sensitivity 15.6 pg/mL (<58.9)
[2024-05-07 20:59] LABS: Absolute Basophils 0.1 K/uL (0-0.5); Absolute Eosinophils 0.1 K/uL (0-0.5); Absolute Lymphocytes (CBC) 1.2 K/uL (0.7-4.9); Absolute Monocytes 0.3 K/uL (0.1-1.3); Absolute Neutrophil 3.5 K/uL (1.8-8.0); Basophils % 1.4 % (0-1.3); Hematocrit 22.4 % (36.0-45.0); Hemoglobin 6.8 g/dL (12.0-15.0); Lymphocytes % 23.6 % (15.3-44.8); MCH 22.3 pg (27.0-35.0); MCHC 30.5 g/dL (32.0-36.0); MPV 9.1 fL (7.6-11.3); Monocytes % 6.2 % (3.3-12.3); Neutrophils % 66.8 % (41.7-73.7); Nucleated Red Blood Cells % 0.2 % (0-0); Platelets 209 thou/uL (152-406); RBC Red Blood Cell Count 3.08 M/uL (3.86-4.86); Red Cell Distribution Width 18.9 % (12.1-15.2)
[2024-05-07 21:14] LABS: Influenza A Ag Negative; Influenza B Ag Negative; SARS-CoV-2 Antigen Rapid Res Negative (Negative)
[2024-05-07] MEDS ORDERED: NA CHLORIDE 0.9% 500 ML ONE ×2 (21:55→22:41)
--- NOTE | 2024-05-07 22:14 | EDPHYS ---
Physician Documentation [facility] Name: Jennifer Sherwood Age: 68 yrs Sex: Female : 1955 Arrival Date: 05/07/2024 Time: 19:51 Bed 4 Private MD: ED Physician Wolfgang Wren HPI: 05/07 20:04 This 68 yrs old Female presents to ER via Unassigned with complaints of sp4 Shortness Of Breath, Dizziness, High Blood Pressure. 20:05 PMHx: Atrial fibrillation; Chronic obstructive lung disease; Congestive heart failure; sp4 Hypertension; Myocardial infarction; PSH coronary stents;. 22:03 VCE is 68-year-old female with history of COPD, atrial fibrillation, history of sp4 coronary artery disease with 3 stents, tachycardia, hypertension, hyperlipidemia, chronic diastolic heart failure. Patient's medications include fenofibrate, furosemide, spironolactone, ferrous sulfate, Plavix 75 daily, aspirin 81 mg daily, atorvastatin 80 mg daily, midodrine 5 mg p.o. 3 times a day, montelukast daily, metoprolol succinate 25 mg p.o. daily, furosemide 20 mg daily.. Historical: - Allergies: 20:15 HYDROCODONE; bm8 - Home Meds: 20:15 Unable to obtain [Active]; bm8 - PMHx: 20:15 Atrial fibrillation; Chronic obstructive lung disease; Congestive heart failure; bm8 Hypertension; Myocardial infarction; - PSHx: 20:15 coronary stents; bm8 - Immunization history:: Adult Immunizations up to date. - Infectious Disease History:: Denies. - Social history:: Smoking status: Patient denies any tobacco usage or history of. - Family history:: not pertinent. ROS: 22:03 Constitutional: Negative for fever, chills, and weight loss, positive for sp4 generalized weakness, positive for generalized heaviness, positive for palpitations, shortness of breath with exertion. 22:03 All other systems are negative, Exam: 22:03 Constitutional: This is a well developed, well nourished patient who is awake, alert, sp4 pale appearing female but nontoxic, chronically ill-appearing Head/Face: Normocephalic, atraumatic. Eyes: Pupils equal round and reactive to light, extra-ocular motions intact. Lids and lashes normal. Conjunctiva and sclera are not injected. Cornea within normal limits. Periorbital areas with no swelling, redness, or edema. ENT: Nares patent. No nasal discharge, no septal abnormalities noted. Tympanic membranes are normal and external auditory canals are clear. Oropharynx with no redness, swelling, or masses, exudates, or evidence of obstruction, uvula midline. Mucous membranes moist. Neck: Trachea midline, no thyromegaly or masses palpated, and no cervical lymphadenopathy. Supple, full range of motion without nuchal rigidity, or vertebral point tenderness. Chest/axilla: Normal chest wall appearance and motion. Nontender with no deformity. No lesions are appreciated. Cardiovascular: Regular rate and rhythm with a normal S1 and S2. No gallops, murmurs, or rubs. Normal PMI, no JVD. No pulse deficits. Respiratory: Lungs have equal breath sounds bilaterally, clear to auscultation and percussion. No rales, rhonchi or wheezes noted. No increased work of breathing, no retractions or nasal flaring. Abdomen/GI: Soft, with normal bowel sounds. No distension or tympany. No guarding or rebound. No evidence of tenderness throughout. Digital rectal exam in the presence of female supervisor coil winding nurse -patient has melanic stool, no dark red blood no maroon stool, no bright red blood, no mass no hemorrhoid normal anal tone. Back: No spinal tenderness. No costovertebral tenderness. Skin: Warm, dry with normal turgor. Normal color with no rashes, no lesions, and no evidence of cellulitis. MS/ Extremity: Pulses equal, no cyanosis. Neurovascular intact. Full, normal range of motion. Neuro: Awake and alert, GCS 15, oriented to person, place, time, and situation. Cranial nerves II-XII grossly intact. Motor strength 5/5 in all extremities. Sensory grossly intact. Psych: Awake, alert, with orientation to person, place and time. Behavior, mood, and affect are within normal limits 22:03 ECG was reviewed by the Attending Physician. EKG at 2010 normal sinus rhythm rate 88 otherwise normal EKG Vital Signs: 20:13 BP 131 / 66; Pulse 88; Resp 18; Temp 97.6; Pulse Ox 100% on R/A; Weight 52.16 kg; bm8 Height 5 ft. 0 in. ; Pain 3/10; 22:35 BP 118 / 56; Pulse 75; Resp 18; Temp 97.6; Pulse Ox 99% ; Pain 0/10; bm8 05/08 00:27 BP 97 / 48; Pulse 68; Resp 16; Temp 98.6; Pulse Ox 98.3% ; Pain 0/10; bm8 01:10 BP 113 / 54; Pulse 75; Resp 16; Temp 98.1; Pulse Ox 98% ; Pain 0/10; bm8 05/07 20:13 Body Mass Index 22.46 (52.16 kg, 152.4 cm) bm8 05/07 20:13 Pain Scale: Adult bm8 22:35 Pain Scale: Adult bm8 05/08 00:27 Pain Scale: Adult bm8 01:10 Pain Scale: Adult bm8 Chaparro Coma Score: 05/07 20:25 Eye Response: spontaneous(4). Motor Response: obeys commands(6). Verbal Response: bm8 oriented(5). Total: 15. 22:03 Eye Response: spontaneous(4). Motor Response: obeys commands(6). Verbal Response: sp4 oriented(5). Total: 15. 22:35 Eye Response: spontaneous(4). Motor Response: obeys commands(6). Verbal Response: bm8 oriented(5). Total: 15. 05/08 00:27 Eye Response: spontaneous(4). Motor Response: obeys commands(6). Verbal Response: bm8 oriented(5). Total: 15. 01:10 Eye Response: spontaneous(4). Motor Response: obeys commands(6). Verbal Response: bm8 oriented(5). Total: 15. MDM: 05/07 20:03 Medical Screening Exam initiated sp4 22:00 ED course: HISTORY: 68 years Female CHEST PAIN COMPARISON: 04/10/2024 FINDINGS: sp4 LUNGS/PLEURA: The lungs are clear. No pleural effusions or pneumothorax. No pulmonary edema. CARDIAC/MEDIASTINUM: The cardiac silhouette is within normal limits. UPPER ABDOMEN: No significant abnormality. BONES: No acute abnormality. LINES/TUBES/OTHER: N/A IMPRESSION: No evidence of acute cardiopulmonary disease. . ED course: COMPARISON: No prior exam. FINDINGS: INTRACRANIAL: No acute intracranial hemorrhage. No hydrocephalus. No mass effect or midline shift. Moderate patchy white matter hypoattenuation within the subcortical deep white matter.Dural based lesion along the right aspect of the intracerebral falx measuring 9 x 8 mm. This has some calcification along the dural surface. VASCULATURE: No visualized abnormalities in the arteries or dural venous sinuses. SCALP/SKULL: No calvarial fracture identified. No acute soft tissue abnormality. SINUSES: The visualized paranasal sinuses and mastoid air cells are predominantly clear. No significant mastoid fluid. IMPRESSION: No definite acute intracranial abnormality. Moderate predominant subcortical white matter hypo attenuation could reflect chronic small vessel ischemic changes but further evaluation with MRI is recommended to exclude an alternative process. Probable small meningioma along the right aspect of the intracerebral falx. This could be confirmed with MRI with contrast. . 22:11 Differential diagnosis: Anemia Anxiety Reaction asthma, Bronchitis CHF exacerbation, sp4 Chronic Obstructive Pulmonary Disease Myocardial Infarction pneumonia. Data reviewed: vital signs, nurses notes, old medical records, lab test result(s), EKG, radiologic studies, CT scan, plain films. Consideration of Admission/Observation Escalation of care including admission/observation considered. ED course: Patient will be given 1 unit of blood. Stable for transfer for higher level of care for consultation with kiln maintenance. No kiln maintenance available at this hospital today.. 22:45 ED course: Patient was discussed with attending MD at [facility] and accepted for [facility] transfer.. 05/07 21:58 Order name: Type And Screen [facility] 05/07 20:05 Order name: Basic Metabolic Panel; Complete Time: 21:45 [facility] 05/07 20:05 Order name: CBC with Diff; Complete Time: 21:45 [facility] 05/07 20:05 Order name: LFT's; Complete Time: 21:45 [facility] 05/07 20:05 Order name: Magnesium; Complete Time: 21:45 [facility] 05/07 20:05 Order name: NT PRO-BNP; Complete Time: 21:45 [facility] 05/07 20:05 Order name: PT-INR; Complete Time: 21:45 [facility] 05/07 20:05 Order name: Troponin HS; Complete Time: 21:45 [facility] 05/07 20:13 Order name: COVID-19 Ag + Flu A+B Ag; Complete Time: 21:45 sp4 05/07 20:32 Order name: T4 Free; Complete Time: 21:45 EDMS 05/07 20:32 Order name: Thyroid Stimulating Hormone; Complete Time: 21:45 EDMS 05/07 22:27 Order name: Packed RBC Leukored EDMS 05/07 20:05 Order name: XRAY Chest (1 view); Complete Time: 21:45 sp4 05/07 20:11 Order name: CT Head Brain wo Cont; Complete Time: 21:45 sp4 05/07 20:05 Order name: Cardiac monitoring; Complete Time: 20:25 sp4 05/07 20:05 Order name: EKG - Nurse/Tech; Complete Time: 20:25 sp4 05/07 20:05 Order name: IV Saline Lock; Complete Time: 20:25 sp4 05/07 20:05 Order name: Labs collected and sent; Complete Time: 20:25 sp4 05/07 20:05 Order name: O2 Per Protocol; Complete Time: 20:25 sp4 05/07 20:05 Order name: O2 Sat Monitoring; Complete Time: 20:25 sp4 EC:11 Rate is 88 beats/min. Rhythm is regular, Normal Sinus Rhythm. QRS [place] is Normal. CO sp4 interval is normal. QRS interval is normal. QT interval is normal. No Q waves. T waves are Normal. No ST changes noted. Clinical impression: No evidence of ischemia. Interpreted by me. Reviewed by me. Administered Medications: 23:01 Drug: Octreotide Infusion (50 mcg/hr) - (Octreotide IV 500 mcg, NS 0.9% IV 500 ml) IV lg3 at 50 ml/hr continuous Route: IV; Rate: 50 ml/hr; Site: right forearm; 05/08 00:29 Follow up: Response: No adverse reaction; IV Status: Infusion continued upon transfer 05/07 23:01 Drug: Acetaminophen PO 1000 mg PO once Route: PO; lg3 05/08 00:29 Follow up: Response: No adverse reaction 05/07 23:01 Drug: diphenhydrAMINE PO 25 mg PO once Route: PO; lg3 05/08 00:28 Follow up: Response: No adverse reaction 05/07 23:02 Drug: Pantoprazole IV 8 mg/hr IV at 25 ml/hr continuous; (Standard dilution is 80 mg in lg3 250 mL NS) Route: IV; Rate: 25 ml/hr; Site: left forearm; 05/08 00:29 Follow up: Response: No adverse reaction; IV Status: Infusion continued upon transfer bm8 05/07 23:02 Drug: Pantoprazole IVP 80 mg IVP once Route: IVP; Site: left forearm; lg3 05/08 00:29 Follow up: Response: No adverse reaction bm8 Disposition Summary: 05/07/24 22:13 Transfer Ordered Notes: Transfer Location: [facility] sp4 Reason: Higher level of care sp4 Condition: Fair sp4 Problem: new sp4 Symptoms: have improved sp4 Accepting Physician: [facility]'s attending physician(05/08/24 01:16) bm8 Diagnosis - GI Bleed/ Gastrointestinal hemorrhage, unspecified sp4 - Symptomatic anemia, acute GI bleed, melena, dyspnea on exertion sp4 Forms: - Medication Reconciliation Form sp4 - SBAR form sp4 Signatures: Dispatcher [employer] Nesha Mckeon, RN RN lg3 Wolfgang Wren MD MD sp4 Brandyn Rueda RN RN bm8 Corrections: (The following items were deleted from the chart) 05/07 20:06 20:06 BASIC METABOLIC PANEL+C.LAB.BRZ ordered. EDMS EDMS 20:06 20:06 CBC+H.LAB.BRZ ordered. EDMS EDMS 20:06 20:06 HEPATIC FUNCTION+C.LAB.BRZ ordered. EDMS EDMS 20:06 20:06 MAGNESIUM+C.LAB.BRZ ordered. EDMS EDMS 20:06 20:06 PROBNP+C.LAB.BRZ ordered. EDMS EDMS 20:06 20:06 PROTIME (+INR)+COAG.LAB.BRZ ordered. EDMS EDMS 20:06 20:06 Troponin High Sensitivity+C.LAB.BRZ ordered. EDMS EDMS 20:06 20:06 Chest Single View+RAD.RAD.BRZ ordered. EDMS EDMS 20:31 20:11 THYROID STIMULAT HORMONE+C.LAB.BRZ ordered. EDMS EDMS 20:31 20:11 T4 FREE+C.LAB.BRZ ordered. EDMS EDMS 21:59 21:59 TYPE AND SCREEN+BB.LAB.BRZ ordered. EDMS EDMS 21:56 PACKED RBC LEUKORED+BB.LAB.BRZ ordered. EDMS EDMS 21:58 ABO/RH typing ordered. EDMS EDMS 21:58 Antibody Screen ordered. EDMS EDMS 05/08 01:16 02 22:13 [facility]'s attending physician sp4 bm8
--- NOTE | 2024-05-07 22:14 | ER ---
Nurse's Notes [facility] Name: Jennifer Sherwood Age: 68 yrs Sex: Female : 1955 Arrival Date: 05/07/2024 Time: 19:51 Bed 4 Private MD: Diagnosis: GI Bleed/ Gastrointestinal hemorrhage, unspecified;Symptomatic anemia, acute GI bleed, melena, dyspnea on exertion Presentation: 05/07 20:13 Chief complaint: Patient states: about two hours ago, I felt light headed and a little bm8 dizzy. I have some left ear pain like when I had my last heart issue. Coronavirus screen: Vaccine status: Patient reports receiving the 2nd dose of the covid vaccine. At this time, the client does not indicate any symptoms associated with coronavirus-19. Ebola Screen: Patient negative for fever greater than or equal to 101.5 degrees Fahrenheit, and additional compatible Ebola Virus Disease symptoms Patient denies exposure to infectious person. Patient denies travel to an Ebola-affected area in the 21 days before illness onset. No symptoms or risks identified at this time. Initial Sepsis Screen: Does the patient meet any 2 criteria? No. Patient's initial sepsis screen is negative. Does the patient have a suspected source of infection? No. Patient's initial sepsis screen is negative. Risk Assessment: Do you want to hurt yourself or someone else? Patient reports no desire to harm self or others. Onset of symptoms was May 07, 2024 at 18:00. 20:13 Method Of Arrival: Ambulatory bm8 20:13 Acuity: VAHE 2 bm8 Triage Assessment: 20:15 General: Appears in no apparent distress. comfortable, Behavior is calm, cooperative, bm8 appropriate for age. Pain: Complains of pain in left ear Pain currently is 3 out of 10 on a pain scale. EENT: Reports pain in left ear Pain is 3 out of 10 on a pain scale. Neuro: No deficits noted. Level of Consciousness is awake, alert, obeys commands, Oriented to person, place, time, situation, Appropriate for age. Cardiovascular: Reports lightheadedness, palpitations, Heart tones S1 S2 present. Respiratory: Reports shortness of breath Airway is patent Respiratory effort is even, unlabored, Respiratory pattern is regular, Breath sounds are clear bilaterally. Onset: The symptoms/episode began/occurred gradually, the patient has mild shortness of breath. GI: No signs and/or symptoms were reported involving the gastrointestinal system. : No signs and/or symptoms were reported regarding the genitourinary system. Derm: No signs and/or symptoms reported regarding the dermatologic system. Musculoskeletal: No signs and/or symptoms reported regarding the musculoskeletal system. Historical: - Allergies: 20:15 HYDROCODONE; bm8 - Home Meds: 20:15 Unable to obtain [Active]; bm8 - PMHx: 20:15 Atrial fibrillation; Chronic obstructive lung disease; Congestive heart failure; bm8 Hypertension; Myocardial infarction; - PSHx: 20:15 coronary stents; bm8 - Immunization history:: Adult Immunizations up to date. - Infectious Disease History:: Denies. - Social history:: Smoking status: Patient denies any tobacco usage or history of. - Family history:: not pertinent. Screenin:25 [facility] ED Fall Risk Assessment (Adult) History of falling in the last 3 months, bm8 including since admission No falls in past 3 months (0 pts) Confusion or Disorientation No (0 pts) Intoxicated or Sedated No (0 pts) Impaired Gait No (0 pts) Mobility Assist Device Used No (0 pt) Altered Elimination No (0 pt) Score/Fall Risk Level 0 - 2 = Low Risk Oriented to surroundings, Maintained a safe environment, Educated pt \T\ family on fall prevention, incl call for assistance when getting out of bed, Assessed \T\ reinforced patient's understanding of fall precautions, Hourly rounding (assess needs \T\ fall precautionary measures) done, Used ambulatory aids as needed (educated on \T\ assisted with), Used gait belt as appropriate. Abuse screen: Denies threats or abuse. Nutritional screening: No deficits noted. Tuberculosis screening: No symptoms or risk factors identified. Assessment: 20:25 Reassessment: see triage assessment. bm8 22:35 Reassessment: Patient appears in no apparent distress at this time. Patient and/or bm8 family updated on plan of care and expected duration. Pain level reassessed. Patient is alert, oriented x 3, equal unlabored respirations, skin warm/dry/pink. Patient denies pain at this time. Cardiovascular: No deficits noted. Heart tones S1 S2 present Capillary refill < 3 seconds in bilateral fingers Patient's skin is warm and dry. Rhythm is sinus rhythm. Respiratory: Airway is patent Respiratory effort is even, unlabored, Respiratory pattern is regular, symmetrical, Breath sounds are clear bilaterally. GI: provider inspected rectum for bleeding and found bleeding. : No signs and/or symptoms were reported regarding the genitourinary system. EENT: No deficits noted. No signs and/or symptoms were reported regarding the EENT system. Derm: No deficits noted. No signs and/or symptoms reported regarding the dermatologic system. Musculoskeletal: No deficits noted. No signs and/or symptoms reported regarding the musculoskeletal system. 23:12 Reassessment: report given to Meera Terry at [facility]. bm8 05/08 00:05 Reassessment: 1 st unit of blood started. bm8 00:27 Reassessment: Patient appears in no apparent distress at this time. Patient and/or bm8 family updated on plan of care and expected duration. Pain level reassessed. Patient is alert, oriented x 3, equal unlabored respirations, skin warm/dry/pink. pt is resting with eyes closed breathing is even unlabored with symmetrical rise and fall of chest. Easily rousable to voice Patient states feeling better. 01:10 Reassessment: Patient appears in no apparent distress at this time. Patient and/or bm8 family updated on plan of care and expected duration. Pain level reassessed. Patient is alert, oriented x 3, equal unlabored respirations, skin warm/dry/pink. Blood will continue enroute to [facility]. report given to Yeast Maker Brock. Patient denies pain at this time. Patient states feeling better. Vital Signs: 05/07 20:13 BP 131 / 66; Pulse 88; Resp 18; Temp 97.6; Pulse Ox 100% on R/A; Weight 52.16 kg; bm8 Height 5 ft. 0 in. ; Pain 3/10; 22:35 BP 118 / 56; Pulse 75; Resp 18; Temp 97.6; Pulse Ox 99% ; Pain 0/10; bm8 05/08 00:27 BP 97 / 48; Pulse 68; Resp 16; Temp 98.6; Pulse Ox 98.3% ; Pain 0/10; bm8 01:10 BP 113 / 54; Pulse 75; Resp 16; Temp 98.1; Pulse Ox 98% ; Pain 0/10; bm8 05/07 20:13 Body Mass Index 22.46 (52.16 kg, 152.4 cm) bm8 05/07 20:13 Pain Scale: Adult bm8 22:35 Pain Scale: Adult bm8 05/08 00:27 Pain Scale: Adult bm8 01:10 Pain Scale: Adult bm8 [place] Coma Score: 05/07 20:25 Eye Response: spontaneous(4). Motor Response: obeys commands(6). Verbal Response: bm8 oriented(5). Total: 15. 22:03 Eye Response: spontaneous(4). Motor Response: obeys commands(6). Verbal Response: sp4 oriented(5). Total: 15. 22:35 Eye Response: spontaneous(4). Motor Response: obeys commands(6). Verbal Response: bm8 oriented(5). Total: 15. 05/08 00:27 Eye Response: spontaneous(4). Motor Response: obeys commands(6). Verbal Response: bm8 oriented(5). Total: 15. 01:10 Eye Response: spontaneous(4). Motor Response: obeys commands(6). Verbal Response: bm8 oriented(5). Total: 15. ED Course: 05/07 19:54 Patient arrived in ED. im 20:03 Wolfgang Wren MD is Attending Physician. sp4 20:13 Brandyn Rueda, RN is Primary Nurse. bm8 20:15 Triage completed. bm8 20:15 Arm band placed on right wrist. bm8 20:18 Missed attempt(s): 20 gauge in right forearm. Bleeding controlled, band aid applied, bm8 catheter tip intact. 20:25 Patient has correct armband on for positive identification. Bed in low position. Call bm8 light in reach. Side rails up X 1. Client placed on continuous cardiac and pulse oximetry monitoring. NIBP monitoring applied. case monitor on. Pulse ox on. NIBP on. Door closed. Noise minimized. Warm blanket given. Pillow given. Verbal reassurance given. Head of bed elevated. 20:25 No provider procedures requiring assistance completed. Initial lab(s) drawn, by me, bm8 sent to lab. EKG done, by ED staff, reviewed by Wolfgang Wren MD COVID swab sent to lab. Flu and/or RSV swab sent to lab. Inserted saline lock: 20 gauge in left forearm, using aseptic technique. Blood collected. Flushed with 10 mL NS. Patient maintains SpO2 saturation greater than 95% on room air. 20:31 XRAY Chest (1 view) In Process Unspecified. EDMS 20:35 CT Head Brain wo Cont In Process Unspecified. EDMS 23:00 Inserted saline lock: 20 gauge in right forearm, using aseptic technique. Flushed with lg3 10 mL NS. 05/08 00:05 Provided Education on: Blood Transfusion, Procedure Consent. bm8 00:05 Patient transferred, IV remains in place. bm8 Administered Medications: 05/07 23:01 Drug: Octreotide Infusion (50 mcg/hr) - (Octreotide IV 500 mcg, NS 0.9% IV 500 ml) IV lg3 at 50 ml/hr continuous Route: IV; Rate: 50 ml/hr; Site: right forearm; 05/08 00:29 Follow up: Response: No adverse reaction; IV Status: Infusion continued upon transfer [facility] 05/07 23:01 Drug: Acetaminophen PO 1000 mg PO once Route: PO; 3 05/08 00:29 Follow up: Response: No adverse reaction [facility] 05/07 23:01 Drug: diphenhydrAMINE PO 25 mg PO once Route: PO; lg3 05/08 00:28 Follow up: Response: No adverse reaction [facility] 05/07 23:02 Drug: Pantoprazole IV 8 mg/hr IV at 25 ml/hr continuous; (Standard dilution is 80 mg in lg3 250 mL NS) Route: IV; Rate: 25 ml/hr; Site: left forearm; 05/08 00:29 Follow up: Response: No adverse reaction; IV Status: Infusion continued upon transfer [facility] 05/07 23:02 Drug: Pantoprazole IVP 80 mg IVP once Route: IVP; Site: left forearm; lg3 05/08 00:29 Follow up: Response: No adverse reaction [facility] Medication: 05/07 20:25 VIS not applicable for this client. bm8 05/08 00:05 Blood products: PRBCs X 1 unit given. See transfusion record. bm8 Outcome: 05/07 22:13 ER care complete, transfer ordered by MD. martinez 05/08 01:10 Transferred by ground EMS to [facility], Transfer form completed. bm8 X-rays sent w/ patient. Condition: stable Instructed on follow up and referral plans. the need for transfer, no drinking with medication, no driving heavy equipment, medication usage, Demonstrated understanding of instructions, follow-up care, medications, 01:16 Patient left the ED. bm8 Signatures: Dispatcher [employer] EDMS Nesha Naranjo RN RN lg3 Wolfgang Wren MD MD sp4 Alvina Alberto Brad RN RN bm8 Corrections: (The following items were deleted from the chart) 01:10 00:27 BP 97 / 48; Pulse 68bpm; Resp 1bpm; Pulse Ox 98.3%; Temp 16F; Pain 0/10, Adult; bm8 bm8
[2024-05-07] MEDS ORDERED: ACETAMINOPHEN 500 MG TAB ONE (22:40)
[2024-05-07] MEDS ORDERED: PANTOPRAZOLE 40 MG INJ ONE (22:40)
[2024-05-07] MEDS ORDERED: DIPHENHYDRAMINE 25 MG TAB/CAP ONE (22:41)
[2024-05-07] MEDS ORDERED: OCTREOTIDE ACETATE 500 MCG/ML ONE (22:41)
[2024-05-07] MEDS ORDERED: NA CHLORIDE 0.9% 250 ML ONE (22:41)
[2024-05-08 01:30] VITALS: BP 113/54; TEMP 98.1; O2SAT 98
--- NOTE | 2024-05-10 12:10 | EKG ---
Test Date: 2024-05-07 Test Time: 20:11:11 Press Setter: SMITA MEASUREMENT RESULTS: Intervals: Rate: 88 NM: 162 QRSD: 74 QT: 382 QTc: 462 [place]: P: 76 NM: 162 QRS: 56 T: 126 INTERPRETIVE STATEMENTS: Normal sinus rhythm Nonspecific ST and T wave abnormality Abnormal ECG Compared to ECG 04/11/2024 08:02:32 Possible ischemia no longer present ST (T wave) deviation still present Electronically Signed On 05-10-24 12:05:23 BAG HANGER by Edmar Calvert
== END 2024-05-08 01:16 | disposition short-term general hospital (02) ==
LOC: ER 19:51
DX: D64.9 Anemia, unspecified (principal); R06.00 Dyspnea, unspecified; I10 Essential (primary) hypertension; I48.91 Unspecified atrial fibrillation; I50.9 Heart failure, unspecified; J44.9 Chronic obstructive pulmonary disease, unspecified; Z11.52 Encounter for screening for COVID-19; Z95.818 Presence of other cardiac implants and grafts; Z79.01 Long term (current) use of anticoagulants; Z79.82 Long term (current) use of aspirin
CPT/HCPCS: 93005; 85025; 80048; 36415; 86900; 83735; 86850; 85610; 86901; 80076; 86920; 84443; 84484; 84439; 83880; 70450; 71045; 36430; 99285; 87428; J2354; J2470; P9016; J7050; J7040 ×2

== ENCOUNTER 2024-05-13 09:00 | Emergency (ER) | payer OTHER ==
--- NOTE | 2024-05-13 10:17 | RAD REPORT ---
Procedure: Chest Single View HISTORY: Cough COMPARISON: April 2024 FINDINGS: The lungs appear clear of acute infiltrate. Lungs are moderately hyperaerated. No significant pleural effusion noted. The heart is normal size. IMPRESSION: COPD without visualization of an acute abnormality
[2024-05-13 11:33] LABS: Absolute Basophils 0.1 K/uL (0-0.5); Absolute Eosinophils 0.1 K/uL (0-0.5); Absolute Lymphocytes (CBC) 0.9 K/uL (0.7-4.9); Absolute Monocytes 0.3 K/uL (0.1-1.3); Absolute Neutrophil 2.7 K/uL (1.8-8.0); Basophils % 1.4 % (0-1.3); Eosinophils % 2.5 % (0-4.4); Hematocrit 31.7 % (36.0-45.0); Lymphocytes % 23.1 % (15.3-44.8); MCHC 31.4 g/dL (32.0-36.0); MCV 76.4 fL (80-100); MPV 8.9 fL (7.6-11.3); Monocytes % 6.5 % (3.3-12.3); Neutrophils % 66.5 % (41.7-73.7); Nucleated Red Blood Cells % 0.1 % (0-0); Platelets 189 thou/uL (152-406); RBC Red Blood Cell Count 4.16 M/uL (3.86-4.86); Red Cell Distribution Width 22.4 % (12.1-15.2)
[2024-05-13 11:42] LABS: Specific Gravity 1.011 (1.005-1.030); Sqamous Epithelial None Seen /HPF (None Seen); Urine Bacteria None Seen /HPF (<20); Urine Bilirubin NEGATIVE (Negative); Urine Blood Negative (Negative); Urine Clarity Clear (Clear); Urine Color Light-Yellow (Yellow); Urine Culture Reflex Order NOT NEEDED; Urine Glucose NEGATIVE (Negative); Urine Ketones NEGATIVE (Negative); Urine Micro Reflex YN NO BILL MICROSCOPIC; Urine Nitrite NEGATIVE (Negative); Urine Protein NEGATIVE (Negative); Urine RBC <5 /HPF (None Seen); Urine Urobilinogen Normal (Normal); Urine WBC <5 /HPF (<5)
[2024-05-13 12:02] LABS: Albumin 3.6 g/dL (3.4-5.0); Albumin/Globulin Ratio 1.2 (1.1-1.8); Bilirubin Direct 0.2 mg/dL (0-0.2); Bilirubin Indirect, Calculated 0.2 mg/dL (0.2-0.8); Bilirubin Total 0.4 mg/dL (0.2-1.0); Protein, Total 6.6 g/dL (6.4-8.2); Troponin High Sensitivity 16.7 pg/mL (<58.9)
[2024-05-13 12:42] LABS: Influenza A Ag Negative; Influenza B Ag Negative; SARS-CoV-2 Antigen Rapid Res Negative (Negative)
[2024-05-13 13:04] LABS: Anisocytosis 2+; Blood Morphology Comment NOTED (NOT SEEN); Ovalocytes 1+; Platelet Estimate ADEQ; White Blood Cell Scan OK (OK)
--- NOTE | 2024-05-13 13:15 | ER ---
Nurse's Notes [facility] Name: Jennifer Sherwood Age: 68 yrs Sex: Female : 1955 Arrival Date: 05/13/2024 Time: 09:00 Bed 16 Private MD: Diagnosis: Weakness Presentation: 05/13 09:50 Chief complaint:. Chief complaint: Patient states: feeling weak , was just d/c from [facility] in [place] for GI bleed. Coronavirus screen: At this time, the client does not indicate any symptoms associated with coronavirus-19. Ebola Screen: No symptoms or risks identified at this time. Initial Sepsis Screen: Does the patient meet any 2 criteria? No. Patient's initial sepsis screen is negative. Does the patient have a suspected source of infection? No. Patient's initial sepsis screen is negative. Risk Assessment: Do you want to hurt yourself or someone else? Patient reports no desire to harm self or others. Onset of symptoms was May 13, 2024. 09:50 Acuity: VAHE 3 iw 09:50 Method Of Arrival: Wheelchair iw Historical: - Allergies: 09:51 HYDROCODONE; iw - PMHx: 09:51 Atrial fibrillation; Chronic obstructive lung disease; Congestive heart failure; iw Hypertension; Myocardial infarction; - PSHx: 09:51 coronary stents; iw - Immunization history:: Adult Immunizations unknown. - Infectious Disease History:: Denies. - Social history:: Smoking status: unknown. Screenin:39 [facility] ED Fall Risk Assessment (Adult) History of falling in the last 3 months, cm10 including since admission No falls in past 3 months (0 pts) Confusion or Disorientation No (0 pts) Intoxicated or Sedated No (0 pts) Impaired Gait No (0 pts) Mobility Assist Device Used No (0 pt) Altered Elimination No (0 pt) Score/Fall Risk Level 0 - 2 = Low Risk Oriented to surroundings, Maintained a safe environment, Hourly rounding (assess needs \T\ fall precautionary measures) done. Abuse screen: Denies threats or abuse. Denies injuries from another. Nutritional screening: No deficits noted. Tuberculosis screening: No symptoms or risk factors identified. Assessment: 13:38 General: Appears in no apparent distress. comfortable, Behavior is calm, cooperative. cm10 Pain: Complains of pain in head. Neuro: No deficits noted. Level of Consciousness is awake, alert, obeys commands, Oriented to person, place, time, situation, Appropriate for age. Respiratory: No deficits noted. Airway is patent Respiratory effort is even, unlabored, Respiratory pattern is regular, symmetrical. Vital Signs: 09:50 BP 123 / 71; Pulse 95; Resp 16; Temp 97.6; Pulse Ox 95% on R/A; iw 13:15 BP 121 / 65; Pulse 86; Resp 17; Pulse Ox 100% on R/A; cm10 ED Course: 09:03 Patient arrived in ED. cj3 09:04 Douglas Russ MD is Attending Physician. rt 09:50 Triage completed. iw 09:51 Arm band placed on. iw 10:04 XRAY Chest (1 view) In Process Unspecified. EDMS 11:27 Initial lab(s) drawn, by me, sent to lab. Inserted saline lock: 20 gauge in left wrist, zm using aseptic technique. Blood collected. Flushed with 10 mL NS. 11:27 Basic Metabolic Panel Sent. zm 11:27 CBC with Diff Sent. zm 11:27 LFT's Sent. zm 11:27 Troponin HS Sent. zm 11:27 COVID-19 Ag + Flu A+B Ag Sent. zm 11:36 UAM Sent. zm 12:52 Mandy Morocho, RN is Primary Nurse. cm10 13:39 Patient has correct armband on for positive identification. Provided Education on: cm10 follow-up instructions. 13:39 No provider procedures requiring assistance completed. IV discontinued, intact, cm10 bleeding controlled, No redness/swelling at site. Pressure dressing applied. Administered Medications: No medications were administered Medication: 13:39 VIS not applicable for this client. cm10 Outcome: 13:14 Discharge ordered by . rt 13:40 Discharged to home ambulatory, cm10 13:40 Condition: good 13:40 Discharge instructions given to patient, Instructed on discharge instructions, follow up and referral plans. Demonstrated understanding of instructions, follow-up care, 13:40 Patient left the ED. cm10 Signatures: Dispatcher [employer] EDMS Puja Jarrell, Lianet Munoz RN, Ryan, MD MD rt Mandy Morocho RN RN cm10 Yi Marie 3
--- NOTE | 2024-05-13 13:15 | EDPHYS ---
Physician Documentation [facility] Name: Jennifer Sherwood Age: 68 yrs Sex: Female : 1955 Arrival Date: 05/13/2024 Time: 09:00 Bed 16 Private MD: ED Physician Douglas Russ HPI: 05/13 09:53 This 68 yrs old Female presents to ER via Wheelchair with complaints of High rt Blood Pressure, Weakness. 09:53 Patient presents to the ED with weakness starting this morning. She has associated rt cough. Is worse when she walks around. Reports nasal congestion. Denies other complaints at this time, symptoms are moderate in severity, no other aggravating or elevating factors.. Historical: - Allergies: 09:51 HYDROCODONE; iw - PMHx: 09:51 Atrial fibrillation; Chronic obstructive lung disease; Congestive heart failure; iw Hypertension; Myocardial infarction; - PSHx: 09:51 coronary stents; iw - Immunization history:: Adult Immunizations unknown. - Infectious Disease History:: Denies. - Social history:: Smoking status: unknown. ROS: 09:53 Constitutional: Negative for fever, chills, and weight loss, Cardiovascular: Negative rt for chest pain, palpitations, and edema, Abdomen/GI: Negative for abdominal pain, nausea, vomiting, diarrhea, and constipation, MS/Extremity: Negative for injury and deformity, Skin: Negative for injury, rash, and discoloration, 09:53 ENT: Positive for rhinorrhea, 09:53 Respiratory: Positive for cough, Negative for shortness of breath, 09:53 Neuro: Positive for weakness, Negative for loss of consciousness, Exam: 09:53 Constitutional: This is a well developed, well nourished patient who is awake, alert, rt and in no acute distress. Head/Face: Normocephalic, atraumatic. Chest/axilla: Normal chest wall appearance and motion. Nontender with no deformity. No lesions are appreciated. Cardiovascular: Regular rate and rhythm with a normal S1 and S2. No gallops, murmurs, or rubs. Normal PMI, no JVD. No pulse deficits. Respiratory: Lungs have equal breath sounds bilaterally, clear to auscultation and percussion. No rales, rhonchi or wheezes noted. No increased work of breathing, no retractions or nasal flaring. Abdomen/GI: Soft, non-tender, with normal bowel sounds. No distension or tympany. No guarding or rebound. No evidence of tenderness throughout. Skin: Warm, dry with normal turgor. Normal color with no rashes, no lesions, and no evidence of cellulitis. MS/ Extremity: Pulses equal, no cyanosis. Neurovascular intact. Full, normal range of motion. Neuro: Awake and alert, GCS 15, oriented to person, place, time, and situation. Cranial nerves II-XII grossly intact. Motor strength 5/5 in all extremities. Sensory grossly intact. Cerebellar exam normal. Normal gait. 13:16 ECG was reviewed by the Attending Physician. rt Vital Signs: 09:50 BP 123 / 71; Pulse 95; Resp 16; Temp 97.6; Pulse Ox 95% on R/A; iw 13:15 BP 121 / 65; Pulse 86; Resp 17; Pulse Ox 100% on R/A; cm10 MDM: 09:53 Medical Screening Exam initiated rt 13:16 Differential diagnosis: Viral syndrome, dysrhythmia, generalized weakness, anemia. Data rt reviewed: vital signs, nurses notes, lab test result(s), EKG, radiologic studies. Consideration of Admission/Observation Escalation of care including admission/observation considered. Symptoms resolved spontaneously, stable vital signs, unremarkable workup, stable for outpatient care. Independent interpretation of the following test(s) in the Emergency Department X-Ray: My interpretation is No infiltrate seen on interpretation of x-ray images. Test considered but Not performed: CT: No focal neurodeficits, no head trauma, CT scan of the head is not indicated. Care significantly affected by the following chronic conditions: Chronic Obstructive Pulmonary Disease. Counseling: I had a detailed discussion with the patient and/or guardian regarding the historical points, exam findings, and any diagnostic results supporting the discharge/admit diagnosis, lab results, radiology results, the need for outpatient follow up, to return to the emergency department if symptoms worsen or persist or if there are any questions or concerns that arise at home. Response to treatment: the patient's symptoms have resolved after treatment. 05/13 09:53 Order name: Basic Metabolic Panel; Complete Time: 13:08 rt 05/13 09:53 Order name: CBC with Diff; Complete Time: :08 rt 05/13 09:53 Order name: LFT's; Complete Time: 13:08 rt 05/13 09:53 Order name: Troponin HS; Complete Time: 13:08 rt 05/13 09:53 Order name: COVID-19 Ag + Flu A+B Ag; Complete Time: 13:08 rt 05/13 09:53 Order name: UAM; Complete Time: 13:08 rt 05/13 11:37 Order name: CBC Smear Scan; Complete Time: 13:08 EDMS 05/13 09:53 Order name: XRAY Chest (1 view); Complete Time: 10:19 rt 05/13 09:53 Order name: Cardiac monitoring; Complete Time: 13:35 rt 05/13 09:53 Order name: EKG - Nurse/Tech; Complete Time: 13:35 rt 05/13 09:53 Order name: IV Saline Lock; Complete Time: 11:27 rt 05/13 09:53 Order name: Labs collected and sent; Complete Time: 11:27 rt 05/13 09:53 Order name: O2 Per Protocol; Complete Time: 13:35 rt 05/13 09:53 Order name: O2 Sat Monitoring; Complete Time: 13:35 rt 05/13 11:52 Order name: Labs - recollect needed: swab; Complete Time: 12:20 bc6 EC:16 Rate is 83 beats/min. Rhythm is regular, Normal Sinus Rhythm with No ectopy. QRS Harlan rt is Normal. IN interval is normal. QRS interval is normal. QT interval is normal. No Q waves. No ST changes noted. Interpreted by me. Administered Medications: No medications were administered Disposition Summary: 05/13/24 13:14 Discharge Ordered Notes: Location: Home rt Problem: new rt Symptoms: have improved rt Condition: Stable rt Diagnosis - Weakness rt Followup: rt - With: Private Physician - When: 2 - 3 days - Reason: Discharge Instructions: - Discharge Summary Sheet rt - Weakness rt Forms: - Medication Reconciliation Form rt - Antibiotic Education rt - Prescription Opioid Use rt - Patient Portal Instructions rt - Leadership Thank You Letter rt Signatures: Dispatcher [employer] Puja Alonso, Douglas Campbell RN, MD MD rt Jessica Friedman bc6 Mandy Morocho RN RN cm10 Corrections: (The following items were deleted from the chart) 09:54 09:53 BASIC METABOLIC PANEL+C.LAB.BRZ ordered. PASCUALIL PASCUALMS : 09:53 CBC+H.LAB.BRZ ordered. EDMS EDMS : 09:53 HEPATIC FUNCTION+C.LAB.BRZ ordered. EDMS EDMS : 09:53 Troponin High Sensitivity+C.LAB.BRZ ordered. EDMS EDMS : 09:53 COVID-19 Ag + Flu A+B Ag+I.LAB.BRZ ordered. EDMS EDMS 09:53 Urinalysis W/Microscopic+U.LAB.BRZ ordered. EDMS EDMS : 09:54 Chest Single View+RAD.RAD.BRZ ordered. EDMS EDMS
[2024-05-13 13:44] VITALS: TEMP 97.6
[2024-05-13 13:46] VITALS: BP 121/65; O2SAT 100
== END 2024-05-13 13:40 | disposition home or self-care (01) ==
LOC: ER 09:00
DX: R53.1 Weakness (principal); R05.9 Cough, unspecified; J44.9 Chronic obstructive pulmonary disease, unspecified; I10 Essential (primary) hypertension; I48.91 Unspecified atrial fibrillation; I50.9 Heart failure, unspecified; Z11.52 Encounter for screening for COVID-19
CPT/HCPCS: 36415; 71045; 80048; 80076; 81001; 84484; 85025; 87428; 93005; 99283

== ENCOUNTER 2024-12-24 14:22 | Emergency (ER) | payer OTHER ==
[2024-12-24 16:13] LABS: PT Prothrombin Time 12.0 SECONDS (10-13.0); Protime INR 1.06
[2024-12-24 16:14] LABS: PTT, Activated Partial Thromb 26.0 SECONDS (27.2-37.4)
[2024-12-24 16:16] LABS: Absolute Lymphocytes (CBC) 1.3 K/uL (0.7-4.9); Hematocrit 24.7 % (36.0-45.0); Hemoglobin 7.5 g/dL (12.0-15.0); MCH 19.6 pg (27.0-35.0); MCHC 30.1 g/dL (32.0-36.0); MCV 64.9 fL (80-100); MPV 9.1 fL (7.6-11.3); Nucleated RBC Absolute Count 0.0 (0-0); Nucleated Red Blood Cells % 0.2 % (0-0); RBC Red Blood Cell Count 3.81 M/uL (3.86-4.86); White Blood Count 7.00 thou/uL (4.3-10.9)
[2024-12-24 16:23] LABS: ALT/SGPT 23 U/L (13-56); AST/SGOT < 10 U/L (15-37); Albumin 4.1 g/dL (3.4-5.0); Albumin/Globulin Ratio 1.2 (1.1-1.8); Alkaline Phosphatase 69 U/L (45-117); Anion Gap 10.0 mEq/L (5.0-15.0); BUN Blood Urea Nitrogen 12 mg/dL (7-18); Bilirubin Indirect, Calculated 0.3 mg/dL (0.2-0.8); Globulin 3.5 g/dL (2.3-3.5); Glucose Level 83 mg/dL (74-106); Magnesium 2.0 mg/dL (1.6-2.4); NT PRO-BNP 283 pg/mL (<125); Potassium 4.0 mEq/L (3.5-5.1); Troponin High Sensitivity 9.0 pg/mL (<58.9)
--- NOTE | 2024-12-24 17:55 | RAD REPORT ---
EXAMINATION: ONE VIEW CHEST XR CLINICAL INDICATION: Female, 69 years old.,fatigue TECHNIQUE: Frontal chest projection is submitted. Examination is limited by patient positioning and t echnique. COMPARISON: 05/13/2024 FINDINGS: The lungs are well inflated and clear. No pneumothorax or sizable effusion. The heart is normal in s ize. Mediastinal contours are unremarkable. IMPRESSION: No acute intrathoracic abnormalities.
[2024-12-24] MEDS ORDERED: NA CHLORIDE 0.9% 250 ML ONE (18:28)
--- NOTE | 2024-12-24 21:12 | ER ---
Nurse's Notes [facility] Name: Jennifer Sherwood Age: 69 yrs Sex: Female : 1955 Arrival Date: 12/24/2024 Time: 14:22 Bed 6 Private MD: Diagnosis: Anemia, unspecified Presentation: 12/24 14:56 Chief complaint: Patient states: had blood work done yesterday and they called today iw and said her Hgb was low and needed to come to ER, hx of GI bleed , has been cauterized 6 months ago. Coronavirus screen: At this time, the client does not indicate any symptoms associated with coronavirus-19. Ebola Screen: No symptoms or risks identified at this time. Initial Sepsis Screen: Does the patient meet any 2 criteria? No. Patient's initial sepsis screen is negative. Does the patient have a suspected source of infection? No. Patient's initial sepsis screen is negative. Risk Assessment: Do you want to hurt yourself or someone else? Patient reports no desire to harm self or others. Onset of symptoms was December 24, 2024. 14:56 Method Of Arrival: Ambulatory iw 14:56 Acuity: VAHE 3 iw Historical: - Allergies: 14:59 HYDROCODONE; iw - PMHx: 14:59 Congestive heart failure; Hypertension; Chronic obstructive lung disease; Atrial iw fibrillation; Myocardial infarction; - PSHx: 14:59 coronary stents; iw - Immunization history:: Adult Immunizations not up to date. - Infectious Disease History:: Denies. - Social history:: Smoking status: Patient reports the use of cigarette tobacco products, denies chronic smoking, but will smoke occasionally. Screenin:50 [facility] ED Fall Risk Assessment (Adult) History of falling in the last 3 months, me1 including since admission No falls in past 3 months (0 pts) Confusion or Disorientation No (0 pts) Intoxicated or Sedated No (0 pts) Impaired Gait No (0 pts) Mobility Assist Device Used No (0 pt) Altered Elimination No (0 pt) Score/Fall Risk Level 0 - 2 = Low Risk Maintained a safe environment, Provided non-skid footwear, Hourly rounding (assess needs \T\ fall precautionary measures) done. Abuse screen: Denies threats or abuse. Nutritional screening: No deficits noted. Tuberculosis screening: No symptoms or risk factors identified. Assessment: 15:50 General: Appears in no apparent distress. well groomed, well developed, well nourished, me1 Behavior is calm, cooperative, appropriate for age, Reports had blood work done yesterday and they called today and said her Hgb was low and needed to come to ER, hx of GI bleed , has been cauterized 6 months ago. Pain: Denies pain. Neuro: Level of Consciousness is awake, alert, obeys commands, Oriented to person, place, time, situation, Appropriate for age. Cardiovascular: Patient's skin is warm and dry. Respiratory: Airway is patent Trachea midline Respiratory effort is even, unlabored, Respiratory pattern is regular, symmetrical. GI: Abdomen is non-distended, Bowel sounds present X 4 quads. Patient currently denies bloody stool. : No signs and/or symptoms were reported regarding the genitourinary system. EENT: No signs and/or symptoms were reported regarding the EENT system. Derm: Skin is intact, is healthy with good turgor, Skin is pink, warm \T\ dry. Musculoskeletal: Circulation, motion, and sensation intact. Range of motion: intact in all extremities. 18:30 Reassessment: transfusion started. me1 19:25 General: Appears in no apparent distress. comfortable, Behavior is calm, cooperative, vc1 appropriate for age. Pain: Denies pain. Neuro: Level of Consciousness is awake, alert, obeys commands, Oriented to person, place, time, situation, Appropriate for age. Cardiovascular: Heart tones S1 S2 present Capillary refill < 3 seconds Patient's skin is warm and dry. Respiratory: Airway is patent Respiratory effort is even, unlabored, Respiratory pattern is regular, symmetrical, Breath sounds are clear bilaterally. GI: No deficits noted. No signs and/or symptoms were reported involving the gastrointestinal system. : No deficits noted. No signs and/or symptoms were reported regarding the genitourinary system. EENT: No deficits noted. No signs and/or symptoms were reported regarding the EENT system. Derm: Skin is intact, is healthy with good turgor, Skin is dry, Skin is normal, Skin temperature is warm. Musculoskeletal: Circulation, motion, and sensation intact. Range of motion: intact in all extremities. 20:26 Reassessment: Patient appears in no apparent distress at this time. No changes from vc1 previously documented assessment. Patient and/or family updated on plan of care and expected duration. Pain level reassessed. Patient is alert, oriented x 3, equal unlabored respirations, skin warm/dry/pink. Vital Signs: 14:56 BP 125 / 69; Pulse 79; Resp 16; Pulse Ox 99% on R/A; Weight 56.25 kg; Height 5 ft. 0 iw in. ; Pain 0/10; 16:00 BP 116 / 58; Pulse 78; Resp 16; Pulse Ox 100% ; me1 17:00 BP 110 / 45; Pulse 78; Resp 15; Pulse Ox 99% ; me1 18:00 BP 110 / 49; Pulse 76; Resp 15; Pulse Ox 100% ; me1 19:24 BP 119 / 56; Pulse 74; Resp 16; Pulse Ox 100% ; vc1 14:56 Body Mass Index 24.22 (56.25 kg, 152.4 cm) iw 14:56 Pain Scale: Adult iw 19:24 See blood transfusion form vc1 ED Course: 14:27 Patient arrived in ED. mr 14:35 Lawrence Bradshaw PA-C is PHCP. cp 14:35 Lawrence Spence MD is Attending Physician. cp 14:58 Triage completed. iw 14:59 Arm band placed on. iw 15:47 Clarissa Wang, RN is Primary Nurse. me1 15:50 Patient has correct armband on for positive identification. Bed in low position. Call ca1 light in reach. Side rails up X2. Provided Education on: POC. Verbalized understanding.. Client placed on continuous cardiac and pulse oximetry monitoring. NIBP monitoring applied. Pulse ox on. NIBP on. 15:50 No provider procedures requiring assistance completed. me1 15:52 Initial lab(s) drawn, by ca, sent to lab. T\T\S collected, blood band applied to patient. kb4 Inserted saline lock: 20 gauge in right forearm, using aseptic technique. Blood collected. Flushed with 10 mL NS. 16:10 EKG done, by ED staff, reviewed by Lawrence Bradshaw PA-C. me1 16:20 XRAY Chest (1 view) In Process Unspecified. EDMS 18:49 Packed RBC Leukored Sent. me1 18:49 LAB Add On Sent. me1 21:19 IV discontinued, intact, bleeding controlled, No redness/swelling at site. Pressure dressing applied. 21:35 IV discontinued, intact, bleeding controlled, No redness/swelling at site. Pressure vc1 dressing applied. Administered Medications: No medications were administered Medication: 15:50 VIS not applicable for this client. me1 Outcome: 21:11 Discharge ordered by . kathy 21:35 Discharged to home ambulatory, with significant other, vc1 21:35 Condition: stable 21:35 Discharge instructions given to patient, Instructed on discharge instructions, follow up and referral plans. Demonstrated understanding of instructions, follow-up care, 21:36 Patient left the ED. vc1 Signatures: Dispatcher [employer] EDMS Laura Rodriguez, Reg Reg mr Puja Jarrell, RN RN iw Lawrence Bradshaw, PA-C PA-C Clarice Cano RN RN vc1 Clarissa Wang RN RN me1 Merced Flores Kayla RN RN kb4 Corrections: (The following items were deleted from the chart) 15:50 14:56 Chief complaint: Patient states: had blood work done yesterday and they called me1 today and said her Hgb was low and needed to come to ER, hx of GI bleed , has been cauterized 6 months ago iw
--- NOTE | 2024-12-24 21:12 | EDPHYS ---
Physician Documentation [facility] Name: Jennifer Sherwood Age: 69 yrs Sex: Female : 1955 Arrival Date: 12/24/2024 Time: 14:22 Bed 6 Private MD: ED Physician Lawrence Spence HPI: 12/24 15:10 This 69 yrs old Female presents to ER via Ambulatory with complaints of cp Abnormal Lab Results. 15:10 general weakness, fatigue. cp 15:10 Patient is a 69-year-old female with past medical history significant for CHF, COPD, cp A-fib who presents to the emergency department after having routine blood work drawn by office of Dr. Trevino. Patient reports she was notified today that her hemoglobin was low and that she needed to proceed to the emergency department for evaluation. Patient reports she has had anemia in the past that required a blood transfusion. Her last transfusion was approximately 7 to 8 months ago. Patient reports a history of anemia from a gastric bleed that required ablation type surgery. Historical: - Allergies: 14:59 HYDROCODONE; iw - PMHx: 14:59 Congestive heart failure; Hypertension; Chronic obstructive lung disease; Atrial iw fibrillation; Myocardial infarction; - PSHx: 14:59 coronary stents; iw - Immunization history:: Adult Immunizations not up to date. - Infectious Disease History:: Denies. - Social history:: Smoking status: Patient reports the use of cigarette tobacco products, denies chronic smoking, but will smoke occasionally. ROS: 15:15 Constitutional: Positive for fatigue, Negative for body aches, chills, fever, poor PO cp intake, 15:15 Eyes: Negative for injury, pain, redness, and discharge, cp 15:15 Cardiovascular: Negative for chest pain, edema, palpitations, 15:15 Respiratory: Negative for cough, wheezing, 15:15 Abdomen/GI: Negative for abdominal pain, vomiting, diarrhea, constipation, black/tarry stool, rectal bleeding, 15:15 Neuro: Positive for weakness, Negative for altered mental status, dizziness, headache, syncope, near syncope, 15:15 All other systems are negative, Exam: 15:20 Constitutional: The patient appears in no acute distress, alert, awake, cp non-diaphoretic, non-toxic, well developed, well nourished, 15:20 Head/Face: Normocephalic, atraumatic. cp 15:20 Eyes: Periorbital structures: appear normal, Conjunctiva: normal, no exudate, no injection, Sclera: no appreciated abnormality, Lids and lashes: appear normal, bilaterally, 15:20 ENT: External ear(s): are unremarkable, Nose: is normal, Mouth: Lips: moist, Oral mucosa: moist, Posterior pharynx: Airway: no evidence of obstruction, patent, 15:20 Chest/axilla: Inspection: normal, 15:20 Cardiovascular: Rate: normal, Rhythm: regular, Edema: is not appreciated, JVD: is not appreciated, 15:20 Respiratory: the patient does not display signs of respiratory distress, Respirations: normal, no use of accessory muscles, no retractions, labored breathing, is not present, Breath sounds: are clear throughout, no decreased breath sounds, no stridor, no wheezing, 15:20 Abdomen/GI: Inspection: abdomen appears normal, Palpation: abdomen is soft and non-tender, in all quadrants, 15:20 Back: pain, is absent, ROM is normal, 15:20 Neuro: Orientation: to person, place \T\ time. Mentation: is normal, Motor: moves all fours, strength is normal, Gait: is steady, at a normal pace, without difficulty, 16:00 Abdomen/GI: Rectal exam: Stool: brown, cp 16:10 ECG was reviewed by the Attending Physician. Vital Signs: 14:56 BP 125 / 69; Pulse 79; Resp 16; Pulse Ox 99% on R/A; Weight 56.25 kg; Height 5 ft. 0 iw in. ; Pain 0/10; 16:00 BP 116 / 58; Pulse 78; Resp 16; Pulse Ox 100% ; me1 17:00 BP 110 / 45; Pulse 78; Resp 15; Pulse Ox 99% ; me1 18:00 BP 110 / 49; Pulse 76; Resp 15; Pulse Ox 100% ; me1 19:24 BP 119 / 56; Pulse 74; Resp 16; Pulse Ox 100% ; vc1 14:56 Body Mass Index 24.22 (56.25 kg, 152.4 cm) iw 14:56 Pain Scale: Adult iw 19:24 See blood transfusion form vc1 MDM: 15:00 Medical Screening Exam initiated cp 21:10 Data reviewed: vital signs, nurses notes, lab test result(s), EKG, radiologic studies, cp plain films, and as a result, I will discharge patient. 21:10 Differential Diagnosis anemia, [place], GI bleed. I considered the following discharge cp prescriptions or medication management in the emergency department Medications were administered in the Emergency Department. See MAR. Independent interpretation of the following test(s) in the Emergency Department EKG: See my EKG interpretation above X-Ray: My interpretation is chest xray negative for infiltrates. Care significantly affected by the following chronic conditions: Hypertension, Congestive Heart Failure, Chronic Obstructive Pulmonary Disease. Counseling: I had a detailed discussion with the patient and/or guardian regarding the historical points, exam findings, and any diagnostic results supporting the discharge/admit diagnosis, lab results, radiology results, to return to the emergency department if symptoms worsen or persist or if there are any questions or concerns that arise at home. Response to treatment: improved after transfusion, and as a result, I will discharge patient. 12/24 15:16 Order name: Basic Metabolic Panel; Complete Time: 17:11 cp 12/24 15:16 Order name: CBC with Diff; Complete Time: 17:11 cp 12/24 17:11 Interpretation: Normal except: RBC 3.81; HGB 7.5; HCT 24.7; MCV 64.9; MCH 19.6; MCHC cp 30.1; RDW 16.7; COLE% 74.0. 12/24 15:16 Order name: LFT's; Complete Time: 17:11 cp 12/24 15:16 Order name: Magnesium; Complete Time: 17:11 cp 12/24 15:16 Order name: NT PRO-BNP; Complete Time: 17:11 cp 12/24 15:16 Order name: PT-INR; Complete Time: 17:11 cp 12/24 15:16 Order name: Troponin HS; Complete Time: 17:11 cp 12/24 15:16 Order name: Type And Screen cp 12/24 18:00 Interpretation: Reviewed. cp 12/24 15:16 Order name: Ptt, Activated; Complete Time: 17:11 cp 12/24 17:41 Order name: LAB Add On sp 12/24 17:46 Order name: Packed RBC Leukored EDMS 12/24 15:16 Order name: XRAY Chest (1 view); Complete Time: 18:00 cp 12/24 15:16 Order name: EKG; Complete Time: 15:16 cp 12/24 15:16 Order name: Cardiac monitoring; Complete Time: 16:10 cp 12/24 15:16 Order name: EKG - Nurse/Tech; Complete Time: 16:10 cp 12/24 15:16 Order name: IV Saline Lock; Complete Time: 15:55 cp 12/24 15:16 Order name: Labs collected and sent; Complete Time: 15:55 cp 12/24 15:16 Order name: O2 Per Protocol; Complete Time: 15:54 cp 12/24 15:16 Order name: O2 Sat Monitoring; Complete Time: 15:54 cp 12/24 18:00 Order name: Transfuse; Complete Time: 18:49 cp EC:10 Rate is 76 beats/min. Rhythm is regular. GA interval is normal. QRS interval is normal. cp QT interval is normal. T waves are Inverted in lead aVR. Interpreted by me. Reviewed by me. Administered Medications: No medications were administered Disposition: 12/25 08:32 Co-signature as Attending Physician, Lawrence Spence MD I agree with the assessment and leda plan of care. Disposition Summary: 12/24/24 21:11 Discharge Ordered Notes: Location: Home cp Problem: new cp Symptoms: have improved cp Condition: Stable cp Diagnosis - Anemia, unspecified cp Followup: cp - With: Private Physician - When: 2 - 3 days - Reason: Recheck today's complaints Discharge Instructions: - Discharge Summary Sheet cp - Anemia cp - Blood Transfusion, Adult cp - Blood Transfusion, Adult, Care After cp Forms: - Medication Reconciliation Form cp - Antibiotic Education cp - Prescription Opioid Use cp - Patient Portal Instructions cp - Leadership Thank You Letter cp Critical care time excluding procedures: 17:25 Critical care time: Bedside Care: 5 minutes, Consultation: 25 minutes. Total time: 30 cp minutes Signatures: Dispatcher [employer] Lawrence Andrade MD MD cha Williams, Irene, RN RN Lawrence Castro PA-C PAMindyC cp Corrections: (The following items were deleted from the chart) 12/24 15:16 15:16 BASIC METABOLIC PANEL+C.LAB.BRZ ordered. EDMS EDMS 15:16 15:16 CBC+H.LAB.BRZ ordered. EDMS EDMS 15:16 15:16 HEPATIC FUNCTION+C.LAB.BRZ ordered. EDMS EDMS 15:16 15:16 MAGNESIUM+C.LAB.BRZ ordered. EDMS EDMS 15:16 15:16 PROBNP+C.LAB.BRZ ordered. EDMS EDMS 15:16 15:16 PROTIME (+INR)+COAG.LAB.BRZ ordered. EDMS EDMS 15:16 15:16 Troponin High Sensitivity+C.LAB.BRZ ordered. EDMS EDMS 15:16 15:16 TYPE AND SCREEN+BB.LAB.BRZ ordered. EDMS EDMS 15:16 15:16 PTT, ACTIVATED+COAG.LAB.BRZ ordered. EDMS EDMS 12/25 04:41 10 15:10 Patient is a 69-year-old female with past medical history significant for cp CHF, COPD, A-fib who presents to the emergency department after having routine blood work drawn by office of Dr. Jevon Thomas. Patient reports she was notified today that her hemoglobin was low and that she needed to proceed to the emergency department for evaluation. Patient reports she has had anemia in the past that required a blood transfusion. Her last transfusion was approximately 7 to 8 months ago. Patient reports a history of anemia from a gastric bleed that required ablation type surgery. cp
[2024-12-25 02:54] VITALS: O2SAT 100
[2024-12-25 02:56] VITALS: BP 119/56
== END 2024-12-24 21:36 | disposition home or self-care (01) ==
LOC: ER 14:22
DX: D64.9 Anemia, unspecified (principal); I11.0 Hypertensive heart disease with heart failure; I50.9 Heart failure, unspecified; I48.91 Unspecified atrial fibrillation; J44.9 Chronic obstructive pulmonary disease, unspecified; I25.2 Old myocardial infarction; F17.210 Nicotine dependence, cigarettes, uncomplicated; Z88.5 Allergy status to narcotic agent
CPT/HCPCS: 93005; 85025; 80048; 36415; 86900; 83735; 86850; 85610; 86901; 80076; 85730; 86920; 84484; 83880; 71045; 99284; P9016; J7050